=== PATIENT | female | born 1970 ===

== ENCOUNTER 2019-11-29 16:00 | Outpatient (RCR) | payer OTHER, SELFPAY ==
--- NOTE | 2019-11-16 16:17 | MHC.PT.EP ---
[facility] [place] Office [place] Office [place] Office [address] Marlene Ruiz [address] [phone] F: [phone] F: [phone] F: [phone] F: [phone] Physical Therapy Plan of Care Date of Evaluation: 11/16/19 Date of Surgery: Diagnosis: Tricompartment OA of bilateral knees Assessment: Pt is a 49 y/o female referred to skilled PT for tricompartment OA of bilateral knees. Examination reveals impairments including: altered gait pattern, impaired posture, decreased ROM @ hips and knees, impaired core/hip/knee strength, muscle length deficits, pain, impaired patella mobility/alignment, B patella lateral tracking, impaired quad control, and tenderness to palpation. Related functional limitations include: sitting for too long, sitting with knees flexed past 90 degrees, standing, walking, ascending/descending stairs, bending, lifting, getting in/out of bath, and bed mobility. Pt will benefit from skilled PT services 2x/week for 4-5 weeks in order to reduce impairments, improve function, and implement a comprehensive HEP. Frequency and Duration: The patient will be seen 2x/week for 5 weeks, minimum of 38 minutes. Short Term Goals: - In 2 weeks, Pt to report less than 10/10 pain. - In 3 weeks, Pt to demonstrate improved HS length by at least 8 degrees. Custodial Goals: -In 4 weeks, Pt to demonstrate I w/ HEP. -In 5 weeks, Pt to demonstrate the ability to ascend/descend stairs w/ less than baseline knee pain. -In 5 weeks, Pt to improve LEFI by at least 9 points. Treatment Plan: Modalities to reduce pain, spasms and effusion. Manual therapy to restore motion and function. Therapeutic exercise to improve strength and flexibility. Neuromuscular re-education for posture and balance. Therapeutic activities to return to functional activities of daily living. Please sign and return to therapist. Thank you for your referral.
--- NOTE | 2019-12-10 12:41 | MHC.PT.DC ---
[facility] [place] Office [place] Office [place] Office [address] Marlene Ruiz [address] [phone] F: [phone] F: [phone] F: [phone] F: [phone] Physical Therapy Discharge Report Diagnosis: B knee OA (tricompartment) Date of Surgery: Date of Evaluation: 11/16/19 Date of Discharge: 12/10/19 Treatments to Date: 3 Cancellations to Date: 1 No Shows to Date: 0 Discharge Status: Pt elected to stop PT intervention Discharge Summary: Pt decided to d/c herself from PT due to unexpected high copayment with inability to pain. She was referred to financial services. However, she still decided to stop PT. She was progressing well with hip and knee strengthening therapeutic exercise for her diagnosis of B knee tricompartment OA. Electronically signed by: Ashleigh Glass PT, DPT Please sign and return to therapist. Thank you for your referral.
== END 2019-12-10 12:44 | disposition other institution (70) ==
LOC: HO.PT 16:00
PROVIDERS: Visit Provider Physician Assistant
DX: M17.0 Bilateral primary osteoarthritis of knee (principal)
CPT/HCPCS: 97110; 97161

== ENCOUNTER 2019-12-17 13:28 | Outpatient (REF) | payer OTHER, SELFPAY ==
[2019-12-18 02:21] LABS: CT PCR NOT DETECTED (Not Detect.); NG PCR NOT DETECTED (Not Detect.)
[2019-12-18 09:31] LABS: BV Int Neg Control Negative (Negative); BV Int Pos Control Positive (Positive)
== END 2019-12-17 13:29 | disposition home or self-care (01) ==
LOC: HO.LAB 13:28
PROVIDERS: PCP Internal Medicine; Referring Provider Internal Medicine; Visit Provider Advanced Practice Midwife
DX: Z01.419 Encounter for gynecological examination (general) (routine) without abnormal findings (principal); E66.01 Morbid (severe) obesity due to excess calories
CPT/HCPCS: 87480; 87491; 87510; 87591; 87660

== ENCOUNTER 2020-01-02 12:35 | Outpatient (REF) | payer OTHER, SELFPAY | END 2020-01-02 12:36 | disposition home or self-care (01) | LOC: HO.LAB 12:35 | PROVIDERS: Visit Provider Nurse Practitioner Family | DX: A60.04 Herpesviral vulvovaginitis (principal) | CPT/HCPCS: 87255 ==

== ENCOUNTER → 2020-01-18 07:55 | Outpatient (BNVA) | payer OTHER, SELFPAY | PROVIDERS: PCP Internal Medicine; Visit Provider Advanced Practice Midwife | DX: Z76.89 Persons encountering health services in other specified circumstances (principal) ==

== ENCOUNTER 2020-02-07 10:40 | Outpatient (REF) | payer OTHER, SELFPAY | END 2020-02-07 10:41 | disposition home or self-care (01) | LOC: HO.LAB 10:40 | PROVIDERS: Visit Provider Internal Medicine | DX: Z20.828 Contact with and (suspected) exposure to other viral communicable diseases (principal) | CPT/HCPCS: C9803; U0003 ==

== ENCOUNTER → 2020-02-11 10:41 | Outpatient (BNVA) | payer OTHER, SELFPAY | PROVIDERS: PCP Internal Medicine; Visit Provider Obstetrics & Gynecology | DX: Z76.89 Persons encountering health services in other specified circumstances (principal) ==

== ENCOUNTER 2020-02-25 08:44 | Outpatient (REF) | payer OTHER, SELFPAY | END 2020-02-25 08:45 | disposition home or self-care (01) | LOC: HO.LAB 08:44 | PROVIDERS: PCP Internal Medicine; Visit Provider Obstetrics & Gynecology | DX: N90.4 Leukoplakia of vulva (principal) | CPT/HCPCS: 56605; 88305; 88312 ==

== ENCOUNTER → 2020-03-10 08:53 | Outpatient (BNVA) | payer OTHER, SELFPAY | PROVIDERS: PCP Internal Medicine; Visit Provider Obstetrics & Gynecology ==

== ENCOUNTER 2020-10-29 14:24 | Outpatient (REF) | payer OTHER, SELFPAY ==
--- NOTE | ~2020-10-29 | MM_ITS ---
EXAMINATION: MM DIAGNOSTIC DIGITAL BREAST TOMOSYNTHESIS, BILATERAL CLINICAL INFORMATION: Follow-up right breast density The lifetime risk of breast cancer based on the Tyrer-Cuzick Model is 10.6%. COMPARISON: Mammography: October 23, 2019 and studies dating back to May 18, 2013 TECHNIQUE: Digital breast tomosynthesis is performed in both the craniocaudal and mediolateral oblique views along with computer-aided detection (CAD). Synthesized 2D images are generated from the tomosynthesis. FINDINGS: There are scattered areas of fibroglandular density (ACR BI-RADS breast composition Category b). There are no new significant masses, abnormal calcifications, or other abnormalities. There is stability of right breast density about the inferior medial aspect. Results are provided to the patient at time of visit by the technologist. MM/MM tomosynthesis diagnostic BI IMPRESSION: There are no significant changes from prior study. ASSESSMENT: BI-RADS 2: Benign RECOMMENDATION: Routine annual mammography screening due in 12 months. This patient's information was entered into a reminder system with a target due date for their next mammogram.
== END 2020-10-29 14:25 | disposition home or self-care (01) ==
LOC: HO.MAMMO 14:24
PROVIDERS: PCP Internal Medicine; Visit Provider Internal Medicine
DX: R92.2 Inconclusive mammogram (principal)
CPT/HCPCS: 77062; 77066

== ENCOUNTER 2020-11-27 16:48 | Outpatient (REF) | payer OTHER, SELFPAY | END 2020-11-27 16:49 | disposition home or self-care (01) | LOC: HO.LNP 16:48 | PROVIDERS: Visit Provider Physician Assistant Medical | DX: Z20.822 Contact with and (suspected) exposure to COVID-19 (principal); J01.90 Acute sinusitis, unspecified | CPT/HCPCS: U0003; U0005 ==

== ENCOUNTER 2020-12-02 13:46 | Emergency (ER) | payer OTHER, SELFPAY ==
[2020-12-02 13:52] VITALS: BP 147/80; PULSE 94; RESP 18; TEMP 36; O2SAT 97; BMI 42.0
--- NOTE | 2020-12-02 15:28 | ED_ITS ---
HPI - Female Genitourinary General Chief complaint: Urogenital-Female Stated complaint: hemorrhoids Time Seen by Provider: 12/02/20 15:19 History of Present Illness HPI Narrative: Patient is a 50-year-old female with a history of external hemorrhoids. Presented today with having a massProtruding from her rectum for the last few days. Patient claims that the mass comes in in now. She does have problems with constipation from time to time. Patient denies any fever chills. No bloody stool. No nausea no vomiting. No systemic complaints. Patient is from home. Related Data Home Medications Medication Instructions Recorded Confirmed calcium carbonate 600 mg (1,500 cap PO 11/27/20 mg)-vitamin D3 500 unit capsule (Calcium 600 with Vitamin D3) Previous Rx's Medication Instructions Recorded metformin 1,000 mg tablet 1,000 mg PO BID #180 tab 11/16/20 amoxicillin 875 mg-potassium 1 tab PO Q12H 7 Days #14 tab 11/27/20 clavulanate 125 mg tablet (Augmentin) hydrocortisone 1 %-pramoxine 1 % 1 appl IN QID PRN #10 g 12/02/20 rectal foam (Proctofoam HC) Allergies Allergy/AdvReac Type Severity Reaction Status Date / Time glipizide [GLIPIZIDE] Allergy Severe SHORTNESS Verified 03/10/20 09:17 OF BREATH environmental allergies Allergy Unknown Unknown Uncoded 02/25/20 09:00 Review of Systems Review of Systems: No fever no chills no cough no congestion or upper respiratory symptoms. No diaphoresis All systems reviewed otherwise negative Yes all other systems are reviewed and are negative PMFSH Past Medical History Attestation statement: The following information was validated with the patient. Medical History Borderline glaucoma (glaucoma suspect) Carpal tunnel syndrome on right Diabetes Diabetes mellitus Hernia Herpes genitalis HTN (hypertension) Pure hypercholesterolemia Yeast infection involving the vagina and surrounding area Surgical History Hx of hernia repair Family History Family History Father Diabetes mellitus Mother Diabetes mellitus Social History Social History Alcohol intake: never Advance Directives: No Advance Directives Information Provided: No Patient : No Sexual orientation: Straight/Heterosexual Gender identity: Female Physical Exam Vital Signs: Vital Signs: Last Vital Signs Temp 96.8 F 12/02/20 13:52 Pulse 94 12/02/20 13:52 Resp 18 12/02/20 13:52 BP 147/80 H 12/02/20 13:52 Pulse Ox 97 12/02/20 13:52 Body Mass Index 42.0 Appearance: Alert. Oriented X3. No acute distress. Eyes: Pupils equal, round and reactive to light. ENT: Pharynx normal. Neck: Normal inspection. Neck supple. No lymph nodes noted. No crepitus CVS: Normal heart rate and rhythm. Pulses normal. Normal S1 and S2 Respiratory: No respiratory distress. Breath sounds normal. No Wheezing. No rales Abdomen: Soft and nontender. No rigidity. No distention. good BS x4 Rectal exam showed an external hemorrhoid. Not thrombosed. Minimally tender to touch. Skin: Skin warm and dry. Normal skin color. Normal skin turgor. Extremities: No lower extremity edema. Neurovascular intact to all extremities. No Lacerations. No Rash Neuro: Oriented X 3. No motor deficit. No sensory deficit. Moving all extermities. No slurred speech MDM - Female Genitourinary MDM Narrative Medical decision making narrative: Positive external hemorrhoid. Will prescribe Proctofoam. Will have patient follow-up on an outpatient basis with surgery. Currently in stable condition. Medical Records Attestation: I reviewed the patient's medical records. Lab Data Attestation: I reviewed the patient's lab results. Discharge Plan Discharge Clinical Impression: Hemorrhoid Patient Disposition: Home, Self-Care Instructions: Hemorrhoids (ED), Sitz Bath (DC) Prescriptions: New Proctofoam HC 1-1 % foam 1 appl IN QID PRN (Reason: hemorrhoids) Qty: 10 RF: 0 No Action metformin 1,000 mg tablet 1,000 mg PO BID Qty: 180 RF: 3 calcium carbonate-vitamin D3 [Calcium 600 with Vitamin D3] 600 mg(1,500mg) - 500 unit capsule PO RF: 0 amoxicillin-pot clavulanate [Augmentin] 875-125 mg tablet 1 tab PO Q12H 7 Days Qty: 14 RF: 0 Referrals: Fuad Lock MD [Physician] - 2 days
[2020-12-02 15:40] VITALS: BP 149/87; PULSE 90; RESP 18; TEMP 36.9; O2SAT 98
== END 2020-12-02 15:51 | disposition home or self-care (01) ==
PROVIDERS: Emergency Provider Emergency Medicine Emergency Medical Services; PCP Internal Medicine
DX: K64.4 Residual hemorrhoidal skin tags (principal); E11.9 Type 2 diabetes mellitus without complications; E66.01 Morbid (severe) obesity due to excess calories
CPT/HCPCS: 99283

== ENCOUNTER 2020-12-24 07:49 | Outpatient (REF) | payer OTHER, SELFPAY ==
[2020-12-24 15:37] LABS: CT PCR NOT DETECTED (Not Detect.); NG PCR NOT DETECTED (Not Detect.)
[2020-12-25 09:43] LABS: BV Int Neg Control Negative (Negative); BV Int Pos Control Positive (Positive)
[2020-12-27 02:47] LABS: HPV mRNA E6/E7 rflx Not Detected (Not Detected)
== END 2020-12-24 07:50 | disposition home or self-care (01) ==
LOC: HO.LAB 07:49
PROVIDERS: Visit Provider Advanced Practice Midwife
DX: Z01.411 Encounter for gynecological examination (general) (routine) with abnormal findings (principal); Z11.51 Encounter for screening for human papillomavirus (HPV); N89.8 Other specified noninflammatory disorders of vagina; Z20.2 Contact with and (suspected) exposure to infections with a predominantly sexual mode of transmission
CPT/HCPCS: 87480; 87491; 87510; 87591; 87624; 87660; 88142

== ENCOUNTER 2021-06-16 07:54 | Outpatient (REF) | payer OTHER, SELFPAY ==
[2021-06-16 10:20] LABS: HCG Quantitative < 2 mIU/mL; Thyroid Stimulating Hormone 1.82 uIU/mL (0.32-4.0)
[2021-06-18 07:17] LABS: Follicle Stimulating Hormone 58.7 mIU/mL
== END 2021-06-16 07:55 | disposition home or self-care (01) ==
LOC: HO.LAB 07:54
PROVIDERS: PCP Family Medicine; Visit Provider Advanced Practice Midwife
DX: R23.2 Flushing (principal); N92.6 Irregular menstruation, unspecified; E11.9 Type 2 diabetes mellitus without complications; E78.00 Pure hypercholesterolemia, unspecified; A60.00 Herpesviral infection of urogenital system, unspecified; E66.01 Morbid (severe) obesity due to excess calories; J30.89 Other allergic rhinitis; Z68.41 Body mass index [BMI] 40.0-44.9, adult; Z88.8 Allergy status to other drugs, medicaments and biological substances
CPT/HCPCS: 36415; 81025; 83001; 84443; 84702

== ENCOUNTER → 2021-07-14 12:43 | Outpatient (BNVA) | payer OTHER, SELFPAY | PROVIDERS: PCP Family Medicine; Referring Provider Emergency Medicine; Visit Provider Internal Medicine Cardiovascular Disease | DX: R07.9 Chest pain, unspecified (principal) | CPT/HCPCS: 93005 ==

== ENCOUNTER → 2021-07-28 09:03 | Outpatient (REF) | payer OTHER, SELFPAY ==
--- NOTE | ~2021-07-28 | NM_ITS ---
Exercise Myocardial perfusion study Indication: Chest pain to evaluate for myocardial ischemia Technique: The patient was brought in for an exercise perfusion study on 07/28/2021. Patient performed exercise as per Huy protocol and was injected 30 mCi of sestamibi was given intravenously one target HR was achieved. Images were obtained using the SPECT gamma camera interlaced with the gating device. Images were obtained in supine position. Resting perfusion study was performed on 07/29/2021. Patient was administered 30 mCi of sestamibi intravenously at rest. Images were then obtained in supine position. Images obtained with and without CT attenuation. Total DLP 107 mGy-cm. Images were processed with the software and compared side to side in short axis, horizontal long axis and vertical long axis views. Findings: The stress perfusion study showed both attenuated as well as non attenuated corrected images show normal uptake of radiotracer in all segments of LV myocardium. The gated study shows normal LV systolic function with calculated LVEF of greater than 70 %. LV cavity is normal in size. The gated study shows normal systolic wall thickening and contraction of all segments. There is no transient ischemic dilation. Resting study shows normal uptake of radiotracer in all segments of LV myocardium on non attenuated images. Gating at rest reveals normal systolic wall motion with ejection fraction at 71%. The findings are consistent with normal myocardial perfusion. NM/NM cardiolite stress test Impression: 1. Normal myocardial perfusion 2. Gated LVEF is greater than 70% 3. Transient ischemic dilatation not present Stress EKG is negative for ischemia
--- NOTE | 2021-07-28 09:06 | CA_ITS ---
Acquisition Time: 2021-07-28 09:17:09 Total Exercise Time: 00:05:01 Test Indications: Dyspnea Medications: METFORMIN Protocol: IAM Max HR: 166 BPM 99% of Pred: 167 BPM Max BP: 152/078 mmHG Max Work Load: 5.1 METS Exercise stress test with exercise 5 min 1 sec of Iam protocol stage 1 ( speed increased to 2 MPH at 3 min exercise ), achieving 98% MPHR, with mild sob, no chest discomfort, with isolated PVCs, with normotensive response to exercise, without EKG changes meeting criteria for ischemia. Nuclear images pending. Test reviewed with Dr Cruz Referred By: Oliver Cruz Overread By: DANIELLE PEÑA
== END ==
LOC: HO.CARD 09:03
PROVIDERS: Visit Provider Internal Medicine Cardiovascular Disease
DX: R07.9 Chest pain, unspecified (principal)
CPT/HCPCS: 78452; 93017; A9500

== ENCOUNTER → 2021-08-18 13:41 | Outpatient (REF) | payer OTHER, SELFPAY ==
--- NOTE | 2021-08-18 13:49 | CA_ITS ---
Transthoracic Echocardiogram Patient (Last, First, Middle): Lara Wyatt V Gender: Female Date of : 1970 Age: 51 Procedure Date: 08/18/2021 Procedure Type: Transthoracic Echocardiogram Location: OP Height: 149.86 cm Weight: 94.8 kg BSA: 1.88 m2 Heart Rate: bpm BP: 128 / 80 mmHg Physiotherapist'S Assistant: TERESO Referring MD: Oliver Cruz MD Sew Out Operator: Oliver Cruz MD Symptoms: R07.9 - Chest pain, unspecified Study Quality: Fair ECG Rhythm: Sinus Conclusions: - 1. Normal LV systolic function with impaired relaxation filling pattern 2. Normal cardiac valvular Doppler 3. No pericardial effusion Findings Left Ventricle Normal left ventricular size, thickness, and systolic function. The visually estimated ejection fraction is between 60-65%. Regional wall motion abnormalities can not be excluded due to suboptimal endocardial definition. Spectral Doppler is indicative of an impaired relaxation filling pattern. E/E prime ratio is <8, consistent with normal filling pressures. Evidence suggests grade I (mild) diastolic dysfunction. Right Ventricle Normal right ventricular cavity size and systolic function. Atria Both atria are normal in size. Interatrial shunt cannot be excluded. Aortic Valve Normal aortic valve structure and function. There is no aortic valve stenosis. There is no aortic valve regurgitation. Mitral Valve Normal mitral valve structure and function. There is trace mitral valve regurgitation. There is no mitral valve stenosis. Pulmonic Valve The pulmonic valve was not well visualized. Tricuspid Valve Likely normal tricuspid valve structure and function. Tricuspid regurgitation envelope is inadequate for calculation of right ventricular systolic pressure. Normal right atrial pressure. Great Vessels All visible segments of the aorta are normal in size. The pulmonary artery was not well visualized. Venous The inferior vena cava is normal in size and collapses greater than 50% with inspiration. Pericardium/Pleural There is no evidence of pericardial effusion. Prior Study Comparison No prior study available for comparison. Recommendations, Care & Conclusions Recommend contrast in the future to improve endocardial definition. Measurements 2D Linear Measurements IVSd: 1.12 0.6-0.9/0.6-1.0 cm LVIDd: 3.89 3.9-5.3/4.2-5.9 cm LVIDd Index: 2.07 2.4-3.2/2.2-3.1 cm/m2 LVIDs: 2.71 2.0-3.6 cm LVPWd: 1.01 0.7-1.1 cm LA Diam: 2.20 2.7-3.8/3.0-4.0 cm LAIDs Index: 1.17 1.5-2.3 cm/m2 LV Mass: 165.68 67-162/88-224 g LV Mass Index: 88.13 43-95/49-115 g/m2 LVOT Diam: 2.00 3.0+(-)1.3 cm 2D Systolic Function EF 4C: 62.80 >55% EF 2C: 66.20 >55% EF BiP: 63.30 >55% Mitral Valve MV Pk E: 0.63 MV PK A: 0.77 MV Decel Time: 219.00 E/A: 0.80 E'Lateral: 11.30 E'Medial: 7.40 E/E' Med: 8.50 E/E' Lat: 5.50 PHT: 64.00 MVA PHT: 3.44 Decel [place]: 2.85 Aortic Valve AoV Pk Manuel: 1.40 AoV Mn Manuel: 0.98 AoV VTI: 0.28 AoV Pk Grad: 8.00 Aov Mn Grad: 4.00 BEREKET Cont.VTI: 2.26 LVOT LVOT Pk Manuel: 0.95 LVOT Mn Manuel: 0.68 LVOT VTI: 0.20 LVOT Pk Grad: 4.00 LVOT Mn Grad: 2.00 LVOT Diam: 2.00 LVOT Area: 3.14 Diastolic Function MV Pk E: 0.63 MV Pk A: 0.77 E/A: 0.80 E'Medial: 7.40 E/E' Med: 8.50 E' Laterial: 11.30 E/E' Lat: 5.50 Right Ventricle TAPSE (mm): 20.00 TVS' Manuel: 11.40 Tricuspid Valve RA Press: 3.00 Great Vessels Aorta Sinus of Valsalva: 3.02 2.0-3.[address] [place]: 2.44 1.7-3.4 cm Ao Asc: 3.20 2.1-3.4 cm Updated in Other Vendor System with Status of Final Oliver Cruz MD electronically signed on 08/19/2021 1:55:02 PM with status of Final
== END ==
LOC: HO.CARD 13:41
PROVIDERS: Visit Provider Internal Medicine Cardiovascular Disease
DX: R07.9 Chest pain, unspecified (principal)
CPT/HCPCS: 93306

== ENCOUNTER 2021-10-09 07:22 | Outpatient (REF) | payer OTHER, SELFPAY ==
--- NOTE | ~2021-10-09 | XR_ITS ---
EXAMINATION: XR HAND, RIGHT CLINICAL INFORMATION: Pain COMPARISON: Previous x-ray March 2014 TECHNIQUE: PA, lateral, and oblique views of the right hand. FINDINGS: Bone alignment is normal. No fracture or dislocation is seen. There is severe erosive arthritis at the first MCP joint with joint space narrowing and erosive changes with bone destruction greatest involving the first metacarpal head. There are erosive changes of the ulnar styloid. These findings are new from 2015 exam. The joint spaces are otherwise normal. Soft tissues are normal. XR/XR hand RT min 3V IMPRESSION: New erosive changes at the first MCP joint and ulnar styloid. Involvement of the ulnar styloid favors an erosive inflammatory arthritis over septic arthritis. Findings will be communicated by the [place] work flow transportation sales consultant.
== END 2021-10-09 07:23 | disposition home or self-care (01) ==
LOC: HO.XRAY 07:22
PROVIDERS: PCP Family Medicine; Visit Provider Family Medicine
DX: M79.644 Pain in right finger(s) (principal)
CPT/HCPCS: 73130

== ENCOUNTER 2021-11-02 14:22 | Outpatient (REF) | payer OTHER, SELFPAY ==
--- NOTE | ~2021-11-02 | MM_ITS ---
EXAMINATION: MM SCREENING DIGITAL BREAST TOMOSYNTHESIS, BILATERAL CLINICAL INFORMATION: Screening. Asymptomatic. The lifetime risk of breast cancer based on the Tyrer-Cuzick Model is 10%. COMPARISON: Mammography: 10/29/2020, 10/23/2019, 04/09/2019, 09/26/2018 exam 09/21/2018 TECHNIQUE: Digital breast tomosynthesis is performed in both the craniocaudal and mediolateral oblique views along with computer-aided detection (CAD). Synthesized 2D images are generated from the tomosynthesis. FINDINGS: There are scattered areas of fibroglandular density (ACR BI-RADS breast composition Category b). The asymmetric density mid lower inner right breast on recent prior imaging suspected to represent sequela from prior trauma is no longer demonstrated with certainty. There is no developing density in either breast and no interval architectural changes or abnormal calcifications. Parenchymal pattern is otherwise similar to prior exams. There is a biopsy clip marker again noted anterior upper outer right breast. The axilla and skin contours are unremarkable. MM/MM tomosynthesis screening BI IMPRESSION: -No mammographic evidence of malignancy. -Asymmetric density lower inner right breast no longer demonstrated. ASSESSMENT: BI-RADS 2: Benign RECOMMENDATION: Routine annual mammography screening. This patient's information was entered into a reminder system with a target due date for their next mammogram.
== END 2021-11-02 14:23 | disposition home or self-care (01) ==
LOC: HO.MAMMO 14:22
PROVIDERS: PCP Family Medicine; Visit Provider Internal Medicine
DX: Z12.31 Encounter for screening mammogram for malignant neoplasm of breast (principal)
CPT/HCPCS: 77063; 77067

== ENCOUNTER 2021-12-08 09:48 | Day surgery (SDC) | payer OTHER, SELFPAY ==
--- NOTE | 2021-12-07 12:48 | P.CONAN_ITS ---
Documented by User: Gayle Mota NP 12/07/21 12:49 HPI - Anesthesia Eval Consult details Narrative: 51yo F for Colonoscopy PMFSH Active Problems Active Problems: All Active Problems (Updated 07/23/21 @ 14:54 by Mendy Jewell) Perimenopause (Acute) Encounter to discuss test results (Acute) Exertional chest pain (Acute) Hot flashes (Acute) Irregular menses (Acute) Sinusitis, acute (Acute) Lichen simplex chronicus (Acute) Vulvar leukoplakia (Acute) Hypopigmentation (Acute) Diabetes mellitus (Acute) Diabetes (Acute) Herpes genitalis (Acute) Herpes genitalia (Acute) Well woman exam with routine gynecological exam (Acute) Obesity, morbid, BMI 40.0-49.9 (Acute) Past Medical History Medical History Borderline glaucoma (glaucoma suspect) Carpal tunnel syndrome on right Diabetes Diabetes mellitus Hernia Herpes genitalis HTN (hypertension) Pure hypercholesterolemia Yeast infection involving the vagina and surrounding area Family History Family History Father Diabetes mellitus Mother Diabetes mellitus Surgical History Surgical History Hx of hernia repair Social History Social History (System 11/24/21 @ 16:29 by Adri Miles) Alcohol intake: never Patient Tobacco Use Status: Never used Tobacco Current occupational status: employed Current occupation: [employer] Sexual orientation: Straight/Heterosexual Gender identity: Female Meds Allergies Allergy/AdvReac Type Severity Reaction Status Date / Time glipizide [GLIPIZIDE] Allergy Severe SHORTNESS Verified 12/03/21 11:38 OF BREATH environmental allergies Allergy Unknown Unknown Uncoded 12/03/21 11:38 onions Allergy Unknown Unknown Uncoded 12/03/21 11:38 Home Medications Medication Instructions Recorded Confirmed Last Taken Type calcium carbonate 600 mg-vitamin 1 cap PO DAILY 11/27/20 12/03/21 12/06/21 His tory D3 12.5 mcg (500 unit) capsule (Calcium 600 with Vitamin D3) atorvastatin 10 mg tablet 10 mg PO DAILY 12/03/21 12/03/21 12/06/21 History dapagliflozin 10 mg tablet 10 mg PO DAILY 12/03/21 12/08/2112/06/22 History ([facility]) Exam Exam Date and Time: December 07, 2021 1248 Assessment and Plan Assessment Anesthesia Assessment: Chart Reviewed Documented by User: Bandar Najera MD 12/08/21 17:53 [facility] Past Medical History Medical History Borderline glaucoma (glaucoma suspect) Carpal tunnel syndrome on right Diabetes Diabetes mellitus Hernia Herpes genitalis HTN (hypertension) Pure hypercholesterolemia Yeast infection involving the vagina and surrounding area Family History Family History Father Diabetes mellitus Mother Diabetes mellitus Family history of problems with anesthesia: No Surgical History Surgical History Hx of hernia repair History of Problems with Anesthesia: No Social History Social History (System 11/24/21 @ 16:29 by Adri Miles) Alcohol intake: never Patient Tobacco Use Status: Never used Tobacco Current occupational status: employed Current occupation: [employer] Sexual orientation: Straight/Heterosexual Gender identity: Female Meds Allergies Allergy/AdvReac Type Severity Reaction Status Date / Time glipizide [GLIPIZIDE] Allergy Severe SHORTNESS Verified 12/03/21 11:38 OF BREATH environmental allergies Allergy Unknown Unknown Uncoded 12/03/21 11:38 onions Allergy Unknown Unknown Uncoded 12/03/21 11:38 Home Medications Medication Instructions Recorded Confirmed Last Taken Type calcium carbonate 600 mg-vitamin 1 cap PO DAILY 11/27/20 12/03/21 12/06/21 History D3 12.5 mcg (500 unit) capsule (Calcium 600 with Vitamin D3) atorvastatin 10 mg tablet 10 mg PO DAILY 12/03/21 12/03/21 12/06/21 History dapagliflozin 10 mg tablet 10 mg PO DAILY 12/03/21 12/08/21 12/06/21 [facility] ([facility] Exam Airway Mallampati Class: III TM Dist: >3cm Neck ROM: Full Loose/Missing/Broken Teeth: Yes (Multiple chipped teeth , poor dentition overall ) Heart: S1,S2 Lungs: b/l breath sounds Assessment and Plan Assessment Anesthesia Assessment: Anesthesia Plan Discussed Final Anesthetic Review Family History of Problems with Anesthesia: No History of Problems with Anesthesia: No NPO: Yes ASA Class: III Final Preanesthetic Review: Meds/Allgs Chart Reviewed, Consent Obtained/Reviewed and Anes Risks/Benef Reviewed Patient Risk: Intermediate Procedure Risk: Intermediate Anesthetic Plan Anesthetic Plan: MAC: Disposition: Standard PACU
[2021-12-08 06:58] VITALS: BMI 42.6
[2021-12-08 10:27] VITALS: BP 140/89; PULSE 79; RESP 18; TEMP 36.6; O2SAT 98
[2021-12-08 10:28] LABS: Glucose, Whole Blood 229 mg/dL (60-115)
[2021-12-08] MEDS: Lactated Ringers 1,000 ML 100 ML IVCONT (11:22)
--- NOTE | 2021-12-08 12:07 | P.HPSUR_ITS ---
Pre-Procedural Eval Section A Date of Service: 12/08/21 Section B Chief Complaint: screening Relevant Family History (Specify if Yes): No Relevant Social History: None Present Medications: see Short Stay Collaborative assessment Medical History: Significant History (Borderline glaucoma (glaucoma suspect) Carpal tunnel syndrome on right Diabetes Diabetes mellitus Hernia Herpes genitalis HTN (hypertension) Pure hypercholesterolemia Yeast infection involving the vagina and surrounding area) History of Previous Operations: Relevant previous surgery/procedure and date(s) (hernia repair) Allergies: Allergies Allergy/AdvReac Type Severity Reaction Status Date / Time glipizide [GLIPIZIDE] Allergy Severe SHORTNESS Verified 12/03/21 11:38 OF BREATH environmental allergies Allergy Unknown Unknown Uncoded 12/03/21 11:38 onions Allergy Unknown Unknown Uncoded 12/03/21 11:38 Review of Systems Sugical H&P ROS: Negative: Constitution, Cardiovascular, Respiratory, Neurological, Psychiatric, Hem-Onc, Allergic/Immunologic, Gastrointestinal, Genitourinary, Musculoskeletal, Integumentary, Endocrine and Eyes/Ears/Nose/Throat Exam Surgical H&P Exam: Normal: HEENT, Normal: Heart, Normal: Lungs, Normal: Extr emities, Normal: Abdomen, Normal: Skin and Normal: Neurological Plan Diagnosis/Plan: Unchanged I have reviewed the history and physical and performed a pertinent physical examination on my patient. No changes have occurred unless specified.
--- NOTE | 2021-12-08 12:54 | W.PM.OPN ---
Operative Note Operative Note Date of Service: 12/08/21 Narrative: Operative Information Procedure Description: Colonoscopy Indication: screening Anesthesia: MAC COLONOSCOPY Instrument: Olympus variable stiffness pediatric scope 190L Colonoscopy Monitoring: Vital signs and clinical assessment, continuous EKG monitoring, Pulse oximetry, Carbon Dioxide monitoring and blood pressure monitoring were done throughout the procedure. Colon withdrawal time was 12 minutes. Procedure: The patient was placed in the left lateral decubitis position and pre-procedure medications were administered. After a digital rectal examination of the ano-rectum, the video colonoscope was inserted into the rectum and advanced through the colon to the cecum/TI. The colonoscope was slowly withdrawn in a retrograde panoramic fashion and the colon mucosa was carefully examined including a retroflexed view of the rectum. Findings and interventions are described below. Procedure Difficulty: moderate Findings: Terminal Ileum-normal Cecum:normal Ascending Colon: normal Transverse Colon -normal Descending Colon:normal Sigmoid Colon: modeate diverticulodis noted Rectum: Retroflexion with small internal hemorrhoids, grade I Anorectum - normal Colon preparation: Chapman Bowel Preparation Scale Right colon; 1-2 Transverse colon: 2 Left colon; 2 (0 = Unprepared colon segment with mucosa not seen due to solid stool that cannot be cleared. 1 = Portion of mucosa of the colon segment seen, but other areas of the colon segment not well seen due to staining, residual stool and/or opaque liquid. 2 = Minor amount of residual staining, small fragments of stool and/or opaque liquid, but mucosa of colon segment seen well. 3 = Entire mucosa of colon segment seen well with no residual staining, small fragments of stool or opaque liquid) Impression and Post Procedure Diagnosis: internal hemorrhoids diverticular disease Plan: High fiber diet leaflet Avoid straining at stool, epsom salts and sitz bath, anusol supps or cream Repeat Colonoscopy in 5 years due to fair right sided prep or earlier if clinically indicated Above findings were reviewed with the patient and relevant handouts were provided if indicated.
[2021-12-08 13:00] VITALS: BP 116/69; PULSE 85; RESP 16; TEMP 36.3; O2SAT 99
--- NOTE | 2021-12-08 13:12 | PC.NURSE ---
sitting up in bed drinking andrews ahsan.
[2021-12-08 13:15] VITALS: BP 138/82; PULSE 85; RESP 16; TEMP 36.5; O2SAT 99
== END 2021-12-08 13:48 | disposition home or self-care (01) ==
PROVIDERS: PCP Family Medicine; Visit Provider Internal Medicine Gastroenterology
PROC: 0DJD8ZZ Inspection of Lower Intestinal Tract, Via Natural or Artificial Opening Endoscopic (ICD-10-PCS; CPT 45378; principal; 2021-12-08 12:30)
DX: Z12.11 Encounter for screening for malignant neoplasm of colon (principal); K57.30 Diverticulosis of large intestine without perforation or abscess without bleeding; K64.0 First degree hemorrhoids; K59.01 Slow transit constipation; I10 Essential (primary) hypertension; E78.00 Pure hypercholesterolemia, unspecified; E11.9 Type 2 diabetes mellitus without complications; H40.009 Preglaucoma, unspecified, unspecified eye; Z79.84 Long term (current) use of oral hypoglycemic drugs; Z79.899 Other long term (current) drug therapy; Z88.8 Allergy status to other drugs, medicaments and biological substances
CPT/HCPCS: 45378; 82947

== ENCOUNTER 2022-01-13 15:37 | Outpatient (REF) | payer OTHER, SELFPAY ==
--- NOTE | ~2022-01-13 | XR_ITS ---
EXAMINATION: XR HAND/WRIST, LEFT CLINICAL INFORMATION: Rheumatoid arthritis. COMPARISON: Left hand radiographs dated 05/07/2014. TECHNIQUE: AP, oblique, lateral, and scaphoid views of the left hand and wrist. FINDINGS: No acute fracture or dislocation. Normal carpal alignment. No joint space narrowing or marginal osteophytes. No osseous erosion. No periarticular osteopenia. No abnormal soft tissue calcification. XR/XR hand wrist LT IMPRESSION: Unremarkable examination.
--- NOTE | ~2022-01-13 | XR_ITS ---
EXAMINATION: XR ANKLE, RIGHT XR ANKLE, LEFT XR FOOT, RIGHT XR FOOT, LEFT CLINICAL INFORMATION: Rheumatoid arthritis. COMPARISON: Left ankle radiographs dated 11/26/2005. TECHNIQUE: AP, oblique, and lateral views of the right and left foot and ankle were obtained. FINDINGS: RIGHT ANKLE: No acute fracture or dislocation. The ankle mortise is maintained. No joint space narrowing or marginal osteophytes. No osseous erosion. Circumferential soft tissue swelling. LEFT ANKLE: No acute fracture or dislocation. The ankle mortise is maintained. No joint space narrowing or marginal osteophytes. No osseous erosion. Circumferential soft tissue swelling. RIGHT FOOT: No acute fracture or dislocation. Prominent periarticular erosions at the 5th metatarsophalangeal joint, most severe within the 5th metatarsal head. Probable dorsal subluxation of the 5th proximal phalanx. Small marginal osteophytes along the dorsal midfoot. Plantar and dorsal calcaneal spurs. LEFT FOOT: No acute fracture or dislocation. Prominent periarticular erosions at the 5th metatarsophalangeal joint with dorsal subluxation of the proximal phalanx. Small plantar and dorsal calcaneal spurs. XR/XR ankle RT min 3V IMPRESSION: RIGHT ANKLE: Circumferential soft tissue swelling without acute osseous abnormality. No osseous erosion. LEFT ANKLE: Circumferential soft tissue swelling without acute osseous abnormality. No osseous erosion. RIGHT FOOT: Prominent periarticular erosions at the fifth metatarsophalangeal joint. Probable dorsal subluxation of the fifth proximal phalanx. LEFT FOOT: Prominent periarticular erosions at the fifth metatarsophalangeal joint with dorsal subluxation of the proximal phalanx.
--- NOTE | ~2022-01-13 | XR_ITS ---
EXAMINATION: XR ANKLE, RIGHT XR ANKLE, LEFT XR FOOT, RIGHT XR FOOT, LEFT CLINICAL INFORMATION: Rheumatoid arthritis. COMPARISON: Left ankle radiographs dated 11/26/2005. TECHNIQUE: AP, oblique, and lateral views of the right and left foot and ankle were obtained. FINDINGS: RIGHT ANKLE: No acute fracture or dislocation. The ankle mortise is maintained. No joint space narrowing or marginal osteophytes. No osseous erosion. Circumferential soft tissue swelling. LEFT ANKLE: No acute fracture or dislocation. The ankle mortise is maintained. No joint space narrowing or marginal osteophytes. No osseous erosion. Circumferential soft tissue swelling. RIGHT FOOT: No acute fracture or dislocation. Prominent periarticular erosions at the 5th metatarsophalangeal joint, most severe within the 5th metatarsal head. Probable dorsal subluxation of the 5th proximal phalanx. Small marginal osteophytes along the dorsal midfoot. Plantar and dorsal calcaneal spurs. LEFT FOOT: No acute fracture or dislocation. Prominent periarticular erosions at the 5th metatarsophalangeal joint with dorsal subluxation of the proximal phalanx. Small plantar and dorsal calcaneal spurs. XR/XR foot RT min 3V IMPRESSION: RIGHT ANKLE: Circumferential soft tissue swelling without acute osseous abnormality. No osseous erosion. LEFT ANKLE: Circumferential soft tissue swelling without acute osseous abnormality. No osseous erosion. RIGHT FOOT: Prominent periarticular erosions at the fifth metatarsophalangeal joint. Probable dorsal subluxation of the fifth proximal phalanx. LEFT FOOT: Prominent periarticular erosions at the fifth metatarsophalangeal joint with dorsal subluxation of the proximal phalanx.
--- NOTE | ~2022-01-13 | XR_ITS ---
EXAMINATION: XR HIP, BILATERAL, WITH AP PELVIS CLINICAL INFORMATION: Rheumatoid arthritis. COMPARISON: None TECHNIQUE: AP and frog-leg lateral views of the right and left hip. FINDINGS: No acute fracture or dislocation. Mild bilateral hip joint space narrowing with tiny marginal osteophytes. No osseous erosion. No concerning lytic or blastic osseous lesion. No abnormal soft tissue calcification. XR/XR hips CHERYL min 3V IMPRESSION: Minimal bilateral hip arthrosis.
--- NOTE | ~2022-01-13 | XR_ITS ---
EXAMINATION: XR ANKLE, RIGHT XR ANKLE, LEFT XR FOOT, RIGHT XR FOOT, LEFT CLINICAL INFORMATION: Rheumatoid arthritis. COMPARISON: Left ankle radiographs dated 11/26/2005. TECHNIQUE: AP, oblique, and lateral views of the right and left foot and ankle were obtained. FINDINGS: RIGHT ANKLE: No acute fracture or dislocation. The ankle mortise is maintained. No joint space narrowing or marginal osteophytes. No osseous erosion. Circumferential soft tissue swelling. LEFT ANKLE: No acute fracture or dislocation. The ankle mortise is maintained. No joint space narrowing or marginal osteophytes. No osseous erosion. Circumferential soft tissue swelling. RIGHT FOOT: No acute fracture or dislocation. Prominent periarticular erosions at the 5th metatarsophalangeal joint, most severe within the 5th metatarsal head. Probable dorsal subluxation of the 5th proximal phalanx. Small marginal osteophytes along the dorsal midfoot. Plantar and dorsal calcaneal spurs. LEFT FOOT: No acute fracture or dislocation. Prominent periarticular erosions at the 5th metatarsophalangeal joint with dorsal subluxation of the proximal phalanx. Small plantar and dorsal calcaneal spurs. XR/XR foot LT min 3V IMPRESSION: RIGHT ANKLE: Circumferential soft tissue swelling without acute osseous abnormality. No osseous erosion. LEFT ANKLE: Circumferential soft tissue swelling without acute osseous abnormality. No osseous erosion. RIGHT FOOT: Prominent periarticular erosions at the fifth metatarsophalangeal joint. Probable dorsal subluxation of the fifth proximal phalanx. LEFT FOOT: Prominent periarticular erosions at the fifth metatarsophalangeal joint with dorsal subluxation of the proximal phalanx.
--- NOTE | ~2022-01-13 | XR_ITS ---
EXAMINATION: XR ANKLE, RIGHT XR ANKLE, LEFT XR FOOT, RIGHT XR FOOT, LEFT CLINICAL INFORMATION: Rheumatoid arthritis. COMPARISON: Left ankle radiographs dated 11/26/2005. TECHNIQUE: AP, oblique, and lateral views of the right and left foot and ankle were obtained. FINDINGS: RIGHT ANKLE: No acute fracture or dislocation. The ankle mortise is maintained. No joint space narrowing or marginal osteophytes. No osseous erosion. Circumferential soft tissue swelling. LEFT ANKLE: No acute fracture or dislocation. The ankle mortise is maintained. No joint space narrowing or marginal osteophytes. No osseous erosion. Circumferential soft tissue swelling. RIGHT FOOT: No acute fracture or dislocation. Prominent periarticular erosions at the 5th metatarsophalangeal joint, most severe within the 5th metatarsal head. Probable dorsal subluxation of the 5th proximal phalanx. Small marginal osteophytes along the dorsal midfoot. Plantar and dorsal calcaneal spurs. LEFT FOOT: No acute fracture or dislocation. Prominent periarticular erosions at the 5th metatarsophalangeal joint with dorsal subluxation of the proximal phalanx. Small plantar and dorsal calcaneal spurs. XR/XR ankle LT min 3V IMPRESSION: RIGHT ANKLE: Circumferential soft tissue swelling without acute osseous abnormality. No osseous erosion. LEFT ANKLE: Circumferential soft tissue swelling without acute osseous abnormality. No osseous erosion. RIGHT FOOT: Prominent periarticular erosions at the fifth metatarsophalangeal joint. Probable dorsal subluxation of the fifth proximal phalanx. LEFT FOOT: Prominent periarticular erosions at the fifth metatarsophalangeal joint with dorsal subluxation of the proximal phalanx.
[2022-01-13 16:01] LABS: MANUAL DIFF FLAG NO
[2022-01-13 16:19] LABS: Basophils Absolute Auto 0.1 X10*3/uL (0.0-0.2); Eosinophils Absolute Auto 0.5 X10*3/uL (0.0-0.4); Eosinophils Percent Auto 5.1 % (0-4); Hematocrit 37.1 % (37.0-47.0); Hemoglobin 11.6 g/dl (12.0-16.0); Imm Gran Abs Auto 0.03 X10*3/uL (0.00-0.03); Imm Gran Pct Auto 0.3 % (0.0-0.4); Lymphocytes Absolute Auto 3.2 X10*3/uL (1.2-4.9); Lymphocytes Percent Auto 35.5 % (20-40); Mean Corpuscular HGB Conc 31.3 g/dl (31.0-35.0); Monocytes Absolute Auto 0.6 X10*3/uL (0.1-1.2); Monocytes Percent Auto 6.8 % (2-11); Neutrophils Absolute Auto 4.7 x10*3/uL (2.0-8.3); Neutrophils Percent Auto 51.3 % (45-73); Platelet Count 505 X10*3/uL (160-400); Red Blood Count 4.47 X10*6/uL (4.20-5.50); Red Cell Distribution Width 15.6 % (11.0-16.0); White Blood Count 9.1 X10*3/uL (4.8-10.8)
[2022-01-13 16:23] LABS: Estimated Average Glucose 214 mg/dL; Hemoglobin A1c % 9.1 %
[2022-01-13 16:40] LABS: Alanine Aminotransferase 16 U/L (0-31); Albumin Level 3.9 g/dL (3.5-5.0); Alkaline Phosphatase 97 U/L (39-117); Anion Gap 12 (12-20); Aspartate Amino Transferase 12 U/L (5-31); Bilirubin Total 0.2 mg/dL (0.0-1.0); Blood Urea Nitrogen 8 mg/dL (9-16); C Reactive Protein 0.34 mg/dL (< or = 0.50); Calcium 10.1 mg/dL (8.4-10.2); Carbon Dioxide 29 mmol/L (22-29); Chloride 103 mmol/L (96-108); Estimated Glomerular Filt Rate > 60; Glucose Random 239 mg/dL (60-115); Potassium 4.9 mmol/L (3.3-5.1); Sodium 139 mmol/L (135-145); Total Protein 6.6 g/dL (6.5-8.0)
[2022-01-13 16:57] LABS: Erythrocyte Sedimentation Rate 34 MM/HR (0-20)
[2022-01-13 17:39] LABS: Appearance Urine Cloudy; Color Urine Yellow; Glucose Urine UA 500 mg/dL (Negative); Leukocyte Esterase Urine Negative (Negative); Nitrite Urine Negative (Negative); PH 8.5 (5.0-9.0); Specific Gravity - Urine >= 1.030 (1.005-1.025); Urine Blood Negative (Negative); Urine Ketones Negative (Negative); Urine Protein Trace mg/dL (Neg-Trace)
[2022-01-13 17:45] LABS: Bacteria Urine None Seen (None Seen); Hyaline Casts Urine 0-2 /LPF (0-2); RBC Urine 0-2 /HPF (0-2); WBC Urine 0-5 /HPF (0-5)
[2022-01-13 17:54] LABS: Creatinine Urine 41.56 mg/dL; Protein/Creatinine Ratio, Ur 0.31 (<0.2); Total Protein Urine Random 13 mg/dL (<12)
[2022-01-14 05:12] LABS: HBS Num1 1.94 mIU/mL (0-7.99); HBc Num1 0.09 S/CO (0.00-0.79); HBsAGNum1 0.27 S/CO (0.00-0.99); Hepatitis B Core Antibody Nonreactive (Nonreactive); Hepatitis B Surface Antigen Negative (Negative); ~HepC Num1 0.11 S/CO (0.00-0.79); ~Hepatitis B Surface Antibody NONREACTIVE (Nonreactive); ~Hepatitis C Antibody Nonreactive (Nonreactive)
[2022-01-14 11:18] LABS: Complement C3 141 mg/dL (83-193)
[2022-01-15 08:09] LABS: Anti DNA DS Antibody <1 IU/mL; Antibody to SS-A Antigen <1.0 NEG AI (<1.0 NEG); Antibody to SS-B Antigen <1.0 NEG AI (<1.0 NEG); SM/Ribonucleoprotein Ab <1.0 NEG AI (<1.0 NEG); Smith Protein <1.0 NEG AI (<1.0 NEG)
[2022-01-15 08:34] LABS: Hepatitis A Antibody IgM 0.09 Index (0-0.79); ~Hepatitis A Antibody IgM Nonreactive (Nonreactive)
[2022-01-15 11:13] LABS: IgA 278 mg/dL (47-310); IgG 1117 mg/dL (600-1640); IgM 129 mg/dL (50-300)
[2022-01-15 15:24] LABS: Anti Nuclear Antibody Screen POSITIVE (NEGATIVE)
[2022-01-15 23:18] LABS: Prot Elec - Albumin 3.9 g/dL (3.8-4.8); Prot Elec - Alpha1 0.3 g/dL (0.2-0.3); Prot Elec - Alpha2 0.6 g/dL (0.5-0.9); Prot Elec - Beta 1 0.5 g/dL (0.4-0.6); Prot Elec - Beta 2 0.4 g/dL (0.2-0.5); Prot Elec - Gamma 1.1 g/dL (0.8-1.7); Prot Elec - Total Protein 6.8 g/dL (6.1-8.1)
[2022-01-16 08:28] LABS: TS Negative Control Passed; TS Panel A 0; TS Panel B 1; TS Positive Control Passed; TSpotTB Negative (Negative)
== END 2022-01-13 15:38 | disposition home or self-care (01) ==
LOC: HO.LAB 15:37
PROVIDERS: PCP Family Medicine; Visit Provider Student in an Organized Health Care Education/Training Program
DX: Z11.59 Encounter for screening for other viral diseases (principal); Z11.7 Encounter for testing for latent tuberculosis infection; M06.9 Rheumatoid arthritis, unspecified; E11.9 Type 2 diabetes mellitus without complications; M35.00 Sjogren syndrome, unspecified; M25.541 Pain in joints of right hand; R82.90 Unspecified abnormal findings in urine
CPT/HCPCS: 36415; 73110; 73130; 73522; 73610; 73630; 80053; 81001; 82784; 83036; 84156; 84165; 84550; 85025; 85652; 86038; 86039; 86140; 86160; 86225; 86235; 86334; 86481; 86704; 86706; 86709; 86803; 87340

== ENCOUNTER 2022-01-27 12:47 | Outpatient (REF) | payer OTHER, SELFPAY ==
[2022-01-27 16:58] LABS: CT PCR NOT DETECTED (Not Detect.)
[2022-01-27 16:59] LABS: NG PCR NOT DETECTED (Not Detect.)
[2022-01-28 12:17] LABS: BV Int Neg Control Negative (Negative); BV Int Pos Control Positive (Positive)
== END 2022-01-27 12:48 | disposition home or self-care (01) ==
LOC: HO.LNP 12:47
PROVIDERS: PCP Family Medicine; Visit Provider Advanced Practice Midwife
DX: Z11.3 Encounter for screening for infections with a predominantly sexual mode of transmission (principal); B37.31 Acute candidiasis of vulva and vagina
CPT/HCPCS: 81025; 87480; 87491; 87510; 87591; 87660

== ENCOUNTER → 2022-02-16 07:47 | Outpatient (BNVA) | payer OTHER, SELFPAY | PROVIDERS: PCP Family Medicine; Visit Provider Student in an Organized Health Care Education/Training Program | DX: Z13.89 Encounter for screening for other disorder (principal) ==

== ENCOUNTER 2022-05-11 09:29 | Outpatient (REF) | payer OTHER, SELFPAY ==
--- NOTE | ~2022-05-11 | XR_ITS ---
EXAMINATION: XR CERVICAL SPINE CLINICAL INFORMATION: Neck pain COMPARISON: None available. TECHNIQUE: 3 views of the cervical spine were obtained. FINDINGS: There are no prevertebral soft tissue or bony abnormalities demonstrated. No compression fractures or subluxations are identified. Alignment is maintained at the atlanto-axial articulation. The disc spaces are preserved. No endplate changes are seen. The prevertebral soft tissues are normal. The foramina are patent. XR/XR cervical spine 4V IMPRESSION: Unremarkable cervical spine examination.
== END 2022-05-11 09:30 | disposition home or self-care (01) ==
LOC: HO.XRAY 09:29
PROVIDERS: PCP Family Medicine; Visit Provider Student in an Organized Health Care Education/Training Program
DX: M54.2 Cervicalgia (principal); M77.12 Lateral epicondylitis, left elbow; M05.9 Rheumatoid arthritis with rheumatoid factor, unspecified; Z79.899 Other long term (current) drug therapy
CPT/HCPCS: 72050

== ENCOUNTER 2022-08-19 13:29 | Outpatient (REF) | payer OTHER, SELFPAY ==
[2022-08-19 13:43] LABS: MANUAL DIFF FLAG NO
[2022-08-19 14:06] LABS: Basophils Absolute Auto 0.1 X10*3/uL (0.0-0.2); Basophils Percent Auto 1.1 % (0-2); Eosinophils Absolute Auto 0.2 X10*3/uL (0.0-0.4); Eosinophils Percent Auto 2.2 % (0-4); Hemoglobin 13.5 g/dl (12.0-16.0); Imm Gran Abs Auto 0.08 X10*3/uL (0.00-0.03); Imm Gran Pct Auto 0.8 % (0.0-0.4); Lymphocytes Absolute Auto 3.4 X10*3/uL (1.2-4.9); Mean Corpuscular HGB Conc 33.8 g/dl (31.0-35.0); Mean Platelet Volume 9.3 fL (9.4-12.3); Monocytes Absolute Auto 0.7 X10*3/uL (0.1-1.2); Monocytes Percent Auto 6.4 % (2-11); Neutrophils Absolute Auto 5.7 x10*3/uL (2.0-8.3); Neutrophils Percent Auto 56.5 % (45-73); Platelet Count 547 X10*3/uL (160-400); Red Blood Count 4.82 X10*6/uL (4.20-5.50); Red Cell Distribution Width 13.2 % (11.0-16.0); White Blood Count 10.1 X10*3/uL (4.8-10.8)
[2022-08-19 14:33] LABS: Alanine Aminotransferase 17 U/L (0-31); Albumin Level 3.9 g/dL (3.5-5.0); Alkaline Phosphatase 132 U/L (39-117); Anion Gap 14 (12-20); Aspartate Amino Transferase 11 U/L (5-31); Bilirubin Total 0.3 mg/dL (0.0-1.0); Blood Urea Nitrogen 9 mg/dL (9-16); C Reactive Protein 0.49 mg/dL (< or = 0.50); Carbon Dioxide 26 mmol/L (22-29); Chloride 97 mmol/L (96-108); Estimated Glomerular Filt Rate > 60; Potassium 4.6 mmol/L (3.3-5.1); Sodium 132 mmol/L (135-145); Total Protein 7.2 g/dL (6.5-8.0)
[2022-08-19 14:45] LABS: Glucose Random 476 mg/dL (60-115)
[2022-08-19 14:50] LABS: Erythrocyte Sedimentation Rate 16 MM/HR (0-20)
== END 2022-08-19 13:30 | disposition home or self-care (01) ==
LOC: HO.LAB 13:29
PROVIDERS: PCP Family Medicine; Visit Provider Student in an Organized Health Care Education/Training Program
DX: L72.0 Epidermal cyst (principal); M06.9 Rheumatoid arthritis, unspecified
CPT/HCPCS: 36415; 80053; 85025; 85652; 86140

== ENCOUNTER 2022-08-19 14:03 | Outpatient (AMB) | payer OTHER, SELFPAY ==
[2022-08-19 14:06] VITALS: BMI 44.0
--- NOTE | 2022-08-19 14:06 | A.OFFVIS_ITS ---
Intake Vital Signs 08/19/22 14:06 Height 4 ft 11 in Weight 218 lb BMI 44.0 Intake Visit Reasons: abscess of back Intake Note: This patient presents for an assessment for abscess of the back. Patient c/o; Onset 1 week, was having pus, denies pain or discomfort, completed 1 week of abx. 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 Accompanied by: Self / Same As Patient Allergies glipizide [GLIPIZIDE] Allergy (Severe, Verified 08/19/22 14:12) SHORTNESS OF BREATH environmental allergies Allergy (Unknown, Uncoded 08/19/22 14:12) Runny Nose, Sneezing, Itching onions Allergy (Unknown, Uncoded 08/19/22 14:12) Hives/Rash Medication List - Last Reconciled 08/19/22 by Garcia Rand MD acetaminophen (Tylenol Extra Strength) 1,000 mg PO Q6H PRN calcium carbonate-vitamin D3 600 mg-12.5 mcg (500 unit) (Calcium 600 with Vitamin D3) 1 cap PO DAILY certolizumab pegol (Cimzia) loading dose: 400 mg (2 syringes) at 0, 2 and 4 weeks Maintenance: 200 mg (1 syringe) every other week cyclobenzaprine 5 mg PO BEDTIME PRN hydroxychloroquine 200 mg PO BID metformin 1,000 mg PO BID miconazole nitrate 2% (Miconazole-7) 1 appful vaginal BEDTIME 7 days polyethylene glycol 3350 (Miralax) 17 grams PO DAILY PRN sennosides (Natural Senna Laxative) 17.2 mg (2 x 8.6 mg) PO BEDTIME HPI abscess of back HPI Details 52-year-old female referred for a back abscess. She says that she had area of swelling and drainage on the left side of her back about 10 days ago. She was started on oral antibiotics and she says this has improved significantly. She says she completed her antibiotics yesterday She says she has had significant drainage anymore and she feels that the swelling has gone down a lot. Denies any pain at this time. She denies any pre of trauma or insect bite on the area. She has a known diabetic. [facility] Medical History (Updated 08/19/22 @ 14:25 by Garcia Rand MD) Borderline glaucoma (glaucoma suspect) Carpal tunnel syndrome on right Cloudy urine Diabetes mellitus Diverticulosis Epidermal cyst Hernia Herpes genitalis HTN (hypertension) Joint pain in fingers of right hand Pure hypercholesterolemia Ruptured epidermal cyst Yeast infection involving the vagina and surrounding area Surgical History Hx of colonoscopy Hx of hernia repair Hx of parathyroidectomy Family History Father Diabetes mellitus Mother Diabetes mellitus Social History Alcohol intake: never Patient Tobacco Use Status: Never used Tobacco Current occupational status: employed Current occupation: [employer] Sexual orientation: Straight/Heterosexual Gender identity: Female Female Reproductive History Menstrual Age of Menarche: 7 Review of Systems Const Denies chills and Denies fever(s) Card Denies chest pain, Denies dyspnea and Denies dyspnea on exertion Resp Denies cough, Denies dyspnea and Denies dyspnea on exertion GI Denies hematochezia and Denies change in bowel habits Denies hematuria Musc Reports abnormal gait, Denies back pain and Reports limited range of motion Neuro Reports abnormal gait, Denies focal weakness and Denies convulsions Psych Denies depression and Denies mood swings Physical Exam Const Other: Morbidly obese, walks with a walker General: comfortable and no acute distress Orientation/consciousness: patient oriented x3 Neck Neck: Yes no lymphadenopathy Resp Auscultation: clear to auscultation bilaterally Cardio Rhythm: regular rhythm GI Palpation (GI): Soft to palpation, nontender and no guarding Back/Spine/Pelvis Other: Left side of the back love the scapula is note of an indurated area, about 3 cm, dry, no fluctuance, no significant tenderness or redness at this time Neuro General: patient oriented x3 Assessment & Plan Assessment & Plan (1) Epidermal cyst: Code(s): L72.0 - Epidermal cyst (2) Ruptured epidermal cyst: Code(s): L72.0 - Epidermal cyst Plan: It appears the as she had a ruptured epidermal cyst on the back as described above. Currently, the induration has improved significantly. She says that the drainage has gone down by a lot I have instructed her to continue to do warm compresses the area. She has completed her oral antibiotics. I told her that I will see her in the office in about 2 weeks to re-evaluate this as she may benefit from formal excision. She is comfortable with the plan. Coding Level of Care Code New Pt Level 3 (02571) Diagnoses Epidermal cyst L72.0 Ruptured epidermal cyst L72.0
== END 2022-08-19 14:24 | disposition home or self-care (01) ==
PROVIDERS: PCP Family Medicine; Visit Provider Surgery
DX: L72.0 Epidermal cyst (principal)
CPT/HCPCS: 99203

== ENCOUNTER 2022-09-02 13:26 | Outpatient (AMB) | payer OTHER, SELFPAY ==
--- NOTE | 2022-09-02 13:37 | MHC.OFFVIS ---
Intake Vital Signs 09/02/22 13:38 Height 4 ft 11 in Weight 225 lb BMI 45.4 Intake Visit Reasons: ruptured epidermal cyst on back, 2 wk follow up Intake Note: This patient presents for a two week follow-up assessment for ruptured epidermal cyst of the back. Patient denies complaints at this time. 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 Accompanied by: Self / Same As Patient Allergies glipizide [GLIPIZIDE] Allergy (Severe, Verified 09/02/22 13:43) SHORTNESS OF BREATH environmental allergies Allergy (Unknown, Uncoded 09/02/22 13:43) Runny Nose, Sneezing, Itching onions Allergy (Unknown, Uncoded 09/02/22 13:43) Hives/Rash Medication List - Last Reconciled 09/02/22 by Garcia Rand MD acetaminophen (Tylenol Extra Strength) 1,000 mg PO Q6H PRN calcium carbonate-vitamin D3 600 mg-12.5 mcg (500 unit) (Calcium 600 with Vitamin D3) 1 cap PO DAILY certolizumab pegol (Cimzia) loading dose: 400 mg (2 syringes) at 0, 2 and 4 weeks Maintenance: 200 mg (1 syringe) every other week cyclobenzaprine 5 mg PO BEDTIME PRN hydroxychloroquine 200 mg PO BID metformin 1,000 mg PO BID miconazole nitrate 2% (Miconazole-7) 1 appful vaginal BEDTIME 7 days polyethylene glycol 3350 (Miralax) 17 grams PO DAILY PRN sennosides (Natural Senna Laxative) 17.2 mg (2 x 8.6 mg) PO BEDTIME HPI ruptured epidermal cyst on back, 2 wk follow up HPI Details I had seen her 2 weeks ago because of area of swelling drainage on the back. This appeared to be ruptured epidermal cyst. She had been on antibiotics at that time. I had instructed her to do warm compresses. She is here for for a wound check She says that the area has healed completely and says she has had no problems with this anymore. [facility] Medical History Borderline glaucoma (glaucoma suspect) Carpal tunnel syndrome on right Cloudy urine Diabetes mellitus Diverticulosis Epidermal cyst Hernia Herpes genitalis HTN (hypertension) Joint pain in fingers of right hand Pure hypercholesterolemia Ruptured epidermal cyst Yeast infection involving the vagina and surrounding area Surgical History Hx of colonoscopy Hx of hernia repair Hx of parathyroidectomy Family History Father Diabetes mellitus Mother Diabetes mellitus Social History Alcohol intake: never Patient Tobacco Use Status: Never used Tobacco Current occupational status: employed Current occupation: [employer] Sexual orientation: Straight/Heterosexual Gender identity: Female Female Reproductive History Menstrual Age of Menarche: 7 Review of Systems Const Denies chills and Denies fever(s) Card Denies chest pain, Denies dyspnea and Reports dyspnea on exertion Resp Denies cough, Denies dyspnea and Reports dyspnea on exertion GI Denies hematochezia and Denies change in bowel habits Denies hematuria Musc Reports back pain and Reports limited range of motion Neuro Denies focal weakness and Denies convulsions Psych Denies depression and Denies mood swings Physical Exam Vital Signs: BMI result Body Mass Index 45.4 Const Other: Appears morbidly obese, walks with a walker Resp Effort & Inspection: normal respiratory effort Cardio Rate: regular rate Back/Spine/Pelvis Other: Area of previous swelling and drainage has resolved completely. There is no residual induration. There is no drainage or residual cyst Assessment & Plan Assessment & Plan (1) Ruptured epidermal cyst: Code(s): L72.0 - Epidermal cyst Plan: This seems to have completely resolved. There is no residual induration at this time. There is no discharge. I do not feel any palpable mass or cyst I therefore told her that it does not appear that we need to do any excision at this time. I told her that if this recurs, she should come back to the office to be re-evaluated. Coding Level of Care Code Est Pt Level 2 (16812) Diagnoses Ruptured epidermal cyst L72.0
[2022-09-02 13:38] VITALS: BMI 45.4
== END 2022-09-02 14:07 | disposition home or self-care (01) ==
PROVIDERS: PCP Family Medicine; Visit Provider Surgery
DX: L72.0 Epidermal cyst (principal)
CPT/HCPCS: 99212

== ENCOUNTER → 2022-09-02 13:26 | Outpatient (BNVA) | payer OTHER, SELFPAY | PROVIDERS: PCP Family Medicine; Visit Provider Surgery ==

== ENCOUNTER 2022-09-27 14:47 | Outpatient (REF) | payer OTHER, SELFPAY ==
[2022-09-27 17:44] LABS: Alanine Aminotransferase 15 U/L (0-31); Albumin Level 4.1 g/dL (3.5-5.0); Alkaline Phosphatase 84 U/L (39-117); Anion Gap 13 (12-20); Aspartate Amino Transferase 15 U/L (5-31); Bilirubin Total 0.2 mg/dL (0.0-1.0); Blood Urea Nitrogen 7 mg/dL (9-16); Calcium 9.7 mg/dL (8.4-10.2); Carbon Dioxide 27 mmol/L (22-29); Chloride 102 mmol/L (96-108); Estimated Glomerular Filt Rate > 60; Glucose Random 92 mg/dL (60-115); Potassium 3.8 mmol/L (3.3-5.1); Sodium 138 mmol/L (135-145); Total Protein 7.5 g/dL (6.5-8.0)
[2022-09-27 17:49] LABS: Cholesterol 243 mg/dL (<200); HDL Cholesterol 58 mg/dL (>40); LDL Cholesterol Calculated 150 mg/dL (<100); Triglycerides 178 mg/dL (<150)
[2022-09-27 18:02] LABS: TSH reflex Free T4 1.15 uIU/mL (0.32-4.0)
[2022-09-27 18:04] LABS: Folate 13.3 ng/mL (> or = 4.0); Vitamin B12 335 pg/mL (200-900)
[2022-09-27 18:19] LABS: Creatinine Urine 101.26 mg/dL; Microalbum/Creatinine Ratio Ur 9.8 ug/mg cr (<30)
[2022-09-27 20:23] LABS: Reflex LDLD? No
== END 2022-09-27 14:48 | disposition home or self-care (01) ==
LOC: HO.HHCL 14:47
PROVIDERS: Visit Provider Family Medicine
DX: E11.65 Type 2 diabetes mellitus with hyperglycemia (principal)
CPT/HCPCS: 36415; 80053; 80061; 82043; 82607; 82746; 84443

== ENCOUNTER 2022-11-09 07:18 | Outpatient (REF) | payer OTHER, SELFPAY ==
--- NOTE | ~2022-11-09 | MM_ITS ---
EXAMINATION: MM SCREENING DIGITAL BREAST TOMOSYNTHESIS, BILATERAL CLINICAL INFORMATION: Screening. Asymptomatic. COMPARISON: Mammography: This study is compared with prior exams dating back to 2019. TECHNIQUE: Digital breast tomosynthesis is performed in both the craniocaudal and mediolateral oblique views along with computer-aided detection (CAD). Synthesized 2D images are generated from the tomosynthesis. FINDINGS: There are scattered areas of fibroglandular density (ACR BI-RADS breast composition Category b). There are no significant masses, abnormal calcifications, or other abnormalities. There is tissue marker present in the upper outer quadrant of the right breast from prior benign percutaneous biopsy. MM/MM tomosynthesis screening BI IMPRESSION: No mammographic evidence of malignancy. ASSESSMENT: BI-RADS BI-RADS 2 - Benign Findings RECOMMENDATION: Routine annual mammography screening. 1 year F/U This examination should not preclude the clinical evaluation of a suspicious palpable abnormality. This patient's information was entered into a reminder system with a target due date for their next mammogram.
== END 2022-11-09 07:19 | disposition home or self-care (01) ==
LOC: HO.MAMMO 07:18
PROVIDERS: PCP Family Medicine; Visit Provider Family Medicine
DX: Z12.31 Encounter for screening mammogram for malignant neoplasm of breast (principal)
CPT/HCPCS: 77063; 77067

== ENCOUNTER → 2022-11-09 07:30 | Outpatient (BNV) | payer OTHER, SELFPAY | PROVIDERS: PCP Family Medicine; Visit Provider Radiology Diagnostic Radiology | DX: Z12.31 Encounter for screening mammogram for malignant neoplasm of breast (principal) | CPT/HCPCS: 77063; 77067 ==

== ENCOUNTER 2023-02-03 13:02 | Outpatient (AMB) | payer OTHER, SELFPAY ==
[2023-02-03 13:03] VITALS: BP 138/78; BMI 42.6
--- NOTE | 2023-02-03 13:03 | A.OFFVIS_ITS ---
Intake Vital Signs 02/03/23 13:03 Height 4 ft 11 in Weight 211 lb BMI 42.6 BP 138/78 Intake Visit Reasons: Annual Information Interpreted: clinical only Wind Turbine Service Technician: Wind Turbine Service Technician Present Allergies glipizide [GLIPIZIDE] Allergy (Severe, Verified 02/03/23 13:03) SHORTNESS OF BREATH environmental allergies Allergy (Unknown, Uncoded 02/03/23 13:03) Runny Nose, Sneezing, Itching onions Allergy (Unknown, Uncoded 02/03/23 13:03) Hives/Rash Medication List - Last Reviewed 02/03/23 by Mihcele Poole, JENNIFER acetaminophen (Tylenol Extra Strength) 1,000 mg PO Q6H PRN calcium carbonate-vitamin D3 600 mg-12.5 mcg (500 unit) (Calcium 600 with Vitamin D3) 1 cap PO DAILY certolizumab pegol (Cimzia) loading dose: 400 mg (2 syringes) at 0, 2 and 4 weeks Maintenance: 200 mg (1 syringe) every other week cyclobenzaprine 5 mg PO BEDTIME PRN hydroxychloroquine 200 mg PO BID metformin 1,000 mg PO BID miconazole nitrate 2% (Miconazole-7) 1 appful vaginal BEDTIME 7 days polyethylene glycol 3350 (Miralax) 17 grams PO DAILY PRN semaglutide (Ozempic) 0.25 mg subcut QWEEK sennosides (Natural Senna Laxative) 17.2 mg (2 x 8.6 mg) PO BEDTIME Is last menstrual period known: Yes Last menstrual period: 09/17/22 HPI Annual HPI Details Patient is here for her annual exam. She is starting to miss periods periodically her last 1 was in September. She had a mammogram in November. She says her diabetes is so-so her morning sugars are around 120 and she does not normally have time to checked them during the day though her doctor does want her to check it 3 times a day. She has just started on Ozempic 3 weeks ago and she thinks it is helping her lose weight but she is not sure she did throw up a couple of days ago and then threw up and had diarrhea yesterday and had some diarrhea this morning she is feeling okay but it might of been something she ate but she did come and get checked out at the office at the [facility] and they said she was fine and did not have COVID her the flu. She is using a walker because sometimes her knees give out and she does not want a fall she is careful to try to stand straight if she can. The walker however is broken it was 1 somebody gave to her and there is a bolt lose. [facility] visit [facility] and if she comes around to their off for is now they will see if they have a bolt to fix it. She is still sometime sexually active with her she would like to be tested for STDs she does have itching that she did not complain about but admits to and it is daily. She has used the cream and a pill in the past and a cream is soothing but the pill helps faster. She would like a prescription for both when I offered it to her. [facility] Medical History Ruptured epidermal cyst Epidermal cyst Cloudy urine Joint pain in fingers of right hand Diverticulosis Herpes genitalis Yeast infection involving the vagina and surrounding area Carpal tunnel syndrome on right Pure hypercholesterolemia Hernia Borderline glaucoma (glaucoma suspect) HTN (hypertension) Diabetes mellitus Surgical History Hx of parathyroidectomy Hx of colonoscopy Hx of hernia repair Family History Father Diabetes mellitus Mother Diabetes mellitus Social History Alcohol intake: never Patient Tobacco Use Status: Never used Tobacco Current occupational status: employed Current occupation: [employer] Sexual orientation: Straight/Heterosexual Gender identity: Female Female Reproductive History Menstrual Age of Menarche: 7 Date of last menstrual period: 09/17/22 control method: none Total pregnancies: 0 Full term: 0 History of abnormal pap smear: Yes (see above) Date of Mammogram: 11/09/22 History of abnormal mammogram: No Physical Exam Vital Signs: Last Vital Signs BP 138/78 02/03/23 13:03 BMI result Body Mass Index 42.6 Const Other: Adipose tissue noted. General: healthy appearing, comfortable, no acute distress, well developed and alert Nutritional Appearance: average body habitus Orientation/consciousness: patient oriented x3 Limitations: no limitations HEENT Head: Yes normocephalic Neck Neck: Yes normal visual inspection Chest Chest palpation & inspection: normal inspection of the chest Breast/axilla inspection: normal inspection of the breasts and normal inspection of the axillae Breast/axilla palpation: normal palpation of the breasts and normal palpation of the axillae Resp Effort & Inspection: normal respiratory effort GI Inspection: Yes normal to inspection, No Abdominal wall edema and No distended Palpation (GI): Soft to palpation and nontender Other: External vulva is bright pink consistent with chronic yeast which would be expected with elevated blood sugars Vagina pink and moist with white discharge consistent with yeast cervix nulliparous posterior mobile nontender uterus not enlarged nontender good tone with Kegel but using accessory muscles as well. General: Yes bladder normal to palpation External Female Exam: normal external appearance and normal appearance of the urethra Speculum Exam - Vagina: normal appearance of the vagina, normal palpation and normal vaginal discharge Speculum Exam - Cervix: normal appearance of the cervix, normal palpation and nontender Bimanual exam- vagina & uterus: normal bimanual exam, normal palpation, uterine size normal, bladder normal to palpation, consistency normal, normal palpation, uterine mobility normal, uterine shape normal, No Cervical tenderness present, non-tender and no cervical motion tenderness Bimanual Exam- Adnexa, other: normal adnexae, no masses, normal and No adnexal tenderness Neuro General: patient oriented x3 Results Reviewed Results Reviewed: Name: Lara Wyatt V Age/Sex: 50/F Attending: Sabrina Calloway CNM : 1970 Submitted by: Sabrina Calloway CNM Copies to: MR #: [id number] Status: DEP REF Collected: 12/24/20 Location: .LAB Received: 12/25/20 Interpretation General Category: Other Adequacy: No definitive endocervical component identified. Interpretation: Endometrial cells present; no squamous lesion identified. Comment: Endometrial cells after age 45, particularly out of phase or after menopause, may be associated with benign endometrium, hormonal alterations or, less commonly, endometrial/uterine abnormalities. Please correlate with clinical findings. HPV mRNA E6/E7: Not Detected This assay detects E6/E7 viral messenger RNA (mRNA) from 14 high-risk HPV types (16, 18, 31, 33, 35, 39, 45, 51, 52, 56, 58, 59, 66, 68) HPV testing performed by [facility], [place], [place]. See reference labo ratory portion of the EMR for entire report. Clinical Information LMP: 12/17/2020 Previous PAP test: 09/14/2018, HPV+ Material Received ThinPrep-Cervical Electronically Signed By: Myron Shipley MD 01/06/21 2572 The Pap Test is a screening procedure with the inherent possibility of both false negative and false positive results. Results should be interpreted in the context of historic and current clinical findings. Reliability of the Pap Test is enhanced by performing the test on a regular repetitive basis. Patient: Lara Wyatt V Age/Sex: 50/F MR#: [id number] Page 1 of 1 Assessment & Plan Assessment & Plan (1) Yeast infection involving the vagina and surrounding area: Comment: retreating 01/28 Code(s): B37.3 - Candidiasis of vulva and vagina (2) Encounter for well woman exam: Code(s): Z01.419 - Encounter for gynecological examination (general) (routine) without abnormal findings (3) Obesity, morbid, BMI 40.0-49.9: Code(s): E66.01 - Morbid (severe) obesity due to excess calories (4) Cervical cancer screening: Code(s): Z12.4 - Encounter for screening for malignant neoplasm of cervix (5) Perimenopause: Code(s): N95.1 - Menopausal and female climacteric states (6) Encounter for screening examination for sexually transmitted disease: Code(s): Z11.3 - Encounter for screening for infections with a predominantly sexual mode of transmission Plan Patient is here for her annual exam. She is starting to miss periods periodically her last 1 was in September. She had a mammogram in November. She says her diabetes is so-so her morning sugars are around 120 and she does not normally have time to checked them during the day though her doctor does want her to check it 3 times a day. She has just started on Ozempic 3 weeks ago and she thinks it is helping her lose weight but she is not sure she did throw up a couple of days ago and then threw up and had diarrhea yesterday and had some diarrhea this morning she is feeling okay but it might of been something she ate but she did come and get checked out at the office at the [facility] day care [facility] and they said she was fine and did not have COVID her the flu. She is using a walker because sometimes her knees give out and she does not want a fall she is careful to try to stand straight if she can. The walker however is broken it was 1 somebody gave to her and there is a bolt lose. During [facility] visit [facility] and if she comes around to their off for is now they will see if they have a bolt to fix it. She is still sometime sexually active with her she would like to be tested for STDs she does have itching that she did not complain about but admits to and it is daily. She has used the cream and a pill in the past and a cream is soothing but the pill helps faster. She would like a prescription for both when I offered it to her. Pap smear was done because of the history of the recent HPV positive in 2019., though I could not actually find that actual lab . Testing offered for STIs and she excepted and will get them when she can as well as cultures were done/testing was done for gonorrhea chlamydia trichomoniasis Mary and Gardnerella during this visit. I am also treating her for Mary as it is a readily apparent to me that her elevated blood sugars are contributing to chronic yeast hopefully she will do better with the Ozempic and manage her blood sugars more successfully. 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 Orders: Orders Bacterial Vaginosis Panel Today Z20.2 - Contact with and (suspected) exposure to infections with a predominantly sexual mode of transmission Hepatitis B Surface Antigen Today B37.3 - Candidiasis of vulva and vagina, E66.01 - Morbid (severe) obesity due to excess calories, N95.1 - Menopausal and female climacteric states, Z01.419 - Encounter for gynecological examination (general) (routine) without abnormal findings, Z11.3 - Encounter for screening for infections with a predominantly sexual mode of transmission, Z12.4 - Encounter for screening for malignant neoplasm of cervix HIV Ab/Ag Today B37.3 - Candidiasis of vulva and vagina, E66.01 - Morbid (severe) obesity due to excess calories, N95.1 - Menopausal and female climacteric states, Z01.419 - Encounter for gynecological examination (general) (routine) without abnormal findings, Z11.3 - Encounter for screening for infections with a predominantly sexual mode of transmission, Z12.4 - Encounter for screening for malignant neoplasm of cervix Pap Smear Today Z01.419 - Encounter for gynecological examination (general) (routine) without abnormal findings CT NG by PCR Today Z01.419 - Encounter for gynecological examination (general) (routine) without abnormal findings Hepatitis C Antibody Today B37.3 - Candidiasis of vulva and vagina, E66.01 - Morbid (severe) obesity due to excess calories, N95.1 - Menopausal and female climacteric states, Z01.419 - Encounter for gynecological examination (general) (routine) without abnormal findings, Z11.3 - Encounter for screening for infections with a predominantly sexual mode of transmission, Z12.4 - Encounter for screening for malignant neoplasm of cervix Syphilis Screen Today B37.3 - Candidiasis of vulva and vagina, E66.01 - Morbid (severe) obesity due to excess calories, N95.1 - Menopausal and female climacteric states, Z01.419 - Encounter for gynecological examination (general) (routine) without abnormal findings, Z11.3 - Encounter for screening for infections with a predominantly sexual mode of transmission, Z12.4 - Encounter for screening for malignant neoplasm of cervix Medications: New fluconazole may repeat second dose 72 hrs after first dose if symptoms persist 150 mg PO Q3D 2 doses 2 tabs 3RF miconazole nitrate 2% (Miconazole-7) 1 appful vaginal BEDTIME 7 days 45 grams 3RF Coding Level of Care Code Est Pt Prev Care 40-64y(25663) Diagnoses Yeast infection involving the vagina and surrounding area B37.3 Encounter for well woman exam Z01.419 Obesity, morbid, BMI 40.0-49.9 E66.01 Cervical cancer screening Z12.4 Perimenopause N95.1 Encounter for screening examination for sexually transmitted disease Z11.3
== END 2023-02-03 14:08 | disposition home or self-care (01) ==
LOC: HO.HWSM 13:02
PROVIDERS: PCP Family Medicine; Visit Provider Advanced Practice Midwife
DX: Z01.419 Encounter for gynecological examination (general) (routine) without abnormal findings (principal); B37.31 Acute candidiasis of vulva and vagina; E66.01 Morbid (severe) obesity due to excess calories; Z12.4 Encounter for screening for malignant neoplasm of cervix; N95.1 Menopausal and female climacteric states; Z11.3 Encounter for screening for infections with a predominantly sexual mode of transmission
CPT/HCPCS: 99396

== ENCOUNTER 2023-02-03 13:02 | Outpatient (REF) | payer OTHER, SELFPAY ==
[2023-02-03 17:45] LABS: CT PCR NOT DETECTED (Not Detect.); NG PCR NOT DETECTED (Not Detect.)
[2023-02-04 15:23] LABS: BV Int Neg Control Negative (Negative); BV Int Pos Control Positive (Positive)
[2023-02-08 17:19] LABS: HPV mRNA E6/E7 rflx Not Detected (Not Detected)
== END 2023-02-03 13:03 | disposition home or self-care (01) ==
LOC: HO.LAB 13:02
PROVIDERS: PCP Family Medicine; Visit Provider Advanced Practice Midwife
DX: Z01.419 Encounter for gynecological examination (general) (routine) without abnormal findings (principal); Z11.51 Encounter for screening for human papillomavirus (HPV); Z20.2 Contact with and (suspected) exposure to infections with a predominantly sexual mode of transmission; N95.1 Menopausal and female climacteric states; E66.01 Morbid (severe) obesity due to excess calories
CPT/HCPCS: 0353U; 87480; 87510; 87624; 87660; 88142

== ENCOUNTER 2023-03-29 14:26 | Outpatient (REF) | payer OTHER, SELFPAY ==
[2023-04-02 03:59] LABS: HPV mRNA E6/E7 rflx Not Detected (Not Detected)
== END 2023-03-29 14:27 | disposition home or self-care (01) ==
LOC: HO.LNP 14:26
PROVIDERS: PCP Family Medicine; Visit Provider Advanced Practice Midwife
DX: Z12.4 Encounter for screening for malignant neoplasm of cervix (principal); Z11.51 Encounter for screening for human papillomavirus (HPV)
CPT/HCPCS: 87624; 88142

== ENCOUNTER 2023-03-29 14:26 | Outpatient (AMB) | payer OTHER, SELFPAY ==
[2023-03-29 14:30] VITALS: BP 132/76; BMI 43.4
--- NOTE | 2023-03-29 14:30 | A.OFFVIS_ITS ---
Intake Vital Signs 03/29/23 14:30 Height 4 ft 11 in Weight 215 lb BMI 43.4 BP 132/76 Intake Visit Reasons: Repeat pap Health Insurance Specialist Required: No Information Interpreted: clinical only Fishery Division Chief: Fishery Division Chief Present Allergies glipizide [GLIPIZIDE] Allergy (Severe, Verified 03/29/23 14:30) SHORTNESS OF BREATH environmental allergies Allergy (Unknown, Uncoded 03/29/23 14:30) Runny Nose, Sneezing, Itching onions Allergy (Unknown, Uncoded 03/29/23 14:30) Hives/Rash Medication List - Last Reconciled 03/29/23 by Radha Oden CNM acetaminophen (Tylenol Extra Strength) 1,000 mg PO Q6H PRN calcium carbonate-vitamin D3 600 mg-12.5 mcg (500 unit) (Calcium 600 with Vitamin D3) 1 cap PO DAILY certolizumab pegol (Cimzia) loading dose: 400 mg (2 syringes) at 0, 2 and 4 weeks Maintenance: 200 mg (1 syringe) every other week cyclobenzaprine 5 mg PO BEDTIME PRN fluconazole 150 mg PO Q3D 2 doses hydroxychloroquine 200 mg PO BID metformin 1,000 mg PO BID miconazole nitrate 2% (Miconazole-7) 1 appful vaginal BEDTIME 7 days miconazole nitrate 2% (Miconazole-7) 1 appful vaginal BEDTIME 7 days polyethylene glycol 3350 (Miralax) 17 grams PO DAILY PRN semaglutide (Ozempic) 0.25 mg subcut QWEEK sennosides (Natural Senna Laxative) 17.2 mg (2 x 8.6 mg) PO BEDTIME Is last menstrual period known: Yes Last menstrual period: 09/17/22 Post menopausal: Yes Do you need a note to return to daycare/school/sports/work: No HPI Repeat pap HPI Details Patient is here to repeat her Pap smear the previous 1 came back unsat isfactory ?due to obscuring lubricant however no but lubricant was used by myself or the patient. Lubricant would only been used after the Pap smear was done for the bimanual exam so that can not be a consideration. her previous Pap smear came back HPV positive. Patient says her yeast is much better. Additionally she was able to get her walker/Rollator fixed at [facility] they did not have a bolt to put on it but they were able to tape the bold in place securely so it is functioning safely for her. [facility] Medical History (Updated 03/29/23 @ 15:08 by Radha Oden CNM) Ruptured epidermal cyst Epidermal cyst Cloudy urine Joint pain in fingers of right hand Diverticulosis Herpes genitalis Yeast infection involving the vagina and surrounding area Carpal tunnel syndrome on right Pure hypercholesterolemia Hernia Borderline glaucoma (glaucoma suspect) HTN (hypertension) Diabetes mellitus Surgical History Hx of parathyroidectomy Hx of colonoscopy Hx of hernia repair Family History Father Diabetes mellitus Mother Diabetes mellitus Social History Alcohol intake: never Patient Tobacco Use Status: Never used Tobacco Current occupational status: employed Current occupation: library Sexual orientation: Straight/Heterosexual Gender identity: Female Female Reproductive History Menstrual Age of Menarche: 7 Date of last menstrual period: 09/17/22 control method: none Date of last pap smear: 02/04/23 (unsatisfactory) History of abnormal pap smear: Yes Physical Exam Other: NORMAL HEALTHY PINK MUCOSA NOTED CERVIX NULLIPAROUS PINK SMOOTH HEALTHY APPEARING NO ABNORMAL DISCHARGE NO EVIDENCE OF YEAST TODAY. PAP SMEAR AGAIN OBTAINED, AGAIN NO LUBRICANT USED. External Female Exam: normal external appearance and normal appearance of the urethra Speculum Exam - Vagina: normal appearance of the vagina and normal vaginal discharge Speculum Exam - Cervix: normal appearance of the cervix and Cervical os closed Results Reviewed Results Reviewed: Name: Lara Wyatt V Age/Sex: 52/F Attending: Radha Oden CNM : 1970 Submitted by: Radha Oden CNM Copies to: Fabby Hurt MD MR #: [id number] Status: DEP REF Collected: 02/03/23 Location: .LAB Received: 02/04/23 Interpretation Unsatisfactory. Obscuring foreign material consistent with lubricant. HPV mRNA E6/E7: NOT DETECTED This assay detects E6/E7 viral messenger RNA (mRNA) from 14 high-risk HPV types (16, 18, 31, 33, 35, 39, 45, 51, 52, 56, 58, 59, 66, 68) HPV testing performed by [facility], [place], [place]. See reference laboratory portion of the EMR for entire report. Clinical Information LMP: 09/29 Previous PAP test: 12/28, HPV+ Material Received ThinPrep-Cervical Copies To Radha Oden [address] Baker [address] [place] [id number] Fabby Hurt MD [address] [place] [id number] Electronically Signed By: RYAN Gr (ASCP) 02/09/23 0955 The Pap Test is a screening procedure with the inherent possibility of both false negative and false positive results. Results should be interpreted in the context of historic and current clinical findings. Reliability of the Pap Test is enhanced by performing the test on a regular repetitive basis. Patient: Lara Wyatt V Age/Sex: 52/F MR#: [id number] Page 1 of 1 NOTE NO LUBRICANT WAS USED BEFORE OBTAINING THE PAP SMEAR BY MYSELF OR THE PATIENT. Name: Lara Wyatt V Age/Sex: 50/F Attending: Sabrina Calloway CNM : 1970 Submitted by: Sabrina Calloway CNM Copies to: MR #: [id number] Status: DEP REF Collected: 12/24/20 Location: .LAB Received: 12/25/20 Interpretation General Category: Other Adequacy: No definitive endocervical component identified. Interpretation: Endometrial cells present; no squamous lesion identified. Comment: Endometrial cells after age 45, particularly out of phase or after menopause, may be associated with benign endometrium, hormonal alterations or, less commonly, endometrial/uterine abnormalities. Please correlate with clinical findings. HPV mRNA E6/E7: Not Detected This assay detects E6/E7 viral messenger RNA (mRNA) from 14 high-risk HPV types (16, 18, 31, 33, 35, 39, 45, 51, 52, 56, 58, 59, 66, 68) HPV testing performed by [facility], [place], [place]. See reference laboratory portion of the EMR for entire report. Clinical Information LMP: 12/17/2020 Previous PAP test: 09/14/2018, HPV+ Material Received ThinPrep-Cervical Electronically Signed By: Myron Shipley MD 01/06/21 8937 The Pap Test is a screening procedure with the inherent possibility of both false negative and false positive results. Results should be interpreted in the context of historic and current clinical findings. Reliability of the Pap Test is enhanced by performing the test on a regular repetitive basis. Patient: Lara Wyatt V Age/Sex: 50/F MR#: [id number] Page 1 of 1 Assessment & Plan Assessment & Plan (1) Cervical cancer screening: Comment: Two thousand nineteen HPV positive 2020 Pap negative see details please 2022 Pap obscured by lubricant (that was not used.). Pap repeated 03/29/2023. Code(s): Z12.4 - Encounter for screening for malignant neoplasm of cervix Plan Pap smear was obtained again. Cervix appears very healthy and pink there has no excessive mucus that could be described as lubricant. No evidence of yeast either. Patient states her diabetes is in pretty good control. Will await Pap results. Orders: Orders Pap Smear Today Z01.419 - Encounter for gynecological examination (general) (routine) without abnormal findings Coding Level of Care Code Est Pt Level 3 (05319) Diagnoses Cervical cancer screening Z12.4
== END 2023-03-29 15:25 | disposition home or self-care (01) ==
LOC: HO.HWSM 14:26
PROVIDERS: PCP Family Medicine; Visit Provider Advanced Practice Midwife
DX: Z12.4 Encounter for screening for malignant neoplasm of cervix (principal)
CPT/HCPCS: 99213

== ENCOUNTER 2023-06-13 10:28 | Outpatient (AMB) | payer OTHER, SELFPAY ==
--- NOTE | 2023-06-13 10:36 | A.OFFVIS_ITS ---
Vital Signs 06/13/23 10:42 Height 4 ft 11 in Weight 225 lb BMI 45.4 BP 124/82 Intake Visit Reasons: Colposcopy Wildlife Conservation Officer Required: No Information Interpreted: non-clinical & clinical Accompanied by: Self / Same As Patient Allergies glipizide [GLIPIZIDE] Allergy (Severe, Verified 06/13/23 10:50) SHORTNESS OF BREATH environmental allergies Allergy (Unknown, Uncoded 06/13/23 10:50) Runny Nose, Sneezing, Itching onions Allergy (Unknown, Uncoded 06/13/23 10:50) Hives/Rash Is last menstrual period known: Yes Last menstrual period: 09/17/22 HPI Comments Details: Presenting for colposcopy. The patient had co testing done in 01/29, unsatisfactory/HPV negative, repeated in 04/02, results was unsatisfactory, HPV negative PFSH Medical History Ruptured epidermal cyst Epidermal cyst Cloudy urine Joint pain in fingers of right hand Diverticulosis Herpes genitalis Yeast infection involving the vagina and surrounding area Carpal tunnel syndrome on right Pure hypercholesterolemia Hernia Borderline glaucoma (glaucoma suspect) HTN (hypertension) Diabetes mellitus Surgical History Hx of parathyroidectomy Hx of colonoscopy Hx of hernia repair Family History Father Diabetes mellitus Mother Diabetes mellitus Social History Alcohol intake: never Patient Tobacco Use Status: Never used Tobacco Current occupational status: employed Current occupation: [employer] Sexual orientation: Straight/Heterosexual Gender identity: Female Female Reproductive History Menstrual Age of Menarche: 7 Date of last menstrual period: 09/17/22 Physical Exam Vital Signs: BMI result Body Mass Index 45.4 Office Procedures Colposcopy Before the procedure was started discussed with the patient the procedure, alternatives & all the risks associated with the procedure (bleeding, infection, injury to vagina, bladder, vessels, possible need for transfusion with all its risks) then patient signed the consent UPT done in the office & negative Pap smear = unsatisfactory/HPV negative Speculum inserted, acetic acid used Colposcopy done Transformation zone seen, acetowhite lesions identified at 4 o?clock, cervical biopsies taken from 4 o?clock, ECC done afterwards. Vaginoscopy of the upper vagina showed no evidence of any aceto-white lesions Monsel solution used for hemostasis. The patient tolerated well . At the end the patient was instructed to call if temp>100.4, abdominal pain, n/v, bleeding; The patient was given the following instructions: nothing per vagina, no intercourse or bath tub use. All questions answered the patient verbalized understanding. Instructed the patient to make an appointment in 2 weeks for follow-up This note was generated with a voice recognition program. Some errors may have been overlooked during the review of this note. Sometimes these errors may affect the content or meaning of a given sentence. [id number] of cervix including upper vagina with biopsy and ECC Procedure code (CPT) selection complete Assessment & Plan Assessment & Plan (1) Unsatisfactory cervical Papanicolaou smear: Code(s): R87.615 - Unsatisfactory cytologic smear of cervix Category: Medical Plan: Discussed with the patient the results of her co testing, HPV negative , unsatisfactory Pap smear, per ASCCP guidelines next step is colposcopy possible cervical biopsy/ECC . All questions answered, the patient verbalized understanding and agreed with the plan. Colposcopy/biopsy/ECC done, see procedure note Orders: Orders AMB Colposcopy Today R87.615 - Unsatisfactory cytologic smear of cervix Coding Level of Care Code Procedure Only Diagnoses Unsatisfactory cervical Papanicolaou smear R87.615 CPT Codes Colposcopy - CPT: 19365-[id number] of cervix including upper vagina with biopsy and ECC ([id number])
[2023-06-13 10:42] VITALS: BP 124/82; BMI 45.4
== END 2023-06-13 11:13 | disposition home or self-care (01) ==
PROVIDERS: PCP Family Medicine; Visit Provider Obstetrics & Gynecology
DX: R87.615 Unsatisfactory cytologic smear of cervix (principal)
CPT/HCPCS: 57454

== ENCOUNTER 2023-06-13 10:28 | Outpatient (REF) | payer OTHER, SELFPAY | END 2023-06-13 10:29 | disposition home or self-care (01) | LOC: HO.LNP 10:28 | PROVIDERS: PCP Family Medicine; Visit Provider Obstetrics & Gynecology | DX: R87.615 Unsatisfactory cytologic smear of cervix (principal) | CPT/HCPCS: 57454; 88305 ==

== ENCOUNTER 2023-06-24 10:07 | Emergency (ER) | payer OTHER, SELFPAY ==
--- NOTE | ~2023-06-24 | XR_ITS ---
EXAMINATION: XR CHEST CLINICAL INFORMATION: Cough COMPARISON: 04/04/2014 TECHNIQUE: Frontal view of the chest was obtained. FINDINGS: Lungs are well-inflated and clear. Trachea is midline in position. No interstitial disease, consolidation or mass. No pleural effusion or pneumothorax. Cardiac silhouette and pulmonary vessels are normal in size. The mediastinum and dianna have normal contour. No acute osseous abnormality. Skeletal findings include multilevel osteophyte formation of the thoracic spine and osteoarthrosis of bilateral acromioclavicular joints. XR/XR chest 1V IMPRESSION: Lungs have a normal appearance. No acute cardiopulmonary abnormality.
[2023-06-24 10:11] VITALS: BP 146/85; PULSE 100; RESP 20; TEMP 36.9; O2SAT 95; BMI 44.2
--- NOTE | 2023-06-24 13:12 | ED_ITS ---
HPI - URI/Sore Throat General Chief Complaint: Upper Respiratory Symptoms Stated Complaint: SOB Time Seen by Provider: 06/24/23 11:57 Source: patient, RN notes reviewed and old records reviewed Mode of arrival: ambulatory Limitations: no limitations History of Present Illness HPI Narrative: 52-year-old female with past medical history significant for diabetes, hypertension, borderline glaucoma, hernia, diverticulosis, carpal tunnel syndrome presents to the ED today for evaluation of sore throat, dry cough, chest tightness and shortness of breath x 1 week. Denies sputum production. Admits to feeling warm. Denies documented temperature. She saw her PCP today and tested positive for influenza. Given chronicity of symptoms, she was not started on Tamiflu. She was given updraft treatment and advised to come to the ED. Denies fever, chills, chest pain, hemoptysis, calf pain/LE swelling, wheezing, nausea, vomiting, diarrhea, abdominal pain, flank pain, dysuria, hematuria. Denies known sick contacts. Denies recent travel or long car rides. Related Data Home Medications ?Medication ?Instructions ?Recorded ?Confirmed calcium carbonate 600 mg-vitamin 1 cap PO DAILY 11/27/20 03/29/23 D3 12.5 mcg (500 unit) capsule (Calcium 600 with Vitamin D3) acetaminophen 500 mg tablet 1,000 mg PO Q6H PRN 01/13/22 03/29/23 (Tylenol Extra Strength) polyethylene glycol 3350 17 17 g PO DAILY PRN 02/16/22 03/29/23 gram/dose oral powder (Miralax) semaglutide 0.25 mg or 0.5 mg (2 0.25 mg subcut QWEEK 02/03/23 03/29/23 mg/3 mL) subcutaneous pen injector (Ozempic) Previous Rx's ?Medication ?Instructions ?Recorded sennosides 8.6 mg tablet (Natural 17.2 mg (2 x 8.6 mg) PO BEDTIME 12/22/21 Senna Laxative) constipation #180 tabs metformin 1,000 mg tablet 1,000 mg PO BID #180 tabs 02/01/22 hydroxychloroquine 200 mg tablet 200 mg PO BID #180 tabs 11/12/22 fluconazole 150 mg tablet 150 mg PO Q3D 2 doses #2 tabs 02/03/23 miconazole nitrate 2 % vaginal 1 appful vaginal BEDTIME 7 days 12/28/23 cream (Miconazole-7) #45 grams benzonatate 100 mg capsule 100 mg PO BID PRN cough #20 caps 06/24/23 prednisone 20 mg tablet 40 mg (2 x 20 mg) PO DAILY 4 days 06/24/23 #8 tabs Allergies Allergy/AdvReac Type Severity Reaction Status Date / Time glipizide [GLIPIZIDE] Allergy Severe SHORTNESS Verified 06/24/23 10:13 OF BREATH environmental allergies Allergy Unknown Runny Uncoded 06/13/23 10:50 Nose, Sneezing, Itching onions Allergy Unknown Hives/Rash Uncoded 06/13/23 10:50 Review of Systems Review of Systems: Constitutional: No fever, chills, fatigue, night sweats, weight changes ENT/Mouth: No ear pain, hearing loss, nasal congestion, sinus pain, rhinorrhea, +sore throat Eyes: No eye pain, swelling, redness, vision changes, discharge Cardio: No chest pain, palpitations, [place], orthopnea, peripheral edema Pulm: No sputum, wheezing, dyspnea, hemoptysis, +cough, +shortness of breath GI: No nausea, vomiting, hematemesis, abdominal pain, diarrhea, constipation, hematochezia, melena : No irregular bleeding, dysuria, frequency, urgency, hesitancy, hematuria, flank pain, urinary flow changes, urinary incontinence or retention MSK: No back pain, neck pain, joint pain, myalgias Skin: No lesions, rashes Neuro: No weakness, numbness, paresthesias, LOC, dizziness, headache Psych: No anxiety/panic, depression, SI/HI, AH/VH All other systems reviewed and are negative. [facility] Past Medical History Attestation statement: The following information was validated with the patient. Source: old records reviewed and nursing notes reviewed Medical History Ruptured epidermal cyst Epidermal cyst Cloudy urine Joint pain in fingers of right hand Diverticulosis Herpes genitalis Yeast infection involving the vagina and surrounding area Carpal tunnel syndrome on right Pure hypercholesterolemia Hernia Borderline glaucoma (glaucoma suspect) HTN (hypertension) Diabetes mellitus Surgical History Hx of parathyroidectomy Hx of colonoscopy Hx of hernia repair Family History Family History Father Diabetes mellitus Mother Diabetes mellitus Social History Social History Alcohol intake: never Patient Tobacco Use Status: Never used Tobacco Advance Directives: No Advance Directives Information Provided: No Do you have a plan to hurt others: No Plan Current occupational status: employed Current occupation: [employer] Sexual orientation: Straight/Heterosexual Gender identity: Female Physical Exam Vital Signs: Vital Signs: Last Vital Signs Temp 0 F L 06/24/23 15:24 Pulse 104 H 06/24/23 15:24 Resp 18 06/24/23 15:24 BP 144/82 H 06/24/23 15:24 Pulse Ox 97 06/24/23 15:24 O2 Del Method Room Air 06/24/23 15:24 BMI result Body Mass Index 44.2 hypertensive, vitals otherwise wnl Const: General: cooperative, healthy appearing, comfortable and no acute distress Orientation/consciousness: patient oriented x3 Limitations: no limitations HEENT: Other: + posterior oropharynx erythematous, no edema. No tonsillar exudates for edema. No peritonsillar masses. Uvula midline. Controlling secretions and speaking complete sentences. + No pain on manipulation of left pinna or tragus. No mastoid tenderness. Left EAC without erythema, edema or discharge. TM intact without erythema, effusion, or bulging. + No pain on manipulation of right pinna or tragus. No mastoid tenderness. Right EAC without erythema, edema or discharge. TM intact without erythema, effusion, or bulging. Head: Yes normal to inspection, Yes No palpable skull fracture present, Yes normocephalic and Yes atraumatic Eyes: General: appearance normal, both eyes and all related structures Pupils: Equal, round and reactive pupils present Neck: Neck: Yes normal visual inspection, Yes full ROM, Yes no lymphadenopathy and Yes no meningeal signs Resp: Effort & Inspection: normal respiratory effort, able to speak in complete sentences, Actively coughing, no respiratory distress and no stridor Auscultation: clear to auscultation bilaterally Cardio: Rate: regular rate Rhythm: regular rhythm Skin: General skin exam: no rashes or lesions noted Neuro: General: patient oriented x3 and no meningeal signs Cranial nerves: Yes Equal, round and reactive pupils present Extrem: General: Yes normal to inspection Course Course Course Narrative: 1344-- chest x-ray without infiltrate or consolidation to suggest pneumonia. Decadron and ED bronch protocol ordered. Will re-evaluate. 1515-- on re-eval, patient reports improvement in breathing with decadron and RT treatment. ambulatory O2 performed with patient satting 98% the entire time, tolerating ambulation well. Prednisone sent to pharmacy. Patient's blood sugar is well-controlled. Advised her to continue monitoring this while taking prednisone. Meririleyjoshua Jacob sent to pharmacy for cough. Will hold Tamiflu as patient has had symptoms for one week. i feel chapintent is stable for discharge at thie time. Discussed worrisome signs and symptoms and when to return to the ED. All questions answered at this time. Patient is agreeable with disposition and stable for discharge. Medications Administered Discontinued Medications Generic Name Dose Route Start Last Admin Trade Name Freq PRN Reason Stop Dose Admin Albuterol/Ipratropium 3 ml 06/24/23 13:38 06/24/23 13:40 Albuterol/Iprat 2.5/0.5mg 3 Ml Ampul.Neb INHALE 06/24/23 13:39 3 ml ONCE ONE Administration Dexamethasone Sodium Phosphate 10 mg 06/24/23 13:16 06/24/23 14:09 Dexamethasone Sod Phosphate 10 Mg/Ml Vial IVPUSH 06/24/23 13:17 10 mg ONCE ONE Administration Medical Decision Making Medical Decision Making [facility] Narrative: 52-year-old female with past medical history significant for diabetes, hypertension, borderline glaucoma, hernia, diverticulosis, carpal tunnel syndrome presents to the ED today for evaluation of sore throat, dry cough, chest tightness and shortness of breath x 1 week. Patient hypertensive. She is satting 95% on room air. She is obese however on review of previous vitals, this does not appear to be around baseline. She has not dependent on oxygen and has no previous lung disease. Will repeat O2 saturation and obtain ambulatory O2. Lungs are CTA b/l. no respiratory distress or increased effort of breathing. RRR. No jvd or peripheral edema. skin w/d/i. no rashes. Differential diagnosis includes viral syndrome, pneumonia, bronchitis. Unlikely ARDS, pleural effusion, PE. Plan for breathing treatment, steroids, chest x-ray and re-evaluation. Differential Diagnosis Differential Diagnoses: The differential diagnosis associated with the presentation includes As above Admission/Observation Not indicated Independent Interpretation I performed an independent interpretation of an: Plain X-Ray Interpretation: Chest x-ray without infiltrate or consolidation, agree with radiologist's interpretation. Radiology Impression Discussion of test interpretation with radiology: I have reviewed the radiologist's reading. Radiologist Impression: EXAMINATION: XR CHEST CLINICAL INFORMATION: Cough COMPARISON: 04/04/2014 TECHNIQUE: Frontal view of the chest was obtained. FINDINGS: Lungs are well-inflated and clear. Trachea is midline in position. No interstitial disease, consolidation or mass. No pleural effusion or pneumothorax. Cardiac silhouette and pulmonary vessels are normal in size. The mediastinum and dianna have normal contour. No acute osseous abnormality. Skeletal findings include multilevel osteophyte formation of the thoracic spine and osteoarthrosis of bilateral acromioclavicular joints. XR/XR chest 1V IMPRESSION: Lungs have a normal appearance. No acute cardiopulmonary abnormality. External Record Review External record reviewed: Inpatient record, Office record, Outpatient record, Prior outpatient labs, Prior outpatient radiology, Primary care record and Outside ED record Prescription Management I considered prescription management with: Other (Prednisone, Tessalon Perles) Social Determinants Patient?s care significantly limited by Social Determinants of Health including: Other Social Determinant of Health Critical Care Time Critical Care Time Critical Care Time: No Discharge Plan Discharge Clinical Impression: Influenza Patient Disposition: Home, Self-Care Instructions: Influenza (ED), Flu Shot (Vaccine) for Adults (ED) Additional Instructions: You were given breathing treatment and steroid in the ED today. Your chest x-ray is normal. Prednisone as a steroid that has been sent to your pharmacy. Take this as prescribed for the next 4 days. You were given a dose of this in the ED. Take your next dose tomorrow. As your diabetic, please monitor your sugars while taking this medication. Tessalon Perles have been sent to your pharmacy to help with cough. Please follow-up with your primary care provider. Return with new or worsening symptoms. In the case of an emergency call 911. Prescriptions: New benzonatate 100 mg capsule 100 mg PO BID PRN (Reason: cough) Qty: 20 0RF prednisone 20 mg tablet 40 mg PO DAILY 4 Days Qty: 8 0RF No Action metformin 1,000 mg tablet 1,000 mg PO BID Qty: 180 3RF hydroxychloroquine 200 mg tablet 200 mg PO BID Qty: 180 1RF calcium carbonate-vitamin D3 [Calcium 600 with Vitamin D3] 600 mg(1,500mg) - 500 unit capsule 1 cap PO DAILY acetaminophen [Tylenol Extra Strength] 500 mg tablet 1,000 mg PO Q6H PRN polyethylene glycol 3350 [Miralax] 17 gram/dose powder 17 g PO DAILY PRN sennosides [Natural Senna Laxative] 8.6 mg tablet 17.2 mg PO BEDTIME Qty: 180 3RF Ozempic 0.25 mg or 0.5 mg (2 mg/3 mL) pen injector 0.25 mg subcut QWEEK Rx Instructions: for 4 weeks miconazole nitrate [Miconazole-7] 2 % cream 1 appful vaginal BEDTIME 7 Days Qty: 45 3RF fluconazole 150 mg tablet 150 mg PO Q3D 0 Days Qty: 2 3RF Rx Instructions: may repeat second dose 72 hrs after first dose if symptoms persist Referrals: Fabby Hurt MD [Primary Care Provider] - Stand Alone Forms: Work/School Release Interventions: ED Discharge Assessment Last Done: 06/24/23 15:24 Discharge Date/Time: 06/24/23 15:25 Print Language: Malagasy
[2023-06-24] MEDS: Albuterol/Iprat 2.5/0.5MG 3 ML AMPUL.NEB INHALE (13:40)
[2023-06-24 13:41] VITALS: PULSE 78; RESP 16; O2SAT 98
[2023-06-24 13:54] VITALS: O2SAT 98
[2023-06-24] MEDS: dexAMETHasone sod phosphate 10 MG/ML VIAL IVPUSH (14:09)
[2023-06-24 15:24] VITALS: BP 144/82; PULSE 104; RESP 18; TEMP -17.7; TEMP 0; O2SAT 97
== END 2023-06-24 15:25 | disposition home or self-care (01) ==
PROVIDERS: Emergency Provider Emergency Medicine; PCP Family Medicine
DX: J11.1 Influenza due to unidentified influenza virus with other respiratory manifestations (principal); R05.9 Cough, unspecified; R07.89 Other chest pain; I10 Essential (primary) hypertension; E11.9 Type 2 diabetes mellitus without complications
CPT/HCPCS: 71045; 94640; 96374; 99283; 99284; J1100

== ENCOUNTER 2023-06-28 11:46 | Outpatient (REF) | payer OTHER, SELFPAY | END 2023-06-28 11:47 | disposition home or self-care (01) | LOC: HO.HHCLNP 11:46 | PROVIDERS: Visit Provider Nurse Practitioner Primary Care | DX: L98.9 Disorder of the skin and subcutaneous tissue, unspecified (principal) | CPT/HCPCS: 87070; 87077; 87186; 87205; 87255 ==

== ENCOUNTER 2023-07-14 09:57 | Outpatient (AMB) | payer OTHER, SELFPAY ==
--- NOTE | 2023-07-14 10:20 | MHC.OFFVIS ---
Vital Signs 07/14/23 10:25 Height 4 ft 11 in Weight 218 lb 4.122 oz BMI 44.1 BP 112/70 Intake Visit Reasons: Colpo results Certified Medical Dosimetrist Required: No Information Interpreted: non-clinical & clinical Accompanied by: Self / Same As Patient Allergies glipizide [GLIPIZIDE] Allergy (Severe, Verified 07/14/23 10:25) SHORTNESS OF BREATH environmental allergies Allergy (Unknown, Uncoded 07/14/23 10:25) Runny Nose, Sneezing, Itching onions Allergy (Unknown, Uncoded 07/14/23 10:25) Hives/Rash Post menopausal: Yes HPI Comments Details: Presenting post colpo for follow-up. The patient is doing well with no complaints. Pap smear was unsatisfactory x2, HPV negative The pathology showed the following: A. Endocervix, curettage: Fragments of benign endocervical glands and squamous mucosa; negative for squamous intraepithelial lesion. B. Cervix, 4 o'clock, biopsy: Fragments of squamous mucosa within normal limits; no endocervical component seen; negative for squamous intraepithelial lesion. COMMENT: Note is made of the patient's recent Pap smear ([id number]; unsatisfactory; HPV-). [facility] Medical History Ruptured epidermal cyst Epidermal cyst Cloudy urine Joint pain in fingers of right hand Diverticulosis Herpes genitalis Yeast infection involving the vagina and surrounding area Carpal tunnel syndrome on right Pure hypercholesterolemia Hernia Borderline glaucoma (glaucoma suspect) HTN (hypertension) Diabetes mellitus Surgical History Hx of parathyroidectomy Hx of colonoscopy Hx of hernia repair Family History Father Diabetes mellitus Mother Diabetes mellitus Social History Alcohol intake: never Patient Tobacco Use Status: Never used Tobacco Current occupational status: employed Current occupation: [employer] Sexual orientation: Straight/Heterosexual Gender identity: Female Female Reproductive History Menstrual Age of Menarche: 7 Physical Exam Vital Signs: Last Vital Signs BP 112/70 07/14/23 10:25 BMI result Body Mass Index 44.1 Assessment & Plan Assessment & Plan (1) Unsatisfactory cervical Papanicolaou smear: Code(s): R87.615 - Unsatisfactory cytologic smear of cervix Category: Medical Plan: Discussed with the patient the pathology results of the colposcopy biopsies & endocervical curettage ( negative). Discussed with the patient the sensitivity specificity, positive and negative predictive value in detecting cervical cancer in addition discussed the regression, persistence and progression rates. Recommended co-testing in 12 months. Instructions given to the patient to schedule a co test appointment in 1 year. All questions answered the patient verbalized understanding. Coding Level of Care Code Est Pt Level 3 (75487) Diagnoses Unsatisfactory cervical Papanicolaou smear R87.615
[2023-07-14 10:25] VITALS: BP 112/70; BMI 44.1
== END 2023-07-14 11:26 | disposition home or self-care (01) ==
PROVIDERS: PCP Family Medicine; Visit Provider Obstetrics & Gynecology
DX: R87.615 Unsatisfactory cytologic smear of cervix (principal)
CPT/HCPCS: 99213

== ENCOUNTER → 2023-07-14 09:57 | Outpatient (BNVA) | payer OTHER, SELFPAY | PROVIDERS: PCP Family Medicine; Visit Provider Obstetrics & Gynecology ==

== ENCOUNTER 2023-11-15 07:15 | Outpatient (REF) | payer BC, SELFPAY ==
--- NOTE | ~2023-11-15 | MM_ITS ---
EXAMINATION: MM SCREENING DIGITAL BREAST TOMOSYNTHESIS, BILATERAL CLINICAL INFORMATION: Screening. Asymptomatic. COMPARISON: Mammography: Comparison is made with available priors TECHNIQUE: Digital breast mammography with tomosynthesis is performed in both the craniocaudal and mediolateral oblique views along with computer-aided detection (CAD). FINDINGS: There are scattered areas of fibroglandular density (ACR BI-RADS breast composition Category b). Right marker clip. There are no significant masses, abnormal calcifications, or other abnormalities. MM/MM tomosynthesis screening BI IMPRESSION: No mammographic evidence of malignancy. ASSESSMENT: BI-RADS BI-RADS 2 - Benign Findings RECOMMENDATION: Routine annual mammography screening. 1 year F/U This examination should not preclude the clinical evaluation of a suspicious palpable abnormality. This patient's information was entered into a reminder system with a target due date for their next mammogram. Electronically signed by: Crystal Dodson DO 11/25/2023 04:45 PM EDT
== END 2023-11-15 07:16 | disposition home or self-care (01) ==
LOC: HO.MAMMO 07:15
PROVIDERS: PCP Family Medicine; Visit Provider Family Medicine
DX: Z12.31 Encounter for screening mammogram for malignant neoplasm of breast (principal)
CPT/HCPCS: 77063; 77067

== ENCOUNTER → 2023-11-15 07:45 | Outpatient (BNV) | payer BC, SELFPAY | PROVIDERS: PCP Family Medicine; Visit Provider Internal Medicine | DX: Z12.31 Encounter for screening mammogram for malignant neoplasm of breast (principal) | CPT/HCPCS: 77063; 77067 ==

== ENCOUNTER 2023-12-05 12:01 | Outpatient (REF) | payer BC, SELFPAY ==
[2023-12-05 14:26] LABS: Alanine Aminotransferase 18 U/L (0-31); Albumin Level 4.1 g/dL (3.5-5.0); Alkaline Phosphatase 100 U/L (39-117); Anion Gap 11 (12-20); Aspartate Amino Transferase 26 U/L (5-31); Bilirubin Total 0.4 mg/dL (0.0-1.0); Blood Urea Nitrogen 9 mg/dL (9-16); Carbon Dioxide 27 mmol/L (22-29); Chloride 103 mmol/L (96-108); Cholesterol 239 mg/dL (<200); Estimated Glomerular Filt Rate > 60; Glucose Random 113 mg/dL (60-115); HDL Cholesterol 54 mg/dL (>40); LDL Cholesterol Calculated 153 mg/dL (<100); Potassium 4.3 mmol/L (3.3-5.1); Sodium 137 mmol/L (135-145); Total Protein 7.3 g/dL (6.5-8.0); Triglycerides 162 mg/dL (<150)
[2023-12-05 14:42] LABS: Microalbum/Creatinine Ratio Ur 6.8 ug/mg cr (<30)
[2023-12-05 14:43] LABS: Folate 10.2 ng/mL (> or = 4.0); Vitamin B12 269 pg/mL (200-900)
[2023-12-05 14:48] LABS: Reflex LDLD? No
== END 2023-12-05 12:02 | disposition home or self-care (01) ==
LOC: HO.HHCL 12:01
PROVIDERS: Visit Provider Family Medicine
DX: E11.65 Type 2 diabetes mellitus with hyperglycemia (principal)
CPT/HCPCS: 36415; 80053; 80061; 82043; 82570; 82607; 82746

== ENCOUNTER 2024-02-22 15:07 | Outpatient (REF) | payer BC, SELFPAY ==
--- NOTE | ~2024-02-22 | XR_ITS ---
EXAMINATION: XR CERVICAL SPINE 2-3 VIEWS HISTORY: PAIN COMPARISON: Comparison is made with the prior examination dated 05/11/2022. FINDINGS: AP, lateral, and open-mouth odontoid views of the cervical spine are submitted. Osseous mineralization is normal. Seven cervical vertebral bodies are identified maintaining normal height and alignment without evidence of fracture or subluxation. The intervertebral disc spaces are preserved. The odontoid and lateral masses of C1 are intact. There is no prevertebral soft tissue swelling. XR/XR cervical spine 3V IMPRESSION: Unremarkable examination of the cervical spine. Electronically signed by: Raymundo Aguilar MD 02/22/2024 03:54 PM [facility] [place] [place]
== END 2024-02-22 15:08 | disposition home or self-care (01) ==
LOC: HO.HHCX 15:07
PROVIDERS: Visit Provider Nurse Practitioner
DX: M54.2 Cervicalgia (principal)
CPT/HCPCS: 72040

== ENCOUNTER → 2024-02-22 15:10 | Outpatient (BNV) | payer BC, SELFPAY | PROVIDERS: Visit Provider Radiology Diagnostic Radiology | DX: M54.2 Cervicalgia (principal) | CPT/HCPCS: 72040 ==

== ENCOUNTER 2024-06-12 12:57 | Outpatient (REF) | payer BC, SELFPAY ==
--- NOTE | ~2024-06-12 | XR_ITS ---
EXAMINATION: XR KNEE 1-2 VIEWS RIGHT HISTORY: M17.0 - Bilateral primary osteoarthritis of knee COMPARISON: Comparison is made with the prior examination dated 10/19/2019. FINDINGS: AP and lateral views of the right knee are submitted. Osseous mineralization is normal. There is no fracture or dislocation. There is mild osteoarthritis of the medial compartment, with joint space narrowing and osteophyte formation. The soft tissues are unremarkable. There is no joint effusion. XR/XR knee RT 2V IMPRESSION: Mild osteoarthritis of the medial compartment. Electronically signed by: Raymundo Aguilar MD 06/12/2024 03:51 PM EDT
--- NOTE | ~2024-06-12 | XR_ITS ---
Examination: Bilateral foot. 3 views each CLINICAL INDICATION: Rheumatoid arthritis. COMPARISON: None. FINDINGS: Left foot: There are subchondral punched-out erosive changes distal fifth metatarsal with juxta articular osteopenia. There is loss of joint space. Rest of the digits are preserved. There is mild soft tissue swelling. No acute fracture or dislocation seen. The ankle mortise and subtalar joints are normal. A small calcaneal heel enthesophyte. Right foot: There are subchondral but without erosive changes distal fifth metacarpal at the MCP joint with loss of joint space and mild subluxation. There is mild osteopenia there is mild soft tissue swelling. A small calcaneal heel and retrocalcaneal and these findings are seen. Ankle mortise and subtalar joints are normal. The soft tissues are normal. XR/XR Foot [place] 3V IMPRESSION: Bilateral distal fifth metatarsal rheumatoid arthritic changes with loss of MCP joint space and mild soft tissue swelling. Small calcaneal heel enthesophytes bilaterally. Retrocalcaneal enthesophyte right foot. Electronically signed by: Herman Sharp MD 06/13/2024 08:14 AM EDT
--- NOTE | ~2024-06-12 | XR_ITS ---
EXAMINATION: XR HAND 3 VIEWS BILATERAL HISTORY: M06.9 - Rheumatoid arthritis, unspecified COMPARISON: Comparison is made with prior examinations of the left hand dated 01/13/2022 and the right hand dated 10/09/2021. FINDINGS: Six views of the bilateral hands are submitted. Osseous mineralization is normal. There is no fracture or dislocation. There are erosions involving the metacarpal heads of both thumbs as well as the base of the proximal phalanx of the right thumb. There is associated joint space narrowing, greater on the right. Findings are similar in appearance to prior study. The remaining joint spaces are maintained. Erosion of the right ulnar styloid is not as well visualized on today's examination due to differences in patient positioning. The soft tissues are unremarkable. XR/XR Hand Bilat min 3v IMPRESSION: Joint space narrowing and osseous erosions involving the MCP joints of both thumbs, right greater than left. The appearance is similar to the prior study. Electronically signed by: Raymundo Aguilar MD 06/13/2024 07:54 AM EDT
--- OUTSIDE RECORDS SUMMARY | 2024-06-12 15:53 | XMS_ITS | Encounter Summary ---
Author Organization [employer] Address [address] [facility] 7t [place] [address] Care Team Providers Care Application Support Administrator Name Role Phone Fabby Hurt MD Primary Care Provider [phone] Chance Bonilla PharmD Unavailable [phone] Reason for Visit * Reason Onset Date Comments Reschedule 08/19/2023 Encounter Details Date Type Department Care Team ([facility] Contact Info) Description 08/19/2023 Telephone [facility] MEDICINE [address] [place] [address] Fabby Hurt MD [address] [place] [address] Reschedule Social History Tobacco Use Types Packs/Day [...] Description 07/09/2024 3:45 PM EDT Office Visit [facility] MEDICINE [address] [place] [address] Fabby Hurt MD [address] [place] [address] documented as of this encounter Goals Goal Patient Goal Type Associated Problems Recent Progress Patient-Stated? Author Blood Pressure < 140/90 Blood Pressure 159/79(2024 1:36 PM EST) No Chance oBnilla, PharmD Hemoglobin A1c < 7 Result Component 7.3( 1:39 PM EST) No Chance Bonilla, PharmD documented as of this encounter Visit Diagnoses Not on filedocumented in this encounter Additional Health Concerns Assessment Noted Time PHQ-9 Depression Total Score: 3 01/26/20 23 2:26 PM EST documented as of this encounter Care Teams Application Support Administrator Relationship Specialty Start Date End Date Fabby Hurt MD [address] [place] [address] PCP - General Family Medicine 04/08/21 Chance Bonilla, CharlyD [address] [place] [address] Pharmacist Internal Medicine 11/30/22 documented as of this encounter
--- OUTSIDE RECORDS SUMMARY | 2024-06-12 15:53 | XMS_ITS | Encounter Summary ---
Author Organization [employer] Address [address] [facility] [address] 7t [place] [address] Care Team Providers Care Bread Wrapper Name Role Phone Fabby Hurt MD Primary Care Provider [phone] Chance Bonilla PharmD Unavailable [phone] Encounter Details Date Type Department Care Team ([facility] Contact Info) Description 12/07/2023 Abstract [facility] MEDICINE [address] [place] [address] Malissa Jordan MA Social History Tobacco Use [...] Description 07/09/2024 3:45 PM EDT Office Visit [facility] MED[facility]INE [address] [place], [place] [phone] Fabby Hurt MD 230 [place], [place] [phone] documented as of this encounter Goals Goal [...] documented as of this encounter Care Teams Bread Wrapper Relationship Specialty Start Date End Date Fabby Hurt MD [address] [place], [place] [phone] PCP - General Family Medicine 04/08/21 Chance Bonilla, PharmD [address] [place] [address] Pharmacist Internal Medicine 11/30/22 documented as of this encounter
--- OUTSIDE RECORDS SUMMARY | 2024-06-12 15:53 | XMS_ITS | Encounter Summary ---
Author Organization [employer] Address [address] [facility] 7t [place] [address] Care Team Providers Care Transport Technician Name Role Phone Fabby Hurt MD Primary Care Provider [phone] Chance Bonilla PharmD Unavailable [phone] Reason for Visit * Reason Onset Date Comments Med Refill 09/27/2022 Encounter Details Date Type Department Care Team (Late st Contact Info) Description 09/27/2022 Refill [facility] [address] [place] [address] Ruby Marin MD [address] [place] [address] [phone] Social History Tobacco Use Types Packs/Day Years [...] EDT Office Visit [facility]INE [address] [place], [place] [phone] Fabby Hurt MD 230 [place], [place] [phone] documented as of this encounter Visit Diagnoses Not on filedocumented in this encounter Care Teams Transport Technician Relationship Specialty Start Date End Date Fabby Hurt MD [address] [place] [address] PCP - General Family Medicine 04/08/21 Chance Bonilla, CharlyD [address] [place] [address] Pharmacist Internal Medicine 11/30/22 documented as of this encounter
--- OUTSIDE RECORDS SUMMARY | 2024-06-12 15:53 | XMS_ITS | Encounter Summary ---
Author Organization [employer] Address [address] [facility] 7t [place] [address] Care Team Providers Care Hourly Sign Language Interpreter Name Role Phone Fabby Hurt MD Primary Care Provider [phone] Chance Bonilla PharmD Unavailable [phone] Encounter Details Date Type Department Care Team ([facility] Contact Info) Description 12/20/2023 Orders Only [facility] MEDICINE [address] [place] [address] Fabby Hurt MD [address] [place] [address] Social History Tobacco Use Types Packs/Day Years [...] 07/09/2024 3:45 PM EDT Office Visit [facility] MEDICINE [address] [place] [address] Fabby Hurt MD [address] [place] [address] documented as of this encounter Goals Goal [...] documented as of this encounter Care Teams Hourly Sign Language Interpreter Relationship Specialty Start Date End Date Fabby Hurt MD [address] [place] [phone] PCP - General Family Medicine 04/08/21 Chance Bonilla PharmD [address] [place] [phone] Pharmacist Internal Medicine 11/30/22 documented as of this encounter
--- OUTSIDE RECORDS SUMMARY | 2024-06-12 15:53 | XMS_ITS | Encounter Summary ---
Author Organization [employer] Address [address] [facility] 7 [place] [address] Care Team Providers Care Family Consumer Science Teacher Name Role Phone Fabby Hurt MD Primary Care Provider [phone] Chance Bonilla PharmD Unavailable [phone] Reason for Referral * Consultation (Urgent) - Closed Specialty Diagnoses / Procedures Referred By Contac t Referred To Contact Rheumatology Diagnoses Seropositive rheumatoid arthritis (CMS/HCC) Fabby Hurt MD [address] [place] [address] Phone: tel: fax: [facility] Rheumatology [address] Phone: tel: fax: Referral ID Status Reason Start Date Expiration Date V isits Requested Visits Authorized [id number] Closed Specialty Services Required 06/04/2024 06/04/2025 12 12 Encounter Details Date Type Department Care Team (Late st Contact Info) Description 06/04/2024 Orders Only [facility] 230 [place], [place] [phone] Fabby Hurt MD [address] [place], [place] [phone] Seropositive rheumatoid arthritis (CMS/HCC) (Primary Dx) Social [...] Description 07/09/2024 3:45 PM EDT Office Visit [facility] [address] [place] [address] Fabby Hurt MD [address] [place] [address] Scheduled Referrals Name Type Priority Associated Diagnoses [...] encounter Visit Diagnoses Diagnosis Seropositive rheumatoid arthritis ([facility])- Primary documented in this encounter Additional Health Concerns Assessment Noted Time PHQ-9 Depression Total Score: 10 024 12:10 PM EDT documented as of this encounter Care Teams Family Consumer Science Teacher Relationship Specialty Start Date End Date Fabby Hurt MD [address] [place] [address] PCP - General Family Medicine 04/08/21 Chance Bonilla PharmD [address] [place] [address] Pharmacist Internal Medicine 11/30/22 documented as of this encounter
--- OUTSIDE RECORDS SUMMARY | 2024-06-12 15:53 | XMS_ITS | Encounter Summary ---
Author Organization [employer] Address [address] [facility] 7t [place] [address] Care Team Providers Care Custodial Supervisor Name Role Phone Fabby Hurt MD Primary Care Provider [phone] Chance Bonilla PharmD Unavailable [phone] Encounter Details Date Type Department Care Team ([facility] Contact Info) Description 05/31/2023 Orders Only [facility] MEDICINE [address] [place] [address] Fabby Hurt MD [address] [place] [address] Social History Tobacco Use Types Packs/Day Years [...] Description 07/09/2024 3:45 PM EDT Office Visit [facility] MEDICINE [address] [place], [place] [phone] Fabby Hurt MD [address] [place] [address] documented as of this encounter Goals Goal [...] documented as of this encounter Care Teams Custodial Supervisor Relationship Specialty Start Date End Date Fabby Hurt MD [address] [place] [phone] PCP - General Family Medicine 04/08/21 Chance Bonilla PharmD [address] [place] [phone] Pharmacist Internal Medicine 11/30/22 documented as of this encounter
--- OUTSIDE RECORDS SUMMARY | 2024-06-12 15:53 | XMS_ITS | Encounter Summary ---
Author Organization [employer] Address [address] [facility] 7t [place] [address] Care Team Providers Care Counterintelligence Agent Name Role Phone Fabby Hurt MD Primary Care Provider [phone] Chance Bonilla PharmD Unavailable [phone] Reason for Visit * Reason Comments Med Refill Encounter Details Date Type Department Care Team ([facility] st Contact Info) Description 12/05/2023 Refill [facility] MEDICINE [address] [place] [address] Vivian Baker ANP [address] [place] [address] Skin lesion Social History Tobacco Use Types [...] 3:45 PM EDT Office Visit [facility] MEDICINE [address] [place] [address] Fabby Hurt MD [address] [place] [address] documented as of this encounter Goals Goal [...] documented as of this encounter Care Teams Counterintelligence Agent Relationship Specialty Start Date End Date Fabby Hurt MD [address] [place] [address] [phone] PCP - General Family Medicine 04/08/21 Chance Bonilla PharmD [address] [place] [address] Pharmacist Internal Medicine 11/30/22 documented as of this encounter
--- OUTSIDE RECORDS SUMMARY | 2024-06-12 15:53 | XMS_ITS | Clinical Summary ---
Author Organization [email or web address] Address [address] [facility] 7t [place] [address] Care Team Providers Care Parts Counterman Name Role Phone Fabby Hurt MD Primary Care Provider [phone] Chance Bonilla PharmD Unavailable [phone] Allergies Active Allergy Reactions Criticality Noted Date Comments Glipizide Shortness of breath High 01/21/2014 Other reaction(s): chest tightness & palpitations Onion 01/23/2010 Other reaction(s): unspecified Medications hydroxychloroqui ne (Plaquenil) 200 MG tablet 03/18/19 23 Active glucose blood (FREESTYLE LITE) test stripIndications :Type 2 diabetes mellitus with hyperglycemia, without long-term current use of insulin ([facility]) USE TO TEST blood sugar 3 TIMES DAILY 100 each 3 12/01/19 23 Active Additional Information Patient not taking.Reported on 11/30/2022 Blood Glucose Monitoring Suppl (FreeStyle [place] Lite) w/Device kitIndications:T ype 2 diabetes mellitus with hyperglycemia, without long-term current use of insulin ([facility]) Use to test blood sugar 3 times daily 1 kit 12/01/19 Active Additional Information Patient not taking.Reported on 11/30/2022 Lancets 33G miscIndications: Type 2 diabetes mellitus with hyperglycemia, without long-term current use of insulin ([facility]) Use to test blood sugar 3 times daily 100 each 3 12/01/19 23 Active Additional Information Patient not taking.Reported on 11/30/2022 Alcohol Swabs (Alcohol Prep) 70 % padsIndications: Type 2 diabetes mellitus with hyperglycemia, without long-term current use of insulin ([facility]) Use three times daily as directed [...] Assessment & Plan (04/01/2024 1:02 PM EST): -Loading And Unloading Supervisor Dr. Arleth Lima -Continue hydroxychloroquine 200 mg bid -Biologic was recommended, but pt is hesitant -Encouraged to schedule a follow up appointment and improve adherence to prescribed treatment - Prescribed celecoxib (CeleBREX) 200 MG capsule 03/27/24 Assessment & Plan (12/10/2023 6:45 AM EDT): -Loading And Unloading Supervisor Dr. Arleth Lima -Continue hydroxychloroquine 200 mg bid -Biologic was recommended, but pt is hesitant -Encouraged to schedule a follow up appointment and improve adherence to prescribed treatment Assessment & Plan (01/31/2023 6:33 AM EST): -Loading And Unloading Supervisor Dr. Arleth Lima -Continue hydroxychloroquine 200 mg bid -Biologic was recommended, but pt is hesitant Assessment & Plan (10/17/2022 10:05 AM EDT): -Loading And Unloading Supervisor, Dr. Arleth Lima, last seen in August 2022 -Continue hydroxychloroquine 200 mg bid -Prescribed certolizumab, TNF antibody. Pt is hesitant to start Assessment & Plan (03/30/2022 7:57 PM EST): -Loading And Unloading Supervisor Dr. Arleth Lima -Continue hydroxychloroquine 200 mg [...] see other providers -Eye Exam: May 2022 [facility]. No diabetic retinopathy. -Foot [...] see other providers -Eye Exam: May 2022 [facility]. No diabetic retinopathy. -Foot [...] see other providers -Eye Exam: May 2022 [facility]. No diabetic retinopathy. -Foot [...] Department Care Team Description 06/04/2024 Orders Only [facility] [address] [place] [phone] Fabby Hurt MD Seropositive rheumatoid arthritis (CMS/HCC) (Primary Dx) 06/01/2024 Telephone [facility] [address] [place] [phone] Fabby Bethea MD 05/31/2024 Telephone [facility] Seth Barrientos, [place] [address] Fabby Hurt MD Referral 05/25/2024 Telephone [facility] Seth Barrientos, [place] [address] Fabby Hurt MD may recall 05/09/2024 Telephone [facility] Seth Barrientos, [place] [address] Fabby Hurt MD 05/09/2024 Orders Only [facility] Seth Barrientos, [place] [address] Fabby Hurt MD 05/07/2024 Refill [facility] Seth Barrientos, [place] [address] Fabby Hurt MD 04/16/2024 Telephone [facility] Seth Barrientos, [place] [address] Fabby Hurt MD PA REQUEST 04/04/2024 Telephone [facility] Seth Barrientos, [place] [address] Fabby Hurt MD DM bp-monitor/walker 03/29/2024 Telephone [facility] [place] [address] Fabby Hurt MD Durable Medical Equipment 03/29/2024 Telephone [facility] Seth Barrientos, [place] [address] Fabby Hurt MD Error (VOID this visit) 03/27/2024 1:30 PM EST Office Visit [facility] Seth Barrientos, [place] [address] Fabby Hurt MD Essential hypertension (Primary Dx); Type 2 diabetes mellitus with hyperglycemia, without long-term current use of insulin ([facility]); Seropositive rheumatoid arthritis ([facility]); Class 3 severe obesity due to excess calories with serious comorbidity and body mass index (BMI) of 45.0 to 49.9 in adult ([facility]); Dietary counseling; Exercise counseling; Dyslipidemia 03/27/2024 Travel 03/22/2024 Telephone [facility] [place] [phone] Calloway MA chart prep from Last 3 [...] Description 07/09/2024 3:45 PM EDT Office Visit [facility] [address] [place] [address] Fabby Hurt MD [address] [place] [address] Health Maintenance Due Date Last Done Comments [...] hyperglycemia, without long-term current use of insulin ([facility]) POCT GLUCOSE Routine 03/27/2024 1:37 PM [...] hyperglycemia, without long-term current use of insulin ([facility]/HCC) BI MAMMOGRAM SCREENING TOMOSYNTHESIS BILATERAL Routine 11/15/2023 [...] 12:10 PM EDT) Creatinine, Urine 161.60 mg/dL [facility] Microalbumin Urine 11.0 mg/L [facility] Microalbum Creatinine Ratio Ur 6.8 <30 ug/mg cr [facility] Comment:Albumin/Creatinine R at Reference Ranges: Normal: < 30 ug/mg creatinine Microalbuminuria: 30 - 300 ug/mg creatinineClinical Albuminuria: > 300 ug/mg creatinine Urine 12/05/2023 12:1 0 PM EDT 12/05/2023 1:25 PM EDT us Fabby Hurt MD LAB URINE ORDERABLES Final Resul t Performing Organization Address [facility] de Phone Number [facility] [address] [place] [phone] * (ABNORMAL) Lipid Panel with Reflex to Direct LDL (12/05/2023 12:03 PM EDT) Triglycerides 162(H) <150 mg/dL [facility] Comment:Desirable Triglyceri de: less than 150 mg/dLBorderline High Triglyceride 150-199 mg/dLHigh Triglyceride: 200-499 mg/dLVery High Triglyceride: greater than or equal to 5OO mg/dL Cholesterol 239(H) <200 mg/dL [facility] Comment:Desirable Cholestero l: less than 200 mg/dLBorderline High Cholesterol: 200-239 mg/dLHigh Cholesterol: greater than 239 mg/dL LDL Cholesterol Calculated 153(H) <100 mg/dL [facility] Comment:Desirable LDL: less than 100 mg/dLNear Optimal/Above Optimal LDL: 110- 129 mg/dLBorderline High LDL: 130-159 mg/dLHigh LDL: 160-189 mg/dLVery High LDL: greater than or equal to 190 mg/dL HDL Cholesterol 54 >40 mg/dL [facility] Comment:Desirable HDL: great er than 40 mg/dL Note: This HDL assay may give artificially low results in patients with liver disease. Blood 12/05/2023 12:0 3 PM EDT 12/05/2023 1:42 PM EDT us Fabby Hurt MD LAB BLOOD ORDERABLES Final Resul t Performing Organization Address [facility] Co de Phone Number [facility] [address] [place] [phone] * BI Mammogram Screening Tomosynthesis Bilateral (11/15/2023 7:25 AM EDT) Anatomical Region Laterality Modality Breast Bilateral Mammography 11/15/2023 7:25 AM EDT Narrative 11/25/2023 4:49 PM EDT ? [place] [facility] ? [address] ?[place] [address] ? Mammography Report ? Signed ? Patient: Okorie,Lara V ?MR#: [id number] ? : 1970 ?Acct:[id number] ? Age/Sex: 53 / F ?ADM Date: 11/15/23 ? Loc: HO.MAMMO ? Attending Dr: Fabby Hurt MD ? Ordering Physician: Fabby Hurt MD ?Results: 2Benign F ?? indings ? Date of Service: 11/15/23 ?Follow Up: 1 Year From Orig ?? inal Mammogram ? Procedure(s): MM tomosynthesis screening BI ?? Accession Number(s): [id number] ? cc: Fabby Hurt MD ? EXAMINATION: [...] ? DD/ 4 ? TD/TT: 11/15/23739 ? Software Recruiter: ? Procedure Note Harpreet, Image - 11/25/2023 [place] [facility]'s [address] [place] [address] Mammography Report Signed Patient: Lara Wyatt VMR#: [id number] : 1970Acct:[id number] Age/Sex: 53 / FADM Date: 11/15/23 Loc: [facility] Attending Dr: Fabby Hurt MD Ordering Physician: Fabby Hurt MDResults: 2Benign F indings Date of Service: 11/15/23Follow Up: 1 Year From Orig ina Mammogram Procedure(s): MM tomosynthesis screening BI Accession Number(s): [id number] cc: Fabby Hurt MD EXAMINATION: MM SCREENING [...] OV> 11/25/23 1645 DD/ TD/TT: 11/15/23 0740 Software Recruiter: Fabby Hurt MD IMG BI PROCEDURES Final Result * Pap Smear (03/29/2023 12:00 AM EST) 03/29/2023 03/30/2023 7:2 0 AM EST Narrative [facility] - 04/13/2023 3:49 PM EST ----- ------- Name: Lara Wyatt V ? Age/Sex: 52/F ? : 1970 Unit#: [id number] ?? Attend Dr: Radha Oden CNM ?Re03/29/23 ?Status: DEP REF ? Location: HO.LNP ?Disch: ? ----- ------- SPEC : [id number] ? RECD: 03/30/23 ? STATUS: ??SOUT ? REQ NUM: [id number] ? KEELEY: 03/29/23-0000 ? SUBM DR: Radha [...] 66, 68) ?? HPV testing performed by [employer], [place], [place]. ??See reference laboratory ?? portion of the EMR for entire report. ?Clinical Information LMP: 09/17/2022 Previous PAP test: 02/04/2023, unsatisfact, Unknown findings ? Material Received ?? ThinPrep-Cervical Copies To: ?? AkshatRadha SIMEON ?? [address] ?? [place] [address] ?? [phone] ?? Fabby Hurt MD ?? [address] [facility] ?? [place] ?? ----- ------- Signed (signature on file) RYAN Gr (ASCP) 04/13/23 1549 ? ----- ------- ? END OF REPORT ? us Generic External Data Provider LAB CYTOLOGY JOHANNE SMALL Final Result [facility] [address] [place] [phone] [phone] * Diabetes Eye Exam (05/11/2022) Eye Exam Normal Normal [facility] External Provider HEALTH MAINTENANCE Final Result * Hepatitis Panel, General (01/13/2022 3:48 PM EST) [facility] Hepatitis A IgM Nonreactive Nonreactive [facility] Comment:IgM antibodies to KHOURY V not detected; does not exclude earlyacute or recovered HAV infection. ~Hepatitis B Surface Antibody NONREACTIVE Nonreactive [facility] Comment:Nonreactive: < 8.00 mIU/mL Hepatitis B Core Antibody Nonreactive Nonreactive [facility] Hepatitis C Antibody Nonreactive Nonreactive [facility] Comment:Antibodies to HCV no t detected; does not exclude early acuteHCV infection. Hepatitis B Surface Antigen Negative Negative [facility] 01/13/2022 3:48 PM EST 01/13/2022 3:58 PM EST Result [facility] External Provider LAB BLO OD ORDERABLES Final Result Performing Organization Address City/State/[facility] Co de Phone Number [facility] [address] [place] [phone] * Colonoscopy (12/08/2021) [facility] Colonoscopy Normal Normal 12/08/2021 Result [facility] Historical Provider [facility] Final Result * HIV 1/2 ANTIGEN/ANTIBODY,FOURTH GENERATION W/RFL (05/12/2021 12:00 AM EDT) [facility] HIV-1/2 ANTIGEN AND ANTIBODIES, 4TH GENERATION W/ REFLEX NON-REACT BRENDON NON-REACT BRENDON [facility] Comment: HIV-1 antigen and HIV-1/HIV-2 [...] ? For additional information please refer to http://[employer]/faq/YIC760 (This link is being provided for informational/ educational purposes only.) ? The performance of this assay has not been clinically validated in patients less than 2 years old. ?? 05/12/2021 Fabby Hurt MD LAB BLOOD ORDERABLES Final Resul t Performing Organization Address [facility] de Phone Number [facility] [address] * HPV E6/E7 RFLX EMERALD 16 18/45 (12/24/2020 2:14 PM EST) [facility] HPV mRNA E6/E7 rflx Not Detected Not Detected [facility] Comment: Methodology: Divorce Mediator-Mediated Amplification This assay detects E6/E7 viral messenger RNA (mRNA) from 14 high-risk HPV types (16,18,31,33,35,39,45,51,52,56,58,59,66,68). The analytical performance characteristics of this assay have been determined by [employer]. The modifications have not been cleared or approved by the FDA. This assay has been validated pursuant to the CLIA regulations and is used for clinical purposes. For additional information, please refer to http://[employer]/faq/MZA417c3 (This link if provided for information/ educational purposes only.) THIS TEST WAS PERFORMED AT: [facility] [address] [place] [address],[address] [place], [place] ??[phone] MARIELLA ROCHA MD 12/24/2020 2:14 PM EST us Sabrina Calloway HISTORICAL/NON ORDERABLE LABS Fi nal Result Performing Organization Address [facility] de Phone Number [facility] [address] from Last 3 Months or Most Recently Relevant to Health Maintenance Insurance [facility] HMO Care Teams Parts Counterman Relationship Specialty Start Date End Date Fabby Hurt MD [address] [place] [address] PCP - General Family Medicine 04/08/21 Chance Bonilla, CharlyD [address] [place] [address] Pharmacist Internal Medicine 11/30/22
--- OUTSIDE RECORDS SUMMARY | 2024-06-12 15:53 | XMS_ITS | Encounter Summary ---
Author Organization [employer] Address [address] [facility] 7t [place] [address] Care Team Providers Care Mucker Operator Name Role Phone Fabby Hurt MD Primary Care Provider [phone] Chance Bonilla PharmD Unavailable [phone] Encounter Details Date Type Department Care Team ([facility] Contact Info) Description 05/09/2024 Orders Only [facility] MEDICINE [address] [place] [address] Fabby Hurt MD [address] [place] [address] Social History Tobacco Use Types Packs/Day Years [...] Description 07/09/2024 3:45 PM EDT Office Visit [facility]INE [address] [place] [address] Fabby Hurt MD [address] [place] [address] documented as of this encounter Goals Goal [...] documented as of this encounter Care Teams Mucker Operator Relationship Specialty Start Date End Date Fabby Hurt MD [address] [place] [phone] PCP - General Family Medicine 04/08/21 Chance Bonilla PharmD [address] [place] [phone] Pharmacist Internal Medicine 11/30/22 documented as of this encounter
--- OUTSIDE RECORDS SUMMARY | 2024-06-12 15:53 | XMS_ITS | Encounter Summary ---
Author Organization [employer] Address [address] [facility] 7t [place] [address] Care Team Providers Care Pit Hand Name Role Phone Fabby Hurt MD Primary Care Provider [phone] Chance Bonilla PharmD Unavailable [phone] Encounter Details Date Type Department Care Team ([facility] st Contact Info) Description 01/07/2023 Orders Only [facility] MEDICINE [address] [place], [place] [phone] Ruby Marin MD [address] [place] [address] Genital herpes simplex, unspecified site (Primary Dx); [...] 07/09/2024 3:45 PM EDT Office Visit [facility] [address] [place] [address] Fabby Hurt MD [address] [place] [phone] documented as of this encounter Goals Goal [...] vagina documented in this encounter Care Teams Pit Hand Relationship Specialty Start Date End Date Fabby Hurt MD [address] [place] [phone] PCP - General Family Medicine 04/08/21 Chance Bonilla PharmD [address] [place] [phone] Pharmacist Internal Medicine 11/30/22 documented as of this encounter
== END 2024-06-12 12:58 | disposition home or self-care (01) ==
LOC: HO.XRAY 12:57
PROVIDERS: PCP Family Medicine; Visit Provider Internal Medicine Rheumatology
DX: M06.9 Rheumatoid arthritis, unspecified (principal); M17.0 Bilateral primary osteoarthritis of knee
CPT/HCPCS: 73130; 73560; 73630

== ENCOUNTER 2024-06-12 12:57 | Outpatient (AMB) | payer BC, SELFPAY ==
--- NOTE | 2024-06-12 13:00 | A.OFFVIS_ITS ---
Vital Signs 06/12/24 13:07 Height 4 ft 11 in Weight 220 lb 3.869 oz BMI 44.5 BP 150/100 H Blood Pressure Location Rt brachial Position Sitting Pulse 99 Pulse Source Pulse Oximeter Pulse Oximetry (%) 96 Oxygen Delivery Method Room Air Intake Visit Reasons: RA Intake Note: Pt presents in office today for follow up RA. Accompanied by: Spouse Allergies glipizide [GLIPIZIDE] Allergy (Severe, Verified 06/12/24 13:00) SHORTNESS OF BREATH environmental allergies Allergy (Unknown, Uncoded 07/14/23 10:25) Runny Nose, Sneezing, Itching onions Allergy (Unknown, Uncoded 07/14/23 10:25) Hives/Rash HPI HPI RA: Details: Last visit 05/11/2022. She is having pain in her neck for a week and a half. Constant. 2-3 months ago she has been experiencing bilateral knee pain. PCP prescribed celecoxib with benefit. Insurance. She had celecoxib for a month. Insurance would not continue to cover it. PCP prescribed meloxicam without benefit. Tylenol is ineffective. She is having a hard time walking. Morning is hard for patient due to difficulty getting out of bed. She is relying a lot on using her left elbow and putting pressure against it contributing to increased left elbow pain when getting up. Morning stiffness is 30 minutes. She has pain in her hands, elbows, knees, and feet. [facility] Medical History Ruptured epidermal cyst Epidermal cyst Cloudy urine Joint pain in fingers of right hand Diverticulosis Herpes genitalis Yeast infection involving the vagina and surrounding area Carpal tunnel syndrome on right Pure hypercholesterolemia Hernia Borderline glaucoma (glaucoma suspect) HTN (hypertension) Diabetes mellitus Surgical History Hx of parathyroidectomy Hx of colonoscopy Hx of hernia repair Family History Father Diabetes mellitus Mother Diabetes mellitus Social History Alcohol intake: never Patient Tobacco Use Status: Never used Tobacco Current occupational status: employed Current occupation: [employer] Sexual orientation: Straight/Heterosexual Gender identity: Female Female Reproductive History Menstrual Age of Menarche: 7 Physical Exam Vital Signs: Last Vital Signs Pulse 99 06/12/24 13:07 BP 150/100 H 06/12/24 13:07 Pulse Ox 96 06/12/24 13:07 Oxygen Delivery Method Room Air 06/12/24 13:07 BMI result Body Mass Index 44.5 Const Other: General: Comfortable CVS: RRR Respiratory: clear to auscultation bilaterally. Good respiratory effort Skin: No lesions seen MSK: Tender to palpate right and left trapezius muscles. Normal cervical range of motion. Tender bilateral MCPs, PIP, IP knees and wrists. Tender left elbow and bilateral shoulders. Tender bilateral knees and MTPs. She has soft tissue swelling on MCPs and MTPs. Range of motion of shoulders bilateral abduction 90 degrees with limited internal rotation external rotation due to pain. She has normal elbow flexion bilateral. Knee flexion is limited due to pain. Examined while she is sitting on walker. Assessment & Plan Assessment & Plan (1) Rheumatoid arthritis: Comment: Inflammatory arthritis is uncontrolled. She has uncontrolled pain and stiffness resulting in difficulty with getting up out of bed and ambulating. She has diffuse soft tissue swelling MCPs and MTPs but it may be related to patient's subcutaneous tissue rather than synovitis. We discussed next steps with monotherapy with methotrexate. I personally reviewed x-rays from 2021 with patient. Discussed the importance of being on DMARD therapy to treat current symptoms and prevent progression of erosive inflammatory arthritis. I will need baseline labs and x-rays prior to starting DMARD therapy. Rheumatology history: Seropositive (RF and anti-CCP), erosive (bilateral 5th MTPs). symptoms started 2014. HCQ started 03/01-05/2022 lost to follow up. Code(s): M06.9 - Rheumatoid arthritis, unspecified Category: Medical Qualifiers: Laterality: bilateral Rheumatoid factor presence: with rheumatoid factor Plan: Information on methotrexate/DMARD therapy given to patient Labs ordered X-rays ordered I will start celecoxib 200 mg twice a day after lab results are back Return to clinic in 1-2 months (2) Cervicalgia: Comment: Due to trapezius strain. C-spine x-ray from February 2024 negative. Code(s): M54.2 - Cervicalgia Category: Medical Plan: Prescription for heating pad ordered Return to clinic in 1-2 months Orders: Orders Alanine Aminotransferase Today M06.9 - Rheumatoid arthritis, unspecified Aspartate Amino Transferase Today M06.9 - Rheumatoid arthritis, unspecified Creatinine Today M06.9 - Rheumatoid arthritis, unspecified C Reactive Protein Today M06.9 - Rheumatoid arthritis, unspecified Cyclic Citrullinated Peptide Today M06.9 - Rheumatoid arthritis, unspecified XR foot LT min 3V Today M06.9 - Rheumatoid arthritis, unspecified XR hand RT min 3V Today M06.9 - Rheumatoid arthritis, unspecified XR knee RT 2V Today M06.9 - Rheumatoid arthritis, unspecified, M17.0 - Bilateral primary osteoarthritis of knee XR knee RT 1V Today M06.9 - Rheumatoid arthritis, unspecified Hepatitis B,C Profile Today M06.9 - Rheumatoid arthritis, unspecified Complete Blood Count Man Dif Today M06.9 - Rheumatoid arthritis, unspecified Erythrocyte Sedimentation Rate Today M06.9 - Rheumatoid arthritis, unspecified Rheumatoid Factor Today M06.9 - Rheumatoid arthritis, unspecified T Spot TB Today M06.9 - Rheumatoid arthritis, unspecified XR foot RT min 3V Today M06.9 - Rheumatoid arthritis, unspecified XR hand LT min 3V Today M06.9 - Rheumatoid arthritis, unspecified Medications: New heating pads As directed Large heating pad Dx: neck pain, rheumatoid arthritis 1 ea 0RF Coding Level of Care Code Est Pt Level 4 (17695) Complex EM visit Add On G2211 Diagnoses Rheumatoid arthritis M06.9 Laterality: bilateral Rheumatoid factor presence: with rheumatoid factor Cervicalgia M54.2
[2024-06-12 13:07] VITALS: BP 150/100; PULSE 99; O2SAT 96; BMI 44.5
--- OUTSIDE RECORDS SUMMARY | 2024-06-12 14:07 | XMS_ITS | Encounter Summary ---
Author Organization [employer] Address [address] [facility] 7t [place] [address] Care Team Providers Care Lump Machine Operator Name Role Phone Fabby Hurt MD Primary Care Provider [phone] Chance Bonilla PharmD Unavailable [phone] Reason for Visit * Reason Comments Med Refill Encounter Details Date Type Department Care Team ([facility] st Contact Info) Description 12/05/2023 Refill [facility] [address] [place] [address] Vivian Baker ANP [address] [place] [address] Skin lesion Social History Tobacco Use Types Packs/Day Years Used Date Smoking Tobacco: Never Passive Smoke Exposure: Never Smokeless Tobacco: Never Depression Answer Date Recorded Patient Health Questionnaire-9 Score 10 12/05/2023 Patient Health Questionnaire-9 Score 10 12/05/2023 Last PHQ-9: Questionnaire Data Not on file 1 Housing Stability Answer Date Recorded What is your housing situation today? I have kaylyn bass 12/05/[address] you li ve. Do you have problems with any of the following? None of the above 12/05/2023 Food Insecurity Answer Date Recorded Within the past 12 months, y ou worried that your food would run out before you got money to buy more: Never True 12/05/2023 Within the past 12 months,th e food you bought just didn't last and you didn't have enough money to get more: Never True Transportation Answer Date Recorded In the past 12 months, has l ack of transportation kept you from medical appts, meetings, work or from getting things needed for daily living? No 12/05/2023 Utilities Answer Date Recorded In the past 12 months, has t he electric, gas, oil or water company threatened to shut off services in your home? No 12/05/2023 Depression Answer Date Recorded Patient Health Questionnaire-2 Score 0 12/05/2023 Internet Access Answer Date Recorded Internet Access Q1 Yes 12/05/2023 Internet Access Q2 Not on file 12/05/2023 Comments Unknown Sex and Gender Information Value Date Recorded Sex Assigned at Female 12/07/2021 10:16 AM EDT Legal Sex Female 10:16 AM EDT Gender Identity Female 12/07/2021 10:16 AM EDT Sexual Orientation Straight 12/07/2021 10 :16 AM EDT documented as of this encounter Plan of Treatment Upcoming Encounters Date Type Department Care Team (Late st Contact Info) Description 07/09/2024 3:45 PM EDT Office Visit [facility] [address] [place] [address] Fabby Hurt MD [address] [place] [address] documented as of this encounter Goals Goal Patient Goal Type Associated Problems Recent Progress Patient-Stated? Author Blood Pressure < 140/90 Blood Pressure 159/79(2024 1:36 PM EST) No Chance Bonilla PharmD Hemoglobin A1c < 7 Result Component 7.3( 1:39 PM EST) No Chance Bonilla PharmD documented as of this encounter Visit Diagnoses Diagnosis Skin lesion Unspecified disorder of skin and subcutaneous tissue documented in this encounter Additional Health Concerns Assessment Noted Time PHQ-9 Depression Total Score: 10 024 12:10 PM EDT documented as of this encounter Care Teams Lump Machine Operator Relationship Specialty Start Date End Date Fabby Hurt MD [address] [place] [address] [phone] PCP - General Family Medicine 04/08/21 Chance Bonilla PharmD [address] [place] [address] Pharmacist Internal Medicine 11/30/22 documented as of this encounter
--- OUTSIDE RECORDS SUMMARY | 2024-06-12 14:07 | XMS_ITS | Encounter Summary ---
Author Organization [employer] Address [address] [facility] 7t [place] [address] Care Team Providers Care Billiard Player Name Role Phone Fabby Hurt MD Primary Care Provider [phone] Chance Bonilla PharmD Unavailable [phone] Encounter Details Date Type Department Care Team ([facility] Contact Info) Description 05/31/2023 Orders Only [facility] [address] [place] [address] Fabby Hurt MD 230 [place] [address] Social History Tobacco Use Types Packs/Day Years Used Date Smoking Tobacco: Never Passive Smoke Exposure: Never Smokeless Tobacco: Never Depression Answer Date Recorded Patient Health Questionnaire-9 Score 3 01/25/2023 Patient Health Questionnaire-9 Score 3 01/25/2023 Last PHQ-9: Questionnaire Data Not on file 1 03/28/2022 Housing Stability Answer Date Recorded What is your housing situation today? I have kaylyn bass 11/14/[address] you li ve. Do you have problems with any of the following? Pests such as bugs, ants, or mice 11/14/2022 Food Insecurity Answer Date Recorded Within the past 12 months, y ou worried that your food would run out before you got money to buy more: Often true 11/28/2022 Within the past 12 months,th e food you bought just didn't last and you didn't have enough money to get more: Often true Transportation Answer Date Recorded In the past 12 months, has l ack of transportation kept you from medical appts, meetings, work or from getting things needed for daily living? No 11/28/2022 Utilities Answer Date Recorded In the past 12 months, has t he electric, gas, oil or water company threatened to shut off services in your home? No 11/28/2022 Depression Answer Date Recorded Patient Health Questionnaire-2 Score 0 01/25/2023 Comments Unknown Sex and Gender Information Value [...] Description 07/09/2024 3:45 PM EDT Office Visit [facility] [address] [place], [place] [phone] Fabby Hurt MD [address] [place] [address] documented as of this encounter Goals Goal Patient Goal Type Associated Problems Recent Progress Patient-Stated? Author Blood Pressure < 140/90 Blood Pressure 159/79(2024 1:36 PM EST) No Chance Bonilla PharmD Hemoglobin A1c < 7 Result Component 7.3( 1:39 PM EST) No Chance Bonilla PharmD documented as of this encounter Visit Diagnoses Not on filedocumented in this encounter Additional Health Concerns Assessment Noted Time PHQ-9 Depression Total Score: 3 01/26/20 23 2:26 PM EST documented as of this encounter Care Teams Billiard Player Relationship Specialty Start Date End Date Fabby Hurt MD [address] [place] [address] PCP - General Family Medicine 04/08/21 Chance Bonilla PharmD [address] [place] [address] Pharmacist Internal Medicine 11/30/22 documented as of this encounter
--- OUTSIDE RECORDS SUMMARY | 2024-06-12 14:07 | XMS_ITS | Encounter Summary ---
Author Organization [employer] Address [address] [facility] 7t [place] [address] Care Team Providers Care Verification Lead Name Role Phone Fabby Hurt MD Primary Care Provider [phone] Chance Bonilla PharmD Unavailable [phone] Encounter Details Date Type Department Care Team ([facility] st Contact Info) Description 01/07/2023 Orders Only [facility] [address] [place], [place] [phone] Ruby Marin MD 230 [place] [address] Genital herpes simplex, unspecified site (Primary Dx); Vaginal yeast infection Social History Tobacco Use Types Packs/Day Years Used Date Smoking Tobacco: Never Passive Smoke Exposure: Never Smokeless Tobacco: Never Housing Stability Answer Date Recorded What is your housing situation today? I have kaylynzafar bass 11/14/[address] you [...] off services in your home? No 11/28/2022 Comments Unknown Sex and Gender Information Value [...] Description 07/09/2024 3:45 PM EDT Office Visit [facility] [address] [place] [address] Fabby Hurt MD [address] [place] [address] documented as of this encounter Goals Goal Patient Goal Type Associated Problems Recent Progress Patient-Stated? Author Blood Pressure < 140/90 Blood Pressure 159/79(2024 1:36 PM EST) No Chance Bonilla PharmD Hemoglobin A1c < 7 Result Component 7.3( 1:39 PM EST) No Chance Bonilla PharmD documented as of this encounter Visit Diagnoses Diagnosis Genital herpes simplex, unspecified site- Primary Vaginal yeast infection Candidiasis of vulva and vagina documented in this encounter Care Teams Verification Lead Relationship Specialty Start Date End Date Fabby Hurt MD [address] [place] [address] PCP - General Family Medicine 04/08/21 Chance Bonilla PharmD [address] [place] [address] Pharmacist Internal Medicine 11/30/22 documented as of this encounter
--- OUTSIDE RECORDS SUMMARY | 2024-06-12 14:07 | XMS_ITS | Encounter Summary ---
Author Organization [employer] Address [address] [facility] 7t [place] [address] Care Team Providers Care Draw Frame Runner Name Role Phone Fabby Hurt MD Primary Care Provider [phone] Chance Bonilla PharmD Unavailable [phone] Encounter Details Date Type Department Care Team ([facility] Contact Info) Description 05/09/2024 Orders Only [facility] [address] [place] [address] Fabby Hurt MD [address] [place] [address] Social History Tobacco Use Types Packs/Day Years [...] Description 07/09/2024 3:45 PM EDT Office Visit [facility] [address] [place] [address] Fabby Hurt MD [address] [place] [address] documented as of this encounter Goals Goal [...] documented as of this encounter Care Teams Draw Frame Runner Relationship Specialty Start Date End Date Fabby Hurt MD [address] [place] [address] PCP - General Family Medicine 04/08/21 Chance Bonilla PharmD [address] [place] [address] Pharmacist Internal Medicine 11/30/22 documented as of this encounter
--- OUTSIDE RECORDS SUMMARY | 2024-06-12 14:07 | XMS_ITS | Encounter Summary ---
Author Organization [employer] Address [address] [facility] 7t [place] [address] Care Team Providers Care Large Animal Husbandry Technician Name Role Phone Fabby Hurt MD Primary Care Provider Chance Bonilla PharmD Unavailable Reason for Visit * Reason Onset Date Comments Reschedule 08/19/2023 Encounter Details Date Type Department Care Team ([facility] Contact Info) Description 08/19/2023 Telephone [facility] [address] [place] [address] Fabby Hurt MD 230 [place] [address] Reschedule Social History Tobacco Use Types Packs/Day Years [...] AM EDT documented as of this encounter Miscellaneous Notes * Telephone Encounter - Carol Wang - 08/19/2023 1:14 PM EDT Tc from pt requesting r/s 08/07 visit with PCP, appt canceled due to insurance. documented in this encounter Plan of Treatment Upcoming Encounters Date Type Department Care Team (Late st Contact Info) Description 07/09/2024 3:45 PM EDT Office Visit [facility] [address] [place] [address] Fabby Hurt MD [address] [place] [address] documented as of this encounter Goals Goal Patient Goal Type Associated Problems Recent Progress Patient-Stated? Author Blood Pressure < 140/90 Blood Pressure 159/79(2024 1:36 PM EST) No Chance Boinlla, PharmD Hemoglobin A1c < 7 Result Component 7.3( 1:39 PM EST) No Chance Bonilla, PharmD documented as of this encounter Visit Diagnoses Not on filedocumented in this encounter Additional Health Concerns Assessment Noted Time PHQ-9 Depression Total Score: 3 01/26/20 23 2:26 PM EST documented as of this encounter Care Teams Large Animal Husbandry Technician Relationship Specialty Start Date End Date Fabby Hurt MD [address] [place] [address] PCP - General Family Medicine 04/08/21 Chance Bonilla, CharlyD [address] [place] [address] Pharmacist Internal Medicine 11/30/22 documented as of this encounter
--- OUTSIDE RECORDS SUMMARY | 2024-06-12 14:07 | XMS_ITS | Encounter Summary ---
Author Organization [employer] Address [address] [facility] 7t [place] [address] Care Team Providers Care Metal Bonding Worker Name Role Phone Fabby Hurt MD Primary Care Provider [phone] Chance Bonilla PharmD Unavailable [phone] Encounter Details Date Type Department Care Team ([facility] Contact Info) Description 12/20/2023 Orders Only [facility] [address] [place] [address] Fabby Hurt MD [address] [place] [address] Social History Tobacco Use Types Packs/Day Years [...] Description 07/09/2024 3:45 PM EDT Office Visit [facility] [address] [place] [address] Fabby Hurt MD [address] [place] [address] documented as of this encounter Goals Goal [...] documented as of this encounter Care Teams Metal Bonding Worker Relationship Specialty Start Date End Date Fabby Hurt MD [address] [place] [address] PCP - General Family Medicine 04/08/21 Chance Bonilla PharmD [address] [place] [address] Pharmacist Internal Medicine 11/30/22 documented as of this encounter
--- OUTSIDE RECORDS SUMMARY | 2024-06-12 14:07 | XMS_ITS | Encounter Summary ---
Author Organization [employer] Address [address] [facility] 7 [place] [address] Care Team Providers Care Acidizer Helper Name Role Phone Fabby Hurt MD Primary Care Provider [phone] Chance Bonilla PharmD Unavailable [phone] Reason for Referral * Consultation (Urgent) - Closed Specialty Diagnoses / Procedures Referred By Contac t Referred To Contact Rheumatology Diagnoses Seropositive rheumatoid arthritis (CMS/HCC) Fabby Hurt MD 230 [place] [address] Phone: tel: fax: [facility] [address] Phone: tel: fax: Referral ID Status Reason Start Date Expiration Date V isits Requested Visits Authorized [id number] Closed Specialty Services Required 06/04/2024 06/04/2025 12 12 Encounter Details Date Type Department Care Team (Late st Contact Info) Description 06/04/2024 Orders Only [facility] 230 [place], [place] [phone] Fabby Hurt MD [address] [place], [place] [phone] Seropositive rheumatoid arthritis (CMS/HCC) (Primary Dx) Social History Tobacco Use Types Packs/Day Years [...] Description 07/09/2024 3:45 PM EDT Office Visit [facility] 230 [place] [address] Fabby Hurt MD [address] [place] [address] Scheduled Referrals Name Type Priority Associated Diagnoses Order Schedule Referral to Rheumatology Outpatient Referral Urgent Seropositive rheumatoid arthritis (CMS/HCC) Expected: 06/04/2024 (Approximate), Expires: 06/04/2025 documented as of this encounter Goals Goal Patient Goal Type Associated Problems Recent Progress Patient-Stated? Author Blood Pressure < 140/90 Blood Pressure 159/79(2024 1:36 PM EST) No Chance Bonilla PharmD Hemoglobin A1c < 7 Result Component 7.3( 1:39 PM EST) No Chance Bonilla PharmD documented as of this encounter Visit Diagnoses Diagnosis Seropositive rheumatoid arthritis ([facility])- Primary documented in this encounter Additional Health Concerns Assessment Noted Time PHQ-9 Depression Total Score: 10 024 12:10 PM EDT documented as of this encounter Care Teams Acidizer Helper Relationship Specialty Start Date End Date Fabby Hurt MD [address] [place] [address] PCP - General Family Medicine 04/08/21 Chance Bonilal PharmD [address] [place] [address] Pharmacist Internal Medicine 11/30/22 documented as of this encounter
--- OUTSIDE RECORDS SUMMARY | 2024-06-12 14:07 | XMS_ITS | Encounter Summary ---
Author Organization [employer] Address [address] [facility] [address] 7t [place] [address] Care Team Providers Care Battery Engineer Name Role Phone Fabby Hurt MD Primary Care Provider [phone] Chance Bonilla PharmD Unavailable [phone] Encounter Details Date Type Department Care Team ([facility] Contact Info) Description 12/07/2023 Abstract [facility] [address] [place] [address] Malissa Jordan MA Social History Tobacco Use Types Packs/Day Years Used Date Smoking Tobacco: Never Passive Smoke Exposure: Never Smokeless Tobacco: Never Depression Answer Date Recorded Patient Health Questionnaire-9 Score 10 12/05/2023 Patient Health Questionnaire-9 Score 10 12/05/2023 Last PHQ-9: Questionnaire Data Not on file 1 Housing Stability Answer Date Recorded What is your housing situation today? I have kaylynzafar bass 12/05/[address] you [...] Description 07/09/2024 3:45 PM EDT Office Visit [facility] 230 [place], [place] [phone] Fabby Hurt MD [address] [place], [place] [phone] documented as of this encounter Goals Goal Patient Goal Type Associated Problems Recent Progress Patient-Stated? Author Blood Pressure < 140/90 Blood Pressure 159/79(2024 1:36 PM EST) No Chance Bonilla, PharmDelano Hemoglobin A1c < 7 Result Component 7.3( 1:39 PM EST) No Chance Bonilla PharmD documented as of this encounter Procedures Procedure Name Priority Date/Time Associated Diagnosis Comments COLONOSCOPY Routine 12/08/2021 documented in this encounter Results * Colonoscopy (12/08/2021) Colonoscopy Normal Normal 12/08/2021 us Historical Provider HEALTH MAINTENANCE Final Result documented in this encounter Visit Diagnoses Not on filedocumented in this encounter Additional Health Concerns Assessment Noted Time PHQ-9 Depression Total Score: 10 024 12:10 PM EDT documented as of this encounter Care Teams Battery Engineer Relationship Specialty Start Date End Date Fabby Hurt MD [address] [place], [place] [phone] PCP - General Family Medicine 04/08/21 Chance Bonilla, PharmD [address] [place] [address] Pharmacist Internal Medicine 11/30/22 documented as of this encounter
--- OUTSIDE RECORDS SUMMARY | 2024-06-12 14:07 | XMS_ITS | Encounter Summary ---
Author Organization [employer] Address 75 [facility] 7t [place] [address] Care Team Providers Care Digital Research Analyst Name Role Phone Fabby Hurt MD Primary Care Provider [phone] Chance Bonilla PharmD Unavailable [phone] Reason for Visit * Reason Onset Date Comments Med Refill 09/27/2022 Encounter Details Date Type Department Care Team (Late st Contact Info) Description 09/27/2022 Refill [facility] [address] [place] [address] Ruby Marin MD [address] [place] [address] [phone] Social History Tobacco Use Types Packs/Day Years Used Date Smoking Tobacco: Never Passive Smoke Exposure: Never Smokeless Tobacco: Never Comments Unknown Sex and Gender Information Value [...] Description 07/09/2024 3:45 PM EDT Office Visit [facility] [address] [place], [place] [phone] Fabby Hurt MD [address] [place], [place] [phone] documented as of this encounter Visit Diagnoses Not on filedocumented in this encounter Care Teams Digital Research Analyst Relationship Specialty Start Date End Date Fabby Hurt MD [address] [place] [address] PCP - General Family Medicine 04/08/21 Chance Bonilla, CharlyD [address] [place] [address] Pharmacist Internal Medicine 11/30/22 documented as of this encounter
--- OUTSIDE RECORDS SUMMARY | 2024-06-12 14:08 | XMS_ITS | Clinical Summary ---
Author Organization [employer] Address [address] [place] [address] Care Team Providers Care Partner Cco Name Role Phone Fabby Hurt MD Primary Care Provider [phone] Chance Bonilla PharmD Unavailable [phone] Allergies Active Allergy Reactions Criticality Noted Date Comments Glipizide Shortness of breath High 01/21/2014 Other reaction(s): chest tightness & palpitations Onion 01/23/2010 Other reaction(s): unspecified Medications hydroxychloroqui ne (Plaquenil) 200 MG tablet 03/18/19 23 Active glucose blood (FREESTYLE LITE) test stripIndications :Type 2 diabetes mellitus with hyperglycemia, without long-term current use of insulin ([facility]) USE TO TEST blood sugar 3 TIMES DAILY 100 each 3 12/01/19 23 Active Additional Information Patient not taking.Reported on 11/30/2022 Blood Glucose Monitoring Suppl (FreeStyle [place] Lite) w/Device kitIndications:T ype 2 diabetes mellitus with hyperglycemia, without long-term current use of insulin ([facility]) Use to test blood sugar 3 times daily 1 kit 12/01/19 Active Additional Information Patient not taking.Reported on 11/30/2022 Lancets 33G miscIndications: Type 2 diabetes mellitus with hyperglycemia, without long-term current use of insulin (CMS/[facility]) Use to test blood sugar 3 times daily 100 each 3 12/01/19 23 Active Additional Information Patient not taking.Reported on 11/30/2022 Alcohol Swabs (Alcohol Prep) 70 % padsIndications: Type 2 diabetes mellitus with hyperglycemia, without long-term current use of insulin (CMS/[facility]) Use three times daily as directed 100 each 2 12/01/19 23 Active atorvastatin (Lipitor) 10 MG tabletIndication s:Type 2 diabetes mellitus with hyperglycemia, without long-term current use of insulin (CMS/HCC) Take 1 tablet by mouth daily at bedtime 90 tablet 12/02/19 23 Active Farxiga 10 MGIndications:Ty pe 2 diabetes mellitus with hyperglycemia, without long-term current use of insulin (CMS/HCC) Take 1 tablet by mouth every morning 90 tablet 12/02/19 23 Active metFORMIN (Glucophage) 1000 MG tabletIndication s:Type 2 diabetes mellitus with hyperglycemia, without long-term current use of insulin (CMS/HCC) Take 1 tablet by mouth twice daily 180 tablet 12/02/19 23 Active fluconazole (Diflucan) 150 MG tabletIndication s:Vulvovaginal Candidiasis Take 1 tab po once, repeat after 3 days if still symptomatic. 2 tablet 01/10/20 23 Active Blood Pressure kitIndications:E ssential hypertension Use to measure blood pressure daily 1 kit 06/24/19 24 Active terbinafine (LamISIL AT) 1 % cream Apply topically 2 times daily. 42 g 3 12/05/19 24 Active Ozempic, 1 MG/DOSE, 4 MG/3ML solution pen-injector Inject 1 MG SUBCUTANEOUSLY EVERY 7 DAYS IN THE ABDOMEN, THIGHS OR UPPER ARM. ROTATE INJECTION SITES. 3 mL 1 05/08/19 25 Active meloxicam (Mobic) 15 MG tablet Take 1 tablet (15 mg) by mouth if needed each day for moderate pain. 30 tablet 3 05/10/19 25 026 Active Active Problems Problem Noted Date Diagnosed Date Tinea manuum 12/06/2023 Assessment & Plan (12/10/2023 6:40 AM EDT): Rash on right hand fingers, interdigital space -will prescribe Terbinafine cream -wear gloves when washing dishes or cleaning until it improves Tinea pedis of both feet 12/06/2023 Assessment & Plan (12/06/2023 12:53 PM EDT): Rash on bilateral toes. -will prescribe Terbinafine cream Seropositive rheumatoid arthritis 03/23/2022 Assessment & Plan (04/01/2024 1:02 PM EST): -Blender Machine Operator Dr. Arleth Lima -Continue hydroxychloroquine 200 mg bid -Biologic was recommended, but pt is hesitant -Encouraged to schedule a follow up appointment and improve adherence to prescribed treatment - Prescribed celecoxib (CeleBREX) 200 MG capsule 03/27/24 Assessment & Plan (12/10/2023 6:45 AM EDT): -Blender Machine Operator Dr. Arleth Lima -Continue hydroxychloroquine 200 mg bid -Biologic was recommended, but pt is hesitant -Encouraged to schedule a follow up appointment and improve adherence to prescribed treatment Assessment & Plan (01/31/2023 6:33 AM EST): -Blender Machine Operator Dr. Arleth Lima -Continue hydroxychloroquine 200 mg bid -Biologic was recommended, but pt is hesitant Assessment & Plan (10/17/2022 10:05 AM EDT): -Blender Machine Operator, Dr. Arleth Lima, last seen in August 2022 -Continue hydroxychloroquine 200 mg bid -Prescribed certolizumab, TNF antibody. Pt is hesitant to start Assessment & Plan (03/30/2022 7:57 PM EST): -Blender Machine Operator Dr. Arleth Lima -Continue hydroxychloroquine 200 mg bid -Biologic was recommended, but pt is hesitant Dyslipidemia 03/23/2022 Assessment & Plan (04/01/2024 1:03 PM EST): -Lipid panel 12/05/23 -Current medication: Atorvastatin 10 mg at bedtime -Continue working on lifestyle modifications -Improve adherence to medications Assessment & Plan (12/10/2023 6:45 AM EDT): -Lipid panel 12/05/23 -Current medication: Atorvastatin 10 mg at bedtime -Continue working on lifestyle modifications -Improve adherence to medications Assessment & Plan (01/31/2023 6:34 AM EST): -Lipid panel 09/27/22 TC 243; TG 178; HDL 58; LDL 150 -Current medication: Atorvastatin 10 mg at bedtime -Continue working on lifestyle modifications Assessment & Plan (10/17/2022 10:03 AM EDT): -Lipid panel 05/12/21: TC 215; TG 131; HDL 65; LDL 125. -Current medication: Atorvastatin 10 mg at bedtime -Continue working on lifestyle modifications Assessment & Plan (03/30/2022 7:59 PM EST): -Lipid panel 05/12/21: TC 215; TG 131; HDL 65; LDL 125. -Current medication: Atorvastatin 10 mg qhs Perimenopause 05/30/2015 Allergic rhinitis 02/03/2015 Essential hypertension 02/03/2015 Assessment & Plan (04/01/2024 1:00 PM EST): -Goal BP < 140/90 per JNC-8, <130/80 per ACC/AHA -BP is not at goal today, pt reports BP is elevated only since she is at the doctor's office, and believes it is normal when she is relaxed. -07/28/21 Nuclear stress test / myocardial perfusion imaging were normal -08/18/21 TTE 60-65%, impaired relaxation filling pattern -08/26/21 Sleep study - no RONI, average O2 = 93%, peace 87% -Continue working on lifestyle modifications -Discussed about recommendation for starting ARB / ACEI and restarting SGLT2i. Pt is hesitant. Pt has not been taking dapaglifrozin either. -Check BP at home. Her current BP monitor is malfunctioning. Will request a new BP monitor that fits on her wrist due to her large arm circumference. -Follow-up in 3 mo or sooner prn. Assessment & Plan (12/06/2023 12:56 PM EDT): -Goal BP < 140/90 per JNC-8, <130/80 per ACC/AHA -BP is not at goal today, pt reports BP is elevated only since she is at the doctor's office, and believes it is normal when she is relaxed. -07/28/21 Nuclear stress test / myocardial perfusion imaging were normal -08/18/21 TTE 60-65%, impaired relaxation filling pattern -08/26/21 Sleep study - no RONI, average O2 = 93%, peace 87% -Continue working on lifestyle modifications -Discussed about recommendation for starting ARB / ACEI. Pt is hesitant. Pt has not been taking dapaglifrozin either. -Check BP at home. -Follow-up in 3 mo or sooner prn. Assessment & Plan (01/31/2023 6:35 AM EST): -Goal BP < 140/90 per JNC-8, <130/80 per ACC/AHA -BP is not at goal today -07/28/21 Nuclear stress test / myocardial perfusion imaging were normal -08/18/21 TTE 60-65%, impaired relaxation filling pattern -08/26/21 Sleep study - no RONI, average O2 = 93%, peace 87% -Continue working on lifestyle modifications -Discussed about recommendation for starting ARB / ACEI. Pt is hesitant. Pt has not been taking dapaglifrozin either. -Check BP at home. -Follow-up in 3 mo or sooner prn. Assessment & Plan (10/17/2022 10:01 AM EDT): -Goal BP < 140/90 per JNC-8, <130/80 per ACC/AHA -Dx in June 2021, pt chose lifestyle modification before starting pharmacological Tx -BP is at goal today, well-controlled with lifestyle modifications -07/28/21 Nuclear stress test / myocardial perfusion imaging were normal -08/18/21 TTE 60-65%, impaired relaxation filling pattern -08/26/21 Sleep study - no RONI, average O2 = 93%, peace 87% -Recommended to continue working on lifestyle modifications -Check BP at home. -Follow-up in 3 mo Assessment & Plan (03/30/2022 7:52 PM EST): -Goal BP < 140/90 per JNC-8, <130/80 per ACC/AHA -Dx in June 2021, pt chose lifestyle modification before starting pharmacological Tx -BP is at goal today, well-controlled with lifestyle modifications (-Continue Jardiance 10 mg daily) -07/28/21 Nuclear stress test / myocardial perfusion imaging were normal -08/18/21 TTE 60-65%, impaired relaxation filling pattern -08/26/21 Sleep study - no RONI, average O2 = 93%, peace 87% -Recommended to continue working on lifestyle modifications -Check BP at home. -Follow-up in 3 mo Gastroesophageal reflux disease without esophagi tis 02/03/2015 Obesity 02/03/2015 Assessment & Plan (12/10/2023 6:44 AM EDT): - sleep study negative for RONI - comorbid conditions: DM2, HTN, RA - on GLP1RA for diabetes mellitus - prescribed SGLT2i but not adherent Assessment & Plan (03/23/2022 5:37 AM EST): - sleep study negative for RONI - comorbid conditions: DM2, HTN, RA Type 2 diabetes mellitus 02/03/2015 Assessment & Plan (04/01/2024 1:02 PM EST): -A1C 7.3% on 03/27/24, 6.8% on 12/05/23, slightly worsened. -Continue working on lifestyle modifications -Continue Semaglutide. Patient is frustrated that she is not having weight loss. Consider tirzepatide -Continue improving adherence to medications and self-monitoring blood glucose -self-discontinued metformin 1000 mg bid, due to fear of side effects (has not experienced yet) -self-discontinued dapagliflozin 10 mg daily,due to fear of side effects -Barrier to treatment: Cost of medications and pt's knowledge about diabetes mellitus, tried nurse diabetes education but RN left (Lubna Hoyos) and she is hesitant to see other providers -Eye Exam: May 2022 [facility]. No diabetic retinopathy. -Foot exam done on 12/05/23. Pt has tinea pedis -Lipid Profile 12/05/23 TC 243; TG 162; HDL 54; LDL 153 -Last microalbumin 12/05/23 UACR 6.8 Follow up in 3 mo or sooner if any problem arises Assessment & Plan (12/10/2023 6:44 AM EDT): -A1C 6.8% on 12/05/23, still a little elevated, but much improved. -Continue working on lifestyle modifications -Continue Semaglutide. Patient is frustrated that she is not having weight loss. Consider tirzepatide -Continue improving adherence to medications and self-monitoring blood glucose -self-discontinued metformin 1000 mg bid, due to fear of side effects (has not experienced yet) -self-discontinued dapagliflozin 10 mg daily,due to fear of side effects -Patient was prescribed semaglutide, but was unable to start due to its cost. -Barrier to treatment: Cost of medications and pt's knowledge about diabetes mellitus, tried nurse diabetes education but RN left (Lubna Hoyos) and she is hesitant to see other providers -Eye Exam: May 2022 [facility]. No diabetic retinopathy. -Foot exam done on 12/05/23. Pt has tinea pedis -Lipid Profile 12/05/23 TC 243; TG 162; HDL 54; LDL 153 -Last microalbumin 12/05/23 UACR 6.8 Follow up in 3 mo or sooner if any problem arises Assessment & Plan (01/31/2023 6:32 AM EST): -A1C 14.5% on 01/25/23, trending up. -Continue improving adherence to self-monitoring glucose -Continue metformin 1000 mg bid -Continue dapagliflozin 10 mg daily -Patient was prescribed semaglutide, but was unable to start due to its cost. -Barrier to treatment: Cost of medications and pt's knowledge about diabetes mellitus, tried nurse diabetes education but RN left (Lubna Hoyos) and she is hesitant to see other providers -Eye Exam: May 2022 [facility]. No diabetic retinopathy. -Foot exam done on 03/23/22. Pt has tinea pedis -Lipid Profile 09/27/22 TC 243; TG 178; HDL 58; LDL 150 -Last microalbumin 09/27/22 UACR 9.8 Follow up in 3 mo or sooner if any problem arises Assessment & Plan (10/17/2022 10:03 AM EDT): -A1C 11.5% on 09/27/22, significantly worsened from 8.8% on 03/23/22, yo-yo tendency -Continue improving adherence to self-monitoring glucose -Continue metformin 1000 mg bid -Continue Farxiga 10 mg daily -Start Ozempic or other GLP1 agonist. -Pt had appt w/ CDERN and RD. -Eye Exam: 06/25/21 [facility] -Foot exam done on 03/23/22. Pt has tinea pedis -Lipid Profile 05/12/21: TC 215; TG 131; HDL 65; LDL 125. -Last microalbumin UACR 14 on 05/12/21. Follow up in 3 mo or sooner if any problem arises Assessment & Plan (03/30/2022 7:49 PM EST): -A1C 8.8% on 03/23/22, improving from 9.8% on 10/06/21 -Continue improving adherence to self-monitoring glucose -Continue metformin 1000 mg bid -Continue Jardiance 10mg daily -Pt had appt w/ CDERN and RD. -Eye Exam: 06/25/21 [facility] -Foot exam done on 03/23/22. Pt has tinea pedis -Lipid Profile 05/12/21: TC 215; TG 131; HDL 65; LDL 125. -Last microalbumin UACR 14 on 05/12/21. Follow up in 3 mo or sooner if any problem arises Resolved Problems Problem Noted Date Diagnosed Date Resolved Date Abscess of back 08/09/2022 10/17/2022 Assessment & Plan (08/09/2022 2:12 PM EDT): -Attemp I&D but did not do due to habitus and unable to find margins of abscess. Pustule unroofed and white puss gently expressed for wound culture. -Rx keflex and bactrim for possible MRSA. -Culture sent. -Referral to surgery for evaluation of back abscess. Hyperlipidemia associated wi th type 2 diabetes mellitus 02/03/2015 03/23/2022 Encounters Date Type Department Care Team Description 06/04/[address] [facility] [address] [place] [phone] Fabby Hurt MD Seropositive rheumatoid arthritis (CMS/HCC) (Primary Dx) 06/01/[address] [facility] [address] [place] [phone] Fabby Bethea MD 05/31/[address] [facility] Seth Barrientos, [place] [address] Fabby Hurt MD Referral 05/25/[address] [facility] Seth [place]rient[place], [place] [address] Fabby Hurt MD may recall 05/09/[address] [facility] Seth [place]rient[place], [place] [address] Fabby Hurt MD 05/09/[address] [facility] Seth Barrientos, [place] [address] Fabby Hurt MD 05/07/[address] [facility] Seth Barrientos, [place] [address] Fabby Hurt MD 04/16/[address] [facility] Seth Barrientos, [place] [address] Fabby Hurt MD PA REQUEST 04/04/2024 Telephone [facility] Seth Barrientos, [place] [address] Fabby Hurt MD DM bp-monitor/walker 03/29/2024 Telephone [facility] [place] [address] Fabby Hurt MD Durable Medical Equipment 03/29/2024 Telephone [facility] Seth [place]rient[place], [place] [address] Fabby Hurt MD Error (VOID this visit) 03/27/2024 1:30 PM EST Office Visit [facility] Seth Barrientos, [place] [address] Fabby Hurt MD Essential hypertension (Primary Dx); Type 2 diabetes mellitus with hyperglycemia, without long-term current use of insulin ([facility]); Seropositive rheumatoid arthritis (CMS/[facility]); Class 3 severe obesity due to excess calories with serious comorbidity and body mass index (BMI) of 45.0 to 49.9 in adult (CMS/[facility]); Dietary counseling; Exercise counseling; Dyslipidemia 03/27/2024 Travel 03/22/2024 Telephone [facility] [place] [phone] Calloway MA chart prep from Last 3 Months Immunizations Name Administration Dates Next Due Hep A, Adult 10/18/2014,01/21/2014 Hep B, adult 11/18/2014,06/27/2014,01/21/2014 INFLUENZA VACCINE QUADRIVALE NT RECOMBINANT PRESERVATIVE FREE RIV4 11/25/2019 Influenza injectable quadriv alent IIV4 with preservative 11/18/2014 Influenza injectable quadriv alent preservative free 01/25/2023,10/20/2017 Influenza, IIV3, injectable 10/30/2013, 1 Influenza, Split (incl. roger fied surface antigen) 12/13/2012 Influenza, seasonal, injecta ble, preservative free 12/05/2023 Pneumococcal Conjugate PCV 20 09/27/2022 Pneumococcal Polysaccharide PPSV23 01/20/2005 TD (adult), 2 Lf tetanus tox oid, preservative free, adsorbed 06/19/2003,07/05/2002 Tdap 09/27/2022,10/20/2017,08/04/2011 Social History Tobacco Use Types Packs/Day Years Used Date Smoking Tobacco: Never Passive Smoke Exposure: Never Smokeless Tobacco: Never Tobacco Cessation:Counseling Given: Not Answered Depression Answer Date Recorded Patient Health Questionnaire-9 [...] Orientation Straight 12/07/2021 10 :16 AM EDT Last Filed Vital Signs Vital Sign Reading Time Taken Comments Blood Pressure 159/79 03/27/2024 1:36 PM EST Pulse 93 03/27/2024 1:36 PM EST Temperature 36.1 ??C (96.9 ??F) 03/27/2024 1:36 PM ES T Respiratory Rate 18 03/27/2024 1:36 PM EST Oxygen Saturation 94% 03/27/2024 1:36 PM EST Inhaled Oxygen Concentration - - Weight 102 kg (225 lb 9.6 oz) 03/27/2024 1:36 PM EST Height 149.9 cm (4' 11 ) 02/22/2024 1:55 PM EST Body Mass Index 45.57 02/22/2024 1:55 PM EST Plan of Treatment Upcoming Encounters Date Type Department Care Team (Late st Contact Info) Description 07/09/2024 3:45 PM EDT Office Visit [facility] [address] [place] [address] Fabby Hurt MD [address] [place] [address] Health Maintenance Due Date Last Done Comments CT Colonography 1968 FIT DNA/Cologuard 1968 FIT 1968 FOBT 1968 Sigmoidoscopy 1968 Zoster Vaccines (1 of 2) 2018 COVID-19 Vaccine ( season) 2023 01/18/2022, 05/14/2020 Eye Exam 05/11/2024 05/11/2022 Diabetes: Hemoglobin A1C 06/24/2024 025, 12/05/2023, 06/27/2023, Additional history exists Alcohol/Substance Use Screening 12/04/2024 12/05/2023 Depression Screening 12/04/2024 12/05/2023, 12/05/19 24 Diabetes: Foot Exam 12/04/2024 12/05/2023, 01/25/2023, 01/25/2023, Additional history exists Diabetes: Urine Protein Screening 12/04/2024 12/05/2023, 09/27/2022, 01/13/2022, Additional history exists Lipid Panel 12/04/2024 12/05/2023, 09/08, 05/12/2021 SDOH Screening 12/04/2024 12/05/2023 Tobacco Screening 03/27/2025 03/27/2024 Mammogram 11/14/2025 11/15/2023, 11/09/2022 HPV/Cotest 12/24/2025 12/24/2020 Cervical Cancer Screening 03/29/2026 Pap Smear 03/29/2026 03/29/2023, 02/03/2023 Colonoscopy 12/09/2031 12/08/2021 Colorectal Cancer Screening 12/09/2031 DTaP/Tdap/Td Vaccines (4 - Td or Tdap) 09/27/2032 09/27/2022, 10/20/2017, 08/04/2011, Additional history exists RSV Patients and Patients Aged 60 years or older (1 - 1-dose 75+ series) 07/27/2043 Hepatitis A Vaccines Aged Out 10/18/2014, 01/22/20 14 No longer eligible based on patient's age to complete this topic Hepatitis B Vaccines Completed 11/18/2014, 06/27/2014, 01/21/2014 HIV Screening Completed 05/12/2021 Hepatitis C Screening Completed 01/13/2022, 022 Pneumococcal Vaccine: 50+ Years Completed 09/27/2022, 01/20/2005 Influenza Vaccine Completed 12/05/2023, , 11/25/2019, Additional history exists HIB Vaccines Aged Out No longer eligi ble based on patient's age to complete this topic HPV Vaccines Aged Out No longer eligi ble based on patient's age to complete this topic IPV Vaccines Aged Out No longer eligi ble based on patient's age to complete this topic Meningococcal Vaccine Aged Out No lucy bekah eligible based on patient's age to complete this topic RSV under 20 months Aged Out No longe r eligible based on patient's age to complete this topic Rotavirus Vaccines Aged Out No longer eligible based on patient's age to complete this topic Goals Goal Patient Goal Type Associated Problems Recent Progress Patient-Stated? Author Blood Pressure < 140/90 Blood Pressure 159/79(2024 1:36 PM EST) No Chance Bonilla PharmD Hemoglobin A1c < 7 Result Component 7.3( 1:39 PM EST) No Chance Bonilla PharmD Procedures Procedure Name Priority Date/Time Associated Diagnosis Comments POCT GLYCOSYLATED HEMOGLOBIN (HGB A1C) Routine 03/27/2024 1:39 PM EST Type 2 diabetes mellitus with hyperglycemia, without long-term current use of insulin ([facility]) POCT GLUCOSE Routine 03/27/2024 1:37 PM EST Type 2 diabetes mellitus with hyperglycemia, without long-term current use of insulin (CMS/HCC) ALBUMIN, RANDOM URINE W/CREATININE Routine 12/05/2023 12:10 PM EDT Type 2 diabetes mellitus with hyperglycemia, without long-term current use of insulin (CMS/HCC) LIPID PANEL WITH REFLEX TO DIRECT LDL Routine 12/05/2023 12:03 PM EDT Type 2 diabetes mellitus with hyperglycemia, without long-term current use of insulin ([facility]/HCC) BI MAMMOGRAM SCREENING TOMOSYNTHESIS BILATERAL Routine 11/15/2023 7:25 AM EDT PAP SMEAR Routine 03/29/2023 12:00 AM EST DIABETES EYE EXAM Routine 05/11/2022 HEPATITIS PANEL, GENERAL Routine 01/13/2022 3:48 PM EST COLONOSCOPY Routine 12/08/2021 HIV 1/2 ANTIGEN/ANTIBODY, FOURTH GENERATION W/RFL Routine 05/12/2021 12:00 AM EDT ZZZ HISTORICAL HPV E6/E7 RFLX EMERALD 16 18/45 Routine 12/24/2020 2:14 PM EST from Last 3 Months or Most Recently Relevant to Health Maintenance Results * (ABNORMAL) POCT glycosylated hemoglobin (Hgb A1c) (03/27/2024 1:39 PM EST) Hemoglobin A1C 7.3(A) 4.0 - 6.0 % QC Media Lot # [id number] Lot# Expiration Date Blood Capillary blood specimen / Unknown 03/27/2024 1:39 PM EST Fabby Hurt MD POINT OF CARE TEST ENTER/EDIT OR DERABLES Final Result * POCT glucose manually resulted (03/27/2024 1:37 PM EST) Glucose Blood, POC 120 60 - 200 mg/dL QC Media Lot # [id number] Lot# Expiration Date Blood Capillary blood specimen / Unknown 03/27/2024 1:37 PM EST Fabby Hurt MD POINT OF CARE TEST ENTER/EDIT OR DERABLES Final Result * Albumin, Random Urine W/Creatinine (12/05/2023 12:10 PM EDT) Creatinine, Urine 161.60 mg/dL [facility] Microalbumin Urine 11.0 mg/L [facility] Microalbum Creatinine Ratio Ur 6.8 <30 ug/mg cr [facility] Comment:Albumin/Creatinine R at Reference Ranges: Normal: < 30 ug/mg creatinine Microalbuminuria: 30 - 300 ug/mg creatinineClinical Albuminuria: > 300 ug/mg creatinine Urine 12/05/2023 12:1 0 PM EDT 12/05/2023 1:25 PM EDT us Fabby Hurt MD LAB URINE ORDERABLES Final Resul t Performing Organization Address [facility] de Phone Number [facility] [address] [place] [phone] * (ABNORMAL) Lipid Panel with Reflex to Direct LDL (12/05/2023 12:03 PM EDT) Triglycerides 162(H) <150 mg/dL [facility] Comment:Desirable Triglyceri de: less than 150 mg/dLBorderline High Triglyceride 150-199 mg/dLHigh Triglyceride: 200-499 mg/dLVery High Triglyceride: greater than or equal to 5OO mg/dL Cholesterol 239(H) <200 mg/dL [facility] Comment:Desirable Cholestero l: less than 200 mg/dLBorderline High Cholesterol: 200-239 mg/dLHigh Cholesterol: greater than 239 mg/dL LDL Cholesterol Calculated 153(H) <100 mg/dL [facility] Comment:Desirable LDL: less than 100 mg/dLNear Optimal/Above Optimal LDL: 110- 129 mg/dLBorderline High LDL: 130-159 mg/dLHigh LDL: 160-189 mg/dLVery High LDL: greater than or equal to 190 mg/dL HDL Cholesterol 54 >40 mg/dL [facility] Comment:Desirable HDL: great er than 40 mg/dL Note: This HDL assay may give artificially low results in patients with liver disease. Blood 12/05/2023 12:0 3 PM EDT 12/05/2023 1:42 PM EDT us Fabby Hurt MD LAB BLOOD ORDERABLES Final Resul t Performing Organization Address [facility] Co de Phone Number [facility] [address] [place] [phone] * BI Mammogram Screening Tomosynthesis Bilateral (11/15/2023 7:25 AM EDT) Anatomical Region Laterality Modality Breast Bilateral Mammography 11/15/2023 7:25 AM EDT Narrative 11/25/2023 4:49 PM EDT ? [place] [facility] ? [address] ?[place] [address] ? Mammography Report ? Signed ? Patient: Okorie,Lara V ?MR#: [id number] ? : 1970 ?Acct:[id number] ? Age/Sex: 53 / F ?ADM Date: 11/15/23 ? Loc: HO.MAMMO ? Attending Dr: Fabby Hurt MD ? Ordering Physician: Fabby Hurt MD ?Results: 2Benign F ?? indings ? Date of Service: 11/15/23 ?Follow Up: 1 Year From Orig ?? inal Mammogram ? Procedure(s): MM tomosynthesis screening BI ?? Accession Number(s): [id number] ? cc: Fabby Hurt MD ? EXAMINATION: ?? MM SCREENING DIGITAL BREAST TOMOSYNTHESIS, BILATERAL ? CLINICAL INFORMATION: ? Screening. Asymptomatic. ? COMPARISON: ?? Mammography: Comparison is made with available priors ? TECHNIQUE: ?? Digital breast mammography with tomosynthesis is performed in both the ?? craniocaudal and mediolateral oblique views along with computer-aided ?? detection (CAD). ? FINDINGS: ?? There are scattered areas of fibroglandular density (ACR BI-RADS breast ?? composition Category b). ?? Right marker clip. ?? There are no significant masses, abnormal calcifications, or other ?? abnormalities. ? MM/MM tomosynthesis screening BI ?? IMPRESSION: ?? No mammographic evidence of malignancy. ? ASSESSMENT: ? BI-RADS BI-RADS 2 - Benign Findings ? RECOMMENDATION: ?? Routine annual mammography screening. ? 1 year F/U ? This examination should not preclude the clinical evaluation of a ?? suspicious palpable abnormality. ? This patient's information was entered into a reminder system with a ?? target due date for their next mammogram. ? Electronically signed by: ??Crystal Dodson DO ??11/25/2023 04:45 PM EDT ? Dictated By: ?Crystal Dodson DO ? Signed By: ?<Electronically signed by Crystal Dodson, DO in OV> ? 11/25/23 1645 ? DD/ 4 ? TD/TT: 11/15/23739 ? Jira Administrator: ? Procedure Note Harpreet, Image - 11/25/2023 [place] [facility] [address] [place] [address] Mammography Report Signed Patient: Lara Wyatt VMR#: [id number] : 1970Acct:[id number] Age/Sex: 53 / FADM Date: 11/15/23 Loc: [facility] Attending Dr: Fabby Hurt MD Ordering Physician: Fabby Hurt MDResults: 2Benign F indings Date of Service: 11/15/23Follow Up: 1 Year From Orig ina Mammogram Procedure(s): MM tomosynthesis screening BI Accession Number(s): [id number] cc: Fabby Hurt MD EXAMINATION: MM SCREENING DIGITAL BREAST TOMOSYNTHESIS, BILATERAL CLINICAL INFORMATION: Screening. Asymptomatic. COMPARISON: Mammography: Comparison is made with available priors TECHNIQUE: Digital breast mammography with tomosynthesis is performed in both the craniocaudal and mediolateral oblique views along with computer-aided detection (CAD). FINDINGS: There are scattered areas of fibroglandular density (ACR BI-RADS breast composition Category b). Right marker clip. There are no significant masses, abnormal calcifications, or other abnormalities. MM/MM tomosynthesis screening BI IMPRESSION: No mammographic evidence of malignancy. ASSESSMENT: BI-RADS BI-RADS 2 - Benign Findings RECOMMENDATION: Routine annual mammography screening. 1 year F/U This examination should not preclude the clinical evaluation of a suspicious palpable abnormality. This patient's information was entered into a reminder system with a target due date for their next mammogram. Electronically signed by: Crystal Dodson DO 11/25/2023 04:45 PM EDT Dictated By: Crystal Dodson DO Signed By: <Electronically signed by Crystal Dodson DO in OV> 11/25/23 1645 DD/ TD/TT: 11/15/23 0740 Jira Administrator: Fabby Hurt MD IMG BI PROCEDURES Final Result * Pap Smear (03/29/2023 12:00 AM EST) 03/29/2023 03/30/2023 7:2 0 AM EST Narrative [facility] - 04/13/2023 3:49 PM EST ----- ------- Name: Lara Wyatt V ? Age/Sex: 52/F ? : 1970 Unit#: [id number] ?? Attend Dr: Radha Oden CNM ?Re03/29/23 ?Status: DEP REF ? Location: HO.LNP ?Disch: ? ----- ------- SPEC : [id number] ? RECD: 03/30/23 ? STATUS: ??SOUT ? REQ NUM: [id number] ? KEELEY: 03/29/23-0000 ? SUBM DR: Radha Oden ? ENTERED: ??03/30/23-1151 ?SP TYPE: Pap Smr ?OTHR DR: Fabby Hurt MD ? ORDERED: ??Pap Smear ? Interpretation ?? Unsatisfactory. ?? Obscuring mucoid material. ?HPV mRNA E6/E7: ?NOT DETECTED ? This assay detects E6/E7 viral messenger RNA (mRNA) from 14 high-risk HPV types (16, 18, ?? 31, 33, 35, 39, 45, 51, 52, 56, 58, 59, 66, 68) ?? HPV testing performed by [employer], [place], [place]. ??See reference laboratory ?? portion of the EMR for entire report. ?Clinical Information LMP: 09/17/2022 Previous PAP test: 02/04/2023, unsatisfact, Unknown findings ? Material Received ?? ThinPrep-Cervical Copies To: ?? AkshatRadha SIMEON ?? [address] ?? [place] [address] ?? [phone] ?? Fabby Hurt MD ?? [address] [facility] ?? [place] ?? ----- ------- Signed (signature on file) RYAN Gr (ASCP) 04/13/23 1549 ? ----- ------- ? END OF REPORT ? us Generic External Data Provider LAB CYTOLOGY JOHANNE SMALL Final Result [facility] [address] [place] [address] [phone] * Diabetes Eye Exam (05/11/2022) Eye Exam Normal Normal [facility] External Provider HEALTH MAINTENANCE Final Result * Hepatitis Panel, General (01/13/2022 3:48 PM EST) [facility] Hepatitis A IgM Nonreactive Nonreactive [facility] Comment:IgM antibodies to KHOURY V not detected; does not exclude earlyacute or recovered HAV infection. ~Hepatitis B Surface Antibody NONREACTIVE Nonreactive [facility] Comment:Nonreactive: < 8.00 mIU/mL Hepatitis B Core Antibody Nonreactive Nonreactive [facility] Hepatitis C Antibody Nonreactive Nonreactive [facility] Comment:Antibodies to HCV no t detected; does not exclude early acuteHCV infection. Hepatitis B Surface Antigen Negative Negative [facility] 01/13/2022 3:48 PM EST 01/13/2022 3:58 PM EST Result [facility] External Provider LAB BLO OD ORDERABLES Final Result Performing Organization Address City/State/[facility] Co de Phone Number [facility] [address] [place] [phone] * Colonoscopy (12/08/2021) [facility] Colonoscopy Normal Normal 12/08/2021 Result [facility] Historical Provider [place] HEALTH MAINTENANCE Final Result * HIV 1/2 ANTIGEN/ANTIBODY,FOURTH GENERATION W/RFL (05/12/2021 12:00 AM EDT) [facility] HIV-1/2 ANTIGEN AND ANTIBODIES, 4TH GENERATION W/ REFLEX NON-REACT BRENDON NON-REACT BRENDON [facility] Comment: HIV-1 antigen and HIV-1/HIV-2 antibodies were not detected. There is no laboratory evidence of HIV infection. ?? PLEASE NOTE: This information has been disclosed to you from records whose confidentiality may be protected by state law. ??If your state requires such protection, then the state law prohibits you from making any further disclosure of the information without the specific written consent of the person to whom it pertains, or as otherwise permitted by law. A general authorization for the release of medical or other information is NOT sufficient for this purpose. ? For additional information please refer to http://Osm[employer]Friends/faq/PSB849 (This link is being provided for informational/ educational purposes only.) ? The performance of this assay has not been clinically validated in patients less than 2 years old. ?? 05/12/2021 Fabby Hurt MD LAB BLOOD ORDERABLES Final Resul t Performing Organization Address [facility] de Phone Number [facility] [address] * HPV E6/E7 RFLX EMERALD 16 18/45 (12/24/2020 2:14 PM EST) [facility] HPV mRNA E6/E7 rflx Not Detected Not Detected [facility] Comment: Methodology: [employer] Machine Operator-Mediated Amplification This assay detects E6/E7 viral messenger RNA (mRNA) from 14 high-risk HPV types (16,18,31,33,35,39,45,51,52,56,58,59,66,68). The analytical performance characteristics of this assay have been determined by [employer]. The modifications have not been cleared or approved by the FDA. This assay has been validated pursuant to the CLIA regulations and is used for clinical purposes. For additional information, please refer to http://Osmosis.[employer]Friends/faq/HTS197b7 (This link if provided for information/ educational purposes only.) THIS TEST WAS PERFORMED AT: [email or web address] [address] [place] [address],[address] [place], [place] ??[phone] MARIELLA ROCHA MD 12/24/2020 2:14 PM EST us Sabrina Calloway HISTORICAL/NON ORDERABLE LABS Fi nal Result Performing Organization Address [facility] de Phone Number [facility] [address] from Last 3 Months or Most Recently Relevant to Health Maintenance Insurance [facility] HMO Care Teams Partner Cco Relationship Specialty Start Date End Date Fabby Hurt MD [address] [place] [address] PCP - General Family Medicine 04/08/21 Chance Bonilla, CharlyD [address] [place] [address] Pharmacist Internal Medicine 11/30/22
== END 2024-06-12 14:01 | disposition home or self-care (01) ==
LOC: HO.RHES 12:58
PROVIDERS: PCP Family Medicine; Visit Provider Internal Medicine Rheumatology
DX: M06.9 Rheumatoid arthritis, unspecified (principal); M54.2 Cervicalgia
CPT/HCPCS: 99214

== ENCOUNTER 2024-06-12 14:05 | Outpatient (REF) | payer BC, SELFPAY ==
--- OUTSIDE RECORDS SUMMARY | 2024-06-12 15:24 | XMS_ITS | Encounter Summary ---
Author Organization [employer] Address [address] [place] [address] Care Team Providers Care Belt Sander Name Role Phone Fabby Hurt MD Primary Care Provider [phone] Chance Bonilla PharmD Unavailable [phone] Reason for Visit * Reason Onset Date Comments Reschedule 08/19/2023 Encounter Details Date Type Department Care Team ([facility] Contact Info) Description 08/19/2023 Telephone [facility] [address] [place] [address] Fabby Hurt MD [address] [place] [address] Reschedule Social History Tobacco Use Types Packs/Day [...] Description 07/09/2024 3:45 PM EDT Office Visit [facility] [address] [place] [phone] Fabby Hurt MD [address] [place] [address] documented as of this encounter Goals Goal Patient Goal Type Associated Problems Recent Progress Patient-Stated? Author Blood Pressure < 140/90 Blood Pressure 159/79(2024 1:36 PM EST) No Chance Bonilla, PharmD Hemoglobin A1c < 7 Result Component 7.3( 1:39 PM EST) No Chance Bonilla, PharmD documented as of this encounter Visit Diagnoses Not on filedocumented in this encounter Additional Health Concerns Assessment Noted Time PHQ-9 Depression Total Score: 3 01/26/20 23 2:26 PM EST documented as of this encounter Care Teams Belt Sander Relationship Specialty Start Date End Date Fabby Hurt MD [address] [place] [address] PCP - General Family Medicine 04/08/21 Chance Bonilla, CharlyD [address] [place] [phone] Pharmacist Internal Medicine 11/30/22 documented as of this encounter
--- OUTSIDE RECORDS SUMMARY | 2024-06-12 15:24 | XMS_ITS | Clinical Summary ---
Author Organization [employer] Address [address] [facility] 7t [place] [address] Care Team Providers Care Automotive Diagnostic Technician Name Role Phone Fabby Hurt MD Primary Care Provider Chance Bonilla PharmD Unavailable [phone] Allergies Active Allergy Reactions Criticality Noted Date Comments Glipizide Shortness of breath High 01/21/2014 Other reaction(s): chest tightness & palpitations Onion 01/23/2010 Other reaction(s): unspecified Medications hydroxychloroqui ne (Plaquenil) 200 MG tablet 03/18/19 23 Active glucose blood (FREESTYLE LITE) test stripIndications :Type 2 diabetes mellitus with hyperglycemia, without long-term current use of insulin ([facility]) USE TO TEST blood sugar 3 TIMES DAILY 100 each 3 12/01/19 23 Active Additional Information Patient not taking.Reported on 11/30/2022 Blood Glucose Monitoring Suppl (FreeStyle Kirkman Lite) w/Device kitIndications:T ype 2 diabetes mellitus with hyperglycemia, without long-term current use of insulin ([facility]) Use to test blood sugar 3 times daily 1 kit 12/01/19 Active Additional Information Patient not taking.Reported on 11/30/2022 Lancets 33G miscIndications: Type 2 diabetes mellitus with hyperglycemia, without long-term current use of insulin ([facility]) Use to test blood sugar 3 times daily 100 each 3 12/01/19 23 Active Additional Information Patient not taking.Reported on 11/30/2022 Alcohol Swabs (Alcohol Prep) 70 % padsIndications: Type 2 diabetes mellitus with hyperglycemia, without long-term current use of insulin (CMS/[facility]) Use three times daily as directed [...] Assessment & Plan (04/01/2024 1:02 PM EST): -[facility] Arleth Lima -Continue hydroxychloroquine 200 mg bid -Biologic was recommended, but pt is hesitant -Encouraged to schedule a follow up appointment and improve adherence to prescribed treatment - Prescribed celecoxib (CeleBREX) 200 MG capsule 03/27/24 Assessment & Plan (12/10/2023 6:45 AM EDT): -[facility] Arleth Lima -Continue hydroxychloroquine 200 mg bid -Biologic was recommended, but pt is hesitant -Encouraged to schedule a follow up appointment and improve adherence to prescribed treatment Assessment & Plan (01/31/2023 6:33 AM EST): -[facility] Arleth Lima -Continue hydroxychloroquine 200 mg bid -Biologic was recommended, but pt is hesitant Assessment & Plan (10/17/2022 10:05 AM EDT): -[facility], Dr. Arleth Lima, last seen in August 2022 -Continue hydroxychloroquine 200 mg bid -Prescribed certolizumab, TNF antibody. Pt is hesitant to start Assessment & Plan (03/30/2022 7:57 PM EST): -[facility] Arleth Lima -Continue hydroxychloroquine 200 mg [...] see other providers -Eye Exam: May 2022 [facility]. No diabetic retinopathy. -Foot [...] see other providers -Eye Exam: May 2022 [facility]. No diabetic retinopathy. -Foot [...] see other providers -Eye Exam: May 2022 [facility]. No diabetic retinopathy. -Foot [...] Department Care Team Description 06/04/2024 Orders Only [facility] [address] [place] [address] Fabby Hurt MD Seropositive rheumatoid arthritis (CMS/HCC) (Primary Dx) 06/01/2024 Telephone [facility] [address] [place] [address] Fabby Bethea MD 05/31/2024 Telephone [facility] Seth Barrientos, [place] [address] Fabby Hurt MD Referral 05/25/2024 Telephone [facility] Seth Barrientos, [place] [address] Fabby Hurt MD may recall 05/09/2024 Telephone [facility] Seth Barrientos, [place] [address] Fabby Hurt MD 05/09/2024 Orders Only [facility] Seth Barrientos, [place] [address] Fabby Hurt MD 05/07/2024 Refill [facility] Seth Barrientos, [place] [address] Fabby Hurt MD 04/16/2024 Telephone [facility] Seth Barrientos, [place] [address] Fabby Hurt MD PA REQUEST 04/04/2024 Telephone [facility] Seth Barrientos, [place] [address] Fabby Hurt MD DM bp-monitor/walker 03/29/2024 Telephone [facility] [place] [address] Fabby Hurt MD Durable Medical Equipment 03/29/2024 Telephone [facility] Seth Barrientos, [place] [address] Fabby Hurt MD Error (VOID this visit) 03/27/2024 1:30 PM EST Office Visit [facility] Seth Barrientos, [place] [address] Fabby Hurt MD Essential hypertension (Primary Dx); Type 2 diabetes mellitus with hyperglycemia, without long-term current use of insulin ([facility]); Seropositive rheumatoid arthritis ([facility]); Class 3 severe obesity due to excess calories with serious comorbidity and body mass index (BMI) of 45.0 to 49.9 in adult (CMS/[facility]); Dietary counseling; Exercise counseling; Dyslipidemia 03/27/2024 Travel 03/22/2024 Telephone [facility] [place] [phone] Calloway MA chart prep from Last 3 [...] Description 07/09/2024 3:45 PM EDT Office Visit [facility] [address] [place] [address] Fabby Hurt MD [address] [place] [address] Health Maintenance Due Date Last Done Comments [...] hyperglycemia, without long-term current use of insulin ([facility]) POCT GLUCOSE Routine 03/27/2024 1:37 PM [...] hyperglycemia, without long-term current use of insulin ([facility]/HCC) BI MAMMOGRAM SCREENING TOMOSYNTHESIS BILATERAL Routine 11/15/2023 [...] 12:10 PM EDT) Creatinine, Urine 161.60 mg/dL [facility] Microalbumin Urine 11.0 mg/L [facility] Microalbum Creatinine Ratio Ur 6.8 <30 ug/mg cr [facility] Comment:Albumin/Creatinine R at Reference Ranges: Normal: < 30 ug/mg creatinine Microalbuminuria: 30 - 300 ug/mg creatinineClinical Albuminuria: > 300 ug/mg creatinine Urine 12/05/2023 12:1 0 PM EDT 12/05/2023 1:25 PM EDT us Fabby Hurt MD LAB URINE ORDERABLES Final Resul t Performing Organization Address [facility] de Phone Number [facility] [address] [place] [phone] * (ABNORMAL) Lipid Panel with Reflex to Direct LDL (12/05/2023 12:03 PM EDT) Triglycerides 162(H) <150 mg/dL [facility] Comment:Desirable Triglyceri de: less than 150 mg/dLBorderline High Triglyceride 150-199 mg/dLHigh Triglyceride: 200-499 mg/dLVery High Triglyceride: greater than or equal to 5OO mg/dL Cholesterol 239(H) <200 mg/dL [facility] Comment:Desirable Cholestero l: less than 200 mg/dLBorderline High Cholesterol: 200-239 mg/dLHigh Cholesterol: greater than 239 mg/dL LDL Cholesterol Calculated 153(H) <100 mg/dL [facility] Comment:Desirable LDL: less than 100 mg/dLNear Optimal/Above Optimal LDL: 110- 129 mg/dLBorderline High LDL: 130-159 mg/dLHigh LDL: 160-189 mg/dLVery High LDL: greater than or equal to 190 mg/dL HDL Cholesterol 54 >40 mg/dL [facility] Comment:Desirable HDL: great er than 40 mg/dL Note: This HDL assay may give artificially low results in patients with liver disease. Blood 12/05/2023 12:0 3 PM EDT 12/05/2023 1:42 PM EDT us Fabby Hurt MD LAB BLOOD ORDERABLES Final Resul t Performing Organization Address [facility] Co de Phone Number [facility] [address] [place] [phone] * BI Mammogram Screening Tomosynthesis Bilateral (11/15/2023 7:25 AM EDT) Anatomical Region Laterality Modality Breast Bilateral Mammography 11/15/2023 7:25 AM EDT Narrative 11/25/2023 4:49 PM EDT ? [place] [facility] ? [address] ?[place] [address] ? Mammography Report ? Signed ? Patient: Okorie,Lara V ?MR#: [id number] ? : 1970 ?Acct:[id number] ? Age/Sex: 53 / F ?ADM Date: 11/15/23 ? Loc: HO.MAMMO ? Attending Dr: Fabby Hurt MD ? Ordering Physician: Fabby Hurt MD ?Results: 2Benign F ?? indings ? Date of Service: 11/15/23 ?Follow Up: 1 Year From Orig ?? inal Mammogram ? Procedure(s): MM tomosynthesis screening BI ?? Accession Number(s): [id number] ? cc: Fabby Hurt MD ? EXAMINATION: [...] ? DD/ 4 ? TD/TT: 11/15/23739 ? Plant Sprayer: ? Procedure Note Harpreet, Image - 11/25/2023 [place] [facility] [address] [place] [address] Mammography Report Signed Patient: Lara Wyatt VMR#: [id number] : 1970Acct:[id number] Age/Sex: 53 / FADM Date: 11/15/23 Loc: [facility] Attending Dr: Fabby Hurt MD Ordering Physician: Fabby Hurt MDResults: 2Benign F indings Date of Service: 11/15/23Follow Up: 1 Year From Orig ina Mammogram Procedure(s): MM tomosynthesis screening BI Accession Number(s): [id number] cc: Fabby Hurt MD EXAMINATION: MM SCREENING [...] OV> 11/25/23 1645 DD/ TD/TT: 11/15/23 0740 Plant Sprayer: Fabby Hurt MD IMG BI PROCEDURES Final Result * Pap Smear (03/29/2023 12:00 AM EST) 03/29/2023 03/30/2023 7:2 0 AM EST Narrative [facility] - 04/13/2023 3:49 PM EST ----- ------- Name: Lara Wyatt V ? Age/Sex: 52/F ? : 1970 Unit#: [id number] ?? Attend Dr: Radha Oden CNM ?Re03/29/23 ?Status: DEP REF ? Location: HO.LNP ?Disch: ? ----- ------- SPEC : [id number] ? RECD: 03/30/23 ? STATUS: ??SOUT ? REQ NUM: [id number] ? KEELEY: 03/29/23-0000 ? SUBM DR: Radha [...] 66, 68) ?? HPV testing performed by [facility], [place], [place]. ??See reference laboratory ?? portion of the EMR for entire report. ?Clinical Information LMP: 09/17/2022 Previous PAP test: 02/04/2023, unsatisfact, Unknown findings ? Material Received ?? ThinPrep-Cervical Copies To: ?? AkshatRadha SIMEON ?? [address] ?? [place] [address] ?? [phone] ?? Fabby Hurt MD ?? [address] [facility] ?? [place] ?? ----- ------- Signed (signature on file) RYAN Gr (ASCP) 04/13/23 1549 ? ----- ------- ? END OF REPORT ? us Generic External Data Provider LAB CYTOLOGY JOHANNE SMALL Final Result [facility] [address] [place] [phone] * Diabetes Eye Exam (05/11/2022) Eye Exam Normal Normal [facility] External Provider HEALTH MAINTENANCE Final Result * Hepatitis Panel, General (01/13/2022 3:48 PM EST) [facility] Hepatitis A IgM Nonreactive Nonreactive [facility] Comment:IgM antibodies to KHOURY V not detected; does not exclude earlyacute or recovered HAV infection. ~Hepatitis B Surface Antibody NONREACTIVE Nonreactive [facility] Comment:Nonreactive: < 8.00 mIU/mL Hepatitis B Core Antibody Nonreactive Nonreactive [facility] Hepatitis C Antibody Nonreactive Nonreactive [facility] Comment:Antibodies to HCV no t detected; does not exclude early acuteHCV infection. Hepatitis B Surface Antigen Negative Negative [facility] 01/13/2022 3:48 PM EST 01/13/2022 3:58 PM EST Result [facility] External Provider LAB BLO OD ORDERABLES Final Result Performing Organization Address City/State/[facility] Co de Phone Number [facility] [address] [place] [phone] * Colonoscopy (12/08/2021) [facility] Colonoscopy Normal Normal 12/08/2021 Result [facility] Historical Provider [place] HEALTH MAINTENANCE Final Result * HIV 1/2 ANTIGEN/ANTIBODY,FOURTH GENERATION W/RFL (05/12/2021 12:00 AM EDT) [facility] HIV-1/2 ANTIGEN AND ANTIBODIES, 4TH GENERATION W/ REFLEX NON-REACT BRENDON NON-REACT BRENDON [facility] Comment: HIV-1 antigen and HIV-1/HIV-2 [...] ? For additional information please refer to http://Strands.Sendmail/faq/XXS950 (This link is being provided for informational/ educational purposes only.) ? The performance of this assay has not been clinically validated in patients less than 2 years old. ?? 05/12/2021 Fabby Hurt MD LAB BLOOD ORDERABLES Final Resul t Performing Organization Address [facility] de Phone Number [facility] [address] * HPV E6/E7 RFLX EMERALD 16 18/45 (12/24/2020 2:14 PM EST) [facility] HPV mRNA E6/E7 rflx Not Detected Not Detected [facility] Comment: Methodology: Sprue Knocker-Mediated Amplification This assay detects E6/E7 viral messenger RNA (mRNA) from 14 high-risk HPV types (16,18,31,33,35,39,45,51,52,56,58,59,66,68). The analytical performance characteristics of this assay have been determined by [facility]. The modifications have not been cleared or approved by the FDA. This assay has been validated pursuant to the CLIA regulations and is used for clinical purposes. For additional information, please refer to http://Strands.Sendmail/faq/ZCZ784i1 (This link if provided for information/ educational purposes only.) THIS TEST WAS PERFORMED AT: [facility] [address] [place] [address],[address] [place], [place] ??[phone] MARIELLA ROCHA MD 12/24/2020 2:14 PM EST us Sabrina Calloway HISTORICAL/NON ORDERABLE LABS Fi nal Result Performing Organization Address [facility] de Phone Number [facility] [address] from Last 3 Months or Most Recently Relevant to Health Maintenance Insurance [facility] HMO Care Teams Automotive Diagnostic Technician Relationship Specialty Start Date End Date Fabby Hurt MD [address] [place] [address] PCP - General Family Medicine 04/08/21 Chance Bonilla, CharlyD [address] [place] [address] Pharmacist Internal Medicine 11/30/22
--- OUTSIDE RECORDS SUMMARY | 2024-06-12 15:24 | XMS_ITS | Encounter Summary ---
Author Organization [employer] Address [address] [facility] [address] [place] [address] Care Team Providers Care Technical Services Coordinator Name Role Phone Fabby Hurt MD Primary Care Provider [phone] Chance Bonilla PharmD Unavailable [phone] Reason for Referral * Consultation (Urgent) - Closed Specialty Diagnoses / Procedures Referred By Contac t Referred To Contact Rheumatology Diagnoses Seropositive rheumatoid arthritis (CMS/HCC) Fabby Hurt MD [address] [place] [address] Phone: tel: fax: [facility] [address] Phone: tel: fax: Referral ID Status Reason Start Date Expiration Date V isits Requested Visits Authorized [id number] Closed Specialty Services Required 06/04/2024 06/04/2025 12 12 Encounter Details Date Type Department Care Team (Late st Contact Info) Description 06/04/2024 Orders Only [facility] [address] [place], [place] [phone] Fabby Hurt MD [address] [place], [place] [phone] Seropositive rheumatoid arthritis (CMS/HCC) (Primary Dx) Social [...] 3:45 PM EDT Office Visit [facility] [address] [place] [address] Fabby Hurt MD [address] [place] [address] Scheduled Referrals Name Type Priority Associated Diagnoses [...] encounter Visit Diagnoses Diagnosis Seropositive rheumatoid arthritis ([facility])- Primary documented in this encounter Additional Health Concerns Assessment Noted Time PHQ-9 Depression Total Score: 10 024 12:10 PM EDT documented as of this encounter Care Teams Technical Services Coordinator Relationship Specialty Start Date End Date Fabby Hurt MD [address] [place] [address] PCP - General Family Medicine 04/08/21 Chance Bonilla PharmD [address] [place] [address] Pharmacist Internal Medicine 11/30/22 documented as of this encounter
--- OUTSIDE RECORDS SUMMARY | 2024-06-12 15:24 | XMS_ITS | Encounter Summary ---
Author Organization [employer] Address [address] [facility] [address] 7t [place] [address] Care Team Providers Care Thread Machine Operator Name Role Phone Fabby Hurt MD Primary Care Provider [phone] Chance Bonilla PharmD Unavailable [phone] Encounter Details Date Type Department Care Team ([facility] Contact Info) Description 12/07/2023 Abstract [facility] [address] [place] [address] Malissa Jordan [place] Social History Tobacco Use [...] Description 07/09/2024 3:45 PM EDT Office Visit [facility] [address] [place], [place] [phone] Fabby Hurt MD [address] [place], [place] [phone] documented as of this encounter Goals Goal [...] documented as of this encounter Care Teams Thread Machine Operator Relationship Specialty Start Date End Date Fabby Hurt MD [address] [place], [place] [phone] PCP - General Family Medicine 04/08/21 Chance Bonilla, PharmD [address] [place] [address] Pharmacist Internal Medicine 11/30/22 documented as of this encounter
--- OUTSIDE RECORDS SUMMARY | 2024-06-12 15:24 | XMS_ITS | Encounter Summary ---
Author Organization [employer] Address [address] [facility] 7t [place] [address] Care Team Providers Care Junior Software Engineer Name Role Phone Fabby Hurt MD Primary Care Provider [phone] Chance Bonilla PharmD Unavailable Reason for Visit * Reason Onset Date Comments Med Refill 09/27/2022 Encounter Details Date Type Department Care Team (Late st Contact Info) Description 09/27/2022 Refill [facility] [address] [place] [address] Ruby Marin MD [address] [place] [address] [phone] Social History Tobacco Use Types Packs/Day Years [...] Description 07/09/2024 3:45 PM EDT Office Visit [facility] [address] [place], [place] [phone] Fabby Hurt MD [address] [place], [place] [phone] documented as of this encounter Visit Diagnoses Not on filedocumented in this encounter Care Teams Junior Software Engineer Relationship Specialty Start Date End Date Fabby Hurt MD [address] [place] [address] PCP - General Family Medicine 04/08/21 Chance Bonilla, CharlyD [address] [place] [phone] Pharmacist Internal Medicine 11/30/22 documented as of this encounter
--- OUTSIDE RECORDS SUMMARY | 2024-06-12 15:24 | XMS_ITS | Encounter Summary ---
Author Organization [employer] Address [address] [facility] 7t [place] [address] Care Team Providers Care Major Gifts Officer Name Role Phone Fabby Hurt MD Primary Care Provider [phone] Chance Bonilla PharmD Unavailable [phone] Encounter Details Date Type Department Care Team ([facility] st Contact Info) Description 01/07/2023 Orders Only [facility] [address] [place], [place] [phone] Ruby Marin MD [address] [place] [address] Genital herpes simplex, unspecified site (Primary Dx); [...] Description 07/09/2024 3:45 PM EDT Office Visit [facility] [address] [place] [address] Fabby Hurt MD [address] [place] [address] documented as of this encounter Goals Goal [...] vagina documented in this encounter Care Teams Major Gifts Officer Relationship Specialty Start Date End Date Fabby Hurt MD [address] [place] [address] PCP - General Family Medicine 04/08/21 Chance Bonilla PharmD [address] [place] [address] Pharmacist Internal Medicine 11/30/22 documented as of this encounter
--- OUTSIDE RECORDS SUMMARY | 2024-06-12 15:24 | XMS_ITS | Encounter Summary ---
Author Organization [employer] Address 75 [facility] 7t [place] [address] Care Team Providers Care Order Packer Name Role Phone Fabby Hurt MD Primary Care Provider Chance Bonilla PharmD Unavailable [phone] Encounter Details Date Type Department Care Team ([facility] Contact Info) Description 05/09/2024 Orders Only [facility] [address] [place] [address] Fabby Hurt MD [address] [place] [address] Social History Tobacco Use Types Packs/Day Years [...] Description 07/09/2024 3:45 PM EDT Office Visit [facility] [address] [place] [address] Fabby Hurt MD [address] [place] [address] documented as of this encounter Goals Goal [...] documented as of this encounter Care Teams Order Packer Relationship Specialty Start Date End Date Fabby Hurt MD [address] [place] [address] PCP - General Family Medicine 04/08/21 Chance Bonilla PharmD [address] [place] [address] Pharmacist Internal Medicine 11/30/22 documented as of this encounter
--- OUTSIDE RECORDS SUMMARY | 2024-06-12 15:24 | XMS_ITS | Encounter Summary ---
Author Organization [employer] Address 75 [facility] 7t [place] [address] Care Team Providers Care Spice Miller Name Role Phone Fabby Hurt MD Primary Care Provider [phone] Chance Bonilla PharmD Unavailable [phone] Encounter Details Date Type Department Care Team ([facility] Contact Info) Description 12/20/2023 Orders Only [facility] [address] [place] [address] Fabby Hurt MD [address] [place] [address] Social History Tobacco Use Types Packs/Day Years [...] EDT Office Visit [facility] [address] [place] [address] Fabby Hurt MD [address] [place] [address] documented as of this encounter Goals Goal [...] documented as of this encounter Care Teams Spice Miller Relationship Specialty Start Date End Date Fabby Hurt MD [address] [place] [address] PCP - General Family Medicine 04/08/21 Chance Bonilla PharmD [address] [place] [phone] Pharmacist Internal Medicine 11/30/22 documented as of this encounter
--- OUTSIDE RECORDS SUMMARY | 2024-06-12 15:24 | XMS_ITS | Encounter Summary ---
Author Organization [email or web address] Address [address] [facility] 7t [place] [address] Care Team Providers Care Miniature Set Designer Name Role Phone Fabby Hurt MD Primary Care Provider [phone] Chance Bonilla PharmD Unavailable [phone] Encounter Details Date Type Department Care Team ([facility] Contact Info) Description 05/31/2023 Orders Only [facility] [address] [place] [address] Fabby Hurt MD [address] [place] [address] Social History Tobacco Use Types Packs/Day Years [...] Description 07/09/2024 3:45 PM EDT Office Visit [facility] [address] [place], [place] [phone] Fabby Hurt MD [address] [place] [address] documented as of this encounter Goals Goal [...] documented as of this encounter Care Teams Miniature Set Designer Relationship Specialty Start Date End Date Fabby Hurt MD [address] [place] [phone] PCP - General Family Medicine 04/08/21 Chance Bonilla PharmD [address] [place] [phone] Pharmacist Internal Medicine 11/30/22 documented as of this encounter
--- OUTSIDE RECORDS SUMMARY | 2024-06-12 15:24 | XMS_ITS | Encounter Summary ---
Author Organization [employer] Address [address] [facility] 7t [place] [address] Care Team Providers Care Wet Plant Operator Name Role Phone Fabby Hurt MD Primary Care Provider [phone] Chance Bonilla PharmD Unavailable [phone] Reason for Visit * Reason Comments Med Refill Encounter Details Date Type Department Care Team ([facility] st Contact Info) Description 12/05/2023 Refill [facility] [address] [place] [address] Vivian Baker ANP 230 [place] [address] Skin lesion Social History Tobacco Use Types [...] Description 07/09/2024 3:45 PM EDT Office Visit [facility] [address] [place] [address] Fabby Hurt MD [address] [place] [address] documented as of this encounter Goals Goal [...] documented as of this encounter Care Teams Wet Plant Operator Relationship Specialty Start Date End Date Fabby Hurt MD [address] [place] [address] [phone] PCP - General Family Medicine 04/08/21 Chance Bonilla PharmD [address] [place] [address] Pharmacist Internal Medicine 11/30/22 documented as of this encounter
[2024-06-12 17:46] LABS: Baso%MD 0.8 %; Eos%MD 5.3 %; Hematocrit 40.6 % (37.0-47.0); Hemoglobin 13.4 g/dl (12.0-16.0); IG%MD 0.5 %; Lymph%MD 26.4 %; Mean Corpuscular Hemoglobin 29.1 pg (27.0-33.0); Mean Corpuscular Volume 88.1 fL (80.0-98.0); Mean Platelet Volume 9.3 fL (9.4-12.3); Mono%MD 6.9 %; Neut%MD 60.1 %; Platelet Count 580 X10*3/uL (160-400); Red Blood Count 4.61 X10*6/uL (4.20-5.50); Red Cell Distribution Width 13.9 % (11.0-16.0); White Blood Count 12.2 X10*3/uL (4.8-10.8)
[2024-06-12 18:09] LABS: Alanine Aminotransferase 15 U/L (0-31); Aspartate Amino Transferase 26 U/L (5-31); C Reactive Protein 3.01 mg/dL (< or = 0.50); Estimated Glomerular Filt Rate > 60
[2024-06-12 18:30] LABS: Erythrocyte Sedimentation Rate 66 MM/HR (0-20)
[2024-06-12 18:31] LABS: Atypical Lymph Absolute Manual 0.5 x10*3/uL; Atypical Lymphs Percent Manual 4 % (0-6); Band Neutrophils Percent 0 % (3-5); Eosinophils Percent Manual 8 % (0-4); Lymphocytes Absolute Manual 3.2 X10*3/uL (1.2-4.9); Lymphocytes Percent Manual 26 % (20-40); Monocytes Absolute Manual 0.2 X10*3/uL (0.1-1.2); Monocytes Percent Manual 2 % (2-11); Neutrophils Absolute Manual 7.3 X10*3/uL (2.0-8.3); Neutrophils Percent Manual 60 % (45-73)
[2024-06-12 18:32] LABS: Acanthocytes 2+ (3-5) /OIF; RBC Morphology NOTED
[2024-06-12 18:33] LABS: Burr Cells 1+ (0-2) /OIF; Giant Platelet PRESENT; Platelet Estimate INCREASED (NORMAL); Platelet Morphology Comment NOTED
[2024-06-12 19:27] LABS: Rheumatoid Factor 574.3 IU/mL (<15.0)
[2024-06-13 05:09] LABS: HBS Num1 0.68 mIU/mL (0-7.99); HBc Num1 0.16 S/CO (0.00-0.79); HBsAGNum1 0.28 S/CO (0.00-0.99); Hepatitis B Core Antibody Nonreactive (Nonreactive); Hepatitis B Surface Antigen Negative (Negative); ~Hepatitis B Surface Antibody NONREACTIVE (Nonreactive); ~Hepatitis C Antibody Nonreactive (Nonreactive)
[2024-06-14 14:53] LABS: Cyclic Citrullinated Peptide >250 UNITS
[2024-06-15 17:09] LABS: TS Negative Control Passed; TS Panel A 0; TS Panel B 0; TS Positive Control Passed; TSpotTB Negative (Negative)
== END 2024-06-12 14:06 | disposition home or self-care (01) ==
LOC: HO.HKASLDS 14:05
PROVIDERS: Internal Medicine Rheumatology; Visit Provider Family Medicine
DX: M06.9 Rheumatoid arthritis, unspecified (principal)
CPT/HCPCS: 36415; 82565; 84450; 84460; 85007; 85027; 85652; 86140; 86200; 86431; 86481; 86704; 86706; 86803; 87340

== ENCOUNTER → 2024-06-12 14:47 | Outpatient (BNV) | payer BC, SELFPAY | PROVIDERS: PCP Family Medicine; Visit Provider Radiology Diagnostic Radiology | DX: M05.741 Rheumatoid arthritis with rheumatoid factor of right hand without organ or systems involvement (principal); M05.742 Rheumatoid arthritis with rheumatoid factor of left hand without organ or systems involvement; M05.771 Rheumatoid arthritis with rheumatoid factor of right ankle and foot without organ or systems involvement; M05.772 Rheumatoid arthritis with rheumatoid factor of left ankle and foot without organ or systems involvement | CPT/HCPCS: 73130; 73630 ==

== ENCOUNTER 2024-07-23 13:29 | Outpatient (REF) | payer BC, SELFPAY ==
[2024-07-23 13:39] LABS: MANUAL DIFF FLAG NO
[2024-07-23 14:12] LABS: Basophils Absolute Auto 0.1 X10*3/uL (0.0-0.2); Basophils Percent Auto 0.7 % (0-2); Eosinophils Absolute Auto 0.6 X10*3/uL (0.0-0.4); Eosinophils Percent Auto 5.2 % (0-4); Hemoglobin 12.6 g/dl (12.0-16.0); Imm Gran Abs Auto 0.05 X10*3/uL (0.00-0.03); Imm Gran Pct Auto 0.4 % (0.0-0.4); Lymphocytes Absolute Auto 3.4 X10*3/uL (1.2-4.9); Lymphocytes Percent Auto 28.9 % (20-40); Mean Corpuscular HGB Conc 34.1 g/dl (31.0-35.0); Mean Corpuscular Volume 85.3 fL (80.0-98.0); Mean Platelet Volume 8.7 fL (9.4-12.3); Monocytes Absolute Auto 0.8 X10*3/uL (0.1-1.2); Monocytes Percent Auto 6.6 % (2-11); Neutrophils Absolute Auto 6.8 x10*3/uL (2.0-8.3); Neutrophils Percent Auto 58.2 % (45-73); Platelet Count 522 X10*3/uL (160-400); Red Blood Count 4.34 X10*6/uL (4.20-5.50); Red Cell Distribution Width 14.1 % (11.0-16.0); White Blood Count 11.7 X10*3/uL (4.8-10.8)
[2024-07-23 14:34] LABS: Alanine Aminotransferase 17 U/L (0-31); Aspartate Amino Transferase 21 U/L (5-31); Estimated Glomerular Filt Rate > 60
--- OUTSIDE RECORDS SUMMARY | 2024-07-23 14:58 | XMS_ITS | Encounter Summary ---
Author Organization [employer] Address 75 [facility] 7t [place] [address] Care Team Providers Care Grinder Chipper Name Role Phone Fabby Hurt MD Primary Care Provider [phone] Chance Bonilla PharmD Unavailable [phone] Reason for Visit * Reason Comments Med Refill Encounter Details Date Type Department Care Team ([facility] st Contact Info) Description 12/05/2023 Refill [facility] MEDICINE [address] [place] [address] Vivian Baker ANP [address] [place] [address] Skin lesion Social History Tobacco Use Types [...] AM EDT documented as of this encounter Functional Status * Over the past 2 weeks, how often have you been bothered by any of the following problems? Question Answer Date of Assessment Author Patient Health Questionnaire -2 Score 0 12/05/2023 12:10 PM EDT Edna Jordan MA * If you checked off any problems on this questionnaire so far, Question Answer Date of Assessment Author How difficult have these problems made it for you to do your work, take care of things at home, or get along with other people? Not difficult at all 12/05/2023 12:10 PM EDT Mike Jordan MA * Over the past 2 weeks, how often have you been bothered by any of the following problems? Question Answer Date of Assessment Author Little interest or pleasure in doing things Not at all 12/05/2023 12:10 PM EDT Justin Jordan MA Feeling down, depressed, or hopeless Not at all 12/05/2023 12:10 PM NIKKIT Edna Jordan MA Trouble falling or staying asleep, or sleeping too much Nearly every day 12/05/2023 12:10 PM NIKKIT Edna Jordan MA Feeling tired or having little energy Nearly every day 12/05/2023 12:10 PM Edna Cheung MA Poor appetite or overeating Nearly every day 12/05/2023 12:10 PM NIKKIT Edna Jordan MA Feeling bad about yourself - or that you are a failure or have let yourself or your family down Not at all 12/05/2023 12:10 PM EDT Edna Jordan MA Trouble concentrating on things, such as reading the newspaper or watching television Not at all 12/05/2023 12:10 PM EDT Edna Jordan MA Moving or speaking so slowly that other people could have noticed? Or the opposite - being so fidgety or restless that you have been moving around a lot more than usual. Several days 12/05/2023 12:10 PM EDT Edna Jordan MA Thoughts that you would be better off or hurting yourself in some way Not at all 12/05/2023 12:10 PM EDT Mike Jordan MA Patient Health Questionnaire-9 Score 10 12/05/2023 12:10 PM EDT Rosangela Jordan MA documented as of this encounter Plan of Treatment Not on file documented as of this encounter Goals Goal Patient Goal Type Associated Problems Recent Progress Patient-Stated? Author Blood Pressure < 140/90 Blood Pressure 139/86(2024 4:15 PM EDT) No Chance Bonilla, Yazan Hemoglobin A1c < 7 Result Component 7.1( 4:00 PM EDT) No Chance Bonilla PharmD documented as of this encounter Visit Diagnoses Diagnosis Skin lesion Unspecified disorder of skin and subcutaneous tissue documented in this encounter Additional Health Concerns Assessment Noted Time PHQ-9 Depression Total Score: 024 12:10 PM EDT documented as of this encounter Care Teams Grinder Chipper Relationship Specialty Start Date End Date Fabby Hurt MD [address] [place] [address] PCP - General Family Medicine 04/08/21 Chance Bonilla PharmD [address] [place] [address] Pharmacist Internal Medicine 11/30/22 documented as of this encounter
== END 2024-07-23 13:30 | disposition home or self-care (01) ==
LOC: HO.LAB 13:29
PROVIDERS: PCP Family Medicine; Visit Provider Internal Medicine Rheumatology
DX: Z79.899 Other long term (current) drug therapy (principal)
CPT/HCPCS: 36415; 82565; 84450; 84460; 85025

== ENCOUNTER 2024-08-22 12:53 | Outpatient (AMB) | payer BC, SELFPAY ==
[2024-08-22 13:22] VITALS: BP 148/84; PULSE 94; O2SAT 98; BMI 43.8
--- NOTE | 2024-08-22 13:22 | MHC.OFFVIS ---
Vital Signs 08/22/24 13:22 Height 4 ft 11 in Weight 217 lb BMI 43.8 BP 148/84 H Blood Pressure Location Lt brachial Position Sitting Pulse 94 Pulse Source Pulse Oximeter Pulse Oximetry (%) 98 Oxygen Delivery Method Room Air Intake Visit Reasons: 1-2 months Intake Note: Pt presents in office today for follow up RA. Patient complains of pain in her head on left side, from her eye, to the top of her head. Allergies glipizide (GLIPIZIDE) Allergy (Severe, Verified 08/22/24 13:29) SHORTNESS OF BREATH contact metal agent Allergy (Mild, Verified 08/22/24 13:31) Rash, swelling environmental allergies Allergy (Unknown, Uncoded 08/22/24 13:29) Runny Nose, Sneezing, Itching onions Allergy (Unknown, Uncoded 08/22/24 13:29) Hives/Rash HPI HPI 1-2 months: Details: Joint pain is better with MTX. MS 5 minutes. She continues to take Celebrex. She does not use walker at night. She is tolerating methotrexate. She developed a pain in left side of her head and face. She took Excedrin last night without relief. No recent infections. [facility] Medical History Ruptured epidermal cyst Epidermal cyst Cloudy urine Joint pain in fingers of right hand Diverticulosis Herpes genitalis Yeast infection involving the vagina and surrounding area Carpal tunnel syndrome on right Pure hypercholesterolemia Hernia Borderline glaucoma (glaucoma suspect) HTN (hypertension) Diabetes mellitus Surgical History Hx of parathyroidectomy Hx of colonoscopy Hx of hernia repair Family History Father Diabetes mellitus Mother Diabetes mellitus Social History Alcohol intake: never Patient Tobacco Use Status: Never used Tobacco Current occupational status: employed Current occupation: [employer] Sexual orientation: Straight/Heterosexual Gender identity: Female Female Reproductive History Menstrual Age of Menarche: 7 Physical Exam Vital Signs: Last Vital Signs Pulse 94 08/22/24 13:22 BP 148/84 H 08/22/24 13:22 Pulse Ox 98 08/22/24 13:22 Oxygen Delivery Method Room Air 08/22/24 13:22 BMI result Body Mass Index 43.8 Const Other: General: Comfortable CVS: RRR Respiratory: clear to auscultation bilaterally. Good respiratory effort Skin: No lesions seen MSK: Tender R MCPs, bilateral PIP, wrists and shoulders, knees, ankles and MTPs. She has soft tissue swelling on MCPs and MTPs. Range of motion of shoulders bilateral abduction 160 degrees with limited internal rotation external rotation due to pain. Knee flexion is limited due to pain. Assessment & Plan Assessment & Plan (1) Rheumatoid arthritis: Comment: Inflammatory arthritis is better controlled with addition of methotrexate and Celebrex. Personally reviewed x-ray, which reveal erosions of bilateral 1st MCPs. Discussed importance of optimizing methotrexate to better control her joint symptoms and prevent radiographic progression of disease. Rheumatology history: Seropositive (RF and anti-CCP), erosive (bilateral 1st MCPs and 5th MTPs). symptoms started 2014. HCQ started 03/01-05/2022 lost to follow up. Code(s): M06.9 - Rheumatoid arthritis, unspecified Category: Medical Qualifiers: Laterality: bilateral Rheumatoid factor presence: with rheumatoid factor Plan: Increase methotrexate 17.5 once weekly Continue folic acid 1 mg daily Labs due in 1 month for drug monitoring on high-risk medication She will hold celecoxib 200 mg twice when she takes Excedrin for headache management AAOS knee and shoulder strengthening exercises printed for patient. She is unable to afford co-pay for physical therapy. Return to clinic in 3 months (2) Cervicalgia: Comment: Due to trapezius strain. C-spine x-ray from February 2024 negative. Code(s): M54.2 - Cervicalgia Category: Medical Plan: Prescription for heating pad ordered Return to clinic in 1-2 months (3) Osteoarthritis of knees, bilateral: Comment: X-ray right knee June 2024 reveals mild medial joint space narrowing. I suspect left knee pain is secondary to osteoarthritis. We discussed conservative management. Code(s): M17.0 - Bilateral primary osteoarthritis of knee Category: Medical Qualifiers: Osteoarthritis type: primary Qualified Code(s): M17.0 - Bilateral primary osteoarthritis of knee Plan: AAOS knee strengthening program given to patient. Return to clinic in 3 months Orders: Orders Complete Blood Count Man Dif 4 Weeks M06.9 - Rheumatoid arthritis, unspecified Aspartate Amino Transferase 4 Weeks M06.9 - Rheumatoid arthritis, unspecified C Reactive Protein 4 Weeks M06.9 - Rheumatoid arthritis, unspecified Alanine Aminotransferase 4 Weeks M06.9 - Rheumatoid arthritis, unspecified Creatinine 4 Weeks M06.9 - Rheumatoid arthritis, unspecified Erythrocyte Sedimentation Rate 4 Weeks M06.9 - Rheumatoid arthritis, unspecified Medications: Changed From methotrexate sodium 12.5 mg (5 x 2.5 mg) PO QWEEK 20 tabs 2RF To methotrexate sodium Labs due in 4 weeks. No refills until labs are done. 17.5 mg (7 x 2.5 mg) PO QWEEK 28 tabs 0RF 4 weeks Discontinued hydroxychloroquine Discontinued Reason: Doctor's Order 200 mg PO BID 60 tabs 0RF Coding Level of Care Code Est Pt Level 4 (56713) Complex EM visit Add On G2211 Diagnoses Rheumatoid arthritis M06.9 Laterality: bilateral Rheumatoid factor presence: with rheumatoid factor Cervicalgia M54.2 Primary osteoarthritis of both knees M17.0 Osteoarthritis type: primary
--- OUTSIDE RECORDS SUMMARY | 2024-08-22 13:46 | XMS_ITS | Encounter Summary ---
Author Organization [employer] Address [address] [facility] 7t [place] [address] Care Team Providers Care Contact Acid Plant Operator Name Role Phone Fabby Hurt MD Primary Care Provider [phone] Chance Bonilla PharmD Unavailable [phone] Reason for Visit * Reason Comments Med Refill Encounter Details Date Type Department Care Team ([facility] st Contact Info) Description 12/05/2023 Refill [facility] MEDICINE [address] [place] [address] Vivian Baker ANP [address] [place] [address] Skin lesion Social History Tobacco Use Types Packs/Day Years Used Date Smoking Tobacco: Never Passive Smoke Exposure: Never Smokeless Tobacco: Never Depression Answer Date Recorded Patient Health Questionnaire-9 Score 10 12/05/2023 Patient Health Questionnaire-9 Score 10 12/05/2023 Last PHQ-9: Questionnaire Data Not on file 1 Housing Stability Answer Date Recorded What is your housing situation today? I have kaylyn bsas 12/05/[address] you li [...] documented as of this encounter Care Teams Contact Acid Plant Operator Relationship Specialty Start Date End Date Fabby Hurt MD [address] [place] [address] PCP - General Family Medicine 04/08/21 Chance Bonilla PharmD [address] [place] [address] Pharmacist Internal Medicine 11/30/22 documented as of this encounter
== END 2024-08-22 14:07 | disposition home or self-care (01) ==
PROVIDERS: PCP Family Medicine; Visit Provider Internal Medicine Rheumatology
DX: M06.9 Rheumatoid arthritis, unspecified (principal); M54.2 Cervicalgia; M17.0 Bilateral primary osteoarthritis of knee
CPT/HCPCS: 99214

== ENCOUNTER → 2024-09-18 15:28 | Outpatient (BNV) | payer BC, SELFPAY | PROVIDERS: PCP Family Medicine; Visit Provider Radiology Diagnostic Radiology | DX: R51.9 Headache, unspecified (principal) | CPT/HCPCS: 70553 ==

== ENCOUNTER 2024-09-18 15:31 | Outpatient (REF) | payer BC, SELFPAY ==
--- NOTE | ~2024-09-18 | MR_ITS ---
EXAMINATION: MR BRAIN IAC PROTOCOL WITHOUT AND WITH CONTRAST CLINICAL INFORMATION: Headache. Numbness. Vertigo. Ringing in ears, bilaterally. COMPARISON: None available. TECHNIQUE: Multiplanar, multisequence MRI of the brain IAC protocol was obtained before and after the intravenous administration of 10.0 mL gadolinium based without reported immediate complications.. FINDINGS: No restricted diffusion. Cochlear and vestibular components of the 8th cranial nerves demonstrated no signal abnormality or enhancing lesion. The anterior inferior cerebral arteries are type I. No enhancing mass in the perimesencephalic cisterns or the cerebellopontine angle cisterns. Flow-void signal within the main vessels in the posterior cranial fossa is normal. No abnormal enhancement within the brainstem. No acute intracranial hemorrhage, mass effect, midline shift, hydrocephalus or herniation. Vizcarra-white matter differentiation is normal. Flow-void signal within the main cerebral vessels is normal. Sellar/suprasellar region is normal. Craniocervical junction demonstrates normal position of the cerebellar tonsils. No abnormal enhancement within the intra-axial or extra-axial compartments of the cranium based upon the axial T1 postcontrast sequence. Bilateral cervical lymphadenopathy. No enhancing lesion within the intraconal or extraconal compartments of the orbits. Normal position of the internal jugular bulbs. Extraocular muscles demonstrate no enhancing lesion or signal abnormality. Mucosal thickening, paranasal sinuses. Patient's large body habitus. MR/MR head/brain wo/w con IMPRESSION: No vestibular schwannoma. No enhancing mass. Nonspecific cervical lymphadenopathy. Electronically signed by: Herbert Medina MD 09/19/2024 07:43 AM EDT
--- OUTSIDE RECORDS SUMMARY | 2024-09-18 16:24 | XMS_ITS | Encounter Summary ---
Author Organization [employer] Address [address] [facility] 7t [place] [address] Care Team Providers Care Kitchen Clerk Name Role Phone Fabby Hurt MD Primary Care Provider [phone] Chance Bonilla PharmD Unavailable [phone] Reason for Visit * Reason Comments Med Refill Encounter Details Date Type Department Care Team ([facility] st Contact Info) Description 12/05/2023 Refill [facility] MEDICINE [address] [place] [address] Vivian Baker ANP [address] [place] [address] Skin lesion Social History Tobacco Use Types [...] Author Blood Pressure < 140/90 Blood Pressure 140/90(2024 3:37 PM EDT) No Chance Bonilla, Yazan Hemoglobin A1c < 7 Result Component 7.1( 4:00 PM EDT) No Chance Bonilla PharmD documented as of this encounter Visit Diagnoses Diagnosis Skin lesion Unspecified disorder of skin and subcutaneous tissue documented in this encounter Additional Health Concerns Assessment Noted Time PHQ-9 Depression Total Score: 024 12:10 PM EDT documented as of this encounter Care Teams Kitchen Clerk Relationship Specialty Start Date End Date Fabby Hurt MD [address] [place] [address] PCP - General Family Medicine 04/08/21 Chance Bonilla PharmD [address] [place] [address] Pharmacist Internal Medicine 11/30/22 documented as of this encounter
== END 2024-09-18 15:32 | disposition home or self-care (01) ==
LOC: HO.MRI 15:31
PROVIDERS: PCP Family Medicine
DX: G50.0 Trigeminal neuralgia (principal); R51.9 Headache, unspecified; R20.0 Anesthesia of skin; R42 Dizziness and giddiness; H93.13 Tinnitus, bilateral
CPT/HCPCS: 70553; A9585

== ENCOUNTER 2024-10-11 07:54 | Outpatient (REF) | payer BC, SELFPAY ==
--- OUTSIDE RECORDS SUMMARY | 2024-10-11 08:00 | XMS_ITS | Encounter Summary ---
Author Organization [employer] Address [address] [facility] 7t [place] [address] Care Team Providers Care Industrial Hygenist Name Role Phone Fabby Hurt MD Primary Care Provider [phone] Chance Bonilla PharmD Unavailable [phone] Encounter Details Date Type Department Care Team ([facility] st Contact Info) Description 05/31/2023 Orders Only [facility] MEDICINE [address] [place] [address] Fabby Hurt MD [address] [place] [address] Social History Tobacco Use Types Packs/Day Years [...] Pressure 140/90(2024 3:37 PM EDT) No Chance Bonilla PharmD Hemoglobin A1c < 7 Result Component 7.1( 4:00 PM EDT) No Chance Bonilla PharmD documented as of this encounter Visit Diagnoses Not on filedocumented in this encounter Additional Health Concerns Assessment Noted Time PHQ-9 Depression Total Score: 3 01/26/20 23 2:26 PM EST documented as of this encounter Care Teams Industrial Hygenist Relationship Specialty Start Date End Date Fabby Hurt MD [address] [place] [address] PCP - General Family Medicine 04/08/21 Chance Bonilla PharmD [address] [place] [address] Pharmacist Internal Medicine 11/30/22 documented as of this encounter
--- OUTSIDE RECORDS SUMMARY | 2024-10-11 08:00 | XMS_ITS | Encounter Summary ---
Author Organization [employer] Address [address] [facility] 7t [place] [address] Care Team Providers Care Head Boys Tennis Coach Name Role Phone Fabby Hurt MD Primary Care Provider Chance Bonilla PharmD Unavailable [phone] Encounter Details Date Type Department Care Team ([facility] st Contact Info) Description 12/07/2023 Abstract [facility] MEDICINE [address] [place] [address] Malissa Jordan MA Social History Tobacco Use [...] 12/08/2021 documented in this encounter Results * Hm Colonoscopy (12/08/2021) Colonoscopy Normal Normal 12/08/2021 Historical Provider HEALTH MAINTENANCE Final Result documented in this encounter Visit Diagnoses Not on filedocumented in this encounter Additional Health Concerns Assessment Noted Time PHQ-9 Depression Total Score: 10 024 12:10 PM EDT documented as of this encounter Care Teams Head Boys Tennis Coach Relationship Specialty Start Date End Date Fabby Hurt MD [address] [place] [address] PCP - General Family Medicine 04/08/21 Chance Bonilla PharmD [address] [place] [address] Pharmacist Internal Medicine 11/30/22 documented as of this encounter
--- OUTSIDE RECORDS SUMMARY | 2024-10-11 08:00 | XMS_ITS | Encounter Summary ---
Author Organization [employer] Address [address] [facility] 7t [place] [address] Care Team Providers Care Aws Developer Name Role Phone Fabby Hurt MD Primary Care Provider [phone] Chance Bonilla PharmD Unavailable [phone] Reason for Visit * Reason Onset Date Comments Reschedule 08/19/2023 Encounter Details Date Type Department Care Team ([facility] st Contact Info) Description 08/19/2023 Telephone [facility] MEDICINE [address] [place], [place] [phone] Fabby Hurt MD [address] [place], [place] [phone] Reschedule Social History Tobacco Use Types Packs/Day [...] documented in this encounter Plan of Treatment Not on [...] documented as of this encounter Care Teams Aws Developer Relationship Specialty Start Date End Date Fabby Hurt MD [address] [place] [address] PCP - General Family Medicine 04/08/21 Chance Bonilla PharmD [address] [place] [address] Pharmacist Internal Medicine 11/30/22 documented as of this encounter
--- OUTSIDE RECORDS SUMMARY | 2024-10-11 08:00 | XMS_ITS | Encounter Summary ---
Author Organization [employer] Address [address] [facility] 7t [place] [address] Care Team Providers Care Ground Support Equipment Assembler Name Role Phone Fabby Hurt MD Primary Care Provider [phone] Chance Bonilla PharmD Unavailable [phone] Encounter Details Date Type Department Care Team ([facility] st Contact Info) Description 12/20/2023 Orders Only [facility] MEDICINE [address] [place] [address] Fabby Hurt MD [address] [place] [address] Social History Tobacco Use Types Packs/Day Years Used Date Smoking Tobacco: Never Passive Smoke Exposure: Never Smokeless Tobacco: Never Depression Answer Date Recorded Patient Health Questionnaire-9 Score 10 12/05/2023 Patient Health Questionnaire-9 Score 10 12/05/2023 Last PHQ-9: Questionnaire Data Not on file 1 Housing Stability Answer Date Recorded What is your housing situation today? I have kalyyn bass 12/05/[address] you [...] documented as of this encounter Care Teams Ground Support Equipment Assembler Relationship Specialty Start Date End Date Fabby Hurt MD [address] [place] [address] PCP - General Family Medicine 04/08/21 Chance Bonilla PharmD [address] [place] [address] Pharmacist Internal Medicine 11/30/22 documented as of this encounter
--- OUTSIDE RECORDS SUMMARY | 2024-10-11 08:00 | XMS_ITS | Encounter Summary ---
Author Organization [employer] Address [address] [facility] 7t [place] [address] Care Team Providers Care Chair Car Attendant Name Role Phone Fabby Hurt MD Primary Care Provider [phone] Chance Bonilla PharmD Unavailable [phone] Reason for Visit * Reason Comments Med Refill Encounter Details Date Type Department Care Team ([facility] st Contact Info) Description 12/05/2023 Refill [facility] MEDICINE [address] [place] [address] Vivian Baker ANP [address] [place] [address] Skin lesion Social History Tobacco Use Types [...] documented as of this encounter Care Teams Chair Car Attendant Relationship Specialty Start Date End Date Fabby Hurt MD [address] [place] [address] PCP - General Family Medicine 04/08/21 Chance Bonilla PharmD [address] [place] [address] Pharmacist Internal Medicine 11/30/22 documented as of this encounter
--- OUTSIDE RECORDS SUMMARY | 2024-10-11 08:01 | XMS_ITS | Encounter Summary ---
Author Organization [employer] Address [address] [facility] 7t [place] [address] Care Team Providers Care Paramedic Name Role Phone Fabby Hurt MD Primary Care Provider [phone] Chanec Bonlila PharmD Unavailable [phone] Encounter Details Date Type Department Care Team ([facility] st Contact Info) Description 05/09/2024 Orders Only [facility] MEDICINE [address] [place] [address] Fabby Hurt MD [address] [place] [address] Social History Tobacco Use Types Packs/Day Years [...] documented as of this encounter Care Teams Paramedic Relationship Specialty Start Date End Date Fabby Hurt MD [address] [place] [address] PCP - General Family Medicine 04/08/21 Chance Bonilla PharmD [address] [place] [address] Pharmacist Internal Medicine 11/30/22 documented as of this encounter
--- OUTSIDE RECORDS SUMMARY | 2024-10-11 08:01 | XMS_ITS | Encounter Summary ---
Author Organization [employer] Address [address] [place] [address] 7t [place] [address] Care Team Providers Care Wan Support Specialist Name Role Phone Fabby Hurt MD Primary Care Provider [phone] Chance Bonilla PharmD Unavailable [phone] Reason for Visit * Reason Onset Date Comments Med Refill 09/27/2022 Encounter Details Date Type Department Care Team ([facility] st Contact Info) Description 09/27/2022 Refill [facility] [address] [place] [address] [phone] Ruby Marin MD [address] [place] [phone] Social History Tobacco Use Types Packs/Day Years [...] on file documented as of this encounter Visit Diagnoses Not on filedocumented in this encounter Care Teams Wan Support Specialist Relationship Specialty Start Date End Date Fabby Hurt MD [address] [place] [address] PCP - General Family Medicine 04/08/21 Chance Bonilla, PharmD [address] [place] [address] Pharmacist Internal Medicine 11/30/22 documented as of this encounter
--- OUTSIDE RECORDS SUMMARY | 2024-10-11 08:01 | XMS_ITS | Encounter Summary ---
Author Organization [employer] Address [address] [place] [address] 7 [place] [address] Care Team Providers Care Concrete Block Mason Name Role Phone Fabby Hurt MD Primary Care Provider [phone] Chance Bonilla PharmD Unavailable [phone] Reason for Referral * Consultation (Urgent) - Closed Specialty Diagnoses / Procedures Referred By Contac t Referred To Contact Rheumatology Diagnoses Seropositive rheumatoid arthritis (CMS/HCC) Fabby Hurt MD [address] [place] [address] Phone: tel: fax: [facility] Rheumatology [address] Phone: tel: fax: Referral ID Status Reason Start Date Expiration Date V isits Requested Visits Authorized [id number] Closed Specialty Services Required 06/04/2024 06/04/2025 12 12 Encounter Details Date Type Department Care Team (Late st Contact Info) Description 06/04/2024 Orders Only [facility] MEDICINE [address] [place], [place] [phone] Fabby Hurt MD [address] [place] [address] Seropositive rheumatoid arthritis (CMS/HCC) (Primary Dx) Social [...] as of this encounter Plan of Treatment Scheduled Referrals Name Type Priority Associated Diagnoses Order Schedule Referral to Rheumatology Outpatient Referral Urgent Seropositive rheumatoid arthritis ([facility]/HCC) Expected: 06/04/2024 (Approximate), Expires: 06/04/2025 documented as of this encounter Goals Goal Patient Goal Type Associated Problems Recent Progress Patient-Stated? Author Blood Pressure < 140/90 Blood Pressure 140/90(2024 3:37 PM EDT) No Chance Bonilla, Yazan Hemoglobin A1c < 7 Result Component 7.1( 4:00 PM EDT) No Chance Bonilla PharmD documented as of this encounter Procedures Procedure Name Priority Date/Time Associated Diagnosis Comments XR KNEE 1-2 VIEWS RIGHT Routine 06/12/2024 3:10 PM EDT documented in this encounter Results * XR Knee 1-2 Views Right (06/12/2024 3:10 PM EDT) Anatomical Region Laterality Modality Lower Extremities, Knee Right Radiogra phic Imaging 06/12/2024 3:10 PM EDT Narrative 06/12/2024 3:54 PM EDT [address] [address] XRay Report Signed Patient: Lara Wyatt V MR#: [id number] : 1970 Acct:[id number] Age/Sex: 53 / F ADM Date: 06/12/24 Loc: [facility] Attending Dr: Dominguez Chung MD Ordering Physician: Dominguez Chung MD Date of Service: 06/12/24 Procedure(s): XR knee RT 2V Accession Number(s): [id number] cc: Fabby Hurt MD; Dominguez Chung MD EXAMINATION: XR KNEE 1-2 VIEWS RIGHT HISTORY: M17.0 - Bilateral primary osteoarthritis of knee COMPARISON: Comparison is made with the prior examination dated 10/19/2019. FINDINGS: AP and lateral views of the right knee are submitted. Osseous mineralization is normal. There is no fracture or dislocation. There is mild osteoarthritis of the medial compartment, with joint space narrowing and osteophyte formation. The soft tissues are unremarkable. There is no joint effusion. XR/XR knee RT 2V IMPRESSION: Mild osteoarthritis of the medial compartment. Electronically signed by: Raymundo Aguilar MD 06/12/2024 03:51 PM EDT Dictated By: Raymundo Aguilar MD Signed By: <Electronically signed by Raymundo Aguilar MD in OV> 06/12/24 1551 DD/ 1510 TD/TT: 06/12/24 1520 Beef Splitter: Procedure Note Donotuseinterpreter, Image - 06/12/[address] [address] XRay Report Signed Patient: Lara Wyatt VMR#: [id number] : 1970Acct:[id number] Age/Sex: 53 / FADM Date: 06/12/24 Loc: [facility] Attending Dr: Dominguez Chung MD Ordering Physician: Dominguez Chung MD Date of Service: 06/12/24 Procedure(s): XR knee RT 2V Accession Number(s): [id number] cc: Fabby Hurt MD; Dominguez Chung MD EXAMINATION: XR KNEE 1-2 VIEWS RIGHT HISTORY: M17.0 - Bilateral primary osteoarthritis of knee COMPARISON: Comparison is made with the prior examination dated 10/19/2019. FINDINGS: AP and lateral views of the right knee are submitted. Osseous mineralization is normal. There is no fracture or dislocation. There is mild osteoarthritis of the medial compartment, with joint space narrowing and osteophyte formation. The soft tissues are unremarkable. There is no joint effusion. XR/XR knee RT 2V IMPRESSION: Mild osteoarthritis of the medial compartment. Electronically signed by: Raymundo Aguilar MD 06/12/2024 03:51 PM EDT Dictated By: Raymundo Aguilar MD Signed By: <Electronically signed by Raymundo Aguilar MD in OV> 06/12/24 1551 DD/ 1510 TD/TT: 06/12/24 1520 Beef Splitter: [facility] External Provider IMG XR PROCEDURES Final Result documented in this encounter Visit Diagnoses Diagnosis Seropositive rheumatoid arthritis (CMS/HCC)- Primary documented in this encounter Additional Health Concerns Assessment Noted Time PHQ-9 Depression Total Score: 10 024 12:10 PM EDT documented as of this encounter Care Teams Concrete Block Mason Relationship Specialty Start Date End Date Fabby Hurt MD [address] [place] [address] PCP - General Family Medicine 04/08/21 Chance Bonilla, CharlyD [address] [place] [address] Pharmacist Internal Medicine 11/30/22 documented as of this encounter
--- OUTSIDE RECORDS SUMMARY | 2024-10-11 08:01 | XMS_ITS | Encounter Summary ---
Author Organization [employer] Address [address] [facility] 7t [place] [address] Care Team Providers Care Nail Specialist Name Role Phone Fabby Hurt MD Primary Care Provider [phone] Chance Bonilla PharmD Unavailable [phone] Encounter Details Date Type Department Care Team ([facility] st Contact Info) Description 01/07/2023 Orders Only [facility] MEDICINE [address] [place] [address] Ruby Marin MD [address] [place] [address] Genital herpes simplex, unspecified site (Primary Dx); [...] vagina documented in this encounter Care Teams Nail Specialist Relationship Specialty Start Date End Date Fabby Hurt MD [address] [place] [address] PCP - General Family Medicine 04/08/21 Chance Bonilla PharmD [address] [place] [address] Pharmacist Internal Medicine 11/30/22 documented as of this encounter
--- OUTSIDE RECORDS SUMMARY | 2024-10-11 08:01 | XMS_ITS | Clinical Summary ---
Author Organization [employer] Address [address] [place] [address] Care Team Providers Care Pile Driver Operator Name Role Phone Fabby Hurt MD Primary Care Provider [phone] Chance Bonilla PharmD Unavailable Allergies Active Allergy Reactions Criticality Noted Date Comments Glipizide Shortness of breath High 01/21/2014 Other reaction(s): chest tightness & palpitations Onion 01/23/2010 Other reaction(s): unspecified Medications glucose blood (FREESTYLE LITE) test stripIndications :Type 2 diabetes mellitus with hyperglycemia, without long-term current use of insulin (CMS/[facility]) USE TO TEST blood sugar 3 TIMES DAILY 100 each 3 3 Active Additional Information Patient not taking.Reported on 11/30/2022 Blood Glucose Monitoring Suppl (FreeStyle [place] Lite) w/Device kitIndications:T ype 2 diabetes mellitus with hyperglycemia, without long-term current use of insulin (CMS/HCC) Use to test blood sugar 3 times daily 1 kit 3 Active Additional Information Patient not taking.Reported on 11/30/2022 Lancets 33G miscIndications: Type 2 diabetes mellitus with hyperglycemia, without long-term current use of insulin (CMS/HCC) Use to test blood sugar 3 times daily 100 each 3 3 Active Additional Information Patient not taking.Reported on 11/30/2022 Alcohol Swabs (Alcohol Prep) 70 % padsIndications: Type 2 diabetes mellitus with hyperglycemia, without long-term current use of insulin (CMS/HCC) Use three times daily as directed 100 each 2 3 Active atorvastatin (Lipitor) 10 MG tabletIndication s:Type 2 diabetes mellitus with hyperglycemia, without long-term current use of insulin (CMS/HCC) Take 1 tablet by mouth daily at bedtime 90 tablet 3 Active Farxiga 10 MGIndications:Ty pe 2 diabetes mellitus with hyperglycemia, without long-term current use of insulin (CMS/HCC) Take 1 tablet by mouth every morning 90 tablet 3 Active fluconazole (Diflucan) 150 MG tabletIndication s:Vulvovaginal Candidiasis Take 1 tab po once, repeat after 3 days if still symptomatic. 2 tablet 3 Active Blood Pressure kitIndications:E ssential hypertension Use to measure blood pressure daily 1 kit 4 Active terbinafine (LamISIL AT) 1 % cream Apply topically 2 times daily. 42 g 3 4 Active celecoxib (CeleBREX) 200 MG capsule Take 200 mg by mouth 2 times daily. 5 Active folic acid (Folvite) 1 MG tablet Take 1 tablet by mouth Once per day. 5 Active Semaglutide, 2 MG/DOSE, (Ozempic, 2 MG/DOSE,) 8 MG/3ML solution pen-injectorIndi cations:Type 2 diabetes mellitus with hyperglycemia, without long-term current use of insulin (CMS/HCC) Inject 0.75 mL (2 mg) under the skin 1 (one) time per week. 3 mL 11 5 Active methotrexate 2.5 MG tablet Take 2.5 mg by mouth 1 (one) time per week. 5 Active gabapentin (Neurontin) 100 MG capsuleIndicatio ns:Trigeminal Neuralgia Take 1 capsule daily x 10 days. If tolerated, may increase to 2 capsules daily x 10 days. If tolerated may increase to 3 capsules daily x 40 days. 150 capsule 5 Active Active Problems Problem Noted Date Diagnosed Date Cervical cancer screening 08/23/2024 Cervicalgia 08/23/2024 Cloudy urine 08/23/2024 Diverticulosis 08/23/2024 Encounter for screening exam ination for sexually transmitted disease 08/23/2024 Encounter for testing for latent tuberculosis in fection 08/23/2024 Encounter to discuss test results 08/23/2024 Immunization counseling 08/23/2024 Encounter for gynecological examination (general) (routine) without abnormal findings 08/23/2024 Exertional chest pain 08/23/2024 Genital herpes simplex 08/23/2024 Hemorrhoid 08/23/2024 High risk medication use 08/23/2024 Hot flashes 08/23/2024 Influenza 08/23/2024 Irregular menses 08/23/2024 Joint pain in fingers of right hand 08/23/2024 Left tennis elbow 08/23/2024 Lichen simplex chronicus 08/23/2024 Pure hypercholesterolemia 08/23/2024 Ruptured epidermal cyst 08/23/2024 Screening for viral disease 08/23/2024 Sicca 08/23/2024 Sinusitis, acute 08/23/2024 Unsatisfactory cervical Papanicolaou smear 08/23 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 -will prescribe Terbinafine cream Seropositive rheumatoid arthritis 03/23/2022 Assessment & Plan (07/09/2024 5:14 PM EDT): -Biostatistics Manager, [facility] [place], Dr. Chung, last seen on 06/12/24 -Biologic was recommended, but pt is hesitant - Currently prescribed methotrexate - Plan to start DMARD - Previously Prescribed Hydroxychloroquine - Prescribed celecoxib (CeleBREX) 200 MG capsule bid Assessment & Plan (04/01/2024 1:02 PM EST): -Biostatistics Manager, [facility] [place], Dr. Reinoso -Continue hydroxychloroquine 200 mg bid -Biologic was recommended, but pt is hesitant -Encouraged to schedule a follow up appointment and improve adherence to prescribed treatment - Prescribed celecoxib (CeleBREX) 200 MG capsule 03/27/24 Assessment & Plan (12/10/2023 6:45 AM EDT): -Biostatistics Manager, [facility] [place], Dr. Reinoso -Continue hydroxychloroquine 200 mg bid -Biologic was recommended, but pt is hesitant -Encouraged to schedule a follow up appointment and improve adherence to prescribed treatment Assessment & Plan (01/31/2023 6:33 AM EST): [place] [facility] [place] [facility] [place]Continue hydroxychloroquine 200 mg bid -Biologic was recommended, but pt is hesitant Assessment & Plan (10/17/2022 10:05 AM EDT): -Biostatistics Manager, [facility] [place], Dr. Reinoso, last seen in August 2022 -Continue hydroxychloroquine 200 mg bid -Prescribed certolizumab, TNF antibody. Pt is hesitant to start Assessment & Plan (03/30/2022 7:57 PM EST): -Biostatistics Manager, [facility] [place], Dr. Reinoso -Continue hydroxychloroquine 200 mg bid -Biologic was recommended, but pt is hesitant Dyslipidemia 03/23/2022 Assessment & Plan (07/21/2024 6:12 PM EDT): -Lipid panel 12/05/23 -ASCVD risk 5% -Currently prescribed medication: Atorvastatin 10 mg at bedtime. Pt is not taking -Continue working on lifestyle modifications -Pt declines medical treatment. We will continue addressing medical treatment at future visit Assessment & Plan (04/01/2024 1:03 PM EST): [...] 125. -Current medication: Atorvastatin 10 mg qhs Allergic rhinitis 02/03/2015 Essential hypertension 02/03/2015 Assessment & Plan (07/09/2024 5:10 PM EDT): -Goal BP < 140/90 per [...] -Follow-up in 3 mo or sooner prn. -Pt declines medical treatment. We will continue addressing medical treatment at future visit Assessment & Plan (04/01/2024 1:00 PM EST): [...] tis 02/03/2015 Obesity 02/03/2015 Assessment & Plan (07/21/2024 6:13 PM EDT): - sleep study negative for RONI - comorbid conditions: DM2, HTN, RA - on GLP1RA for diabetes mellitus; consider switching to tirzepatide since it is superior in terms of weight loss - prescribed SGLT2i but not adherent Assessment & Plan (12/10/2023 6:44 AM EDT): - sleep study negative for RONI - comorbid conditions: DM2, HTN, RA - on GLP1RA for diabetes mellitus - prescribed SGLT2i but not adherent Assessment & Plan (03/23/2022 5:37 AM EST): - sleep study negative for RONI - comorbid conditions: DM2, HTN, RA Type 2 diabetes mellitus 02/03/2015 Assessment & Plan (07/09/2024 5:11 PM EDT): -A1C 7.1% on 07/09/24, improved since 7.3% on 03/27/24 -Continue working on lifestyle modifications -Continue Semaglutide. [...] see other providers -Eye Exam: May 2022 [facility]. No diabetic retinopathy. -Foot exam done on 12/05/23. Pt has tinea pedis -Lipid Profile 12/05/23 TC 243; TG 162; HDL 54; LDL 153 -Last microalbumin 12/05/23 UACR 6.8 Follow up in 3 mo or sooner if any problem arises Assessment & Plan (04/01/2024 1:02 PM EST): [...] see other providers -Eye Exam: May 2022 [facility]. No diabetic retinopathy. -Foot [...] see other providers -Eye Exam: May 2022 [facility]. No diabetic retinopathy. -Foot [...] see other providers -Eye Exam: May 2022 [facility]. No diabetic retinopathy. -Foot [...] w/ CDERN and RD. -Eye Exam: 06/25/21 [facility] -Foot exam done on 03/23/22. [...] to surgery for evaluation of back abscess. Perimenopause 05/30/2015 07/21/2024 Hyperlipidemia associated wi th type 2 diabetes mellitus 02/03/2015 03/23/2022 Encounters Date Type Department Care Team Description 09/19/2024 Results Follow-Up [address] [place] [address] Joey Carter CNP Mr Brain w/ and w/o Contrast 09/10/2024 Telephone [facility] [address] [place] [address] Joey Carter CNP 08/31/[address] [address] Joey Carter CNP Trigeminal neuralgia 08/31/[address] [address] Joey Carter CNP Trigeminal neuralgia 08/31/2024 Telephone [facility] [address] [place] [address] Joey Carter CNP 08/29/[address] [address] Fabby Hurt MD Medication Question 08/24/2024 3:15 PM EDT Office Visit [address] [place] [address] Joey Carter CNP Trigeminal neuralgia (Primary Dx); 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] Answer Date Recorded Patient Health Questionnaire-9 Score 0 07/09/2024 Patient Health Questionnaire-9 Score 0 07/09/2024 Last PHQ-9: Questionnaire Data Not on file 0 07/09/2024 Housing Stability Answer Date Recorded What is [...] Date Recorded Patient Health Questionnaire-2 Score 0 07/09/2024 Internet Access Answer Date Recorded Internet Access [...] Sign Reading Time Taken Comments Blood Pressure 140/90 08/24/2024 3:37 PM EDT Pulse 97 08/24/2024 3:37 PM EDT Temperature 37 C (98.6 F) 08/24/2024 3:37 PM EDT Respiratory Rate 16 08/24/2024 3:37 PM EDT Oxygen Saturation 98% 08/24/2024 3:37 PM EDT Inhaled Oxygen Concentration - - Weight 100 kg (220 lb 9.6 oz) 08/24/2024 3:37 PM EDT Height 149.9 cm (4' 11 ) 08/24/2024 3:37 PM EDT Body Mass Index 44.56 08/24/2024 3:37 PM EDT Plan of Treatment Health Maintenance Due Date Last Done Comments CT Colonography 1968 FIT DNA/Cologuard 1968 FIT 1968 FOBT 1970 Sigmoidoscopy 1970 Zoster Vaccines (1 of 2) 2018 Eye Exam 05/11/2024 05/11/2022 COVID-19 Vaccine ( season) 2024 01/18/2022, 05/14/2020 Influenza Vaccine (#1) 2024 4, 01/25/2023, 11/25/2019, Additional history exists Diabetes: Hemoglobin A1C 10/09/2024 025, 03/27/2024, 12/05/2023, Additional history exists Alcohol/Substance Use Screening 12/04/2024 12/05/2023 Diabetes: Foot Exam 12/04/2024 12/05/2023, 01/25/2023, 01/25/2023, Additional history exists Diabetes: Urine Protein Screening 12/04/2024 12/05/2023, 09/27/2022, 01/13/2022, Additional history exists Lipid Panel 12/04/2024 12/05/2023, 0802/2022, 05/12/2021 SDOH Screening 12/04/2024 12/05/2023 Depression Screening 07/09/2025 07/09/2024, 07/10/19 Tobacco Screening 07/09/2025 07/09/2024 Disability Screening 08/24/2025 08/24/2024 Mammogram 11/14/2025 11/15/2023, 11/09/2022 HPV/Cotest 12/24/2025 12/24/2020 [...] 11/18/2014, 06/27/2014, 01/21/2014 HIV Screening Completed 05/12/2021 Pneumococcal Vaccine: 50+ Years Completed 09/27/2022, 01/20/2005 Hepatitis C Screening Completed 06/12/2024 , 01/13/2022, 05/12/2021 HIB Vaccines Aged Out No longer eligi ble based on patient's age to complete this topic HPV Vaccines Aged Out No longer eligi ble based on patient's age to complete this topic IPV Vaccines Aged Out No longer eligi ble based on patient's age to complete this topic Meningococcal B Vaccine Aged Out No l onger eligible based on patient's age to complete [...] 4:00 PM EDT) No Chance Bonilla PharmD Procedures Procedure Name Priority Date/Time Associated Diagnosis Comments MR BRAIN W AND WO CONTRAST Routine 09/18/2024 3:45 PM EDT Trigeminal neuralgia 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 ALT Routine 07/23/2024 1:38 PM EDT AST Routine 07/23/2024 1:38 PM EDT CREATININE, SERUM Routine 07/23/2024 1:3 8 PM EDT CBC WITH AUTO DIFFERENTIAL Routine 07/23/2024 1:38 PM EDT POCT GLYCOSYLATED HEMOGLOBIN (HGB A1C) Routine 07/09/2024 4:00 PM EDT Type 2 diabetes mellitus with hyperglycemia, without long-term current use of insulin ([facility]) HEPATITIS B, C PROFILE Routine 2:09 PM EDT ALBUMIN, RANDOM URINE W/CREATININE Routine 12/05/2023 12:10 PM EDT Type 2 diabetes mellitus with hyperglycemia, without long-term current use of insulin ([facility]) LIPID PANEL WITH REFLEX TO DIRECT LDL Routine 12/05/2023 12:03 PM EDT Type 2 diabetes mellitus with hyperglycemia, without long-term current use of insulin (CMS/[facility]) BI MAMMOGRAM SCREENING TOMOSYNTHESIS BILATERAL Routine 11/15/2023 7:25 AM EDT PAP SMEAR Routine 03/29/2023 12:00 AM EST HM DIABETES EYE EXAM Routine 05/11/2022 COLONOSCOPY Routine 12/08/2021 HIV 1/2 ANTIGEN/ANTIBODY, FOURTH GENERATION W/RFL Routine 05/12/2021 12:00 AM EDT ZZZ HISTORICAL HPV E6/E7 RFLX EMERALD 16 18/45 Routine 12/24/2020 2:14 PM EST from Last 3 Months or Most Recently Relevant to Health Maintenance Results * Mr Brain w/ and w/o Contrast (09/18/2024 3:45 PM EDT) Anatomical Region Laterality Modality Brain Magnetic Resonan ce 09/18/2024 3:45 PM EDT Narrative 09/19/2024 7:45 AM EDT [place] [id number] Magnetic Resonance Report Signed Patient: Lara Wyatt V MR#: [id number] : 1970 Acct:[id number] Age/Sex: 54 / F ADM Date: 09/18/24 Loc: HO.MRI Attending Dr: Joey Carter AUTOMATIC PATTERN EDGER Ordering Physician: Joey Carter NP Date of Service: 09/18/24 Procedure(s): MR head/brain wo/w con Accession Number(s): [id number] cc: Fabby Hurt MD; Joey Carter NP EXAMINATION: MR BRAIN IAC PROTOCOL WITHOUT AND WITH CONTRAST CLINICAL INFORMATION: Headache. Numbness. Vertigo. Ringing in ears, bilaterally. COMPARISON: None available. TECHNIQUE: Multiplanar, multisequence MRI of the brain IAC protocol was obtained before and after the intravenous administration of 10.0 mL gadolinium based without reported immediate complications.. FINDINGS: No restricted diffusion. Cochlear and vestibular components of the 8th cranial nerves demonstrated no signal abnormality or enhancing lesion. The anterior inferior cerebral arteries are type I. No enhancing mass in the perimesencephalic cisterns or the cerebellopontine angle cisterns. Flow-void signal within the main vessels in the posterior cranial fossa is normal. No abnormal enhancement within the brainstem. No acute intracranial hemorrhage, mass effect, midline shift, hydrocephalus or herniation. Vizcarra-white matter differentiation is normal. Flow-void signal within the main cerebral vessels is normal. Sellar/suprasellar region is normal. Craniocervical junction demonstrates normal position of the cerebellar tonsils. No abnormal enhancement within the intra-axial or extra-axial compartments of the cranium based upon the axial T1 postcontrast sequence. Bilateral cervical lymphadenopathy. No enhancing lesion within the intraconal or extraconal compartments of the orbits. Normal position of the internal jugular bulbs. Extraocular muscles demonstrate no enhancing lesion or signal abnormality. Mucosal thickening, paranasal sinuses. Patient's large body habitus. MR/MR head/brain wo/w con IMPRESSION: No vestibular schwannoma. No enhancing mass. Nonspecific cervical lymphadenopathy. Electronically signed by: Herbert Medina MD 09/19/2024 07:43 AM EDT RP Dictated By: Herbert Hollingsworth MD Signed By: <Electronically signed by Herbert Reyes MD in OV> 09/19/24 0743 DD/ 1545 TD/TT: 09/18/24 1625 [employer] Tech: Procedure Note Donotuseinterpreter, Image - 09/19/2024 [place] [address] Magnetic Resonance Report Signed Patient: Lara Wyatt VMR#: [id number] : 1970Acct:[id number] Age/Sex: 54 / FADM Date: 09/18/24 Loc: HO.MRI Attending Dr: Joey Carter AUTOMATIC PATTERN EDGER Ordering Physician: Joey Carter NP Date of Service: 09/18/24 Procedure(s): MR head/brain wo/w con Accession Number(s): [id number] cc: Fabby Hurt MD; Joey Carter AUTOMATIC PATTERN EDGER EXAMINATION: MR BRAIN IAC PROTOCOL WITHOUT AND WITH CONTRAST CLINICAL INFORMATION: Headache. Numbness. Vertigo. Ringing in ears, bilaterally. COMPARISON: None available. TECHNIQUE: Multiplanar, multisequence MRI of the brain IAC protocol was obtained before and after the intravenous administration of 10.0 mL gadolinium based without reported immediate complications.. FINDINGS: No restricted diffusion. Cochlear and vestibular components of the 8th cranial nerves demonstrated no signal abnormality or enhancing lesion. The anterior inferior cerebral arteries are type I. No enhancing mass in the perimesencephalic cisterns or the cerebellopontine angle cisterns. Flow-void signal within the main vessels in the posterior cranial fossa is normal. No abnormal enhancement within the brainstem. No acute intracranial hemorrhage, mass effect, midline shift, hydrocephalus or herniation. Vizcarra-white matter differentiation is normal. Flow-void signal within the main cerebral vessels is normal. Sellar/suprasellar region is normal. Craniocervical junction demonstrates normal position of the cerebellar tonsils. No abnormal enhancement within the intra-axial or extra-axial compartments of the cranium based upon the axial T1 postcontrast sequence. Bilateral cervical lymphadenopathy. No enhancing lesion within the intraconal or extraconal compartments of the orbits. Normal position of the internal jugular bulbs. Extraocular muscles demonstrate no enhancing lesion or signal abnormality. Mucosal thickening, paranasal sinuses. Patient's large body habitus. MR/MR head/brain wo/w con IMPRESSION: No vestibular schwannoma. No enhancing mass. Nonspecific cervical lymphadenopathy. Electronically signed by: Herbert Medina MD 09/19/2024 07:43 AM EDT Dictated By: Herbert Hollingsworth MD Signed By: <Electronically signed by Herbert Reyes MDin OV> 09/19/24 0743 DD/ 1545 TD/TT: 09/18/24 1625 [employer] Tech: [facility] Charlotte[facility] Carter [facility] MRI PROCEDURES Final Result * Creatinine, Serum (07/23/2024 1:38 PM EDT) Creatinine, Serum 0.63 0.5 - 1.4 mg/dL [facility] Estimated Glomerular Filt Rate >60 [facility] Comment:Chronic Kidney Disea se: Estimated GFR < 60 mL/min/1.98x5Liaokq Kidney Disease: Estimated GFR < 15 mL/min/1.73m2 07/23/2024 1:38 PM EDT 07/23/2024 1:38 PM EDT us Generic External Data Provider LAB BLOOD ORDERAB LES Final Result [facility] [address] [place] [address] [phone] * (ABNORMAL) CBC auto differential (07/23/2024 1:38 PM EDT) White Blood Count 11.7(H) 4.8 - 10.8 X10*3/uL [facility] Red Blood Count 4.34 4.20 - 5.50 X10*6/uL [facility] Hemoglobin 12.6 12.0 - 16.0 g/dl [facility] Hematocrit 37.0 37.0 - 47.0 % [facility] Mean Corpuscular Volume 85.3 80.0 - 98.0 fL [facility] Mean Corpuscular Hemoglobin 29.0 27.0 - 33.0 pg [facility] Mean Corpuscular HGB Conc 34.1 31.0 - 35.0 g/dl [facility] Red Cell Distribution Width 14.1 11.0 - 16.0 % [facility] Platelet Count 522(H) 160 - 400 X10*3/uL [facility] Mean Platelet Volume 8.7(L) 9.4 - 12.3 fL [facility] Neutrophils Percent Auto 58.2 45 - 73 % [facility] Imm Gran Pct Auto 0.4 0.0 - 0.4 % [facility] Lymphocytes Percent Auto 28.9 20 - 40 % [facility] Monocytes Percent Auto 6.6 2 - 11 % [facility] Eosinophils Percent Auto 5.2(H) 0 - 4 % [facility] Basophils Percent Auto 0.7 0 - 2 % [facility] NRBC Pct Auto 0.0 0.0 - 0.2 /100WBC [facility] Neutrophils Absolute Auto 6.8 2.0 - 8.3 x10*3/uL [facility] Imm Gran Abs Auto 0.05(H) 0.00 - 0.03 X10*3/uL [facility] Lymphocytes Absolute Auto 3.4 1.2 - 4.9 X10*3/uL [facility] Monocytes Absolute Auto 0.8 0.1 - 1.2 X10*3/uL [facility] Eosinophils Absolute Auto 0.6(H) 0.0 - 0.4 X10*3/uL [facility] Basophils Absolute Auto 0.1 0.0 - 0.2 X10*3/uL [facility] NRBC Abs Auto 0.000 0.0 - 0.012 X10*3/uL [facility] 07/23/2024 1:38 PM EDT 07/23/2024 1:38 PM EDT us Generic External Data Provider LAB BLOOD ORDERAB LES Final Result Performing Organization Address [facility] de Phone Number [facility] [address] [place] [phone] * ALT (07/23/2024 1:38 PM EDT) Alanine Aminotransferase 17 0 - 31 U/L [facility] 07/23/2024 1:38 PM EDT 07/23/2024 1:38 PM EDT Generic External Data Provider LAB BLOOD ORDERAB LES Final Result Performing Organization Address [facility] [address] [facility] Co de Phone Number [facility] [address] [place] [phone] * AST (07/23/2024 1:38 PM EDT) Aspartate Amino Transferase 21 5 - 31 U/L [facility] 07/23/2024 1:38 PM EDT 07/23/2024 1:38 PM EDT Generic External Data Provider LAB BLOOD ORDERAB LES Final Result Performing Organization Address [facility] [address]/ZIP Co de Phone Number [facility] [address] [place] [address] [phone] * (ABNORMAL) POCT glycosylated hemoglobin (Hgb A1c) (07/09/2024 4:00 PM EDT) Hemoglobin A1C 7.1(A) 4.0 - 6.0 % QC Media Lot # [id number] Lot# Expiration Date Blood Capillary blood specimen / Unknown 07/09/2024 4:00 PM EDT Fabby Hurt MD POINT OF CARE TEST ENTER/EDIT OR DERABLES Final Result * Hepatitis B, C Profile (06/12/2024 2:09 PM EDT) Pathologist [facility] ~Hepatitis B Surface Antibody NONREACTIVE Nonreactive [facility] Comment:Nonreactive: < 8.00 mIU/mL Hepatitis B Core Antibody Nonreactive Nonreactive [facility] Hepatitis C Antibody Nonreactive Nonreactive [facility] Comment:Antibodies to HCV no t detected; does not exclude early acuteHCV infection. Hepatitis B Surface Ag Negative Negative [facility] 06/12/2024 2:09 PM EDT 06/12/2024 5:24 PM EDT us Generic External Data Provider LAB BLOOD ORDERAB LES Final Result Performing Organization Address [facility] [address]/ZIP Co de Phone Number [facility] [address] [place] [phone] [phone] * Albumin, Random Urine W/Creatinine (12/05/2023 12:10 PM EDT) Creatinine, Urine 161.60 mg/dL [facility] Microalbumin Urine 11.0 mg/L [facility] Microalbum Creatinine Ratio Ur 6.8 <30 ug/mg cr [facility] Comment:Albumin/Creatinine R atio Reference Ranges: Normal: < 30 ug/mg creatinine Microalbuminuria: 30 - 300 ug/mg creatinineClinical Albuminuria: > 300 ug/mg creatinine Urine 12/05/2023 12:1 0 PM EDT 12/05/2023 1:25 PM EDT us Fabby Hurt MD LAB URINE ORDERABLES Final Resul t [facility] [address] [place] [phone] * (ABNORMAL) Lipid Panel with Reflex to Direct LDL (12/05/2023 12:03 PM EDT) Triglycerides 162(H) <150 mg/dL [facility] Comment:Desirable Triglyceri de: less than 150 mg/dLBorderline High Triglyceride 150-199 mg/dLHigh Triglyceride: 200-499 mg/dLVery High Triglyceride: greater than or equal to 5OO mg/dL Cholesterol 239(H) <200 mg/dL [facility] Comment:Desirable Cholestero l: less than 200 mg/dLBorderline High Cholesterol: 200-239 mg/dLHigh Cholesterol: greater than 239 mg/dL LDL Cholesterol Calculated 153(H) <100 mg/dL [facility] Comment:Desirable LDL: less than 100 mg/dLNear Optimal/Above Optimal LDL: 110- 129 mg/dLBorderline High LDL: 130-159 mg/dLHigh LDL: 160-189 mg/dLVery High LDL: greater than or equal to 190 mg/dL HDL Cholesterol 54 >40 mg/dL [facility] Comment:Desirable HDL: great er than 40 mg/dL Note: This HDL assay may give artificially low results in patients with liver disease. Blood 12/05/2023 12:0 3 PM EDT 12/05/2023 1:42 PM EDT us Fabby Hurt MD LAB BLOOD ORDERABLES Final Resul t [facility] [address] [place] [address] [phone] * BI Mammogram Screening Tomosynthesis Bilateral (11/15/2023 7:25 AM EDT) Anatomical Region Laterality Modality Breast Bilateral Mammography 11/15/2023 7:25 AM EDT Narrative 11/25/2023 4:49 PM EDT [address] [place] [address] Mammography Report Signed Patient: Lara Wyatt V MR#: [id number] : 1970 Acct:[id number] Age/Sex: 53 / F ADM Date: 11/15/23 Loc: [facility] Attending Dr: Fabby Hurt MD Ordering Physician: Fabby Hurt MD Results: 2Benign F indings Date of Service: 11/15/23 Follow Up: 1 Year From [facility] Mammogram Procedure(s): MM tomosynthesis screening BI Accession Number(s): [id number] cc: Fabby Hurt MD EXAMINATION: MM SCREENING [...] Crystal Dodson DO 11/25/2023 04:45 PM EDT RP Dictated By: Crystal Dodson DO Signed By: <Electronically signed by Crystal Dodson DO in OV> 11/25/23 1645 DD/ TD/TT: 11/15/23 0740 Optical Lens Manufacturing Tech: Procedure Note Donotuseinterpreter, Image - [facility] [address] [place], [place] [address] Mammography Report Signed Patient: Lara Wyatt VMR#: [id number] : 1970Acct:[id number] Age/Sex: 53 / FADM Date: 11/15/23 Loc: [facility] Attending Dr: Fabby Hurt MD Ordering Physician: Fabby Hurt MDResults: 2Benign F indings Date of Service: 11/15/23Follow Up: 1 Year From Orig ina Mammogram Procedure(s): MM tomosynthesis screening BI Accession Number(s): [id number] cc: Fabby Hurt MD EXAMINATION: MM SCREENING [...] Crystal Dodson DO 11/25/2023 04:45 PM EDT RP Dictated By: Crystal Dodson DO Signed By: <Electronically signed by Crystal Dodson DO in OV> 11/25/23 1645 DD/ 0725 TD/TT: 11/15/23 0740 Optical Lens Manufacturing Tech: Fabby Hurt MD [facility] [place]EDURES Final Result * Pap Smear (03/29/2023 12:00 AM EST) 03/29/2023 03/30/2023 7:2 0 AM EST Narrative [facility] - 04/13/2023 3:49 PM EST ----- ------- Name: Lara Wyatt V Age/Sex: 52/F : 1970 Unit#: [id number] Attend Dr: Radha Oden [facility] Re03/29/23 Status: DEP REF Location: [facility] Disch: ----- ------- SPEC : [id number] RECD: 03/30/23-719 STATUS: KWASI GODOY NUM: [id number] KEELEY: 03/29/23-[address] ENTERED: 03/30/23-1151 SP TYPE: Pap Smr OTHR DR: Fabby Hurt MD ORDERED: Pap Smear Interpretation Unsatisfactory. Obscuring mucoid material. HPV mRNA E6/E7: NOT DETECTED This assay detects E6/E7 viral messenger RNA (mRNA) from 14 high-risk HPV types (16, 18, 31, 33, 35, 39, 45, 51, 52, 56, 58, 59, 66, 68) HPV testing performed by [facility], [place], [place]. See reference laboratory portion of the EMR for entire report. Clinical Information LMP: 09/17/2022 Previous PAP test: 02/04/2023, unsatisfact, Unknown findings Material Received ThinPrep-Cervical Copies To: Radha Oden [address] [place] [address] Fabby Hurt MD [address] [place], [place] [phone] ----- ------- Signed (signature on file) RYAN Gr (ASCP) 04/13/23 1549 ----- ------- END OF REPORT Generic External Data Provider LAB CYTOLOGY JOHANNE RABLES Final Result [facility] [address] [place] [phone] * Diabetes Eye Exam (05/11/2022) Eye Exam Normal Normal [facility] External Provider HEALTH MAINTENANCE Final Result * Colonoscopy (12/08/2021) Colonoscopy Normal Normal 12/08/2021 Historical Provider HEALTH MAINTENANCE Final Result * HIV 1/2 ANTIGEN/ANTIBODY,FOURTH GENERATION W/RFL (05/12/2021 12:00 AM EDT) HIV-1/2 ANTIGEN AND ANTIBODIES, 4TH GENERATION W/ REFLEX NON-REACT BRENDON NON-REACT BRENDON [facility] Comment: HIV-1 antigen and HIV-1/HIV-2 antibodies were not detected. There is no laboratory evidence of HIV infection. PLEASE NOTE: This information has been disclosed to you from records whose confidentiality may be protected by state law. If your state requires such protection, then the state law prohibits you from making any further disclosure of the information without the specific written consent of the person to whom it pertains, or as otherwise permitted by law. A general authorization for the release of medical or other information is NOT sufficient for this purpose. For additional information please refer to http://education.ModusP/faq/RYW856 (This link is being provided for informational/ educational purposes only.) The performance of this assay has not been clinically validated in patients less than 2 years old. 05/12/2021 Fabby Hurt MD LAB BLOOD ORDERABLES Final Resul t Performing Organization Address City/State/[facility] Co de Phone Number [facility] [address] * HPV E6/E7 RFLX EMERALD 16 18/45 (12/24/2020 2:14 PM EST) HPV mRNA E6/E7 rflx Not Detected Not Detected [facility] Comment: Methodology: Language Pathologist-Mediated Amplification This assay detects E6/E7 viral messenger RNA (mRNA) from 14 high-risk HPV types (16,18,31,33,35,39,45,51,52,56,58,59,66,68). The analytical performance characteristics of this assay have been determined by [facility]. The modifications have not been cleared or approved by the FDA. This assay has been validated pursuant to the CLIA regulations and is used for clinical purposes. For additional information, please refer to http://education.Heyy.Anadys/faq/TDF515n0 (This link if provided for information/ educational purposes only.) THIS TEST WAS PERFORMED AT: [facility] [address] [place] [address] [address],[place] [address] MARIELLA ROCHA MD 12/24/2020 2:14 PM EST us Sabrina Calloway HISTORICAL/NON ORDERABLE LABS Fi nal Result [facility] [address] from Last 3 Months or Most Recently Relevant to Health Maintenance Insurance [facility] Care Teams Pile Driver Operator Relationship Specialty Start Date End Date Fabby Hurt MD [address] [place] [phone] PCP - General Family Medicine 3/2/22 Chance Bonilla, PharmD [address] [place] [phone] Pharmacist Internal Medicine 11/30/22
--- OUTSIDE RECORDS SUMMARY | 2024-10-11 08:01 | XMS_ITS | Encounter Summary ---
Author Organization [employer] Address [address] [facility] [address] [place] [address] Care Team Providers Care Director Of Collections Name Role Phone Fabby Hurt MD Primary Care Provider [phone] Chance Bonilla PharmD Unavailable [phone] Reason for Visit * Reason Onset Date Comments Call Back Request 07/04/2024 Encounter Details Date Type Department Care Team ([facility] Contact Info) Description 07/04/2024 Telephone [facility] [address] [place], [place] [phone] Fabby Hurt MD [address] [place], [place] [phone] Call Back Request Social History Tobacco Use Types Packs/Day Years [...] encounter Miscellaneous Notes * Telephone Encounter - Krys Reyes RN - 07/04/2024 4:22 PM EDT Pt walked into [employer] lobby regarding below message. Reports she is taking a plane tomorrow (only a few hour ride), will be back by appt on Tuesday with PCP. Pt states that her friend told her that because she has swollen ankles, if I get on a plane my heart will explode . Pt is tearful. She reports that she has had edema for a while and that she takes a medication for it, doesn't remember the name but states it is newer and she takes it BID. Reports since starting medication, edema has improved. Checked BLE, slight edema present, no pitting. HOOP MAKER HELPER MACHINE is with her who reports he checks her legs daily and she has never has pitting. No redness, pt denies pain. Pt not SOB. Reassured that her heart will not explode if she goes on a plane. Advised to make sure she has enough of her medicationsfor her trip, continue taking medications as usual, elevate legs when able, especially after plane ride. Pt also reports lump on right side of neck which has also been present for a long time but states has never discussed with PCP. States lump comes and goes, usually present when it is raining or cold out. Not painful, not growing. She thinks it is related to arthritis. Advised to discuss with PCP at upcoming appt on Tuesday to see if she would recommend imaging or labs to further evaluate. Gave info for NTTS if she has any questions or concerns while we are closed. Advised if she thinks edema is worse or needs further reassurance, can go to [facility] if she would like. * Telephone Encounter - Yobani Juarez - 07/04/2024 3:42 PM EDT Tc from pt requesting call back stating she was informed she is unable to travel with permission from pcp do to her health conditions. Pt istates she will be traveling tomorrow and is requesting a call back to confirm. Please contact pt at [phone] documented in this encounter Plan of Treatment Not on file documented as of this encounter Goals Goal Patient Goal Type Associated Problems Recent Progress Patient-Stated? Author Blood Pressure < 140/90 Blood Pressure 140/90(2024 3:37 PM EDT) No Chance Bonilla, PharmDelano Hemoglobin A1c < 7 Result Component 7.1( 4:00 PM EDT) No Chance Bonilla PharmD documented as of this encounter Visit Diagnoses Not on filedocumented in this encounter Additional Health Concerns Assessment Noted Time PHQ-9 Depression Total Score: 10 024 12:10 PM EDT documented as of this encounter Care Teams Director Of Collections Relationship Specialty Start Date End Date Fabby Hurt MD [address] [place] [address] PCP - General Family Medicine 04/08/21 Chance Bonilla PharmD [address] [place] [address] Pharmacist Internal Medicine 11/30/22 documented as of this encounter
[2024-10-11 08:34] LABS: Baso%MD 1.1 %; Eos%MD 8.8 %; Hematocrit 37.7 % (37.0-47.0); Hemoglobin 13.1 g/dl (12.0-16.0); IG%MD 0.4 %; Lymph%MD 28.6 %; Mean Corpuscular HGB Conc 34.7 g/dl (31.0-35.0); Mean Corpuscular Hemoglobin 30.3 pg (27.0-33.0); Mean Corpuscular Volume 87.3 fL (80.0-98.0); Mono%MD 6.8 %; NRBC Abs Auto 0.000 X10*3/uL (0.0-0.012); NRBC Pct Auto 0.0 /100WBC (0.0-0.2); Neut%MD 54.3 %; Platelet Count 456 X10*3/uL (160-400); Red Blood Count 4.32 X10*6/uL (4.20-5.50); White Blood Count 9.1 X10*3/uL (4.8-10.8)
[2024-10-11 09:06] LABS: Alanine Aminotransferase 46 U/L (0-31); Aspartate Amino Transferase 31 U/L (5-31); Estimated Glomerular Filt Rate > 60
[2024-10-11 13:54] LABS: Band Neutrophils Percent 0 % (3-5); Basophils Abs Manual 0.2 X10*3/uL (0.0-0.2); Basophils Percent Manual 2 % (0-2); Eosinophils Absolute Manual 0.8 X10*3/uL (0.0-0.4); Eosinophils Percent Manual 9 % (0-4); Lymphocytes Absolute Manual 2.5 X10*3/uL (1.2-4.9); Lymphocytes Percent Manual 27 % (20-40); Monocytes Absolute Manual 0.4 X10*3/uL (0.1-1.2); Monocytes Percent Manual 4 % (2-11); Neutrophils Absolute Manual 5.3 X10*3/uL (2.0-8.3); Neutrophils Percent Manual 58 % (45-73)
[2024-10-11 13:55] LABS: RBC Morphology NORMAL
== END 2024-10-11 07:55 | disposition home or self-care (01) ==
LOC: HO.LAB 07:54
PROVIDERS: PCP Family Medicine; Visit Provider Internal Medicine Rheumatology
DX: M06.9 Rheumatoid arthritis, unspecified (principal)
CPT/HCPCS: 36415; 82565; 84450; 84460; 85007; 85027; 85652; 86140

== ENCOUNTER 2024-10-27 10:27 | Outpatient (REF) | payer BC, SELFPAY ==
--- OUTSIDE RECORDS SUMMARY | 2024-10-27 10:30 | XMS_ITS | Clinical Summary ---
Author Organization [employer] Address [address] [facility] 7[address] [place] [address] Care Team Providers Care Fortune Teller Name Role Phone Fabby Hurt MD Primary Care Provider [phone] Chance Bonilla PharmD Unavailable [phone] Allergies Active Allergy Reactions Criticality Noted Date Comments Glipizide Shortness of breath High 01/21/2014 Other reaction(s): chest tightness & palpitations Onion 01/23/2010 Other reaction(s): unspecified Medications glucose blood (FREESTYLE LITE) test stripIndications :Type 2 diabetes mellitus with hyperglycemia, without long-term current use of insulin (CMS/[facility]) USE TO TEST blood sugar 3 TIMES DAILY 100 each 3 3 Active Additional Information Patient not taking.Reported on 11/30/2022 Blood Glucose Monitoring Suppl (FreeStyle Johnson Lite) w/Device kitIndications:T ype 2 diabetes mellitus [...] Assessment & Plan (07/09/2024 5:14 PM EDT): -Provisioning Specialist, [facility] [place], Dr. Chung, last seen on 06/12/24 -Biologic was recommended, but pt is hesitant - Currently prescribed methotrexate - Plan to start DMARD - Previously Prescribed Hydroxychloroquine - Prescribed celecoxib (CeleBREX) 200 MG capsule bid Assessment & Plan (04/01/2024 1:02 PM EST): -Provisioning Specialist, [facility] [place], Dr. Reinoso -Continue hydroxychloroquine 200 mg bid -Biologic was recommended, but pt is hesitant -Encouraged to schedule a follow up appointment and improve adherence to prescribed treatment - Prescribed celecoxib (CeleBREX) 200 MG capsule 03/27/24 Assessment & Plan (12/10/2023 6:45 AM EDT): -Provisioning Specialist, [facility] [place], Dr. Reinoso -Continue hydroxychloroquine 200 mg bid -Biologic was recommended, but pt is hesitant -Encouraged to schedule a follow up appointment and improve adherence to prescribed treatment Assessment & Plan (01/31/2023 6:33 AM EST): -Provisioning Specialist[facility] [place]Continue hydroxychloroquine 200 mg bid -Biologic was recommended, but pt is hesitant Assessment & Plan (10/17/2022 10:05 AM EDT): -Provisioning Specialist, [facility] [place], Dr. Reinoso, last seen in August 2022 -Continue hydroxychloroquine 200 mg bid -Prescribed certolizumab, TNF antibody. Pt is hesitant to start Assessment & Plan (03/30/2022 7:57 PM EST): -Provisioning Specialist, [facility] [place], Dr. Reinoso -Continue [...] see other providers -Eye Exam: May 2022 [facility]. No diabetic retinopathy. -Foot [...] see other providers -Eye Exam: May 2022 [facility]. No diabetic retinopathy. -Foot [...] see other providers -Eye Exam: May 2022 [facility]. No diabetic retinopathy. -Foot [...] see other providers -Eye Exam: May 2022 [facility]. No diabetic retinopathy. -Foot [...] Encounters Date Type Department Care Team Description 10/11/2024 Orders Only GENERIC EXTERNAL DATA DEPARTMENT Provider, Generic External Data 09/19/2024 Results Follow-Up [facility] [address] [place] [phone] Joey Carter CNP Mr Brain w/ and w/o Contrast 09/10/2024 Telephone [facility] Information Management [address] [place] [address] Joey Carter CNP 08/31/2024 Orders Only [address] [address] Joey Carter CNP Trigeminal neuralgia 08/31/2024 Orders Only [address] [address] Joey Carter CNP Trigeminal neuralgia 08/31/2024 Telephone [facility] Information Management [address] [place] [address] Joey Carter CNP 08/29/[address] [address] Fabby Hurt MD Medication Question 08/24/2024 3:15 PM EDT Office Visit [address] [address] Joey Carter CNP Trigeminal neuralgia (Primary Dx); 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 08/24/2024 Travel 08/23/[address] [address] [place] Chart prep 08/23/[address] [address] Fabby Hurt MD october recall 08/13/2024 Orders Only [facility] [address] [place] [phone] Fabby Hurt MD Type 2 diabetes mellitus with hyperglycemia, without long-term current use of insulin ([facility]) from Last 3 Months Immunizations Immunization Administration [...] 2018 Eye Exam 05/11/2024 05/11/2022 COVID-19 Vaccine (3 - season) 2024 01/18/2022, 05/14/2020 Influenza Vaccine (#1) 2024 , 01/25/2023, 11/25/2019, Additional history exists Diabetes: Hemoglobin A1C 10/09/2024 06 025, 03/27/2024, 12/05/2023, Additional history exists Alcohol/Substance Use Screening 12/04/2024 12/05/2023 Diabetes: Foot Exam 12/04/2024 12/05/2023, 01/25/2023, 01/25/2023, Additional history exists Diabetes: Urine Protein Screening 12/04/2024 12/05/2023, 09/27/2022, 01/13/2022, Additional history exists Lipid Panel 12/04/2024 12/05/2023, 08/02/2022, 05/12/2021 SDOH Screening 12/04/2024 12/05/2023 Depression Screening [...] Procedure Name Priority Date/Time Associated Diagnosis Comments SED RATE BY MODIFIED WESTERGREN Routine 10/11/2024 8:06 AM EDT C-REACTIVE PROTEIN Routine 10/11/2024 8: 06 AM EDT ALT Routine 10/11/2024 8:06 AM EDT AST Routine 10/11/2024 8:06 AM EDT CREATININE, SERUM Routine 10/11/2024 8:0 6 AM EDT COMPLETE BLOOD COUNT MAN DIF Routine 10/11/2024 8:06 AM EDT MR BRAIN W AND WO CONTRAST Routine 09/18/2024 3:45 PM EDT Trigeminal neuralgia 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 POCT GLYCOSYLATED HEMOGLOBIN (HGB A1C) Routine 07/09/2024 4:00 PM EDT Type 2 diabetes mellitus with hyperglycemia, without long-term current use of insulin (CMS/HCC) HEPATITIS B, C PROFILE Routine 2:09 PM EDT ALBUMIN, RANDOM URINE W/CREATININE Routine 12/05/2023 12:10 PM EDT Type 2 diabetes mellitus with hyperglycemia, without long-term current use of insulin (CMS/HCC) LIPID PANEL WITH REFLEX TO DIRECT LDL Routine 12/05/2023 12:03 PM EDT Type 2 diabetes mellitus with hyperglycemia, without long-term current use of insulin ([facility]) BI MAMMOGRAM SCREENING TOMOSYNTHESIS BILATERAL Routine 11/15/2023 7:25 AM EDT PAP SMEAR Routine 03/29/2023 12:00 AM EST DIABETES EYE EXAM Routine 05/11/2022 COLONOSCOPY Routine 12/08/2021 HIV 1/2 ANTIGEN/ANTIBODY, FOURTH GENERATION W/RFL Routine 05/12/2021 12:00 AM EDT ZZZ HISTORICAL HPV E6/E7 RFLX EMERALD 16 18 Routine 12/24/2020 2:14 PM EST from Last 3 Months or Most Recently Relevant to Health Maintenance Results * (ABNORMAL) Complete Blood Count Manual Diff (10/11/2024 8:06 AM EDT) White Blood Count 9.1 4.8 - 10.8 X10*3/uL [facility] Red Blood Count 4.32 4.20 - 5.50 X10*6/uL [facility] Hemoglobin 13.1 12.0 - 16.0 g/dl [facility] Hematocrit 37.7 37.0 - 47.0 % [facility] Mean Corpuscular Volume 87.3 80.0 - 98.0 fL [facility] Mean Corpuscular Hemoglobin 30.3 27.0 - 33.0 pg [facility] Mean Corpuscular HGB Conc 34.7 31.0 - 35.0 g/dl [facility] Red Cell Distribution Width 16.5(H) 11.0 - 16.0 % [facility] Platelet Count 456(H) 160 - 400 X10*3/uL [facility] Mean Platelet Volume 9.0(L) 9.4 - 12.3 fL [facility] NRBC Pct Auto 0.0 0.0 - 0.2 /100WBC [facility] NRBC Abs Auto 0.000 0.0 - 0.012 X10*3/uL [facility] Neutrophils % Manual 58 45 - 73 % [facility] Band Neutrophils Percent 0(L) 3 - 5 % [facility] Lymphocytes Percent Manual 27 20 - 40 % [facility] Monocytes Percent Manual 4 2 - 11 % [facility] EOSINOPHILS % MANUAL 9(H) 0 - 4 % [facility] BASOPHILS % MANUAL 2 0 - 2 % [facility] NEUTROPHILS ABSOLUTE MANUAL 5.3 2.0 - 8.3 X10*3/uL [facility] LYMPHOCYTES ABSOLUTE MANUAL 2.5 1.2 - 4.9 X10*3/uL [facility] MONOCYTES ABSOLUTE MANUAL 0.4 0.1 - 1.2 X10*3/uL [facility] EOSINOPHILS ABSOLUTE MANUAL 0.8(H) 0.0 - 0.4 X10*3/uL [facility] BASOPHILS ABSOLUTE MANUAL 0.2 0.0 - 0.2 X10*3/uL [facility] Platelet Estimate SLIGHTLY INCREASED NORMAL [facility] Platelet Morphology Comment NORMAL [facility] RBC Morphology NORMAL [facility] 10/11/2024 8:06 AM EDT 10/11/2024 8:06 AM EDT us Generic External Data Provider LAB BLOOD ORDERAB LES Final Result [facility] [address] [place] [phone] * Creatinine, Serum (10/11/2024 8:06 AM EDT) Creatinine, Serum 0.67 0.5 - 1.4 mg/dL [facility] Estimated Glomerular Filt Rate >60 [facility] Comment:Chronic Kidney Disea se: Estimated GFR < 60 mL/min/1.58q3Omyuhw Kidney Disease: Estimated GFR < 15 mL/min/1.73m2 10/11/2024 8:06 AM EDT 10/11/2024 8:06 AM EDT Generic External Data Provider LAB BLOOD ORDERAB LES Final Result Performing Organization Address [facility] Co de Phone Number [facility] [address] [place] [phone] * Sed Rate by Modified [place] (10/11/2024 8:06 AM EDT) Erythrocyte Sedimentation Rate 10 0 - 20 MM/HR [facility] Comment:Patients with polycy themia and many hemoglobin abnormalitiesmay have depressed sed rates whereas patients with anemiamay have elevated sed rates. 10/11/2024 8:06 AM EDT 10/11/2024 8:06 AM EDT Generic External Data Provider LAB BLOOD ORDERAB LES Final Result Performing Organization Address [facility] Co de Phone Number [facility] [address] [place] [phone] * C-reactive Protein (10/11/2024 8:06 AM EDT) C Reactive Protein 0.35 < or = 0.50 mg/dL [facility] 10/11/2024 8:06 AM EDT 10/11/2024 8:06 AM EDT Generic External Data Provider LAB BLOOD ORDERAB LES Final Result Performing Organization Address [facility] Co de Phone Number [facility] [address] [place] [phone] * (ABNORMAL) ALT (10/11/2024 8:06 AM EDT) Alanine Aminotransferase 46(H) 0 - 31 U/L [facility] 10/11/2024 8:06 AM EDT 10/11/2024 8:06 AM EDT us Generic External Data Provider LAB BLOOD ORDERAB LES Final Result Performing Organization Address [facility] Co de Phone Number [facility] [address] [place] [phone] * AST (10/11/2024 8:06 AM EDT) Aspartate Amino Transferase 31 5 - 31 U/L [facility] 10/11/2024 8:06 AM EDT 10/11/2024 8:06 AM EDT Generic External Data Provider LAB BLOOD ORDERAB LES Final Result Performing Organization Address [facility] de Phone Number [facility] [address] [place] [phone] * Mr Brain w/ and w/o Contrast (09/18/2024 3:45 PM EDT) Anatomical Region Laterality Modality Brain Magnetic Resonan ce 09/18/2024 3:45 PM EDT Narrative 09/19/2024 7:45 AM EDT [address] [address] Magnetic Resonance Report Signed Patient: Lara Wyatt V MR#: [id number] : 1970 Acct:[id number] Age/Sex: 54 / F ADM Date: 09/18/24 Loc: HO.MRI Attending Dr: Joey Carter NODULIZER Ordering Physician: Joey Carter NP Date of Service: 09/18/24 Procedure(s): MR head/brain wo/w con Accession Number(s): [id number] cc: Fabby Hurt MD; Joey Carter NP [...] 09/19/24 0743 DD/ 1545 TD/TT: 09/18/24 1625 Construction Trades Contractor: Procedure Note Donotuseinterpreter, Image - 09/19/[address] [address] Magnetic Resonance Report Signed Patient: Lara Wyatt VMR#: [id number] : 1970Acct:[id number] Age/Sex: 54 / FADM Date: 09/18/24 Loc: HO.MRI Attending Dr: Joey Carter NODULIZER Ordering Physician: Joey Carter NP Date of Service: 09/18/24 Procedure(s): MR head/brain wo/w con Accession Number(s): [id number] cc: Fabby Hurt MD; Joey Carter NP [...] 09/19/24 0743 DD/ 1545 TD/TT: 09/18/24 1625 Construction Trades Contractor: Joey Carter [facility] MRI PROCEDURES Final Result * (ABNORMAL) POCT glycosylated hemoglobin (Hgb A1c) (07/09/2024 4:00 PM EDT) Hemoglobin A1C 7.1(A) 4.0 - 6.0 % QC Media Lot # [id number] Lot# Expiration Date Blood Capillary blood specimen / Unknown 07/09/2024 4:00 PM EDT Fabby Hurt MD POINT OF CARE TEST ENTER/EDIT OR DERABLES Final Result * Hepatitis B, C Profile (06/12/2024 2:09 PM EDT) ~Hepatitis B Surface Antibody NONREACTIVE Nonreactive [facility] Comment:Nonreactive: < 8.00 mIU/mL Hepatitis B Core Antibody Nonreactive Nonreactive [facility] Hepatitis C Antibody Nonreactive Nonreactive [facility] Comment:Antibodies to HCV no t detected; does not exclude early acuteHCV infection. Hepatitis B Surface Ag Negative Negative [facility] 06/12/2024 2:09 PM EDT 06/12/2024 5:24 PM EDT Generic External Data Provider LAB BLOOD ORDERAB LES Final Result Performing Organization Address City/[facility] de Phone Number [facility] [address] [place] [phone] * Albumin, Random Urine W/Creatinine (12/05/2023 12:10 PM EDT) Creatinine, Urine 161.60 mg/dL [facility] Microalbumin Urine 11.0 mg/L [facility] Microalbum Creatinine Ratio Ur 6.8 <30 ug/mg cr [facility] Comment:Albumin/Creatinine R atio Reference Ranges: Normal: < 30 ug/mg creatinine Microalbuminuria: 30 - 300 ug/mg creatinineClinical Albuminuria: > 300 ug/mg creatinine Urine 12/05/2023 12:1 0 PM EDT 12/05/2023 1:25 PM EDT Fabby Hurt MD LAB URINE ORDERABLES Final Resul t Performing Organization Address City/State/[facility] Co de Phone Number [facility] [address] [place] [phone] * (ABNORMAL) Lipid Panel with Reflex to Direct LDL (12/05/2023 12:03 PM EDT) Triglycerides 162(H) <150 mg/dL [facility] Comment:Desirable Triglyceri de: less than 150 mg/dLBorderline High Triglyceride 150-199 mg/dLHigh Triglyceride: 200-499 mg/dLVery High Triglyceride: greater than or equal to 5OO mg/dL Cholesterol 239(H) <200 mg/dL [facility] Comment:Desirable Cholestero l: less than 200 mg/dLBorderline High Cholesterol: 200-239 mg/dLHigh Cholesterol: greater than 239 mg/dL LDL Cholesterol Calculated 153(H) <100 mg/dL [facility] Comment:Desirable LDL: less than 100 mg/dLNear Optimal/Above Optimal LDL: 110- 129 mg/dLBorderline High LDL: 130-159 mg/dLHigh LDL: 160-189 mg/dLVery High LDL: greater than or equal to 190 mg/dL HDL Cholesterol 54 >40 mg/dL [facility] Comment:Desirable HDL: great er than 40 mg/dL Note: This HDL assay may give artificially low results in patients with liver disease. Blood 12/05/2023 12:0 3 PM EDT 12/05/2023 1:42 PM EDT Fabby Hurt MD LAB BLOOD ORDERABLES Final Resul t Performing Organization Address [facility] Co de Phone Number [facility] [address] [place] [phone] * BI Mammogram Screening Tomosynthesis Bilateral (11/15/2023 7:25 AM EDT) Anatomical Region Laterality Modality Breast Bilateral Mammography 11/15/2023 7:25 AM EDT Narrative 11/25/2023 4:49 PM EDT [facility] [address] [place] [address] Mammography Report Signed Patient: Lara Wyatt V MR#: [id number] : 1970 Acct:[id number] Age/Sex: 53 / F ADM Date: 11/15/23 Loc: HO.MAMMO Attending Dr: Fabby Hurt MD Ordering Physician: Fabby Hurt MD Results: 2Benign F indings Date of Service: 11/15/23 Follow Up: 1 Year From Orig ina Mammogram Procedure(s): MM tomosynthesis screening BI Accession Number(s): [id number] cc: Fabby Hurt MD EXAMINATION: MM SCREENING [...] 11/25/23 1645 DD/ 0725 TD/TT: 11/15/23 0740 Construction Trades Contractor: Procedure Note Donotuseinterpreter, Image - 11/25/2023 [facility] [address] [place] [address] [place] [address] Mammography Report Signed Patient: Lara Wyatt VMR#: [id number] : 1970Acct:[id number] Age/Sex: 53 / FADM Date: 11/15/23 Loc: HO.MAMMO Attending Dr: Fabby Hurt MD Ordering Physician: Fabby Hurt MDResults: 2Benign F indings Date of Service: 11/15/23Follow Up: 1 Year From Orig ina Mammogram Procedure(s): MM tomosynthesis screening BI Accession Number(s): [id number] cc: Fabby Hurt MD EXAMINATION: MM SCREENING [...] 11/25/23 1645 DD/ 0725 TD/TT: 11/15/23 0740 Construction Trades Contractor: us Fabby Hurt MD IMG BI PROCEDURES Final Result * Pap Smear (03/29/2023 12:00 AM EST) 03/29/2023 03/30/2023 7:2 0 AM EST [facility] - 04/13/2023 3:49 PM EST ----- ------- Name: Lara Wyatt V Age/Sex: 52/F : 1970 Unit#: [id number] Attend Dr: Radha Oden [facility] Re03/29/23 Status: DEP REF Location: [facility] Disch: ----- ------- SPEC : [id number] RECD: 03/30/23 STATUS: KWASI GODOY NUM: [id number] KEELEY: 03/29/23-[address]: Radha Oden ENTERED: 03/30/23-1151 SP TYPE: Pap Smr OTHR DR: Fabby Hurt MD ORDERED: Pap Smear Interpretation Unsatisfactory. Obscuring mucoid material. HPV mRNA E6/E7: NOT DETECTED This assay detects E6/E7 viral messenger RNA (mRNA) from 14 high-risk HPV types (16, 18, 31, 33, 35, 39, 45, 51, 52, 56, 58, 59, 66, 68) HPV testing performed by [facility], [place], [place]. See reference laboratory portion of the EMR for entire report. Clinical Information LMP: 09/17/2022 Previous PAP test: 02/04/2023, unsatisfact, Unknown findings Material Received ThinPrep-Cervical Copies To: Radha Oden[address] Baker [address] [place] [phone] Fabby Hurt MD [address] [place] [phone] ----- ------- Signed (signature on file) RYAN Gr ([facility]) 04/13/23 1549 ----- ------- END OF REPORT [facility] External Data Provider LAB CYTOLOGY ORDE RABLES Final Result [facility] [address] [place] [address] [phone] * Diabetes Eye Exam (05/11/2022) Pathologist [facility] Eye Exam Normal Normal [facility] External Provider HEALTH MAINTENANCE Final Result * Colonoscopy (12/08/2021) [facility] Colonoscopy Normal Normal 12/08/2021 Historical Provider MD HEALTH MAINTENANCE Final Result * HIV 1/2 ANTIGEN/ANTIBODY,FOURTH GENERATION W/RFL (05/12/2021 12:00 AM EDT) Pathologist [facility] HIV-1/2 ANTIGEN AND ANTIBODIES, 4TH GENERATION W/ REFLEX NON-REACT BRENDON NON-REACT BRENDON [facility] Comment: HIV-1 antigen and HIV-1/HIV-2 [...] purpose. For additional information please refer to http://[employer]/faq/FXW473 (This link is being provided for informational/ educational purposes only.) The performance of this assay has not been clinically validated in patients less than 2 years old. 05/12/2021 Fabby Hurt MD LAB BLOOD ORDERABLES Final Resul t Performing Organization Address [facility] Co de Phone Number [facility] [address] * HPV E6/E7 RFLX EMERALD 16 18/45 (12/24/2020 2:14 PM EST) [facility] HPV mRNA E6/E7 rflx Not Detected Not Detected [facility] Comment: Methodology: Resident Services Supervisor-Mediated Amplification This assay detects E6/E7 viral messenger RNA (mRNA) from 14 high-risk HPV types (16,18,31,33,35,39,45,51,52,56,58,59,66,68). The analytical performance characteristics of this assay have been determined by [facility]. The modifications have not been cleared or approved by the FDA. This assay has been validated pursuant to the CLIA regulations and is used for clinical purposes. For additional information, please refer to http://[employer]/faq/UVP867r8 (This link if provided for information/ educational purposes only.) THIS TEST WAS PERFORMED AT: [facility] [place] [address] [place] [address] [address]LO[address],[place] [address] MARIELLA ROCHA MD 12/24/2020 2:14 PM EST Sabrina Calloway HISTORICAL/NON ORDERABLE LABS Fi nal Result Performing Organization Address City/[facility]/ZIP Co de Phone Number [facility] [address] [place] [address], from Last 3 Months or Most Recently Relevant to Health Maintenance Insurance [facility] HMO Care Teams Fortune Teller Relationship Specialty Start Date End Date Fabby Hurt MD [address] [place] [address] PCP - General Family Medicine 04/08/21 Chance Bonilla, PharmD [address] [place] [address] Pharmacist Internal Medicine 11/30/22
--- OUTSIDE RECORDS SUMMARY | 2024-10-27 10:30 | XMS_ITS | Encounter Summary ---
Author Organization [employer] Address [address] [facility] [address]t [place] [address] Care Team Providers Care Carton Lettering Machine Operator Name Role Phone Fabby Hurt MD Primary Care Provider [phone] Chance Bonilla PharmD Unavailable [phone] Reason for Visit * Reason Comments Med Refill Encounter Details Date Type Department Care Team ([facility] st Contact Info) Description 12/05/2023 Refill [facility] [address] [place] [address] Vivian Baker ANP [address] [place] [address] Skin lesion Social History Tobacco Use Types [...] documented as of this encounter Care Teams Carton Lettering Machine Operator Relationship Specialty Start Date End Date Fabby Hurt MD [address] [place] [address] PCP - General Family Medicine 04/08/21 Chance Bonilla PharmD [address] [place] [address] Pharmacist Internal Medicine 11/30/22 documented as of this encounter
--- OUTSIDE RECORDS SUMMARY | 2024-10-27 10:30 | XMS_ITS | Encounter Summary ---
Author Organization [employer] Address [address] [facility] 7t [place] [address] Care Team Providers Care Cake Decorator Name Role Phone Fabby Hurt MD Primary Care Provider [phone] Chance Bonilla PharmD Unavailable [phone] Reason for Visit * Reason Onset Date Comments Reschedule 08/19/2023 Encounter Details Date Type Department Care Team ([facility] st Contact Info) Description 08/19/2023 Telephone [facility] [address] [place], [place] [phone] Fabby Hurt MD [address] [place], [place] [phone] Reschedule Social History Tobacco Use Types Packs/Day [...] documented as of this encounter Care Teams Cake Decorator Relationship Specialty Start Date End Date Fabby Hurt MD [address] [place] [address] PCP - General Family Medicine 04/08/21 Chance Bonilla PharmD [address] [place] [address] Pharmacist Internal Medicine 11/30/22 documented as of this encounter
--- OUTSIDE RECORDS SUMMARY | 2024-10-27 10:30 | XMS_ITS | Encounter Summary ---
Author Organization [employer] Address 75 [facility] 7t [place] [address] Care Team Providers Care Jet Inspector Name Role Phone Fabby Hurt MD Primary Care Provider [phone] Chance Bonilla PharmD Unavailable [phone] Encounter Details Date Type Department Care Team ([facility] st Contact Info) Description 12/07/2023 Abstract [facility] MED[facility]INE [address] [place] [address] Malissa Jordan MA Social History Tobacco Use [...] documented as of this encounter Care Teams Jet Inspector Relationship Specialty Start Date End Date Fabby Hurt MD 230 [place] [address] PCP - General Family Medicine 04/08/21 hCance Bonilla PharmD 230 [place] [address] Pharmacist Internal Medicine 11/30/22 documented as of this encounter
--- OUTSIDE RECORDS SUMMARY | 2024-10-27 10:30 | XMS_ITS | Encounter Summary ---
Author Organization [employer] Address 75 [facility] 7t [place] [address] Care Team Providers Care Switchboard Wirer Name Role Phone Fabby Hurt MD Primary Care Provider [phone] Chance Bonilla PharmD Unavailable [phone] Encounter Details Date Type Department Care Team ([facility] st Contact Info) Description 05/31/2023 Orders Only [facility] MEDICINE [address] [place] [address] Fabby Hurt MD 230 [place] [address] Social History Tobacco Use Types Packs/Day Years [...] documented as of this encounter Care Teams Switchboard Wirer Relationship Specialty Start Date End Date Fabby Hurt MD 230 [place] [address] PCP - General Family Medicine 04/08/21 Chance Bonilla PharmD 230 [place] [address] Pharmacist Internal Medicine 11/30/22 documented as of this encounter
--- OUTSIDE RECORDS SUMMARY | 2024-10-27 10:30 | XMS_ITS | Encounter Summary ---
Author Organization [employer] Address [address] [facility] 7t [place] [address] Care Team Providers Care Windows Migration Technician Name Role Phone Fabby Hurt MD Primary Care Provider [phone] Chance Bonilla PharmD Unavailable [phone] Encounter Details Date Type Department Care Team ([facility] st Contact Info) Description 12/20/2023 Orders Only [facility] MEDICINE [address] [place] [address] Fabby Hurt MD [address] [place] [address] Social History Tobacco Use Types Packs/Day Years [...] documented as of this encounter Care Teams Windows Migration Technician Relationship Specialty Start Date End Date Fabby Hurt MD [address] [place] [address] PCP - General Family Medicine 04/08/21 Chance Bonilla PharmD [address] [place] [address] Pharmacist Internal Medicine 11/30/22 documented as of this encounter
--- OUTSIDE RECORDS SUMMARY | 2024-10-27 10:30 | XMS_ITS | Encounter Summary ---
Author Organization [employer] Address 75 [facility] 7t [place] [address] Care Team Providers Care Technical Support Manager Name Role Phone Fabby Hurt MD Primary Care Provider [phone] Chance Bonilla PharmD Unavailable [phone] Reason for Visit * Reason Onset Date Comments Call Back Request 07/04/2024 Encounter Details Date Type Department Care Team ([facility] Contact Info) Description 07/04/2024 Telephone [facility] MEDICINE [address] [place], [place] [phone] Fabby Hurt MD [address] [place], [place] [phone] Call Back Request Social History Tobacco Use [...] 07/04/2024 4:22 PM EDT Pt walked into [employer] lobby regarding below message. Reports she is [...] Checked BLE, slight edema present, no pitting. FLUE DUST LABORER is with her who reports he checks [...] or needs further reassurance, can go to [facility] if she would like. * Telephone Encounter - Yobani Juarez - 07/04/2024 3:42 PM EDT Tc from pt requesting call back stating she was informed she is unable to travel with permission from pcp do to her health conditions. Pt istates she will be traveling tomorrow and is requesting a call back to confirm. Please contact pt at [phone] documented in this encounter Plan of Treatment [...] as of this encounter Care Teams Technical Support Manager Relationship Specialty Start Date End Date Fabby Hurt MD [address] [place] [address] PCP - General Family Medicine 04/08/21 Chance Bonilla PharmD [address] [place] [address] Pharmacist Internal Medicine 11/30/22 documented as of this encounter
--- OUTSIDE RECORDS SUMMARY | 2024-10-27 10:30 | XMS_ITS | Encounter Summary ---
Author Organization [employer] Address [address] [place] [address] 7t [place] [address] Care Team Providers Care Service Person Name Role Phone Fabby Hurt MD Primary Care Provider [phone] Chance Bonilla PharmD Unavailable [phone] Reason for Visit * Reason Onset Date Comments Med Refill 09/27/2022 Encounter Details Date Type Department Care Team ([facility] st Contact Info) Description 09/27/2022 Refill [facility] [address] [place] [address] [phone] Ruby Marin MD [address] [place] [address] Social History Tobacco Use Types Packs/Day Years [...] on filedocumented in this encounter Care Teams Service Person Relationship Specialty Start Date End Date Fabby Hurt MD [address] [place] [address] PCP - General Family Medicine 04/08/21 Chance Bonilla, PharmD [address] [place] [address] Pharmacist Internal Medicine 11/30/22 documented as of this encounter
--- OUTSIDE RECORDS SUMMARY | 2024-10-27 10:30 | XMS_ITS | Encounter Summary ---
Author Organization [employer] Address 75 [facility] 7t [place] [address] Care Team Providers Care Portfolio Director Name Role Phone Fabby Hurt MD Primary Care Provider [phone] Chance Bonilla PharmD Unavailable [phone] Encounter Details Date Type Department Care Team ([facility] st Contact Info) Description 01/07/2023 Orders Only [facility] MEDICINE 230 [place] [address] Ruby Mrain MD 230 [place] [address] Genital herpes simplex, unspecified site (Primary Dx); [...] vagina documented in this encounter Care Teams Portfolio Director Relationship Specialty Start Date End Date Fabby Hurt MD 230 [place] [address] PCP - General Family Medicine 04/08/21 Chance Bonilla PharmD 230 [place] [address] Pharmacist Internal Medicine 11/30/22 documented as of this encounter
--- OUTSIDE RECORDS SUMMARY | 2024-10-27 10:30 | XMS_ITS | Encounter Summary ---
Author Organization [employer] Address [address] [place] [address] 7 [place] [address] Care Team Providers Care Cosmetology Teacher Name Role Phone Fabby Hurt MD Primary Care Provider [phone] Chance Bonilla PharmD Unavailable [phone] Reason for Referral * Consultation (Urgent) - Closed Specialty Diagnoses / Procedures Referred By Contac t Referred To Contact Rheumatology Diagnoses Seropositive rheumatoid arthritis (CMS/HCC) Fabby Hurt MD 230 [place] [address] Phone: tel: fax: [facility] [address] Phone: tel: fax: Referral ID Status Reason Start Date Expiration Date V isits Requested Visits Authorized [id number] Closed Specialty Services Required 06/04/2024 06/04/2025 12 12 Encounter Details Date Type Department Care Team (Late st Contact Info) Description 06/04/2024 Orders Only [facility] MEDICINE 230 [place], [place] [phone] Fabby Hurt MD [address] [place] [address] Seropositive rheumatoid arthritis (CMS/HCC) (Primary [...] Rheumatology Outpatient Referral Urgent Seropositive rheumatoid arthritis ([facility]/HCC) Expected: 06/04/2024 (Approximate), Expires: 06/04/2025 [...] PM EDT Narrative 06/12/2024 3:54 PM EDT [address] [address] XRay Report Signed Patient: Lara Wyatt V MR#: [id number] : 1970 Acct:[id number] Age/Sex: 53 / F ADM Date: 06/12/24 Loc: [facility] Attending Dr: Dominguez Chung MD Ordering Physician: Dominguez Chung MD Date of Service: 06/12/24 Procedure(s): XR knee RT 2V Accession Number(s): [id number] cc: Fabby Hurt MD; Dominguez Chung MD [...] 06/12/24 1551 DD/ 1510 TD/TT: 06/12/24 1520 Phone Counselor: Procedure Note Donotuseinterpreter, Image - 06/12/[address] [address] XRay Report Signed Patient: Lara Wyatt VMR#: [id number] : 1970Acct:[id number] Age/Sex: 53 / FADM Date: 06/12/24 Loc: [facility] Attending Dr: Dominguez Chung MD Ordering Physician: Dominguez Chung MD Date of Service: 06/12/24 Procedure(s): XR knee RT 2V Accession Number(s): [id number] cc: Fabby Hurt MD; Dominguez Chung MD [...] 06/12/24 1551 DD/ 1510 TD/TT: 06/12/24 1520 Phone Counselor: [facility] External Provider IMG XR PROCEDURES Final Result documented in this encounter Visit Diagnoses Diagnosis Seropositive rheumatoid arthritis (CMS/HCC)- Primary documented in this encounter Additional Health Concerns Assessment Noted Time PHQ-9 Depression Total Score: 10 024 12:10 PM EDT documented as of this encounter Care Teams Cosmetology Teacher Relationship Specialty Start Date End Date Fabby Hurt MD [address] [place] [address] PCP - General Family Medicine 04/08/21 Chance Bonilla, CharlyD [address] [place] [address] Pharmacist Internal Medicine 11/30/22 documented as of this encounter
--- OUTSIDE RECORDS SUMMARY | 2024-10-27 10:30 | XMS_ITS | Encounter Summary ---
Author Organization [employer] Address 75 [facility] 7t [place] [address] Care Team Providers Care Making Department Preparer Name Role Phone Fabby Hurt MD Primary Care Provider [phone] Chance Bonilla PharmD Unavailable [phone] Encounter Details Date Type Department Care Team ([facility] st Contact Info) Description 05/09/2024 Orders Only [facility] MEDICINE 230 [place] [address] Fabby Hurt MD 230 [place] [address] Social History Tobacco Use Types Packs/Day Years [...] documented as of this encounter Care Teams Making Department Preparer Relationship Specialty Start Date End Date Fabby Hurt MD [address] [place] [address] PCP - General Family Medicine 04/08/21 Chance Bonilla PharmD 230 [place] [address] Pharmacist Internal Medicine 11/30/22 documented as of this encounter
[2024-10-27 12:03] LABS: Alanine Aminotransferase 18 U/L (0-31); Aspartate Amino Transferase 20 U/L (5-31)
== END 2024-10-27 10:28 | disposition home or self-care (01) ==
LOC: HO.LAB 10:27
PROVIDERS: PCP Family Medicine; Visit Provider Internal Medicine Rheumatology
DX: R74.01 Elevation of levels of liver transaminase levels (principal)
CPT/HCPCS: 36415; 84450; 84460

== ENCOUNTER 2024-12-14 08:21 | Outpatient (REF) | payer BC, SELFPAY ==
--- NOTE | ~2024-12-14 | MM_ITS ---
EXAMINATION: MM SCREENING DIGITAL BREAST TOMOSYNTHESIS, BILATERAL CLINICAL INFORMATION: Screening. Asymptomatic. COMPARISON: Mammography: Comparison is made with available priors TECHNIQUE: Digital breast mammography with tomosynthesis is performed in both the craniocaudal and mediolateral oblique views along with computer-aided detection (CAD). FINDINGS: There are scattered areas of fibroglandular density. Right marker clip. There are no significant masses, abnormal calcifications, or other abnormalities. MM/MM tomosynthesis screening BI IMPRESSION: No mammographic evidence of malignancy. ASSESSMENT: BI-RADS Category 2: Benign RECOMMENDATION: Routine annual mammography screening. 1 year F/U This examination should not preclude the clinical evaluation of a suspicious palpable abnormality. This patient's information was entered into a reminder system with a target due date for their next mammogram. Electronically signed by: Crystal Dodson DO 12/18/2024 09:14 AM FRANDY
--- OUTSIDE RECORDS SUMMARY | 2024-12-14 08:45 | XMS_ITS | Encounter Summary ---
Author Organization [employer] Address 75 [facility] 7t [place] [address] Care Team Providers Care Dam Worker Name Role Phone Fabby Hurt MD Primary Care Provider [phone] Chance Bonilla PharmD Unavailable [phone] Encounter Details Date Type Department Care Team ([facility] st Contact Info) Description 12/07/2023 Abstract [facility] MEDICINE 230 [place] [address] Malissa Jordan [place] Social History Tobacco Use [...] documented as of this encounter Care Teams Dam Worker Relationship Specialty Start Date End Date Fabby Hurt MD 230 [place] [address] PCP - General Family Medicine 04/08/21 Chance Bonilla PharmD 230 [place] [address] Pharmacist Internal Medicine 11/30/22 documented as of this encounter
--- OUTSIDE RECORDS SUMMARY | 2024-12-14 08:45 | XMS_ITS | Encounter Summary ---
Author Organization [employer] Address 75 [facility] 7t [place] [address] Care Team Providers Care Entry Level Financial Analyst Name Role Phone Fabby Hurt MD Primary Care Provider [phone] Chance Bonilla PharmD Unavailable [phone] Encounter Details Date Type Department Care Team ([facility] st Contact Info) Description 12/20/2023 Orders Only [facility] MEDICINE [address] [place] [address] Fabby Hurt MD 230 [place] [address] Social History Tobacco Use Types Packs/Day Years [...] documented as of this encounter Care Teams Entry Level Financial Analyst Relationship Specialty Start Date End Date Fabby Hurt MD 230 [place] [address] PCP - General Family Medicine 04/08/21 Chance Bonilla PharmD [address] [place] [address] Pharmacist Internal Medicine 11/30/22 documented as of this encounter
--- OUTSIDE RECORDS SUMMARY | 2024-12-14 08:45 | XMS_ITS | Encounter Summary ---
Author Organization [employer] Address [address] [place] [address] 7 [place] [address] Care Team Providers Care Cfo Controller Name Role Phone Fabby Hurt MD Primary Care Provider [phone] Chance Bonilla PharmD Unavailable [phone] Reason for Referral * Consultation (Urgent) - Closed Specialty Diagnoses / Procedures Referred By Contac t Referred To Contact Rheumatology Diagnoses Seropositive rheumatoid arthritis (CMS/HCC) (HCC) Fabby Hurt MD 230 [place] [address] Phone: tel: fax: [facility] [address] Phone: tel: fax: Referral ID Status Reason Start Date Expiration Date V isits Requested Visits Authorized [id number] Closed Specialty Services Required 06/04/2024 06/04/2025 12 12 Encounter Details Date Type Department Care Team (Late st Contact Info) Description 06/04/2024 Orders Only [facility] MEDICINE 230 [place], [place] [phone] Fabby Hurt MD 230 [place], [place] [phone] Seropositive rheumatoid arthritis (CMS/HCC) (Primary Dx) Social [...] Rheumatology Outpatient Referral Urgent Seropositive rheumatoid arthritis ([facility]) Expected: 06/04/2024 (Approximate), Expires: 06/04/2025 documented as of this encounter Goals Goal Patient Goal Type Associated Problems Recent Progress Patient-Stated? Author Blood Pressure < 140/90 Blood Pressure 140/90(2024 3:37 PM EDT) No Chance Bonilla, PharmD Hemoglobin A1c < 7 Result Component 7.1( 4:00 PM EDT) No Chance Bonilla, PharmD documented as of this encounter Procedures Procedure Name Priority Date/Time Associated Diagnosis Comments XR KNEE 1-2 VIEWS RIGHT Routine 06/12/2024 3:10 PM EDT documented in this encounter Results * XR Knee 1-2 Views Right (06/12/2024 3:10 PM EDT) Anatomical Region Laterality Modality Lower Extremities, Knee Right Radiogra phic Imaging 06/12/2024 3:10 PM EDT Narrative 06/12/2024 3:54 PM EDT [address] [address] XRay Report Signed Patient: Lara Wyatt V MR#: [id number] : 1970 Acct:[id number] Age/Sex: 53 / F ADM Date: 06/12/24 Loc: [facility] Attending Dr: Dominguez Chung MD Ordering Physician: Dominguez Chung MD Date of Service: 06/12/24 Procedure(s): XR knee RT 2V Accession Number(s): [id number] cc: Fabby Hurt MD; Dominguez Chung MD [...] 06/12/24 1551 DD/ 1510 TD/TT: 06/12/24 1520 Stoker Installation Mechanic: Procedure Note Donotuseinterpreter, Image - 06/12/[address] [address] XRay Report Signed Patient: Lara Wyatt VMR#: [id number] : 1970Acct:[id number] Age/Sex: 53 / FADM Date: 06/12/24 Loc: [facility] Attending Dr: Dominguez Chung MD Ordering Physician: Dominguez Chung MD Date of Service: 06/12/24 Procedure(s): XR knee RT 2V Accession Number(s): [id number] cc: Fabby Hurt MD; Dominguez Chung MD [...] Raymundo Aguilar MD 06/12/2024 03:51 PM EDT RP Dictated By: Raymundo Aguilar MD Signed By: <Electronically signed by Raymundo Aguilar MD in OV> 06/12/24 1551 DD/ 1510 TD/TT: 06/12/24 1520 Stoker Installation Mechanic: [facility] External Provider IMG XR PROCEDURES Final Result documented in this encounter Visit Diagnoses Diagnosis Seropositive rheumatoid arthritis (CMS/HCC) (HCC)- Primary documented in this encounter Additional Health Concerns Assessment Noted Time PHQ-9 Depression Total Score: 10 024 12:10 PM EDT documented as of this encounter Care Teams Cfo Controller Relationship Specialty Start Date End Date Fabby Hurt MD [address] [place] [address] PCP - General Family Medicine 04/08/21 Chance Bonilla, PharmD [address] [place] [address] Pharmacist Internal Medicine 11/30/22 documented as of this encounter
--- OUTSIDE RECORDS SUMMARY | 2024-12-14 08:45 | XMS_ITS | Encounter Summary ---
Author Organization [employer] Address 75 [facility] 7t [place] [address] Care Team Providers Care Occupational Therapy Teacher Name Role Phone Fabby Hurt MD Primary Care Provider [phone] Chance Bonilla PharmD Unavailable [phone] Reason for Visit * Reason Onset Date Comments Reschedule 08/19/2023 Encounter Details Date Type Department Care Team ([facility] st Contact Info) Description 08/19/2023 Telephone [facility] MEDICINE 230 [place] [address] aFbby Hurt MD 230 [place], [place] [phone] Reschedule Social History Tobacco Use Types Packs/Day [...] documented as of this encounter Care Teams Occupational Therapy Teacher Relationship Specialty Start Date End Date Fabby Hurt MD [address] [place] [address] PCP - General Family Medicine 04/08/21 Chance Bonilla PharmD [address] [place] [address] Pharmacist Internal Medicine 11/30/22 documented as of this encounter
--- OUTSIDE RECORDS SUMMARY | 2024-12-14 08:45 | XMS_ITS | Encounter Summary ---
Author Organization [employer] Address 75 [facility] 7t [place] [address] Care Team Providers Care Transit Man Name Role Phone Fabby Hurt MD Primary Care Provider [phone] Chance Bonilla PharmD Unavailable [phone] Encounter Details Date Type Department Care Team ([facility] st Contact Info) Description 01/07/2023 Orders Only [facility] MEDICINE 230 [place] [address] Ruby Marin MD [address] [place] [address] Genital herpes simplex, unspecified site (Primary Dx); [...] vagina documented in this encounter Care Teams Transit Man Relationship Specialty Start Date End Date Fabby Hurt MD [address] [place] [address] PCP - General Family Medicine 04/08/21 Chance Bonilla PharmD 230 [place] [address] Pharmacist Internal Medicine 11/30/22 documented as of this encounter
--- OUTSIDE RECORDS SUMMARY | 2024-12-14 08:45 | XMS_ITS | Encounter Summary ---
Author Organization [employer] Address 75 [facility] 7t [place] [address] Care Team Providers Care Senior Linux Unix Engineer Name Role Phone Fabby Hurt MD Primary Care Provider [phone] hCance Bonilla PharmD Unavailable [phone] Encounter Details Date Type Department Care Team ([facility] st Contact Info) Description 05/31/[address] Orders [address] [facility] MEDICINE 230 [place] [address] Fabby Hurt MD [address] [place] [address] Social History Tobacco Use Types Packs/Day Years [...] documented as of this encounter Care Teams Senior Linux Unix Engineer Relationship Specialty Start Date End Date Fabby Hurt MD [address] [place] [address] PCP - General Family Medicine 04/08/21 Chance Bonilla PharmD [address] [place] [address] Pharmacist Internal Medicine 11/30/22 documented as of this encounter
--- OUTSIDE RECORDS SUMMARY | 2024-12-14 08:45 | XMS_ITS | Encounter Summary ---
Author Organization [employer] Address 75 [facility] 7t [place] [address] Care Team Providers Care Rolling Up Machine Operator Name Role Phone Fabby Hurt MD Primary Care Provider [phone] Chance Bonilla PharmD Unavailable [phone] Reason for Visit * Reason Onset Date Comments Call Back Request 07/04/2024 Encounter Details Date Type Department Care Team ([facility] Contact Info) Description 07/04/2024 Telephone [facility] MEDICINE 230 [place], [place] [phone] Fabby Hurt MD 230 [place], [place] [phone] Call Back Request Social History Tobacco Use [...] 07/04/2024 4:22 PM EDT Pt walked into [employer] lobby regarding below message. Reports she is [...] Checked BLE, slight edema present, no pitting. SULFUR BURNER is with her who reports he checks [...] or needs further reassurance, can go to [facility] if she would like. * Telephone Encounter - Yobani Juarez - 07/04/2024 3:42 PM EDT Tc from pt requesting call back stating she was informed she is unable to travel with permission from pcp do to her health conditions. Pt istates she will be traveling tomorrow and is requesting a call back to confirm. Please contact pt at [phone] documented in this encounter Plan of Treatment [...] documented as of this encounter Care Teams Rolling Up Machine Operator Relationship Specialty Start Date End Date Fabby Hurt MD [address] [place] [address] PCP - General Family Medicine 04/08/21 Chance Bonilla PharmD [address] [place] [address] Pharmacist Internal Medicine 11/30/22 documented as of this encounter
--- OUTSIDE RECORDS SUMMARY | 2024-12-14 08:45 | XMS_ITS | Encounter Summary ---
Author Organization [employer] Address 75 [facility] 7t [place] [address] Care Team Providers Care Sales Representative Rural Power Name Role Phone Fabby Hurt MD Primary Care Provider [phone] Chance Bonilla PharmD Unavailable [phone] Reason for Visit * Reason Comments Med Refill Encounter Details Date Type Department Care Team ([facility] st Contact Info) Description 12/05/[address] [facility] MEDICINE 230 [place] [address] Vivian Baker ANP 230 [place] [address] Skin lesion Social History Tobacco Use Types [...] documented as of this encounter Care Teams Sales Representative Rural Power Relationship Specialty Start Date End Date Fabby Hurt MD [address] [place] [address] PCP - General Family Medicine 04/08/21 Chance Bonilla PharmD [address] [place] [address] Pharmacist Internal Medicine 11/30/22 documented as of this encounter
--- OUTSIDE RECORDS SUMMARY | 2024-12-14 08:45 | XMS_ITS | Encounter Summary ---
Author Organization [employer] Address 75 [facility] 7t [place] [address] Care Team Providers Care Yarn Salvager Name Role Phone Fabby Hurt MD Primary Care Provider [phone] Chance Bonilla PharmD Unavailable [phone] Encounter Details Date Type Department Care Team ([facility] st Contact Info) Description 05/09/2024 Orders Only [facility] MEDICINE 230 [place] [address] Fabby Hurt MD [address] [place] [address] Social History Tobacco Use Types Packs/Day Years [...] documented as of this encounter Care Teams Yarn Salvager Relationship Specialty Start Date End Date Fabby Hurt MD 230 [place] [address] PCP - General Family Medicine 04/08/21 Chance Bonilla PharmD [address] [place] [address] Pharmacist Internal Medicine 11/30/22 documented as of this encounter
--- OUTSIDE RECORDS SUMMARY | 2024-12-14 08:45 | XMS_ITS | Encounter Summary ---
Author Organization [employer] Address [address] [place] [address] 7t [place] [address] Care Team Providers Care Float Remover Name Role Phone Fabby Hurt MD Primary Care Provider [phone] Chance Bonilla PharmD Unavailable [phone] Reason for Visit * Reason Onset Date Comments Med Refill 09/27/2022 Encounter Details Date Type Department Care Team ([facility] st Contact Info) Description 09/27/2022 Refill [facility] [address] [place] [phone] Ruby Marin MD [address] [place] [address] Social History Tobacco Use Types Packs/Day Years [...] on filedocumented in this encounter Care Teams Float Remover Relationship Specialty Start Date End Date Fabby Hurt MD [address] [place] [address] PCP - General Family Medicine 04/08/21 Chance Bonilla, PharmD [address] [place] [address] Pharmacist Internal Medicine 11/30/22 documented as of this encounter
--- OUTSIDE RECORDS SUMMARY | 2024-12-14 08:45 | XMS_ITS | Clinical Summary ---
Author Organization [employer] Address [address] [facility] [address] [place] [address] Care Team Providers Care Polygraph Technician Name Role Phone Fabby Hurt MD Primary Care Provider [phone] Chance Bonilla PharmD Unavailable [phone] Allergies Active Allergy Reactions Criticality Noted Date Comments Glipizide Shortness of breath High 01/21/2014 Other reaction(s): chest tightness & palpitations Onion 01/23/2010 Other reaction(s): unspecified Medications glucose blood (FREESTYLE LITE) test stripIndications :Type 2 diabetes mellitus with hyperglycemia, without long-term current use of insulin (HCC) USE TO TEST blood sugar 3 TIMES DAILY 100 each 3 3 Active Additional Information Patient not taking.Reported on 11/30/2022 Blood Glucose Monitoring Suppl (FreeStyle [place] Lite) w/Device kitIndications:T ype 2 diabetes mellitus with hyperglycemia, without long-term current use of insulin (HCC) Use to test blood sugar 3 times daily 1 kit 3 Active Additional Information Patient not taking.Reported on 11/30/2022 Lancets 33G miscIndications: Type 2 diabetes mellitus with hyperglycemia, without long-term current use of insulin (HCC) Use to test blood sugar 3 times daily 100 each 3 3 Active Additional Information Patient not taking.Reported on 11/30/2022 Alcohol Swabs (Alcohol Prep) 70 % padsIndications: Type 2 diabetes mellitus with hyperglycemia, without long-term current use of insulin (HCC) Use three times daily as directed 100 each 2 3 Active atorvastatin (Lipitor) 10 MG tabletIndication s:Type 2 diabetes mellitus with hyperglycemia, without long-term current use of insulin (HCC) Take 1 tablet by mouth daily at bedtime 90 tablet 3 Active Farxiga 10 MGIndications:Ty pe 2 diabetes mellitus with hyperglycemia, without long-term current use of insulin (HCC) Take 1 tablet by mouth every morning [...] hyperglycemia, without long-term current use of insulin (HCC) Inject 0.75 mL (2 mg) under the [...] ding area 08/23/2024 Obesity, morbid, BMI 40.0-49.9 ([facility]) 025 Hypopigmentation 08/23/2024 Rheumatoid arthritis ([facility]) 08/23/2024 Diabetes mellitus 08/23/2024 Tinea manuum 12/06/2023 Assessment & Plan (12/10/2023 6:40 AM EDT): Rash on right hand fingers, interdigital space -will prescribe Terbinafine cream -wear gloves when washing dishes or cleaning until it improves Tinea pedis of both feet 12/06/2023 Assessment & Plan (12/06/2023 12:53 PM EDT): Rash on bilateral toes. -will prescribe Terbinafine cream Seropositive rheumatoid arthritis ([facility]) 03/10 Assessment & Plan (07/09/2024 5:14 PM EDT): -Compactor Driver, [facility], Dr. Chung, last seen on 06/12/24 -Biologic was recommended, but pt is hesitant - Currently prescribed methotrexate - Plan to start DMARD - Previously Prescribed Hydroxychloroquine - Prescribed celecoxib (CeleBREX) 200 MG capsule bid Assessment & Plan (04/01/2024 1:02 PM EST): -Compactor Driver, [facility], Dr. Reinoso -Continue hydroxychloroquine 200 mg bid -Biologic was recommended, but pt is hesitant -Encouraged to schedule a follow up appointment and improve adherence to prescribed treatment - Prescribed celecoxib (CeleBREX) 200 MG capsule 03/27/24 Assessment & Plan (12/10/2023 6:45 AM EDT): [facility] -Continue hydroxychloroquine 200 mg bid -Biologic was recommended, but pt is hesitant -Encouraged to schedule a follow up appointment and improve adherence to prescribed treatment Assessment & Plan (01/31/2023 6:33 AM EST): [facility] -Continue hydroxychloroquine 200 mg bid -Biologic was recommended, but pt is hesitant Assessment & Plan (10/17/2022 10:05 AM EDT): -Compactor Driver, [facility], Dr. Reinoso, last seen in August 2022 -Continue hydroxychloroquine 200 mg bid -Prescribed certolizumab, TNF antibody. Pt is hesitant to start Assessment & Plan (03/30/2022 7:57 PM EST): -[facility] -Continue hydroxychloroquine 200 mg bid -Biologic [...] Plan (12/10/2023 6:45 AM EDT): -Lipid panel 10/28/24 -Current medication: Atorvastatin 10 mg at bedtime [...] see other providers -Eye Exam: May 2022 [facility]. No diabetic retinopathy. -Foot [...] see other providers -Eye Exam: May 2022 [facility]. No diabetic retinopathy. -Foot [...] tried nurse diabetes education but RN left (Luban Hoyos) and she is hesitant to see other providers -Eye Exam: May 2022 [facility]. No diabetic retinopathy. -Foot [...] see other providers -Eye Exam: May 2022 [facility]. No diabetic retinopathy. -Foot [...] Encounters Date Type Department Care Team Description 10/27/2024 Orders Only GENERIC EXTERNAL DATA DEPARTMENT Provider, Generic External Data 10/11/2024 Orders Only GENERIC EXTERNAL DATA DEPARTMENT Provider, Generic External Data 09/19/2024 Results Follow-Up [facility] [address] [place] [address] Joey Carter, CLAUDE Mr Brain w/ and w/o Contrast from Last 3 Months Immunizations Immunization Administration [...] 1970 FIT 1970 FOBT 1970 Sigmoidoscopy 1968 Alcohol/Substance Use Screening 1980 Zoster Vaccines (1 of 2) 2018 Eye Exam 05/11/2024 05/11/2022 COVID-19 Vaccine ( season) 2024 01/18/2022, 05/14/2020 Influenza Vaccine (#1) 2024 , 01/25/2023, 11/25/2019, Additional history exists Diabetes: Hemoglobin A1C 10/09/2024 025, 03/27/2024, 12/05/2023, Additional history exists Diabetes: Foot Exam 12/04/2024 12/05/2023, 01/25/2023, 01/25/2023, Additional history exists Diabetes: Urine Protein Screening 12/04/2024 12/05/2023, 09/27/2022, 01/13/2022, Additional history exists Lipid Panel 12/04/2024 12/05/2023, 09/08, 05/12/2021 SDOH Screening 12/04/2024 12/05/2023 Depression Screening 07/09/2025 07/09/2024, 07/10/19 25 Tobacco Screening 07/09/2025 07/09/2024 Disability Screening 08/24/2025 [...] Procedure Name Priority Date/Time Associated Diagnosis Comments ALT Routine 10/27/2024 10:41 AM EDT AST Routine 10/27/2024 10:41 AM EDT SED RATE BY MODIFIED WESTERGREN Routine 10/11/2024 [...] without long-term current use of insulin (CMS/HCC) BI MAMMOGRAM SCREENING TOMOSYNTHESIS BILATERAL Routine 11/15/2023 7:25 AM EDT PAP SMEAR Routine 03/29/2023 12:00 AM EST DIABETES EYE EXAM Routine 05/11/2022 COLONOSCOPY Routine 12/08/2021 HIV 1/2 ANTIGEN/ANTIBODY, FOURTH GENERATION W/RFL Routine 05/12/2021 12:00 AM EDT ZZZ HISTORICAL HPV E6/E7 RFLX EMERALD 16 18/45 Routine 12/24/2020 2:14 PM EST from Last 3 Months or Most Recently Relevant to Health Maintenance Results * ALT (10/27/2024 10:41 AM EDT) Only the most recent of2 resultswithin the time period is included. Alanine Aminotransferase 18 0 - 31 U/L [facility] 10/27/2024 10:4 1 AM EDT 10/27/2024 10:41 AM EDT Generic External Data Provider LAB BLOOD ORDERAB LES Final Result Performing Organization Address [facility] Co de Phone Number [facility] [address] [place] [phone] * AST (10/27/2024 10:41 AM EDT) Only the most recent of2 resultswithin the time period is included. Aspartate Amino Transferase 20 5 - 31 U/L [facility] 10/27/2024 10:4 1 AM EDT 10/27/2024 10:41 AM EDT Generic External Data Provider LAB BLOOD ORDERAB LES Final Result Performing Organization Address [facility] de Phone Number [facility] [address] [place] [phone] * (ABNORMAL) Complete Blood Count Manual Diff (10/11/2024 8:06 AM EDT) [facility] White Blood Count 9.1 4.8 - 10.8 X10*3/uL [facility] Red Blood Count 4.32 4.20 - 5.50 X10*6/uL [facility] Hemoglobin 13.1 12.0 - 16.0 g/dl [facility] Hematocrit 37.7 37.0 - 47.0 % [facility] Mean Corpuscular Volume 87.3 80.0 - 98.0 fL [facility] Mean Corpuscular Hemoglobin 30.3 27.0 - 33.0 pg [facility] Mean Corpuscular HGB Conc 34.7 31.0 - 35.0 g/dl [facility] Red Cell Distribution Width 16.5(H) 11.0 - 16.0 % [facility] Platelet Count 456(H) 160 - 400 X10*3/uL [facility] Mean Platelet Volume 9.0(L) 9.4 - 12.3 fL [facility] NRBC Pct Auto 0.0 0.0 - 0.2 /100WBC [facility] NRBC Abs Auto 0.000 0.0 - 0.012 X10*3/uL [facility] Neutrophils % Manual 58 45 - 73 % [facility] Band Neutrophils Percent 0(L) 3 - 5 % [facility] Lymphocytes Percent Manual 27 20 - 40 % [facility] Monocytes Percent Manual 4 2 - 11 % [facility] EOSINOPHILS % MANUAL 9(H) 0 - 4 % [facility] BASOPHILS % MANUAL 2 0 - 2 % [facility] NEUTROPHILS ABSOLUTE MANUAL 5.3 2.0 - 8.3 X10*3/uL [facility] LYMPHOCYTES ABSOLUTE MANUAL 2.5 1.2 - 4.9 X10*3/uL [facility] MONOCYTES ABSOLUTE MANUAL 0.4 0.1 - 1.2 X10*3/uL [facility] EOSINOPHILS ABSOLUTE MANUAL 0.8(H) 0.0 - 0.4 X10*3/uL [facility] BASOPHILS ABSOLUTE MANUAL 0.2 0.0 - 0.2 X10*3/uL [facility] Platelet Estimate SLIGHTLY INCREASED NORMAL [facility] Platelet Morphology Comment NORMAL [facility] RBC Morphology NORMAL [facility] 10/11/2024 8:06 AM EDT 10/11/2024 8:06 AM EDT us Generic External Data Provider LAB BLOOD ORDERAB LES Final Result [facility] [address] [place] [phone] * Creatinine, Serum (10/11/2024 8:06 AM EDT) Creatinine, Serum 0.67 0.5 - 1.4 mg/dL [facility] Estimated Glomerular Filt Rate >60 [facility] Comment:Chronic Kidney Disea se: Estimated GFR < 60 mL/min/1.50m0Ssqtjg Kidney Disease: Estimated GFR < 15 mL/min/1.73m2 10/11/2024 8:06 AM EDT 10/11/2024 8:06 AM EDT Generic External Data Provider LAB BLOOD ORDERAB LES Final Result Performing Organization Address City/[facility] Co de Phone Number [facility] [address] [place] [phone] * Sed Rate by Modified Westergren (10/11/2024 8:06 AM EDT) Erythrocyte Sedimentation Rate 10 0 - 20 MM/HR [facility] Comment:Patients with polycy themia and many hemoglobin abnormalitiesmay have depressed sed rates whereas patients with anemiamay have elevated sed rates. 10/11/2024 8:06 AM EDT 10/11/2024 8:06 AM EDT Generic External Data Provider LAB BLOOD ORDERAB LES Final Result Performing Organization Address [facility] Co de Phone Number [facility] [address] [place] [phone] * C-reactive Protein (10/11/2024 8:06 AM EDT) Pathologist [facility] C Reactive Protein 0.35 < or = 0.50 mg/dL [facility] 10/11/2024 8:06 AM EDT 10/11/2024 8:06 AM EDT Generic External Data Provider LAB BLOOD ORDERAB LES Final Result Performing Organization Address [facility] Co de Phone Number [facility] [address] [place] [phone] * Mr Brain w/ and w/o Contrast (09/18/2024 3:45 PM EDT) Anatomical Region Laterality Modality Brain Magnetic Resonan ce 09/18/2024 3:45 PM EDT Narrative 09/19/2024 7:45 AM EDT [place] [address] Magnetic Resonance Report Signed Patient: Lara Wyatt V MR#: [id number] : 1970 Acct:[id number] Age/Sex: 54 / F ADM Date: 09/18/24 Loc: HO.MRI Attending Dr: Joey Carter NP Ordering Physician: Joey Carter NP Date of Service: 09/18/24 Procedure(s): MR head/brain wo/w con Accession Number(s): [id number] cc: Fabby Hurt MD; Joey Carter NP [...] 09/19/24 0743 DD/ 1545 TD/TT: 09/18/24 1625 Independent Crop Consultant: Procedure Note Donotuseinterpreter, Image - 09/19/2024 [place] [address] Magnetic Resonance Report Signed Patient: Lara Wyatt VMR#: [id number] : 1970Acct:[id number] Age/Sex: 54 / FADM Date: 09/18/24 Loc: HO.MRI Attending Dr: Joey Carter NP Ordering Physician: Joey Carter NP Date of Service: 09/18/24 Procedure(s): MR head/brain wo/w con Accession Number(s): [id number] cc: Fabby Hurt MD; Joey Carter NP [...] 09/19/24 0743 DD/ 1545 TD/TT: 09/18/24 1625 Independent Crop Consultant: Alexxis Carter WAXED BAG MACHINE OPERATOR IMG MRI PROCEDURES Final Result * (ABNORMAL) POCT [...] EDT) ~Hepatitis B Surface Antibody NONREACTIVE Nonreactive [facility] Comment:Nonreactive: < 8.00 mIU/mL Hepatitis B Core Antibody Nonreactive Nonreactive [facility] Hepatitis C Antibody Nonreactive Nonreactive [facility] Comment:Antibodies to HCV no t detected; does not exclude early acuteHCV infection. Hepatitis B Surface Ag Negative Negative [facility] 06/12/2024 2:09 PM EDT 06/12/2024 5:24 PM EDT Generic External Data Provider LAB BLOOD ORDERAB LES Final Result [facility] [address] [place] [phone] * Albumin, Random Urine W/Creatinine (12/05/2023 12:10 PM EDT) Creatinine, Urine 161.60 mg/dL [facility] Microalbumin Urine 11.0 mg/L [facility] Microalbum Creatinine Ratio Ur 6.8 <30 ug/mg cr [facility] Comment:Albumin/Creatinine R atio Reference Ranges: Normal: < 30 ug/mg creatinine Microalbuminuria: 30 - 300 ug/mg creatinineClinical Albuminuria: > 300 ug/mg creatinine Urine 12/05/2023 12:1 0 PM EDT 12/05/2023 1:25 PM EDT us Fabby Hurt MD LAB URINE ORDERABLES Final Resul t [facility] [address] [place] [phone] * (ABNORMAL) Lipid Panel with Reflex to Direct LDL (12/05/2023 12:03 PM EDT) Triglycerides 162(H) <150 mg/dL [facility] Comment:Desirable Triglyceri de: less than 150 mg/dLBorderline High Triglyceride 150-199 mg/dLHigh Triglyceride: 200-499 mg/dLVery High Triglyceride: greater than or equal to 5OO mg/dL Cholesterol 239(H) <200 mg/dL [facility] Comment:Desirable Cholestero l: less than 200 mg/dLBorderline High Cholesterol: 200-239 mg/dLHigh Cholesterol: greater than 239 mg/dL LDL Cholesterol Calculated 153(H) <100 mg/dL [facility] Comment:Desirable LDL: less than 100 mg/dLNear Optimal/Above Optimal LDL: 110- 129 mg/dLBorderline High LDL: 130-159 mg/dLHigh LDL: 160-189 mg/dLVery High LDL: greater than or equal to 190 mg/dL HDL Cholesterol 54 >40 mg/dL [facility] Comment:Desirable HDL: great er than 40 mg/dL Note: This HDL assay may give artificially low results in patients with liver disease. Blood 12/05/2023 12:0 3 PM EDT 12/05/2023 1:42 PM EDT us Fabby Hurt MD LAB BLOOD ORDERABLES Final Resul t [facility] [address] [place] [phone] * BI Mammogram Screening Tomosynthesis Bilateral (11/15/2023 7:25 AM EDT) Anatomical Region Laterality Modality Breast Bilateral Mammography 11/15/2023 7:25 AM EDT Narrative 11/25/2023 4:49 PM EDT [address] [place] [address] Mammography Report Signed Patient: Lara Wyatt V MR#: [id number] : 1970 Acct:[id number] Age/Sex: 53 / F ADM Date: 11/15/23 Loc: HO.MAMMO Attending Dr: Fabby Hurt MD Ordering Physician: Fabby Hurt MD Results: 2Benign F indings Date of Service: 11/15/23 Follow Up: 1 Year From [facility] Mammogram Procedure(s): MM tomosynthesis screening BI Accession Number(s): [id number] cc: Fabby Hurt MD EXAMINATION: MM SCREENING [...] 11/25/23 1645 DD/ 0725 TD/TT: 11/15/23 0740 Independent Crop Consultant: Procedure Note Donotuseinterpreter, Image - 11/25/2023 [place] [address] [place] [address] Mammography Report Signed Patient: aLra Wyatt VMR#: [id number] : 1970Acct:[id number] Age/Sex: 53 / FADM Date: 11/15/23 Loc: GRIS Attending Dr: Fabby Hurt MD Ordering Physician: Fabby Hurt MDResults: 2Benign F indings Date of Service: 11/15/23Follow Up: 1 Year From Orig inal Mammogram Procedure(s): MM tomosynthesis screening BI Accession Number(s): [id number] cc: Fabby Hurt MD EXAMINATION: MM SCREENING [...] OV> 11/25/23 1645 DD/ TD/TT: 11/15/23 0740 Independent Crop Consultant: Fabby Hurt MD IMG BI PROCEDURES Final Result * Pap Smear (03/29/2023 12:00 AM EST) 03/29/2023 03/30/2023 7:2 0 AM EST [facility] - 04/13/2023 3:49 PM EST ----- ------- Name: EdmundoLara V Age/Sex: 52/F : 1970 Unit#: [id number] Attend Dr: Radha Oden CNM Re03/29/23 Status: DEP REF Location: [facility] Disch: ----- ------- SPEC : [id number] RECD: 03/30/2307 STATUS: KWASI GODOY NUM: [id number] KEELEY: 03/29/23-[address]: Radha Oden CNM ENTERED: 03/30/23-1151 SP TYPE: Pap Smr [facility] DR: Fabby Hurt MD ORDERED: Pap Smear Interpretation Unsatisfactory. Obscuring mucoid material. HPV mRNA E6/E7: NOT DETECTED This assay detects E6/E7 viral messenger RNA (mRNA) from 14 high-risk HPV types (16, 18, 31, 33, 35, 39, 45, 51, 52, 56, 58, 59, 66, 68) HPV testing performed by [facility], [place], [place]. See reference laboratory portion of the EMR for entire report. Clinical Information LMP: 09/17/2022 Previous PAP test: 02/04/2023, unsatisfact, Unknown findings Material Received ThinPrep-Cervical Copies To: Radha Oden [address] Baker [address] [place] [address] [phone] Fabby Hurt MD [address] [place], [place] [phone] ----- ------- Signed (signature on file) RAYN Gr (ASCP) 04/13/23 1549 ----- ------- END OF REPORT us Generic External Data Provider LAB CYTOLOGY JOHANNE SMALL Final Result [facility] [address] [place] [address] [phone] * Diabetes Eye Exam (05/11/2022) Eye Exam Normal Normal [facility] External Provider HEALTH MAINTENANCE Final Result * Colonoscopy (12/08/2021) Colonoscopy Normal Normal 12/08/2021 Historical Provider HEALTH MAINTENANCE Final Result * HIV 1/2 ANTIGEN/ANTIBODY,FOURTH GENERATION W/RFL (05/12/2021 12:00 AM EDT) HIV-1/2 ANTIGEN AND ANTIBODIES, 4TH GENERATION W/ REFLEX NON-REACT BRENDON NON-REACT BRENDON [facility] Comment: HIV-1 antigen and HIV-1/HIV-2 [...] purpose. For additional information please refer to http://education.GruvIt.Tellme/faq/URL287 (This link is being provided for informational/ educational purposes only.) The performance of this assay has not been clinically validated in patients less than 2 years old. 05/12/2021 Fabby Hurt MD LAB BLOOD ORDERABLES Final Resul t [facility] [address] * HPV E6/E7 RFLX EMERALD 16 18/45 (12/24/2020 2:14 PM EST) HPV mRNA E6/E7 rflx Not Detected Not Detected [facility] Comment: Methodology: Hotel Front Desk Clerk-Mediated Amplification This assay detects E6/E7 viral messenger RNA (mRNA) from 14 high-risk HPV types (16,18,31,33,35,39,45,51,52,56,58,59,66,68). The analytical performance characteristics of this assay have been determined by [facility]. The modifications have not been cleared or approved by the FDA. This assay has been validated pursuant to the CLIA regulations and is used for clinical purposes. For additional information, please refer to http://education.Mixercast/faq/WSI789q7 (This link if provided for information/ educational purposes only.) THIS TEST WAS PERFORMED AT: [facility] [address] [place] [address] [address] [address] MARIELLA ROCHA MD 12/24/2020 2:14 PM EST us Sabrina Calloway HISTORICAL/NON ORDERABLE LABS Fi nal Result Performing Organization Address City/State/[facility] Co de Phone Number [facility] [address] from Last 3 Months or Most Recently Relevant to Health Maintenance Insurance O * Guarantor: Lara Wyatt V Account Type Relation to Patient Date of Phone Billing Address Personal/Family Self [address] [place] [phone] Care Teams Polygraph Technician Relationship Specialty Start Date End Date Fabby Hurt MD [address] [place] [address] PCP - General Family Medicine 04/08/21 Chance Bonilla, CharlyD [address] [place] [address] Pharmacist Internal Medicine 11/30/22
== END 2024-12-14 08:22 | disposition home or self-care (01) ==
LOC: HO.MAMMO 08:21
PROVIDERS: PCP Family Medicine; Visit Provider Family Medicine
DX: Z12.31 Encounter for screening mammogram for malignant neoplasm of breast (principal)
CPT/HCPCS: 77063; 77067

== ENCOUNTER → 2024-12-14 08:45 | Outpatient (BNV) | payer BC, SELFPAY | PROVIDERS: PCP Family Medicine; Visit Provider Internal Medicine | DX: Z12.31 Encounter for screening mammogram for malignant neoplasm of breast (principal) | CPT/HCPCS: 77063; 77067 ==

== ENCOUNTER 2025-01-22 14:54 | Outpatient (AMB) | payer BC, SELFPAY ==
--- NOTE | 2025-01-22 15:21 | MHC.OFFVIS ---
Vital Signs 01/22/25 15:25 Height 4 ft 11 in Weight 220 lb BMI 44.4 BP 126/86 Intake Visit Reasons: Annual/co testing/DO NOT RS Facility Maintenance Manager Required: No Information Interpreted: non-clinical & clinical Operations Plant Attendant: Operations Plant Attendant Present (Jenny Berg LEONARDO) Accompanied by: Self / Same As Patient Allergies glipizide (GLIPIZIDE) Allergy (Severe, Verified 01/22/25 15:27) SHORTNESS OF BREATH contact metal agent Allergy (Mild, Verified 01/22/25 15:27) Rash, swelling environmental allergies Allergy (Unknown, Uncoded 01/22/25 15:27) Runny Nose, Sneezing, Itching onions Allergy (Unknown, Uncoded 01/22/25 15:27) Hives/Rash Post menopausal: Yes HPI Comments Details: Presenting for annual exam. No complaints. 04/02 Last Pap/HPV was unsatisfactory x2/HPV negative, followed by colpo biopsy ECC which came back negative Last Mammogram was in 01/01, BI-RADS 2 Last screening colonoscopy in 12/29 was negative, the recommendation was to repeat in 5 years [facility] Medical History Unsatisfactory cervical Papanicolaou smear Ruptured epidermal cyst Epidermal cyst Cloudy urine Joint pain in fingers of right hand Diverticulosis Herpes genitalis Yeast infection involving the vagina and surrounding area Carpal tunnel syndrome on right Pure hypercholesterolemia Hernia Borderline glaucoma (glaucoma suspect) HTN (hypertension) Diabetes mellitus Surgical History Hx of parathyroidectomy Hx of colonoscopy Hx of hernia repair Family History Father Diabetes mellitus Mother Diabetes mellitus HTN (hypertension) Social History Household Members: Spouse Housing: House Alcohol intake: never Patient Tobacco Use Status: Never used Tobacco Use of substances other than those prescribed or required for medical reasons: No Current occupational status: employed Current occupation: library Sexually active: Yes Sexual orientation: Straight/Heterosexual Gender identity: Female Female Reproductive History Menstrual Age of Menarche: 7 Total pregnancies: 0 Date of last pap smear: 03/30/23 Date of Mammogram: 12/14/24 Review of Systems Const All systems reviewed & are unremarkable except as noted in HPI and below Card Reports as per HPI Resp Reports as per HPI GI Reports as per HPI and Reports no additional complaints Reports as per HPI Physical Exam Vital Signs: Last Vital Signs BP 126/86 01/22/25 15:25 BMI result Body Mass Index 44.4 Const General: cooperative, healthy appearing and comfortable Chest Chest palpation & inspection: normal inspection of the chest and normal palpation of entire chest wall Breast/axilla inspection: normal inspection of the breasts and normal inspection of the axillae Breast/axilla palpation: normal palpation of the breasts, normal palpation of the axillae and no axillary lymphadenopathy Resp Effort & Inspection: normal respiratory effort Auscultation: clear to auscultation bilaterally Percussion: percussion normal Cardio Palpation: normal PMI Rate: regular rate Rhythm: regular rhythm Heart sounds: no murmurs and no rubs Peripheral pulses: Peripheral pulses 2+ throughout GI Inspection: Yes normal to inspection Palpation (GI): Soft to palpation, nontender, no guarding, not rigid and No hepatosplenomegaly present Percussion: Yes normal to percussion Auscultation: normal bowel sounds Rectal Exam - Female: deferred General: Yes bladder normal to palpation External Female Exam: No lesion Speculum Exam - Vagina: normal appearance of the vagina, normal palpation, normal vaginal discharge and not erythematous Speculum Exam - Cervix: normal appearance of the cervix and normal palpation Bimanual exam- vagina & uterus: normal bimanual exam, normal palpation, uterine size normal, bladder normal to palpation, consistency normal and normal palpation Bimanual Exam- Adnexa, other: normal adnexae, no masses and no tenderness Assessment & Plan Assessment & Plan (1) Well woman exam with routine gynecological exam: Code(s): Z01.419 - Encounter for gynecological examination (general) (routine) without abnormal findings Category: Medical Plan: Co testing done. Counseled the patient about the recommended dietary allowance of 1200 mg of Calcium & 600 IU of vitamin D. Instructions given to patient to schedule next screening Mammogram in 01/02. The patient was instructed to perform monthly self-breast exams and schedule annual exam in a year. All questions answered and the patient verbalized understanding. Coding Level of Care Code Est Pt Prev Care 40-64y(99169) Diagnoses Well woman exam with routine gynecological exam Z01.419
[2025-01-22 15:25] VITALS: BP 126/86; BMI 44.4
--- OUTSIDE RECORDS SUMMARY | 2025-01-22 19:16 | XMS_ITS | Clinical Summary ---
Author Organization [employer] Address [address] [facility] 7t [place] [address] Care Team Providers Care Chief Building Inspector Name Role Phone Fabby Hurt MD Primary Care Provider [phone] Chance Bonilla PharmD Unavailable [phone] Allergies Active Allergy Reactions Criticality Noted Date [...] on 11/30/2022 Blood Glucose Monitoring Suppl (FreeStyle [place] Lite) w/Device kitIndications:T ype 2 diabetes mellitus [...] ding area 08/23/2024 Obesity, morbid, BMI 40.0-49.9 ([facility]) 025 Hypopigmentation 08/23/2024 Rheumatoid arthritis ([facility]) 08/23/2024 Diabetes mellitus 08/23/2024 Tinea manuum 12/06/2023 Assessment & Plan (12/10/2023 6:40 AM EDT): Rash on right hand fingers, interdigital space -will prescribe Terbinafine cream -wear gloves when washing dishes or cleaning until it improves Tinea pedis of both feet 12/06/2023 Assessment & Plan (12/06/2023 12:53 PM EDT): Rash on bilateral toes. -will prescribe Terbinafine cream Seropositive rheumatoid arthritis ([facility]) 03/10 Assessment & Plan (07/09/2024 5:14 PM EDT): -Motion Picture Narrator, [facility], Dr. Chung, last seen on 06/12/24 -Biologic was recommended, but pt is hesitant - Currently prescribed methotrexate - Plan to start DMARD - Previously Prescribed Hydroxychloroquine - Prescribed celecoxib (CeleBREX) 200 MG capsule bid Assessment & Plan (04/01/2024 1:02 PM EST): -Motion Picture Narrator, [facility], Dr. Reinoso -Continue hydroxychloroquine 200 mg bid -Biologic was recommended, but pt is hesitant -Encouraged to schedule a follow up appointment and improve adherence to prescribed treatment - Prescribed celecoxib (CeleBREX) 200 MG capsule 03/27/24 Assessment & Plan (12/10/2023 6:45 AM EDT): -Motion Picture Narrator, [facility] -Continue hydroxychloroquine 200 mg bid -Biologic was recommended, but pt is hesitant -Encouraged to schedule a follow up appointment and improve adherence to prescribed treatment Assessment & Plan (01/31/2023 6:33 AM EST): -Motion Picture Narrator, [facility] -Continue hydroxychloroquine 200 mg bid -Biologic was recommended, but pt is hesitant Assessment & Plan (10/17/2022 10:05 AM EDT): -Motion Picture Narrator, [facility], Dr. Reinoso, last seen in August 2022 -Continue hydroxychloroquine 200 mg bid -Prescribed certolizumab, TNF antibody. Pt is hesitant to start Assessment & Plan (03/30/2022 7:57 PM EST): -Motion Picture Narrator, [facility] -Continue hydroxychloroquine 200 mg bid -Biologic [...] see other providers -Eye Exam: May 2022 [facility]. No diabetic retinopathy. -Foot [...] see other providers -Eye Exam: May 2022 [facility]. No diabetic retinopathy. -Foot [...] see other providers -Eye Exam: May 2022 [facility]. No diabetic retinopathy. -Foot [...] see other providers -Eye Exam: May 2022 [facility]. No diabetic retinopathy. -Foot [...] Encounters Date Type Department Care Team Description 12/14/2024 Orders Only [facility] MEDICINE [address] [place] [address] Fabby Hurt MD 10/27/2024 Orders Only GENERIC EXTERNAL DATA DEPARTMENT [...] 1970 Sigmoidoscopy 1970 Alcohol/Substance Use Screening 1980 RSV Patients and Patients Aged 60 years or older (1 - Risk 50-74 years 1-dose series) 2018 Zoster Vaccines (1 of 2) 2018 Eye Exam 05/11/2024 05/11/2022 COVID-19 Vaccine (3 season) 2024 01/18/2022, 05/14/2020 Influenza Vaccine (#1) [...] Screening 07/09/2025 07/09/2024 Disability Screening 08/24/2025 08/24/2024 HPV/Cotest 12/24/2025 12/24/2020 Cervical Cancer Screening 03/29/2026 Pap Smear 03/29/2026 03/29/2023, 02/03/2023 Mammogram 12/14/2026 12/14/2024, 1009/2023, 11/09/2022 Colonoscopy 12/09/2031 12/08/2021 Colorectal Cancer Screening 12/09/2031 DTaP/Tdap/Td Vaccines (4 - Td or Tdap) 09/27/2032 09/27/2022, 10/20/2017, 08/04/2011, Additional history exists Hepatitis A Vaccines Aged Out 10/18/2014, 01/22/20 [...] Procedure Name Priority Date/Time Associated Diagnosis Comments BI MAMMOGRAM SCREENING TOMOSYNTHESIS BILATERAL Routine 12/14/2024 8:30 AM EST ALT Routine 10/27/2024 10:41 AM EDT AST Routine 10/27/2024 10:41 AM EDT POCT GLYCOSYLATED HEMOGLOBIN (HGB A1C) Routine [...] hyperglycemia, without long-term current use of insulin ([facility]) PAP SMEAR Routine 03/29/2023 12:00 AM EST DIABETES EYE EXAM Routine 05/11/2022 COLONOSCOPY Routine 12/08/2021 HIV 1/2 ANTIGEN/ANTIBODY, FOURTH GENERATION W/RFL Routine 05/12/2021 12:00 AM EDT ZZZ HISTORICAL HPV E6/E7 RFLX EMERALD 16 18/45 Routine 12/24/2020 2:14 PM EST from Last 3 Months or Most Recently Relevant to Health Maintenance Results * BI Mammogram Screening Tomosynthesis Bilateral (12/14/2024 8:30 AM EST) Anatomical Region Laterality Modality Breast Bilateral Mammography 12/14/2024 8:30 AM EST Narrative 12/18/2024 9:17 AM EST [facility] [address] [place] [address] Mammography Report Signed Patient: Lara Wyatt V MR#: [id number] : 1970 Acct:[id number] Age/Sex: 54 / F ADM Date: 12/14/24 Loc: .MAMMO Attending Dr: Fabby Hurt MD Ordering Physician: Fabby Hurt MD Results: 2Benign Date of Service: 12/14/24 Follow Up: 1 Year From [facility] Mammogram Procedure(s): MM tomosynthesis screening BI Accession Number(s): [id number] cc: Fabby Hurt MD Reason For Exam: SCREENING EXAMINATION: MM SCREENING DIGITAL BREAST TOMOSYNTHESIS, BILATERAL CLINICAL INFORMATION: Screening. Asymptomatic. COMPARISON: Mammography: Comparison is made with available priors TECHNIQUE: Digital breast mammography with tomosynthesis is performed in both the craniocaudal and mediolateral oblique views along with computer-aided detection (CAD). FINDINGS: There are scattered areas of fibroglandular density. Right marker clip. There are no significant masses, abnormal calcifications, or other abnormalities. MM/MM tomosynthesis screening BI IMPRESSION: No mammographic evidence of malignancy. ASSESSMENT: BI-RADS Category 2: Benign RECOMMENDATION: Routine annual mammography screening. 1 year F/U This examination should not preclude the clinical evaluation of a suspicious palpable abnormality. This patient's information was entered into a reminder system with a target due date for their next mammogram. Electronically signed by: Crystal Dodson DO 12/18/2024 09:14 AM EST Dictated By: Crystal Dodson DO Signed By: <Electronically signed by Crystal Dodson DO in OV> 12/18/2414 DD/ 9 TD/TT: 12/14/24 0850 Top Installer: Procedure Note Donotuseinterpreter, Image - 12/18/2024 [facility]'[address] [place] [address] Mammography Report Signed Patient: Lara Wyatt VMR#: [id number] : 1970Acct:[id number] Age/Sex: 54 / FADM Date: 12/14/24 Loc: [facility] Attending Dr: Fabby Hurt MD Ordering Physician: Fabby Hurt MDResults: 2Benign Date of Service: 12/14/24Follow Up: 1 Year From [facility] Mammogram Procedure(s): MM tomosynthesis screening BI Accession Number(s): [id number] cc: Fabby Hurt MD Reason For Exam: SCREENING EXAMINATION: MM SCREENING DIGITAL BREAST TOMOSYNTHESIS, BILATERAL CLINICAL INFORMATION: Screening. Asymptomatic. COMPARISON: Mammography: Comparison is made with available priors TECHNIQUE: Digital breast mammography with tomosynthesis is performed in both the craniocaudal and mediolateral oblique views along with computer-aided detection (CAD). FINDINGS: There are scattered areas of fibroglandular density. Right marker clip. There are no significant masses, abnormal calcifications, or other abnormalities. MM/MM tomosynthesis screening BI IMPRESSION: No mammographic evidence of malignancy. ASSESSMENT: BI-RADS Category 2: Benign RECOMMENDATION: Routine annual mammography screening. 1 year F/U This examination should not preclude the clinical evaluation of a suspicious palpable abnormality. This patient's information was entered into a reminder system with a target due date for their next mammogram. Electronically signed by: Crystal Dodson DO 12/18/2024 09:14 AM EST Dictated By: Crystal Dodson DO Signed By: <Electronically signed by Crystal Dodson DO in OV> 12/18/24913 DD/ 9 TD/TT: 12/14/24 0850 Top Installer: us Fabby Hurt MD IMG BI PROCEDURES Edited Result - Final * ALT (10/27/2024 10:41 AM EDT) Alanine Aminotransferase 18 0 - 31 U/L [facility] 10/27/2024 10:4 1 AM EDT 10/27/2024 10:41 AM EDT us Generic External Data Provider LAB BLOOD ORDERAB LES Final Result Performing Organization Address [facility]/ZIP Co de Phone Number [facility] [address] [place] [address] [phone] * AST (10/27/2024 10:41 AM EDT) Aspartate Amino Transferase 20 5 - 31 U/L [facility] 10/27/2024 10:4 1 AM EDT 10/27/2024 10:41 AM EDT us Generic External Data Provider LAB BLOOD ORDERAB LES Final Result Performing Organization Address [facility] Co de Phone Number [facility] [address] [place] [phone] * (ABNORMAL) POCT glycosylated hemoglobin (Hgb [...] EDT) ~Hepatitis B Surface Antibody NONREACTIVE Nonreactive [facility] Comment:Nonreactive: < 8.00 mIU/mL Hepatitis B Core Antibody Nonreactive Nonreactive [facility] Hepatitis C Antibody Nonreactive Nonreactive [facility] Comment:Antibodies to HCV no t detected; does not exclude early acuteHCV infection. Hepatitis B Surface Ag Negative Negative [facility] 06/12/2024 2:09 PM EDT 06/12/2024 5:24 PM EDT Generic External Data Provider LAB BLOOD ORDERAB LES Final Result [facility] [address] [place], [place] [phone] * Albumin, Random Urine W/Creatinine (12/05/2023 12:10 PM EDT) Creatinine, Urine 161.60 mg/dL [facility] Microalbumin Urine 11.0 mg/L [facility] Microalbum Creatinine Ratio Ur 6.8 <30 ug/mg cr [facility] Comment:Albumin/Creatinine R atio Reference Ranges: Normal: < 30 ug/mg creatinine Microalbuminuria: 30 - 300 ug/mg creatinineClinical Albuminuria: > 300 ug/mg creatinine Urine 12/05/2023 12:1 0 PM EDT 12/05/2023 1:25 PM EDT Fabby Hurt MD LAB URINE ORDERABLES Final Resul t [facility] [address] [place] [phone] * (ABNORMAL) Lipid Panel with Reflex to Direct LDL (12/05/2023 12:03 PM EDT) Triglycerides 162(H) <150 mg/dL [facility] Comment:Desirable Triglyceri de: less than 150 mg/dLBorderline High Triglyceride 150-199 mg/dLHigh Triglyceride: 200-499 mg/dLVery High Triglyceride: greater than or equal to 5OO mg/dL Cholesterol 239(H) <200 mg/dL [facility] Comment:Desirable Cholestero l: less than 200 mg/dLBorderline High Cholesterol: 200-239 mg/dLHigh Cholesterol: greater than 239 mg/dL LDL Cholesterol Calculated 153(H) <100 mg/dL [facility] Comment:Desirable LDL: less than 100 mg/dLNear Optimal/Above Optimal LDL: 110- 129 mg/dLBorderline High LDL: 130-159 mg/dLHigh LDL: 160-189 mg/dLVery High LDL: greater than or equal to 190 mg/dL HDL Cholesterol 54 >40 mg/dL [facility] Comment:Desirable HDL: great er than 40 mg/dL Note: This HDL assay may give artificially low results in patients with liver disease. Blood 12/05/2023 12:0 3 PM EDT 12/05/2023 1:42 PM EDT Fabby Hurt MD LAB BLOOD ORDERABLES Final Resul t Performing Organization Address [facility]/State/ZIP Co de Phone Number [facility] [address] [place] [address] [phone] * Pap Smear (03/29/2023 12:00 AM EST) 03/29/2023 03/30/2023 7:2 0 AM EST Narrative [facility] - 04/13/2023 3:49 PM EST ----- ------- Name: Lara Wyatt V Age/Sex: 52/F : 1970 Unit#: [id number] Attend Dr: Radha Oden [facility] Re03/29/23 Status: DEP REF Location: [facility] Disch: ----- ------- SPEC : [id number] RECD: 03/30/23-20 STATUS: KWASI GODOY NUM: [id number] KEELEY: 03/29/23-[address]: Radha Oden [facility] ENTERED: 03/30/23-1151 SP TYPE: Pap Smr OTHR DR: Fabby Hurt MD ORDERED: Pap Smear Interpretation Unsatisfactory. Obscuring mucoid material. HPV mRNA E6/E7: NOT DETECTED This assay detects E6/E7 viral messenger RNA (mRNA) from 14 high-risk HPV types (16, 18, 31, 33, 35, 39, 45, 51, 52, 56, 58, 59, 66, 68) HPV testing performed by [facility], [place], [place]. See reference laboratory portion of the EMR for entire report. Clinical Information LMP: 09/17/2022 Previous PAP test: 02/04/2023, unsatisfact, Unknown findings Material Received ThinPrep-Cervical Copies To: Radha Oden[address] Baker [address] [place] [phone] Fabby Hurt MD [address] [place] [phone] ----- ------- Signed (signature on file) RYAN Gr ([facility]) 04/13/23 1549 ----- ------- END OF REPORT [facility] External Data Provider LAB CYTOLOGY ORDE RABLES Final Result [facility] [address] [place] [phone] * Diabetes Eye Exam (05/11/2022) Eye Exam Normal Normal [facility] External Provider HEALTH MAINTENANCE Final Result * Colonoscopy (12/08/2021) Pathologist [facility] Colonoscopy Normal Normal 12/08/2021 [facility] Provider MD HEALTH MAINTENANCE Final Result * HIV 1/2 ANTIGEN/ANTIBODY,FOURTH GENERATION W/RFL (05/12/2021 12:00 AM EDT) Pathologist [facility] HIV-1/2 ANTIGEN AND ANTIBODIES, 4TH GENERATION W/ [...] purpose. For additional information please refer to http://[employer]/faq/MZQ051 (This link is being provided for informational/ educational purposes only.) The performance of this assay has not been clinically validated in patients less than 2 years old. 05/12/2021 Fabby Hurt MD LAB BLOOD ORDERABLES Final Resul t Performing Organization Address [facility] de Phone Number [facility] [address] * HPV E6/E7 RFLX EMERALD 16 18/45 (12/24/2020 2:14 PM EST) [facility] HPV mRNA E6/E7 rflx Not Detected Not Detected [facility] Comment: Methodology: Flume Tender-Mediated Amplification This assay detects E6/E7 viral messenger RNA (mRNA) from 14 high-risk HPV types (16,18,31,33,35,39,45,51,52,56,58,59,66,68). The analytical performance characteristics of this assay have been determined by [facility]. The modifications have not been cleared or approved by the FDA. This assay has been validated pursuant to the CLIA regulations and is used for clinical purposes. For additional information, please refer to http://[employer]/faq/SAV469u2 (This link if provided for information/ educational purposes only.) THIS TEST WAS PERFORMED AT: [employer] [address] [place] [address] [address] [address] MARIELLA ROCHA MD 12/24/2020 2:14 PM EST Sabrina Calloway HISTORICAL/NON ORDERABLE LABS Fi nal Result Performing Organization Address [facility] Co de Phone Number [facility] [address] [place] [address] from Last 3 Months or Most Recently Relevant to Health Maintenance Insurance [address] [address] HMO Care Teams Chief Building Inspector Relationship Specialty Start Date End Date Fabby Hurt MD [address] [place] [address] PCP - General Family Medicine 04/08/21 Chance Bonilla, PharmD [address] [place] [address] Pharmacist Internal Medicine 11/30/22
--- OUTSIDE RECORDS SUMMARY | 2025-01-22 19:16 | XMS_ITS | Encounter Summary ---
Author Organization [employer] Address [address] [facility] 7[address] [place] [address] Care Team Providers Care Gas Maker Name Role Phone Fabby Hurt MD Primary Care Provider [phone] Chance Bonilla PharmD Unavailable [phone] Reason for Visit * Reason Onset Date Comments Reschedule 08/19/2023 Encounter Details Date Type Department Care Team ([facility] st Contact Info) Description 08/19/2023 Telephone [facility] [address] [place], [place] [phone] Fabby Hurt MD [address] [place], [place] [phone] Reschedule Social History Tobacco Use Types Packs/Day [...] documented as of this encounter Care Teams Gas Maker Relationship Specialty Start Date End Date Fabby Hurt MD [address] [place] [address] PCP - General Family Medicine 04/08/21 Chance Bonilla PharmD [address] [place] [phone] Pharmacist Internal Medicine 11/30/22 documented as of this encounter
--- OUTSIDE RECORDS SUMMARY | 2025-01-22 19:16 | XMS_ITS | Encounter Summary ---
Author Organization [employer] Address [address] [place] [address] 7 [place] [address] Care Team Providers Care Slab Depiler Operator Name Role Phone Fabby Hurt MD Primary Care Provider Chance Bonilla PharmD Unavailable [phone] Reason for Referral * Consultation (Urgent) - Closed Specialty Diagnoses / Procedures Referred By Contac t Referred To Contact Rheumatology Diagnoses Seropositive rheumatoid arthritis (CMS/HCC) (HCC) Fabby Hurt MD [address] [place] [address] Phone: tel: fax: [facility] Rheumatology [address] Phone: tel: fax: Referral ID Status Reason Start Date Expiration Date V isits Requested Visits Authorized [id number] Closed Specialty Services Required 06/04/2024 06/04/2025 12 12 Encounter Details Date Type Department Care Team (Late st Contact Info) Description 06/04/2024 Orders Only [facility] MEDICINE [address] [place], [place] [phone] Fabby Hurt MD [address] [place], [place] [phone] Seropositive rheumatoid arthritis (CMS/HCC) (Primary Dx) Social [...] Rheumatology Outpatient Referral Urgent Seropositive rheumatoid arthritis ([facility]) Expected: 06/04/2024 (Approximate), Expires: 06/04/2025 documented as [...] PM EDT Narrative 06/12/2024 3:54 PM EDT [address] [address] XRay Report Signed Patient: Lara Wyatt V MR#: [id number] : 1970 Acct:[id number] Age/Sex: 53 / F ADM Date: 06/12/24 Loc: [facility] Attending Dr: Dominguez Chung MD Ordering Physician: Dominguez Chung MD Date of Service: 06/12/24 Procedure(s): XR knee RT 2V Accession Number(s): [id number] cc: Fabby Hurt MD; Dominguez Chung MD [...] 06/12/24 1551 DD/ 1510 TD/TT: 06/12/24 1520 Block Captain: Procedure Note Donotuseinterpreter, Image - 06/12/[address] [address] XRay Report Signed Patient: Lara Wyatt VMR#: [id number] : 1970Acct:[id number] Age/Sex: 53 / FADM Date: 06/12/24 Loc: HO.XRAY Attending Dr: Dominguez Chung MD Ordering Physician: Dominguez Chung MD Date of Service: 06/12/24 Procedure(s): XR knee RT 2V Accession Number(s): [id number] cc: Fabby Hurt MD; Dominguez Chung MD [...] 06/12/24 1551 DD/ 1510 TD/TT: 06/12/24 1520 Block Captain: [facility] External Provider IMG XR PROCEDURES Final Result documented in this encounter Visit Diagnoses Diagnosis Seropositive rheumatoid arthritis (CMS/HCC) (HCC)- Primary documented in this encounter Additional Health Concerns Assessment Noted Time PHQ-9 Depression Total Score: 10 024 12:10 PM EDT documented as of this encounter Care Teams Slab Depiler Operator Relationship Specialty Start Date End Date Fabby Hurt MD [address] [place] [id number] PCP - General Family Medicine 04/08/21 Chance Bonilla, PharmD [address] [place] [address] Pharmacist Internal Medicine 11/30/22 documented as of this encounter
--- OUTSIDE RECORDS SUMMARY | 2025-01-22 19:16 | XMS_ITS | Encounter Summary ---
Author Organization [employer] Address [address] [facility] 7t [place] [address] Care Team Providers Care Crm Marketing Analyst Name Role Phone Fabby Hurt MD Primary Care Provider [phone] Chance Bonilla PharmD Unavailable [phone] Reason for Visit * Reason Comments Med Refill Encounter Details Date Type Department Care Team ([facility] st Contact Info) Description 12/05/2023 Refill [facility] MEDICINE [address] [place] [address] Vivian Baker ANP [address] [place] [address] Skin lesion Social History Tobacco Use Types [...] 12:10 PM EDT Edna Jordan MA * How difficult have these problems made it for you to do your work, take care of things at home, or get along with other people? Answer Date of Assessment Author Not difficult at all 12/05/2023 12:10 PM EDT Malissa Casas [place] * Over the past 2 weeks, [...] down Not at all 12/05/2023 12:10 PM NIKKIT Edna Jordan [place] Trouble concentrating on things, [...] documented as of this encounter Care Teams Crm Marketing Analyst Relationship Specialty Start Date End Date Fabby Hurt MD [address] [place] [address] PCP - General Family Medicine 04/08/21 Chance Bonilla PharmD [address] [place] [address] Pharmacist Internal Medicine 11/30/22 documented as of this encounter
--- OUTSIDE RECORDS SUMMARY | 2025-01-22 19:16 | XMS_ITS | Encounter Summary ---
Author Organization [employer] Address [address] [facility] 7t [place] [address] Care Team Providers Care Leather Belt Maker Name Role Phone Fabby Hurt MD Primary Care Provider [phone] Chance Bonilla PharmD Unavailable [phone] Reason for Visit * Reason Onset Date Comments Call Back Request 07/04/2024 Encounter Details Date Type Department Care Team ([facility] Contact Info) Description 07/04/2024 Telephone [facility] MEDICINE [address] [place], [place] [phone] Fabby Hurt MD [address] [place], [place] [phone] Call Back Request Social History Tobacco Use [...] 07/04/2024 4:22 PM EDT Pt walked into [employer] lobby regarding below message. Reports she is [...] Checked BLE, slight edema present, no pitting. [employer]OP [employer] is with her who reports he checks [...] or needs further reassurance, can go to [facility] if she would like. * Telephone Encounter - Yobani Juarez - 07/04/2024 3:42 PM EDT Tc from pt requesting call back stating she was informed she is unable to travel with permission from pcp do to her health conditions. Pt istates she will be traveling tomorrow and is requesting a call back to confirm. Please contact pt at [phone] documented in this encounter Plan of Treatment [...] documented as of this encounter Care Teams Leather Belt Maker Relationship Specialty Start Date End Date Fabby Hurt MD [address] [place] [address] PCP - General Family Medicine 04/08/21 Chance Bonilla PharmD [address] [place] [address] Pharmacist Internal Medicine 11/30/22 documented as of this encounter
--- OUTSIDE RECORDS SUMMARY | 2025-01-22 19:16 | XMS_ITS | Encounter Summary ---
Author Organization [employer] Address [address] [facility] 7t [place] [address] Care Team Providers Care License Clerk Name Role Phone Fabby Hurt MD Primary Care Provider [phone] Chance Bonilla PharmD Unavailable [phone] Encounter Details Date Type Department Care Team ([facility] st Contact Info) Description 05/31/2023 Orders Only [facility] MEDICINE [address] [place] [address] Fabby Hurt MD [address] [place] [address] Social History Tobacco Use Types Packs/Day Years [...] documented as of this encounter Care Teams License Clerk Relationship Specialty Start Date End Date Fabby Hurt MD [address] [place] [address] PCP - General Family Medicine 04/08/21 Chance Bonilla PharmD [address] [place] [address] Pharmacist Internal Medicine 11/30/22 documented as of this encounter
--- OUTSIDE RECORDS SUMMARY | 2025-01-22 19:16 | XMS_ITS | Encounter Summary ---
Author Organization [employer] Address [address] [facility] 7t [place] [address] Care Team Providers Care Flange Machine Operator Name Role Phone Fabby Hurt MD Primary Care Provider [phone] Chance Bonilla PharmD Unavailable [phone] Encounter Details Date Type Department Care Team ([facility] st Contact Info) Description 01/07/2023 Orders Only [facility] MEDICINE [address] [place] [address] Ruby Marin MD [address] [place] [address] Genital herpes simplex, unspecified site (Primary Dx); [...] vagina documented in this encounter Care Teams Flange Machine Operator Relationship Specialty Start Date End Date Fabby Hurt MD [address] [place] [address] PCP - General Family Medicine 04/08/21 Chance Bonilla PharmD [address] [place] [address] Pharmacist Internal Medicine 11/30/22 documented as of this encounter
--- OUTSIDE RECORDS SUMMARY | 2025-01-22 19:16 | XMS_ITS | Encounter Summary ---
Author Organization [employer] Address [address] [place] [address] 7t [place] [address] Care Team Providers Care Cut Off Operator Scorer Name Role Phone Fabby Hurt MD Primary Care Provider [phone] Chance Bonilla PharmD Unavailable [phone] Reason for Visit * Reason Onset Date Comments Med Refill 09/27/2022 Encounter Details Date Type Department Care Team ([facility] st Contact Info) Description 09/27/2022 Refill [facility] [address] [place] [phone] Ruby Marin MD [address] [place] [phone] Social History Tobacco Use Types Packs/Day Years [...] on filedocumented in this encounter Care Teams Cut Off Operator Scorer Relationship Specialty Start Date End Date Fabby Hurt MD [address] [place] [address] PCP - General Family Medicine 04/08/21 Chance Bonilla, PharmD [address] [place] [address] Pharmacist Internal Medicine 11/30/22 documented as of this encounter
--- OUTSIDE RECORDS SUMMARY | 2025-01-22 19:16 | XMS_ITS | Encounter Summary ---
Author Organization [employer] Address [address] [facility] 7t [place] [address] Care Team Providers Care Medical Collections Name Role Phone Fabby Hurt MD Primary Care Provider [phone] Chance Bonilla PharmD Unavailable [phone] Encounter Details Date Type Department Care Team ([facility] st Contact Info) Description 05/09/2024 Orders Only [facility] MEDICINE [address] [place] [address] Fabby Hurt MD [address] [place] [address] Social History Tobacco Use Types Packs/Day Years [...] documented as of this encounter Care Teams Medical Collections Relationship Specialty Start Date End Date Fabby Hurt MD [address] [place] [address] PCP - General Family Medicine 04/08/21 Chance Bonilla PharmD [address] [place] [address] Pharmacist Internal Medicine 11/30/22 documented as of this encounter
--- OUTSIDE RECORDS SUMMARY | 2025-01-22 19:16 | XMS_ITS | Encounter Summary ---
Author Organization [employer] Address [address] [facility] 7t [place] [address] Care Team Providers Care Assistant Speech Language Pathologist Name Role Phone Fabby Hurt MD Primary Care Provider [phone] Chance Bonilla PharmD Unavailable [phone] Encounter Details Date Type Department Care Team ([facility] st Contact Info) Description 12/07/2023 Abstract [facility] MEDICINE [address] [place] [address] Malissa Jordan [place] Social History Tobacco Use [...] documented as of this encounter Care Teams Assistant Speech Language Pathologist Relationship Specialty Start Date End Date Fabby Hurt MD [address] [place] [address] PCP - General Family Medicine 04/08/21 Chance Bonilla PharmD [address] [place] [address] Pharmacist Internal Medicine 11/30/22 documented as of this encounter
--- OUTSIDE RECORDS SUMMARY | 2025-01-22 19:16 | XMS_ITS | Encounter Summary ---
Author Organization [employer] Address [address] [facility] 7t [place] [address] Care Team Providers Care Recreation Center Director Name Role Phone Fabby Hurt MD Primary Care Provider [phone] Chance Bonilla PharmD Unavailable [phone] Encounter Details Date Type Department Care Team ([facility] st Contact Info) Description 12/20/2023 Orders Only [facility] MEDICINE [address] [place] [address] Fabby Hurt MD [address] [place] [address] Social History Tobacco Use Types Packs/Day Years [...] documented as of this encounter Care Teams Recreation Center Director Relationship Specialty Start Date End Date Fabby Hurt MD [address] [place] [address] PCP - General Family Medicine 04/08/21 Chance Bonilla PharmD [address] [place] [address] Pharmacist Internal Medicine 11/30/22 documented as of this encounter
== END 2025-01-22 15:57 | disposition home or self-care (01) ==
LOC: HO.HWS 14:54
PROVIDERS: PCP Family Medicine; Visit Provider Obstetrics & Gynecology
DX: Z01.419 Encounter for gynecological examination (general) (routine) without abnormal findings (principal)
CPT/HCPCS: 99396; 99459

== ENCOUNTER 2025-01-22 14:54 | Outpatient (REF) | payer BC, SELFPAY | END 2025-01-22 14:55 | disposition home or self-care (01) | LOC: HO.LNP 14:54 | PROVIDERS: PCP Family Medicine; Visit Provider Obstetrics & Gynecology | DX: Z01.419 Encounter for gynecological examination (general) (routine) without abnormal findings (principal); Z11.51 Encounter for screening for human papillomavirus (HPV) | CPT/HCPCS: 87626; 88175 ==